=== PATIENT | male | born 1945 | race Caucasian/White ===

== ENCOUNTER 2018-06-20 09:26 | Day surgery (SDC) | payer MEDICARE ==
[2018-06-16 09:13] VITALS: BMI 38.7
[~2018-06-20 09:26] MED LIST: ALPRAZolam 0.25 MG TAB PO PRN; ALPRAZolam 0.5 MG TAB PO PRN; ASPIRIN 325 MG TAB PO STA; ATORVASTATIN 80 MG TAB PO STA; NITROGLYCERIN SL TABS 0.4 MG TAB SUBLINGUAL PRN; SODIUM CHLORIDE 0.9% 1,000 ML in EMPTY BAG 1 BAG IV ONE
[2018-06-20] MEDS ORDERED: ASPIRIN 81 MG ONE (09:46)
[2018-06-20] MEDS ORDERED: ASPIRIN 81 MG PO ONE (09:48)
[2018-06-20] MEDS ORDERED: HEPARIN SODIUM 1,000 UN/ML (10ML VL) ONE (10:29)
[2018-06-20] MEDS ORDERED: VERAPAMIL 2.5 MG/ML 2 ML AMP ONE (10:29)
[2018-06-20] MEDS: MIDAZOLAM 2 MG/2 ML VIAL IV ONE ×3 (10:50→11:55)
[2018-06-20] MEDS ORDERED: LIDOCAINE 2% (PF) 20 MG/ML 10 ML AMP SQ ONE (10:52)
[2018-06-20] MEDS: VERAPAMIL SYRINGE (5 MG/10 ML) INTRAARTER ONE ×2 (10:55→12:10)
[2018-06-20] MEDS ORDERED: BIVALIRUDIN BOLUS 250 MG/50 ML IV ONE (11:11)
[2018-06-20] MEDS ORDERED: BIVALIRUDIN 250 MG in SODIUM CHLORIDE 0.9% 50 ML IV ONE ×2 (11:12→11:42)
[2018-06-20] MEDS ORDERED: IOPAMIDOL-370 125ML BTL INJ ONE ×2 (11:22→12:10)
[2018-06-20] MEDS ORDERED: NITROGLYCERIN 1000MCG/10ML SYRINGE INTRACORON ONE (12:05)
[2018-06-20] MEDS ORDERED: TICAGRELOR 90 MG TAB ONE (12:09)
[2018-06-20] MEDS ORDERED: TICAGRELOR 90 MG TAB PO ONE (12:10)
[2018-06-20] MEDS ORDERED: MAG HYDROX/AL HYDROX/SIMETH 30 ML CUP PO PRN (12:21)
[2018-06-20] MEDS ORDERED: ATROPINE SULFATE 0.1 MG/ML 10ML SYRINGE IV PRN (12:21)
[2018-06-20] MEDS ORDERED: RX INFO: IV CONTRAST WAS GIVEN 1 EACH MISC MISCELLANE PRN (12:21)
[2018-06-20] MEDS ORDERED: NITROGLYCERIN SL TABS 0.4 MG TAB SUBLINGUAL PRN (12:21)
[2018-06-20] MEDS ORDERED: ZOLPIDEM 5 MG TAB PO PRN (12:21)
[2018-06-20 15:15] VITALS: RESP 18
[2018-06-20] MEDS: SODIUM CHLORIDE 0.9% 1,000 ML IV SCH (19:00)
[2018-06-20] MEDS ORDERED: ATORVASTATIN 80 MG TAB PO SCH (21:00)
--- NOTE | 2018-06-20 21:57 | CC ---
CARDIAC CATHETERIZATION REPORT DATE OF SERVICE: 06/20/2018. PROCEDURE: 1. Left heart catheterization and coronary angiography. 2. PTCA and stenting of proximal RCA which was a heavily calcified vessel. 3. PTCA of mid and distal RCA as well as the PDA branch of RCA. PERFORMED BY: Dr. Monico Figueroa. SEDATION: Moderate conscious sedation time was 82 minutes. Patient was administered Versed. His oxygen saturation, hemodynamics were monitored closely. CLINICAL INFORMATION: Mr. Bridger Carter is a 72-year-old gentleman with a known history of hypertension, hyperlipidemia, and a recent abnormal stress test with a fixed inferior wall defect and moderate area of partial reversibility. He was advised cardiac cath after due discussion regarding the risks, benefits, and options. PROCEDURE NOTE: Under local anesthesia and strict aseptic precautions, a 6-Chinese introducer was placed in the right radial artery. Using a JL3.5 and JR 4.0 catheters, I performed selective coronary angiography. I checked LV pressures but I did not perform an LV-gram. Following the coronary angiography, I went ahead and performed PCI of the RCA, which was a very technically difficult challenging with heavily calcified right coronary artery. CARDIAC CATHETERIZATION FINDINGS: The left ventricular end-diastolic pressure was about 12 mmHg without any gradient across aortic valve. CORONARY ANGIOGRAPHY FINDINGS: RIGHT CORONARY ARTERY is very dominant vessel which had a very heavily calcified long area of 80% in the proximal 1/3, another 60-70, another 70% in the distal RCA and then that there was total occlusion of the PDA. PLV had minor moderate noncritical disease. This was a very dominant RCA. LEFT MAIN CORONARY ARTERY: This vessel had a 20% distal lesion and bifurcated into LAD and circumflex. LEFT ANTERIOR DESCENDING CORONARY ARTERY: This is a good caliber vessel gives which gives off a good-sized diagonal branch. Mid LAD after the diagonal branch and the diagonal branch itself have a 40% lesion each and with minor irregularities in the distal aspect of both these vessels. No critical lesions were noted in the LAD. LEFT POSTERIOR CIRCUMFLEX CORONARY ARTERY: Nondominant vessel of fair caliber and distribution has minor irregularities. No significant disease noted. LV gram was not performed and there was no gradient across aortic valve. Left ventricle end-diastolic pressure was 12 mmHg. PCI PROCEDURE DETAILS: For the PCI procedure I initially tried a RT 3.5, but had difficulty cannulating. Switched over to ART 4.0 guide catheter. With this, I got decent seating. I used a run-through wire to cross the lesion. Wire was kept distally. I tried to advance a 2.5 caliber 12 mm balloon. With that, I was able to give a dilatation only in the proximal portion of the lesion. The mid lesion in the proximal 1/3 could not be reached because of extreme tortuosity. I addressed this with a 1.5 caliber 8 mm balloon when I had a decent expansion. I then went ahead with a 2.5 balloon and dilated the mid segment. I then deployed a 2.5 caliber 15 mm long Xience stent in the proximal half of the heavily calcified lesion in the proximal 1/3 of the dominant RCA. Excellent angiographic result was achieved. However, I could not advance another stent beyond this because of extreme tortuosity. I therefore decided to perform a balloon angioplasty and using a 2.5 balloon and vignesh wire which was a whisper wire, I dilated the entire RCA in the mid and distal segment. Using a 2.25 caliber, 12 mm long, NC Trek balloon, I also did open the totally occluded PDA branch using a run-through wire. The PLV did not have any significant lesion. PDA was dilated with a 2.25 caliber balloon and the rest of RCA was dilated with a 2.5 caliber NC Trek balloon of 20 mm length. Excellent angiographic result was achieved. The proximal RCA was stented and the rest of the lesions were dilated and PDA which was totally occluded was also dilated. Excellent angiographic result was achieved with remarkably good flow in the PDA branch as well. The patient tolerated procedure well without complication. The sheath was taken out and a TR band applied as per protocol with good saturation of the fingers of the right hand and he was sent to the room in a stable condition. He received Brilinta 180 mg orally. Results were then discussed with the patient and his family members and I expect he will be discharged tomorrow if he remains stable. MMODL / IJN: [id number] /
[2018-06-21] MEDS: SODIUM CHLORIDE 0.9% 1,000 ML IV SCH (00:37)
[2018-06-21 03:58] VITALS: BP 143/72; PULSE 65; TEMP 98
[2018-06-21 06:09] LABS: Basophils # (A) 0.1 k/uL (0-0.2); Basophils % (A) 2 %; Eosinophils # (A) 0.2 k/uL (0-0.7); Eosinophils % (A) 3 %; HCT 38.1 % (39.0-53.0); HGB 12.1 gm/dL (13.0-17.5); Lymphocytes # (A) 0.4 k/uL (1.0-4.8); Lymphocytes % (A) 7 %; MCH 27.6 pg (25.0-35.0); MCHC 31.8 g/dL (31.0-37.0); MCV 86.8 fL (80.0-100.0); Mean Platelet Volume 6.7; Monocytes # (A) 0.5 k/uL (0-1.0); Monocytes % (A) 8 %; Neutrophils # (A) 4.6 k/uL (1.3-7.7); Neutrophils % (A) 77 %; Platelet Count 167 k/uL (150-450); RBC 4.39 m/uL (4.30-5.90); RDW 13.9 % (11.5-15.5)
[2018-06-21 06:20] LABS: Calcium 9.5 mg/dL (8.4-10.2); Potassium 4.5 mmol/L (3.5-5.1)
[2018-06-21] MEDS ORDERED: ATENOLOL 25 MG TAB PO SCH (09:00)
[2018-06-21] MEDS ORDERED: LOSARTAN 50 MG TAB PO SCH (09:00)
[2018-06-21] MEDS ORDERED: PARoxetine 20 MG TAB PO SCH (09:00)
[2018-06-21] MEDS ORDERED: ASPIRIN 81 MG PO SCH ×2 (09:00)
[2018-06-21] MEDS ORDERED: CLOPIDOGREL 75 MG TAB PO SCH (12:00)
--- NOTE | 2018-06-21 20:22 | DS ---
DISCHARGE SUMMARY DATE OF ADMISSION: 06/20/2018 DATE OF DISCHARGE: 06/21/2018. DIAGNOSIS: Unstable angina. PROCEDURES PERFORMED: 1. Left heart catheterization, coronary angiography. 2. Percutaneous transluminal coronary angioplasty and stenting of proximal right coronary artery. 3. Percutaneous transluminal coronary angioplasty of mid and distal right coronary artery. Mr. Bridger Carter is a 72-year-old gentleman with history of hypertension, hyperlipidemia, patient of Dr. Cliff Madera, with abnormal stress test. He was brought in for the procedure electively. Cardiac cath was performed from the right radial approach. He has noncritical disease in the left system with a 20% distal left main lesion. His RCA was highly diseased in the proximal one third heavily calcified, tortuous. I stented this with a drug-eluting stent, but beyond that because of tortuosity the stent could not be advanced. I gave multiple inflations in the mid and distal RCA with a very good angiographic result. The patient tolerated the procedure uneventfully. This morning he is doing well. His right radial cath site is clean and dry with a good pulse. His labs and EKGs are unremarkable. The patient is ambulating without symptoms. Discharge instructions regarding activity, diet and medications were given. The patient will be discharged today and I will see him in the office on July 24 at 2:30 p.m. Risk factor modification issues were reinforced. Medications were reviewed. Activity instructions were given. A copy of this note will go to his primary care physician. Vital signs are stable. S1, S2 heard normally. Short systolic murmur noted. Lungs are clear. Abdomen and lower extremity exam unchanged. Right radial cath site is clean and dry. MMODL / IJN: [id number] /
== END 2018-06-21 10:21 | disposition home or self-care (01) ==
LOC: CATHCVL 09:26 → 3SCARD 13:41 → CATHCVL 06-21 10:21
PROVIDERS: ATTEND Internal Medicine Interventional Cardiology
DX: I25.110 Atherosclerotic heart disease of native coronary artery with unstable angina pectoris (principal); I25.82 Chronic total occlusion of coronary artery; I77.1 Stricture of artery; R94.39 Abnormal result of other cardiovascular function study; I10 Essential (primary) hypertension; E78.5 Hyperlipidemia, unspecified; E78.00 Pure hypercholesterolemia, unspecified; M54.40 Lumbago with sciatica, unspecified side; Z72.0 Tobacco use; Z82.49 Family history of ischemic heart disease and other diseases of the circulatory system; Z86.73 Personal history of transient ischemic attack (TIA), and cerebral infarction without residual deficits; Z79.899 Other long term (current) drug therapy
CPT/HCPCS: 93458; 80048; 85025; C9600; C1769 ×3; C1887 ×2; C1725 ×4; C1874 ×2; C1894; J2250; J2001; J0583; J1644; Q9967

== ENCOUNTER 2018-10-17 09:42 | Emergency (ER) | payer MEDICARE ==
--- NOTE | 2018-10-17 11:09 | ED ---
General Adult HPI - General Chief complaint: Chest Pain Stated complaint: Chest pain Time Seen by Provider: 10/17/18 09:59 Source: patient Mode of arrival: wheelchair Limitations: no limitations - History of Present Illness Initial comments: Dictation was produced using [employer] dictation software. please excuse any grammatical, word or spelling errors. Chief Complaint: 72-year-old male past medical history coronary artery disease, [place] presents with left shoulder pain. History of Present Illness:-year-old male. He has past medical history of cardiac disease. He states he woke this morning with pain to his left shoulder. He states the pain radiates to his left chest. Patient states he had similar symptoms his right shoulder last 2 days however when we spontaneously. Patient states his pain is worse with movement. Cells worse with deep inspiration. Denies any crushing substernal chest pain since pain is sharp. Denies any numbness and paresthesias to the extremities. Patient denies any shortness of breath. The ROS documented in this emergency department record has been reviewed and confirmed by me. Those systems with pertinent positive or negative responses have been documented in the HPI. All other systems are other negative and/or noncontributory. PHYSICAL EXAM: General Impression: Alert and oriented x3, not in acute distress HEENT: Normocephalic atraumatic, extra-ocular movements intact, pupils equal and reactive to light bilaterally, mucous membranes moist. Cardiovascular: Heart regular rate and rhythm, S1&S2 audible, no murmurs, rubs or gallops Chest: Lungs clear to auscultation bilaterally, no rhonchi, no wheeze, no rales, tenderness to palpation over the pectoralis muscle on the left Abdomen: Bowel sounds present, abdomen soft, non-tender, non-distended, no organomegaly Musculoskeletal: Pulses present and equal in all extremities, no peripheral edema Motor: no focal deficits noted Neurological: CN II-XII grossly intact, no focal motor or sensory deficits noted Skin: Intact with no visualized rashes Psych: Normal affect and mood ED course:72-year-old male presents with chief complaint of atypical chest pain. Signs upon arrival are within acceptable limits. EKG is benign.Laboratory evaluation obtained. CBC and metabolic panel is unremarkable. Chest x-ray is nonacute. Shoulder x-ray shows arthropathy of the left shoulder. Patient's clinical presentation is atypical for acute coronary syndrome. Shoulder exercises were taught to patient form regularly. Patient given IV ketorolac. Patient prescription pain medications. He is given referral to [facility]. Patient clear for discharge. Return parameters discussed. EKG interpretation: Ventricular rate 65, normal sinus rhythm,. Interval 150, care is 156, QTC 476. No CO prolongation, no QTC prolongation, no ST or T-wave changes noted. EKG compared to June 21 2018 showing no changes. Overall, this EKG is unremarkable - Related Data Home Medications Medication Instructions Recorded Confirmed Aspirin [Adult Low Dose Aspirin EC] 162 mg PO DAILY 06/16/18 10/17/18 Atenolol [Tenormin] 25 mg PO DAILY 06/16/18 10/17/18 PARoxetine [Paxil] 20 mg PO DAILY 06/16/18 10/17/18 Atorvastatin [Lipitor] 80 mg PO DAILY 10/17/18 10/17/18 Losartan Potassium 100 mg PO DAILY 10/17/18 10/17/18 Previous Rx's Medication Instructions Recorded Clopidogrel [Plavix] 75 mg PO DAILY #90 tab 06/20/18 Nitroglycerin Sl Tabs [Nitrostat] 0.4 mg SUBLINGUAL Q5M PRN #25 tab 06/20/18 HYDROcodone/APAP 5-325MG [Combs 1 tab PO Q6HR PRN 3 Days #12 tab 10/17/18 5-325] Allergies Allergy/AdvReac Type Severity Reaction Status Date / Time No Known Allergies Allergy Verified 10/17/18 10:05 Review of Systems ROS Statement: Those systems with pertinent positive or pertinent negative responses have been documented in the HPI. ROS Other: All systems not noted in ROS Statement are negative. Past Medical History Past Medical History: CVA/TIA, Hypertension, Myocardial Infarction ([place]), Osteoarthritis (OA) Additional Past Medical History / Comment(s): TIA - no residual effects, Last Myocardial Infarction Date:: unknown History of Any Multi-Drug Resistant Organisms: None Reported Past Surgical History: Heart Catheterization With Stent Additional Past Surgical History / Comment(s): spinal steroid injections, Past Anesthesia/Blood Transfusion Reactions: No Reported Reaction Past Psychological History: No Psychological Hx Reported Smoking Status: Former smoker Past Alcohol Use History: Daily Past Drug Use History: None Reported - Past Family History Sister(s) Family Medical History: Cancer General Exam Limitations: no limitations Course Vital Signs 10/17/18 09:50 Temperature 97.7 F Pulse Rate 63 Respiratory 18 Rate Blood Pressure 178/73 O2 Sat by Pulse 98 Oximetry Medical Decision Making - Lab Data Result diagrams: 10/17/18 10:25 10/17/18 10:25 Lab Results 10/17/18 10/17/18 Range/Units 10:25 10:25 WBC 5.1 (3.8-10.6) k/uL RBC 4.59 (4.30-5.90) m/uL Hgb 12.1 L (13.0-17.5) gm/dL Hct 38.8 L (39.0-53.0) % MCV 84.6 (80.0-100.0) fL MCH 26.3 (25.0-35.0) pg MCHC 31.1 (31.0-37.0) g/dL RDW 14.7 (11.5-15.5) % Plt Count 221 (150-450) k/uL Neutrophils % 71 % Lymphocytes % 12 % Monocytes % 8 % Eosinophils % 4 % Basophils % 1 % Neutrophils # 3.6 (1.3-7.7) k/uL Lymphocytes # 0.6 L (1.0-4.8) k/uL Monocytes # 0.4 (0-1.0) k/uL Eosinophils # 0.2 (0-0.7) k/uL Basophils # 0.1 (0-0.2) k/uL Hypochromasia Slight Sodium 140 (137-145) mmol/L Potassium 4.7 (3.5-5.1) mmol/L Chloride 107 (98-107) mmol/L Carbon Dioxide 23 (22-30) mmol/L Anion Gap 10 mmol/L BUN 23 H (9-20) mg/dL Creatinine 0.78 (0.66-1.25) mg/dL Est GFR (CKD-EPI)AfAm >90 (>60 ml/min/1.73 sqM) Est GFR (CKD-EPI)NonAf >90 (>60 ml/min/1.73 sqM) Glucose 129 H (74-99) mg/dL Calcium 9.2 (8.4-10.2) mg/dL Total Bilirubin 0.5 (0.2-1.3) mg/dL AST 29 (17-59) U/L ALT 32 (21-72) U/L Alkaline Phosphatase 86 (38-126) U/L Total Protein 7.0 (6.3-8.2) g/dL Albumin 4.1 (3.5-5.0) g/dL Disposition Clinical Impression: Strain of chest wall Disposition: HOME SELF-CARE Condition: Good Instructions (If sedation given, give patient instructions): Chest Pain (ED) Prescriptions: HYDROcodone/APAP 5-325MG [Combs 5-325] 1 tab PO Q6HR PRN 3 Days #12 tab PRN Reason: Severe Pain Is patient prescribed a controlled substance at d/c from ED?: Yes If prescribed controlled substance>3 days was MAPS reviewed?: Prescribed <3 Days Referrals: Tato Whipple MD [STAFF PHYSICIAN] - 1-2 days Time of Disposition: 12:02
--- NOTE | 2018-10-17 11:26 | XR ---
EXAMINATION TYPE: XR shoulder complete LT DATE OF EXAM: 10/17/2018 CLINICAL HISTORY: Left shoulder pain TECHNIQUE: Three views of the left shoulder are obtained. COMPARISON: None. FINDINGS: There is no acute fracture/dislocation evident in the left shoulder. The acromioclavicula r and glenohumeral joint spaces are narrowed with marginal osteophytes. The visualized ribs are inta ct and unremarkable. IMPRESSION: There is no acute fracture or dislocation in the left shoulder. 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
--- NOTE | 2018-10-17 11:27 | XR ---
EXAMINATION TYPE: XR chest 2V DATE OF EXAM: 10/17/2018 COMPARISON: NONE HISTORY: Chest pain TECHNIQUE: Frontal and lateral views of the chest are obtained. FINDINGS: There is no focal air space opacity, pleural effusion, or pneumothorax seen. Hilar granulo mas are present. The cardiac silhouette size is upper limits of normal. Moderate multilevel degenera tive changes of the thoracic spine are seen. The osseous structures are intact. IMPRESSION: No acute cardiopulmonary process.
[2018-10-17 11:31] LABS: Basophils # (A) 0.1 k/uL (0-0.2); Basophils % (A) 1 %; Eosinophils # (A) 0.2 k/uL (0-0.7); Eosinophils % (A) 4 %; HCT 38.8 % (39.0-53.0); HGB 12.1 gm/dL (13.0-17.5); Hypochromasia Slight; Lymphocytes # (A) 0.6 k/uL (1.0-4.8); Lymphocytes % (A) 12 %; MCH 26.3 pg (25.0-35.0); MCHC 31.1 g/dL (31.0-37.0); MCV 84.6 fL (80.0-100.0); Mean Platelet Volume 7.5; Monocytes # (A) 0.4 k/uL (0-1.0); Monocytes % (A) 8 %; Neutrophils # (A) 3.6 k/uL (1.3-7.7); Neutrophils % (A) 71 %; Platelet Count 221 k/uL (150-450); RBC 4.59 m/uL (4.30-5.90); RDW 14.7 % (11.5-15.5); WBC 5.1 k/uL (3.8-10.6)
[2018-10-17 11:43] LABS: ALT 32 U/L (21-72); AST 29 U/L (17-59); Albumin 4.1 g/dL (3.5-5.0); Alkaline Phosphatase 86 U/L (38-126); Anion Gap 10 mmol/L; Blood Urea Nitrogen 23 mg/dL (9-20); Calcium 9.2 mg/dL (8.4-10.2); Carbon Dioxide 23 mmol/L (22-30); Chloride 107 mmol/L (98-107); Glucose 129 mg/dL (74-99); Potassium 4.7 mmol/L (3.5-5.1); Sodium 140 mmol/L (137-145); Total Bilirubin 0.5 mg/dL (0.2-1.3)
[2018-10-17] MEDS ORDERED: KETOROLAC 30 MG/ML 1 ML VIAL IVP STA (11:57)
[2018-10-17 13:00] VITALS: BP 149/84; PULSE 65; RESP 18; TEMP 98.2
== END 2018-10-17 12:57 | disposition home or self-care (01) ==
LOC: EC 09:42
DX: S29.011A Strain of muscle and tendon of front wall of thorax, initial encounter (principal); I10 Essential (primary) hypertension; I25.2 Old myocardial infarction; Z86.73 Personal history of transient ischemic attack (TIA), and cerebral infarction without residual deficits; Z87.891 Personal history of nicotine dependence; Z79.82 Long term (current) use of aspirin; Z79.899 Other long term (current) drug therapy; Z95.5 Presence of coronary angioplasty implant and graft
CPT/HCPCS: 36415; 93005; 80053; 85025; 73030; 71046; 99285; 96374; J1885

== ENCOUNTER 2021-11-18 11:14 | Inpatient (IN) | payer MEDICARE ==
--- NOTE | 2021-11-18 11:27 | ED ---
SOB HPI - General Chief Complaint: Shortness of Breath Stated Complaint: MONET Time Seen by Provider: 11/18/21 11:14 Source: patient, EMS, RN notes reviewed Mode of arrival: EMS Limitations: no limitations - History of Present Illness Initial Comments: 75-year-old male with a history of COPD who states he had the onset last evening of shortness of breath exertional dyspnea he was found this morning at elevated temperature approximately 103 per paramedics. He was wheezing. He was given a DuoNeb treatment as well as IV steroids with some improvement. He denies any chest pain or palpitations. He has a nonproductive cough he feels chilled upon arrival. No other complaints or modifying factors he denies any exposure to covid . He has had all of his shots except for the latest booster no exposure to influenza MD Complaint: shortness of breath - Related Data Home Medications Medication Instructions Recorded Confirmed Aspirin [Adult Low Dose Aspirin EC] 81 mg PO DAILY 06/16/18 11/18/21 PARoxetine [Paxil] 20 mg PO DAILY 06/16/18 11/18/21 Furosemide [Lasix] 40 mg PO DAILY 11/18/21 11/18/21 Losartan Potassium 100 mg PO DAILY 11/18/21 11/18/21 Rosuvastatin [Crestor] 20 mg PO DAILY 11/18/21 11/18/21 atenoloL [Tenormin] 50 mg PO BID 11/18/21 11/18/21 hydroCHLOROthiazide [Hydrodiuril] 25 mg PO DAILY 11/18/21 11/18/21 Previous Rx's Medication Instructions Recorded Clopidogrel [Plavix] 75 mg PO DAILY #90 tab 06/20/18 Nitroglycerin Sl Tabs [Nitrostat] 0.4 mg SUBLINGUAL Q5M PRN #25 tab 06/20/18 Allergies Allergy/AdvReac Type Severity Reaction Status Date / Time No Known Allergies Allergy Verified 11/18/21 13:29 Review of Systems ROS Statement: Those systems with pertinent positive or pertinent negative responses have been documented in the HPI. ROS Other: All systems not noted in ROS Statement are negative. Past Medical History Past Medical History: CVA/TIA, Hypertension, Myocardial Infarction ([place]), Osteoarthritis (OA) Additional Past Medical History / Comment(s): TIA - no residual effects, Last Myocardial Infarction Date:: unknown History of Any Multi-Drug Resistant Organisms: None Reported Past Surgical History: Heart Catheterization With Stent Additional Past Surgical History / Comment(s): spinal steroid injections, Past Anesthesia/Blood Transfusion Reactions: No Reported Reaction Past Psychological History: No Psychological Hx Reported Smoking Status: Former smoker Past Alcohol Use History: Daily Past Drug Use History: None Reported - Past Family History Sister(s) Family Medical History: Cancer General Exam - General Exam Comments Initial Comments: Is a well-developed well-nourished awake alert oriented 4 male Limitations: no limitations General appearance: alert, anxious, in distress Head exam: Present: atraumatic, normocephalic, normal inspection Eye exam: Present: normal appearance, PERRL, EOMI. Absent: scleral icterus, conjunctival injection, periorbital swelling ENT exam: Present: normal exam, mucous membranes moist Neck exam: Present: normal inspection, full ROM, other. Absent: tenderness, meningismus, lymphadenopathy Respiratory exam: Present: wheezes (Occasional wheezing heard), decreased breath sounds (No stridor JVD or bruits). Absent: respiratory distress, rales, rhonchi, stridor Cardiovascular Exam: Present: normal rhythm, tachycardia, normal heart sounds. Absent: systolic murmur, diastolic murmur, rubs, gallop, clicks GI/Abdominal exam: Present: soft, normal bowel sounds. Absent: distended, tenderness, guarding, rebound, rigid Extremities exam: Present: full ROM, normal capillary refill, pedal edema. Absent: tenderness, joint swelling, calf tenderness Back exam: Present: normal inspection Neurological exam: Present: alert, oriented X3, CN II-XII intact Psychiatric exam: Present: normal affect, normal mood Skin exam: Present: warm, dry, intact, normal color. Absent: rash Course Vital Signs 11/18/21 11/18/21 11:17 13:36 Temperature 99.6 F Pulse Rate 108 H 97 Respiratory 20 Rate Blood Pressure 129/49 121/60 O2 Sat by Pulse 96 96 Oximetry - Reevaluation(s) Reevaluation #1: 11/18/21 14:12 Elevated lactic acid level is likely due to intravascular viral depletion Medical Decision Making - Medical Decision Making I did reevaluate patient on multiple occasions he is feeling better with respect to breathing he denies any chest pain. We did discuss the findings including elevated troponin level. He's had no symptoms with respect to urination however he does demonstrate evidence of a UTI he will be admitted the case was discu ssed with Dr. Beckman also with Vicky from Dr. Yang's group. - Lab Data Result diagrams: 11/18/21 11:28 11/18/21 11:28 Lab Results 11/18/21 11/18/21 11/18/21 Range/Units 11:28 11:28 11:28 WBC 7.5 (3.8-10.6) k/uL RBC 3.87 L (4.30-5.90) m/uL Hgb 10.9 L (13.0-17.5) gm/dL Hct 34.1 L (39.0-53.0) % MCV 88.1 (80.0-100.0) fL MCH 28.2 (25.0-35.0) pg MCHC 32.0 (31.0-37.0) g/dL RDW 14.5 (11.5-15.5) % Plt Count 194 (150-450) k/uL MPV 7.3 Neutrophils % 95 % Lymphocytes % 1 % Monocytes % 2 % Eosinophils % 1 % Basophils % 1 % Neutrophils # 7.2 (1.3-7.7) k/uL Lymphocytes # 0.1 L (1.0-4.8) k/uL Monocytes # 0.1 (0-1.0) k/uL Eosinophils # 0.1 (0-0.7) k/uL Basophils # 0.1 (0-0.2) k/uL Manual Slide Review Performed RBC Morphology Normal PT 10.6 (9.0-12.0) sec INR 1.0 (<1.2) APTT 21.8 L (22.0-30.0) sec Sodium (137-145) mmol/L Potassium (3.5-5.1) mmol/L Chloride (98-107) mmol/L Carbon Dioxide (22-30) mmol/L Anion Gap mmol/L BUN (9-20) mg/dL Creatinine (0.66-1.25) mg/dL Est GFR (CKD-EPI)AfAm (>60 ml/min/1.73 sqM) Est GFR (CKD-EPI)NonAf (>60 ml/min/1.73 sqM) Glucose (74-99) mg/dL Plasma Lactic Acid Casa (0.7-2.0) mmol/L Calcium (8.4-10.2) mg/dL Magnesium (1.6-2.3) mg/dL Total Bilirubin (0.2-1.3) mg/dL AST (17-59) U/L ALT (4-49) U/L Alkaline Phosphatase (38-126) U/L Troponin I (0.000-0.034) ng/mL NT-Pro-B Natriuret Pep pg/mL Total Protein (6.3-8.2) g/dL Albumin (3.5-5.0) g/dL Urine Color Yellow Urine Appearance Turbid (Clear) Urine pH 6.0 (5.0-8.0) Ur Specific [place] 1.016 (1.001-1.035) Urine Protein Trace H (Negative) Urine Glucose (UA) Negative (Negative) Urine Ketones Negative (Negative) Urine Blood Moderate H (Negative) Urine Nitrite Positive (Negative) Urine Bilirubin Negative (Negative) Urine Urobilinogen <2.0 (<2.0) mg/dL Ur Leukocyte Esterase Large H (Negative) Urine RBC 24 H (0-5) /hpf Urine WBC >182 H (0-5) /hpf Urine WBC Clumps Many H (None) /hpf Urine Bacteria Many H (None) /hpf Urine Mucus Occasional H (None) /hpf Coronavirus (PCR) (Not Detectd) Influenza Type A RNA (Not Detectd) Influenza Type B (PCR) (Not Detectd) 11/18/21 11/18/21 11/18/21 Range/Units 11:28 11:28 11:28 WBC (3.8-10.6) k/uL RBC (4.30-5.90) m/uL Hgb (13.0-17.5) gm/dL Hct (39.0-53.0) % MCV (80.0-100.0) fL MCH (25.0-35.0) pg MCHC (31.0-37.0) g/dL RDW (11.5-15.5) % Plt Count (150-450) k/uL MPV Neutrophils % % Lymphocytes % % Monocytes % % Eosinophils % % Basophils % % Neutrophils # (1.3-7.7) k/uL Lymphocytes # (1.0-4.8) k/uL Monocytes # (0-1.0) k/uL Eosinophils # (0-0.7) k/uL Basophils # (0-0.2) k/uL Manual Slide Review RBC Morphology PT (9.0-12.0) sec INR (<1.2) APTT (22.0-30.0) sec Sodium 138 (137-145) mmol/L Potassium 4.0 (3.5-5.1) mmol/L Chloride 104 (98-107) mmol/L Carbon Dioxide 24 (22-30) mmol/L Anion Gap 10 mmol/L BUN 25 H (9-20) mg/dL Creatinine 1.04 (0.66-1.25) mg/dL Est GFR (CKD-EPI)AfAm 81 (>60 ml/min/1.73 sqM) Est GFR (CKD-EPI)NonAf 70 (>60 ml/min/1.73 sqM) Glucose 115 H (74-99) mg/dL Plasma Lactic Acid [place] 2.7 H* (0.7-2.0) mmol/L Calcium 8.5 (8.4-10.2) mg/dL Magnesium 1.8 (1.6-2.3) mg/dL Total Bilirubin 0.6 (0.2-1.3) mg/dL AST 31 (17-59) U/L ALT 23 (4-49) U/L Alkaline Phosphatase 69 (38-126) U/L Troponin I 1.680 H* (0.000-0.034) ng/mL NT-Pro-B Natriuret Pep pg/mL Total Protein 6.8 (6.3-8.2) g/dL Albumin 3.9 (3.5-5.0) g/dL Urine Color Urine Appearance (Clear) Urine pH (5.0-8.0) Ur Specific [place] (1.001-1.035) Urine Protein (Negative) Urine Glucose (UA) (Negative) Urine Ketones (Negative) Urine Blood (Negative) Urine Nitrite (Negative) Urine Bilirubin (Negative) Urine Urobilinogen (<2.0) mg/dL Ur Leukocyte Esterase (Negative) Urine RBC (0-5) /hpf Urine WBC (0-5) /hpf Urine WBC Clumps (None) /hpf Urine Bacteria (None) /hpf Urine Mucus (None) /hpf Coronavirus (PCR) (Not Detectd) Influenza Type A RNA (Not Detectd) Influenza Type B (PCR) (Not Detectd) 11/18/21 11/18/21 11/18/21 Range/Units 11:28 11:28 11:28 WBC (3.8-10.6) k/uL RBC (4.30-5.90) m/uL Hgb (13.0-17.5) gm/dL Hct (39.0-53.0) % MCV (80.0-100.0) fL MCH (25.0-35.0) pg MCHC (31.0-37.0) g/dL RDW (11.5-15.5) % Plt Count (150-450) k/uL MPV Neutrophils % % Lymphocytes % % Monocytes % % Eosinophils % % Basophils % % Neutrophils # (1.3-7.7) k/uL Lymphocytes # (1.0-4.8) k/uL Monocytes # (0-1.0) k/uL Eosinophils # (0-0.7) k/uL Basophils # (0-0.2) k/uL Manual Slide Review RBC Morphology PT (9.0-12.0) sec INR (<1.2) APTT (22.0-30.0) sec Sodium (137-145) mmol/L Potassium (3.5-5.1) mmol/L Chloride (98-107) mmol/L Carbon Dioxide (22-30) mmol/L Anion Gap mmol/L BUN (9-20) mg/dL Creatinine (0.66-1.25) mg/dL Est GFR (CKD-EPI)AfAm (>60 ml/min/1.73 sqM) Est GFR (CKD-EPI)NonAf (>60 ml/min/1.73 sqM) Glucose (74-99) mg/dL Plasma Lactic Acid Casa (0.7-2.0) mmol/L Calcium (8.4-10.2) mg/dL Magnesium (1.6-2.3) mg/dL Total Bilirubin (0.2-1.3) mg/dL AST (17-59) U/L ALT (4-49) U/L Alkaline Phosphatase (38-126) U/L Troponin I (0.000-0.034) ng/mL NT-Pro-B Natriuret Pep 1660 pg/mL Total Protein (6.3-8.2) g/dL Albumin (3.5-5.0) g/dL Urine Color Urine Appearance (Clear) Urine pH (5.0-8.0) Ur Specific [place] (1.001-1.035) Urine Protein (Negative) Urine Glucose (UA) (Negative) Urine Ketones (Negative) Urine Blood (Negative) Urine Nitrite (Negative) Urine Bilirubin (Negative) Urine Urobilinogen (<2.0) mg/dL Ur Leukocyte Esterase (Negative) Urine RBC (0-5) /hpf Urine WBC (0-5) /hpf Urine WBC Clumps (None) /hpf Urine Bacteria (None) /hpf Urine Mucus (None) /hpf Coronavirus (PCR) Not Detected (Not Detectd) Influenza Type A RNA Not Detected (Not Detectd) Influenza Type B (PCR) Not Detected (Not Detectd) - EKG Data -: EKG Interpreted by Oh EKG shows normal: sinus rhythm EKG Comments: EKG shows sinus tachycardia occasional PVCs ventricular rate 103. Interval 163 QRS 166 QT/QTC 365/425 borderline left exodeviation right bundle-branch block pattern seen with compared with an EKG dated 10/17/18 showing very similar configuration. - Radiology Data Radiology results: report reviewed (Imaging reviewed no definitive abnormalities and lateral view does appear to show increased markings), image reviewed Critical Care Time Critical Care Time: Yes Total Critical Care Time: 31 Critical Care Time: Critical care time includes initial presentation with history physical labs x- rays discussed with paramedics upon arrival mobile reevaluation the patient response to therapy discuss with the admitting physician and consult. Discussed with family members review of old charting was available admission orders and documentation of the above Disposition Clinical Impression: Non-ST elevation myocardial infarction (NSTEMI), COPD with exacerbation, Urinary tract infection, Febrile illness, acute, Elevated brain natriuretic peptide (BNP) level, Elevated lactic acid level Disposition: ADMITTED IP TO THIS HOSP Condition: Fair Referrals: Bora Madera MD [Primary Care Provider] - 1-2 days Decision Date: 11/18/21 Decision Time: 14:00
[2021-11-18 12:17] LABS: Albumin 3.9 g/dL (3.5-5.0); Calcium 8.5 mg/dL (8.4-10.2); Magnesium 1.8 mg/dL (1.6-2.3); Total Bilirubin 0.6 mg/dL (0.2-1.3); Total Protein 6.8 g/dL (6.3-8.2)
[2021-11-18 12:24] LABS: Basophils # (A) 0.1 k/uL (0-0.2); Basophils % (A) 1 %; Eosinophils # (A) 0.1 k/uL (0-0.7); Eosinophils % (A) 1 %; HCT 34.1 % (39.0-53.0); HGB 10.9 gm/dL (13.0-17.5); Lymphocytes # (A) 0.1 k/uL (1.0-4.8); Lymphocytes % (A) 1 %; MCH 28.2 pg (25.0-35.0); MCV 88.1 fL (80.0-100.0); Mean Platelet Volume 7.3; Monocytes # (A) 0.1 k/uL (0-1.0); Monocytes % (A) 2 %; Neutrophils # (A) 7.2 k/uL (1.3-7.7); Neutrophils % (A) 95 %; Platelet Count 194 k/uL (150-450); RBC 3.87 m/uL (4.30-5.90); RDW 14.5 % (11.5-15.5); WBC 7.5 k/uL (3.8-10.6)
[2021-11-18 12:25] LABS: Prothrombin Time 10.6 sec (9.0-12.0)
--- NOTE | 2021-11-18 12:36 | XR ---
EXAMINATION TYPE: XR chest 2V DATE OF EXAM: 11/18/2021 COMPARISON: 10/17/2018 INDICATION: Difficulty breathing TECHNIQUE: Frontal and lateral views of the chest are obtained. Lateral view is limited due to motio n artifact. FINDINGS: The heart size is normal. The pulmonary vasculature is normal. The lungs are clear. IMPRESSION: 1. No acute pulmonary process.
[2021-11-18 12:49] LABS: Partial Thromboplastin Time 21.8 sec (22.0-30.0)
[2021-11-18 13:21] LABS: Appearance,Urine Turbid (Clear); Bacteria,Urine Many /hpf; Bilirubin,Urine Negative (Negative); Blood,Urine Moderate (Negative); Color,Urine Yellow; Glucose,Urine (UA) Negative (Negative); Ketones,Urine Negative (Negative); Leukocyte Esterase,Urine Large (Negative); Mucus,Urine Occasional /hpf; Nitrite,Urine Positive (Negative); Protein,Urine Trace (Negative); RBC,Urine 24 /hpf (0-5); Specific Gravity,Urine 1.016 (1.001-1.035); Urobilinogen,Urine <2.0 mg/dL (<2.0); WBC,Urine >182 /hpf (0-5)
[2021-11-18] MEDS ORDERED: HEPARIN SODIUM 1,000 UN/ML (10ML VL) IV ONE (13:34)
[2021-11-18] MEDS ORDERED: HEPARIN SODIUM 1,000 UN/ML (10ML VL) IV PRN (13:34)
[2021-11-18 13:52] LABS: RBC Morphology Normal
[2021-11-18] MEDS ORDERED: NITROGLYCERIN SL TABS 0.4 MG TAB SUBLINGUAL PRN ×2 (14:13→22:25)
[2021-11-18] MEDS: HEPARIN SOD,PORK IN 0.45% NACL 25,000 UNIT in 0.45% NACL 1 250ML.BAG IV SCH (14:23)
--- NOTE | 2021-11-18 14:28 | P.CRDCN ---
History of Present Illness History of present illness: HISTORY OF PRESENTING ILLNESS This is a pleasant 75-year-old male past medical history significant for coronary artery disease status post PCI of the RCA in 2019, hypertension, dyslipidemia, former smoker, TIA, alcohol abuse. He follows in the office with Dr. Figueroa. We have been asked to see in consultation for elevated troponin. Patient presents to the ER with complaints of shortness of breath, exertional dyspnea, fever of 103, some wheezing. Patient states a month ago he had symptoms of chills, fever and shortness of breath, it resolved. Over the past 2 days he has noticed increased fatigue, shortness of breath, worsening exertional dyspnea. He also has been having symptoms of chills and a fever. He denies any chest pain, lightheadedness, dizziness, syncope or near-syncope. He denies any symptoms of orthopnea or PND. He states he quit smoking 30 years ago. States he stopped drinking alcohol 1 month ago. DIAGNOSTICS * EKG reveals sinus tachycardia HR 103, right bundle branch block, left axis deviation, no acute ischemia noted. Prior EKG in 2019 with similar right bundle branch block. * Chest xray no acute cardiopulmonary process. * Laboratory reviewed, troponin 1.6, pro BNP 1660 sodium 138, potassium 4.0, BUN 25, serum creatinine 1.04, lactate 2.7, magnesium 1.8, UA positive for UTI, hgb 10.9, influenza, and covid negative * Current home cardiac medications include hydrochlorothiazide 25 mg daily, atenolol 50 mg twice a day, rosuvastatin 20 mg daily, losartan 100 mg daily, Lasix 40 mg daily, Plavix 75 mg daily, aspirin 81 mg daily * Most recent echocardiogram the office 08/2021 revealed EF of 5055%, small area of inferior wall base similar to previous echo, moderate tricuspid regurgitation * Cardiac catheterization in 2019 revealed heavily calcified RCA with mulitple critical lesion and total occlusion of PLV branch, 15-20% stenosis in left main, 40% stenosis mid LAD lesion, circumflex with no significant disease. Patient underwent PCI to proximal RCA and mid and distal RCA, PDA branch of the RCA as well. REVIEW OF SYSTEMS At the time of my exam: CONSTITUTIONAL: +fever +chills. CARDIOVASCULAR: Denies chest pain, +shortness of breath, Denies orthopnea, PND or palpitations. RESPIRATORY: Denies cough. GASTROINTESTINAL: Denies abdominal pain, diarrhea, constipation, nausea or vomiting. MUSCULOSKELETAL: Denies myalgias. NEUROLOGIC: Denies numbness, tingling, headacbe or weakness. ENDOCRINE: Denies fatigue, weight change, polydipsia or polyurina. GENITOURINARY: Denies burning, hematuria or urgency with micturation. HEMATOLOGIC: + history of anemia Denies bleeding. PHYSICAL EXAMINATION Blood pressure 121/60 HR 97, temp 99.6, 96% on room air CONSTITUTIONAL: No apparent distress. HEENT: Head is normocephalic. Pupils are equal, round. Sclerae anicteric. Mucous membranes of the mouth are moist. No JVD. No carotid bruit. CHEST EXAMINATION: Lungs are clear to auscultation, mild left lower lobe wheezing noted. No chest wall tenderness is noted on palpation or with deep breathing. HEART EXAMINATION: Regular rate and rhythm. S1, S2 heard. Systolic murmur noted, no gallops or rub. ABDOMEN: Soft, nontender. Positive bowel sounds. EXTREMITIES: 2+ peripheral pulses, trace bilateral lower extremity edema and no calf tenderness. Redness/discoloration noted. NEUROLOGIC EXAMINATION: Patient is awake, alert and oriented x3. ASSESSMENT Elevated troponin Shortness of breath Fever, Chills Urinary tract infection Coronary artery disease status post PCI of the RCA in 2019 Hypertension Dyslipidemia Former smoker Former alcohol abuse, states he quit 1 month ago History of TIA Obesity PLAN Trend troponin Repeat EKG Ok to continue IV heparin for now pending workup Restart home cardiac medications Obtain 2D echocardiogram and doppler study to assess cardiac structure and function Infectious workup per primary Further recommendations based on clinical course Nurse practitioner note has been reviewed by physician. Signing provider agrees with the documented findings, assessment, and plan of care. Past Medical History Past Medical History: CVA/TIA, Hypertension, Myocardial Infarction ([place]), Osteoarthritis ([place]) Additional Past Medical History / Comment(s): TIA - no residual effects, Last Myocardial Infarction Date:: unknown History of Any Multi-Drug Resistant Organisms: None Reported Past Surgical History: Heart Catheterization With Stent Additional Past Surgical History / Comment(s): spinal steroid injections, Past Anesthesia/Blood Transfusion Reactions: No Reported Reaction Past Psychological History: No Psychological Hx Reported Smoking Status: Former smoker Past Alcohol Use History: Daily Past Drug Use History: None Reported - Past Family History Sister(s) Family Medical History: Cancer Medications and Allergies Home Medications Medication Instructions Recorded Confirmed Type Aspirin [Adult Low Dose Aspirin EC] 81 mg PO DAILY 06/16/18 11/18/21 History PARoxetine [Paxil] 20 mg PO DAILY 06/16/18 11/18/21 History Clopidogrel [Plavix] 75 mg PO DAILY #90 tab 06/20/18 11/18/21 Rx Nitroglycerin Sl Tabs [Nitrostat] 0.4 mg SUBLINGUAL Q5M PRN #25 tab 06/20/18 11/18/21 Rx Furosemide [Lasix] 40 mg PO DAILY 11/18/21 11/18/21 History Losartan Potassium 100 mg PO DAILY 11/18/21 11/18/21 History Rosuvastatin [Crestor] 20 mg PO DAILY 11/18/21 11/18/21 History atenoloL [Tenormin] 50 mg PO BID 11/18/21 11/18/21 History hydroCHLOROthiazide [Hydrodiuril] 25 mg PO DAILY 11/18/21 11/18/21 History Allergies Allergy/AdvReac Type Severity Reaction Status Date / Time No Known Allergies Allergy Verified 11/18/21 13:29 Physical Exam Vitals: Vital Signs Temp Pulse Resp BP Pulse Ox 11/18/21 13:36 97 20 121/60 96 11/18/21 11:17 99.6 F 108 H 129/49 96 Intake and Output 11/17/21 11/18/21 11/18/21 22:59 06:59 14:59 Other: Weight 127.006 kg Results 11/18/21 11:28 11/18/21 11:28 Cardiac Enzymes 11/18/21 11/18/21 Range/Units 11:28 11:28 AST 31 (17-59) U/L Troponin I 1.680 H* (0.000-0.034) ng/mL Coagulation 11/18/21 Range/Units 11:28 PT 10.6 (9.0-12.0) sec APTT 21.8 L (22.0-30.0) sec CBC 11/18/21 Range/Units 11:28 WBC 7.5 (3.8-10.6) k/uL RBC 3.87 L (4.30-5.90) m/uL Hgb 10.9 L (13.0-17.5) gm/dL Hct 34.1 L (39.0-53.0) % Plt Count 194 (150-450) k/uL Comprehensive Metabolic Panel 11/18/21 Range/Units 11:28 Sodium 138 (137-145) mmol/L Potassium 4.0 (3.5-5.1) mmol/L Chloride 104 (98-107) mmol/L Carbon Dioxide 24 (22-30) mmol/L BUN 25 H (9-20) mg/dL Creatinine 1.04 (0.66-1.25) mg/dL Glucose 115 H (74-99) mg/dL Calcium 8.5 (8.4-10.2) mg/dL AST 31 (17-59) U/L ALT 23 (4-49) U/L Alkaline Phosphatase 69 (38-126) U/L Total Protein 6.8 (6.3-8.2) g/dL Albumin 3.9 (3.5-5.0) g/dL Current Medications Generic Name Dose Route Start Last Admin Trade Name Freq PRN Reason Stop Dose Admin Heparin Sodium (Porcine) 0 unit 11/18/21 13:34 Heparin Sodium 1,000 Un/Ml (10ml Vl) IV PER PROTOCOL PRN Low PTT Protocol Heparin Sodium/Sodium Chloride 250 mls @ 10 mls/hr 11/18/21 13:45 25,000 unit/ Sodium Chloride IV .Q24H BRIGITTE Protocol 7.874 UNITS/KG/HR Intake and Output 11/17/21 11/18/21 11/18/21 22:59 06:59 14:59 Other: Weight 127.006 kg Patient Weight 11/19/21 06:59 Weight 127.006 kg 11/18/21 11:28 11/18/21 11:28
[2021-11-18] MEDS: SODIUM CHLORIDE 0.9% 1,000 ML IV SCH (15:25)
--- NOTE | 2021-11-18 17:03 | CA ---
Transthoracic Echo Report Name: Bridger Carter Age: 75 Gender: M : 1945 Exam Date: 11/18/2021 14:34 Exam Location: [facility] Ht (in): Wt (lb): Ordering Physician: Willard Alvarez MD Attending/Referring Phys: Communications Supervisor Celia Skinner RDCS Procedure CPT: Indications: nstemi Cardiac Hx: Morbid Obesity Technical Quality: Technically difficult study Contrast 1: Total Dose (mL): Contrast 2: Lumason Total Dose (mL): 3 MEASUREMENTS (Male / Female) Normal Values 2D ECHO LV Diastolic Diameter PLAX 4.9 cm 4.2 - 5.9 / 3.9 - 5.3 cm LV Systolic Diameter PLAX 3.8 cm IVS Diastolic Thickness 1.3 cm 0.6 - 1.0 / 0.6 - 0.9 cm LVPW Diastolic Thickness 1.5 cm 0.6 - 1.0 / 0.6 - 0.9 cm LV Relative Wall Thickness 0.6 RV Internal Dim ED PLAX 3.4 cm M-MODE Aortic Root Diameter MM 3.8 cm LA Systolic Diameter MM 4.4 cm LA Ao Ratio MM 1.1 MV E Point Septal Separation 0.4 cm AV Cusp Separation MM 1.9 cm DOPPLER AV Peak Velocity 179.9 cm/s AV Peak Gradient 12.9 mmHg AV Mean Velocity 124.1 cm/s AV Mean Gradient 6.9 mmHg AV Velocity Time Integral 28.6 cm LVOT Peak Velocity 106.0 cm/s LVOT Peak Gradient 4.5 mmHg FINDINGS Left Ventricle Left ventricular ejection fraction is estimated at 30-35% Moderately increased left ventricular wall thickness. Right Ventricle Normal right ventricular size and function. Right Atrium Normal right atrial size. Left Atrium Normal left atrial size. Mitral Valve Structurally normal mitral valve. Aortic Valve Aortic valve not well visualized. Mild aortic stenosis with a peak gradient of 13 mmHg and a mean gradient of 7 mmHg. Tricuspid Valve Structurally normal tricuspid valve. Pulmonic Valve Pulmonic valve not well visualized. Pericardium Normal pericardium. Aorta Normal size aortic root and proximal ascending aorta. CONCLUSIONS Moderate to severe LV systolic dysfunction Technically suboptimal study Previewed by: Dr. Naif Macias MD (Electronically Signed) Final Date: 18 November 2021 17:02
[2021-11-18] MEDS: methylPREDNISolone SOD SUCCI 125 MG/2 ML VIAL IV SCH (18:08)
[2021-11-18] MEDS: IPRATROPIUM-ALBUTEROL 3 ML NEB INHALATION SCH (19:38)
[2021-11-18] MEDS: atenoloL 50 MG TAB PO SCH (22:30)
--- NOTE | 2021-11-18 22:40 | P.HPIM ---
History of Present Illness H&P Date: 11/18/21 HISTORY OF PRESENT ILLNESS 75-year-old morbidly obese male one of Dr. Bora Madera's patient with past medical history of CAD post PCI and stent placement of the RCA back in 2019 was on to have history of mild COPD, hypertension, hyperlipidemia and previous history of TIA was seen Dr. Figueroa cardiology regular basis has no record been in the hospital any time except 2019 for angioplasty and stent placement of the RCA which patient apparently has been doing well since. Patient had difficulty last night with significant dyspnea and shortness of breath with mild fever and chills with drenching sweats at the time become generalized fatigue tiredness workup in the morning with much worsening symptoms ended up asking his family to bring him to [facility] department where was seen and evaluated, patient was in quite but dyspnea at the time despite his presentation for fever or chills and possible infection surprisingly his EKG didn't show any major abnormality with CK with troponin was positive, UA shows significant urinary tract infection, patient chest x-ray revealed COPD with no major finding of infiltrate or pneumonia. Patient was diagnosed at this point with non-ST NH causing significant dyspnea and shortness of breath with mild pulmonary edema along with mild COPD excessive patient required treatment with severe bronchitis and prostatitis presented as a urinary tract infection. Patient will be on IV antibiotic will be seen cardiology consultation CK with troponin 2 be done echocardiogram will be order and patient might require an intervention with heart catheter when he is more stable on his the hospital this time. REVIEW OF SYSTEMS Constitutional: No fever, no chills, no night sweats. No weight change. positive generalized weakness fatigue and lethargy. EENT: No headache. No blurred vision or double vision, no loss of vision. No loss of Hearing, no ringing in the ears, no dizziness. No nasal drainage or con gestion. No epistaxis. No sore throat. Lungs: positive shortness of breath, mild cough, no sputum production, positive mild wheezes and tightness. Cardiovascular: positive tightness and discomfort with no typical angina, positive lower extremity edema, positive palpitations, positive PND and ortho pnea with lightheadedness without syncope. Abdominal: No abdominal pain. No nausea, vomiting. No diarrhea. No constipation. No bloody or tarry stools.. No loss of appetite. Genitourinary: No dysuria, increased frequency, urgency. No urinary retention. Musculoskeletal: No myalgias. No muscle weakness, no gait dysfunction, no frequent falls. No back pain. No neck pain. Integumentary: No wounds, no lesions. No rash or pruritus. No unusual bruising. No change in hair or nails. Neurologic: No aphasia. No facial droop. No change in mentation. No head injury. No headache. No paralysis. No paresthesia. Psychiatric: No depression. No anxiety. No mood swings. Endocrine: No abnormal blood sugars. No weight change. No excessive sweating or thirst. No cold intolerance. SOCIAL HISTORY he quit smoking 14 years ago he smoked pack a day for over 20 years, no code abuse, no marijuana use, patient does not use any oxygen at home. FAMILY HISTORY he has 3 children are all living and well. 7 siblings 3 of the past 1 from brain tumor, one from motor vehicle accident in 1 from AIDS. The rest of his siblings are doing well, father a 63 from lung cancer, mother a 67 from CAD. PHYSICAL EXAMINATION Gen: This is morbidly obese sitting in bed in mild respiratory distress. HEENT: Head is atraumatic, normocephalic. Pupils equal, round. Sclerae is anicteric. NECK: Supple. No JVD. No lymphadenopathy. No thyromegaly. LUNGS: decreased breath some relative fine rhonchi, positive mild crackles in th e bases positive mild dyspeptic started wheezes. HEART: Regular rate and rhythm, S1, S2 positive history. positive systolic murmur. ABDOMEN: Soft. Bowel sounds are present. No masses. No tenderness. EXTREMITIES: 1+ edema, positive pulse in the dorsalis pedis. NEUROLOGICAL: Patient is awake, alert and oriented x3. Cranial nerves 2 through 12 are grossly intact. ASSESSMENT AND PLAN - severe dyspnea and shortness of breath: Most likely is by the acute non-ST NH patient apparently has been more symptomatic lately with minimum exertion. Patient be hospitalized be seen cardiology keep patient nothing by mouth for possible intervention tomorrow. - Non-ST NH: Had elevated troponin with worsening symptom tightness shortness of breath. Patient apparently had an angioplasty and stent placement of the RCA back in 2019 has been seeing cardiology regular basis patient will have an echocardiogram, consult cardiology and probably require to go for heart catheter CK with troponin 3 be done. - Acute febrile illness with elevated lactic acid very positive urine test, urine culture be done patient will be started on Rocephin 1 g a day to the cultures finalize also was start patient on Flomax 0.4 mg daily. - History of atherosclerotic heart disease: Has been on Crestor, losartan, furosemide, Plavix and atenolol. - COPD with slight worsening symptoms: Patient was started on Solu-Medrol along with DuoNeb and oxygen. Pulmonary consultation will be done. - Severe bronchitis with no evidence basal pneumonia at this point the patient is symptomatic pulmonary carter chest x-ray revealed no active acute infection continue updraft treatment Rocephin which continues for UTI will be helpful for bronchitis. - Possible obstructive sleep apnea: Patient has not been treated or manage for obstructive sleep apnea patient will eventually need to be referred for sleep s tudy. - Cardiomyopathy: Most likely ischemic in origin ejection fraction is down to 30-35 percentile. Patient will be continue on diuretics, O2, atenolol and losartan continue supportive care for now. - Mild anemia: Mostly iron deficient most likely caused by the effect of medication causing gastritis will place patient on proton pump inhibitor along with iron. - history of hypertension: Has been on losartan 100 mg a day along with Tenormin 50 mg daily. - Hyperlipidemia: Continue patient on Crestor for now. - Peripheral edema: Most likely sign of ischemic cardiomyopathy, patient will be remain on diuretics for now. - History of TIA: Still on Plavix along with secondary prevention with better control blood pressure and cholesterol. - Chronic lower back pain history of spinal stenosis: Has been on medical management only. - DVT prophylaxis: Patient will continue for the night. - GI prophylaxis: Patient be continue on proton pump inhibitor. - CODE STATUS: Full code - COVID-19 testing, was Negative Patient will be admitted to the hospital for a minim of 2 night stay. Past Medical History Past Medical History: CVA/TIA, Hypertension, Myocardial Infarction (NH), Osteoarthritis (OA) Additional Past Medical History / Comment(s): TIA - no residual effects, Last Myocardial Infarction Date:: unknown History of Any Multi-Drug Resistant Organisms: None Reported Past Surgical History: Heart Catheterization With Stent Additional Past Surgical History / Comment(s): spinal steroid injections, Past Anesthesia/Blood Transfusion Reactions: No Reported Reaction Past Psychological History: No Psychological Hx Reported Smoking Status: Former smoker Past Alcohol Use History: Daily Past Drug Use History: None Reported - Past Family History Sister(s) Family Medical History: Cancer Medications and Allergies Home Medications Medication Instructions Recorded Confirmed Type Aspirin [Adult Low Dose Aspirin EC] 81 mg PO DAILY 06/16/18 11/18/21 History PARoxetine [Paxil] 20 mg PO DAILY 06/16/18 11/18/21 History Clopidogrel [Plavix] 75 mg PO DAILY #90 tab 06/20/18 11/18/21 Rx Nitroglycerin Sl Tabs [Nitrostat] 0.4 mg SUBLINGUAL Q5M PRN #25 tab 06/20/18 11/18/21 Rx Furosemide [Lasix] 40 mg PO DAILY 11/18/21 11/18/21 History Losartan Potassium 100 mg PO DAILY 11/18/21 11/18/21 History Rosuvastatin [Crestor] 20 mg PO DAILY 11/18/21 11/18/21 History atenoloL [Tenormin] 50 mg PO BID 11/18/21 11/18/21 History hydroCHLOROthiazide [Hydrodiuril] 25 mg PO DAILY 11/18/21 11/18/21 History Allergies Allergy/AdvReac Type Severity Reaction Status Date / Time No Known Allergies Allergy Verified 11/18/21 13:29 Physical Exam Vitals: Vital Signs Temp Pulse Resp BP Pulse Ox 11/18/21 17:29 98.4 F 82 20 94/63 96 11/18/21 16:14 99 11/18/21 14:54 98.3 F 11/18/21 13:36 97 20 121/60 96 11/18/21 11:17 99.6 F 108 H 129/49 96 Intake and Output 11/18/21 11/18/21 11/18/21 06:59 14:59 22:59 Other: Weight 127.006 kg Results CBC & Chem 7: 11/18/21 11:28 11/18/21 11:28 Labs: Abnormal Lab Results - Last 24 Hours (Table) 11/18/21 11/18/21 11/18/21 Range/Units 11:28 11:28 11:28 RBC 3.87 L (4.30-5.90) m/uL Hgb 10.9 L (13.0-17.5) gm/dL Hct 34.1 L (39.0-53.0) % Lymphocytes # 0.1 L (1.0-4.8) k/uL APTT 21.8 L (22.0-30.0) sec BUN (9-20) mg/dL Glucose (74-99) mg/dL Plasma Lactic Acid Casa (0.7-2.0) mmol/L Troponin I (0.000-0.034) ng/mL Urine Protein Trace H (Negative) Urine Blood Moderate H (Negative) Ur Leukocyte Esterase Large H (Negative) Urine RBC 24 H (0-5) /hpf Urine WBC >182 H (0-5) /hpf Urine WBC Clumps Many H (None) /hpf Urine Bacteria Many H (None) /hpf Urine Mucus Occasional H (None) /hpf 11/18/21 11/18/21 11/18/21 Range/Units 11:28 11:28 11:28 RBC (4.30-5.90) m/uL Hgb (13.0-17.5) gm/dL Hct (39.0-53.0) % Lymphocytes # (1.0-4.8) k/uL APTT (22.0-30.0) sec BUN 25 H (9-20) mg/dL Glucose 115 H (74-99) mg/dL Plasma Lactic Acid Casa 2.7 H* (0.7-2.0) mmol/L Troponin I 1.680 H* (0.000-0.034) ng/mL Urine Protein (Negative) Urine Blood (Negative) Ur Leukocyte Esterase (Negative) Urine RBC (0-5) /hpf Urine WBC (0-5) /hpf Urine WBC Clumps (None) /hpf Urine Bacteria (None) /hpf Urine Mucus (None) /hpf 11/18/21 11/18/21 Range/Units 14:59 14:59 RBC (4.30-5.90) m/uL Hgb (13.0-17.5) gm/dL Hct (39.0-53.0) % Lymphocytes # (1.0-4.8) k/uL APTT (22.0-30.0) sec BUN (9-20) mg/dL Glucose (74-99) mg/dL Plasma Lactic Acid Casa 2.8 H* (0.7-2.0) mmol/L Troponin I 3.060 H* (0.000-0.034) ng/mL Urine Protein (Negative) Urine Blood (Negative) Ur Leukocyte Esterase (Negative) Urine RBC (0-5) /hpf Urine WBC (0-5) /hpf Urine WBC Clumps (None) /hpf Urine Bacteria (None) /hpf Urine Mucus (None) /hpf
[2021-11-19] MEDS: methylPREDNISolone SOD SUCCI 125 MG/2 ML VIAL IV SCH ×5 (00:35→23:44)
[2021-11-19] MEDS: IPRATROPIUM-ALBUTEROL 3 ML NEB INHALATION SCH ×4 (01:08→19:03)
[2021-11-19 04:27] LABS: Partial Thromboplastin Time 36.4 sec (22.0-30.0)
[2021-11-19 04:39] LABS: Basophils % (A) 0 %; Eosinophils % (A) 0 %; HCT 31.1 % (39.0-53.0); HGB 10.1 gm/dL (13.0-17.5); Hypochromasia Slight; Lymphocytes # (A) 0.2 k/uL (1.0-4.8); Lymphocytes % (A) 2 %; MCH 28.8 pg (25.0-35.0); MCHC 32.4 g/dL (31.0-37.0); MCV 89.1 fL (80.0-100.0); Mean Platelet Volume 7.9; Monocytes # (A) 0.2 k/uL (0-1.0); Monocytes % (A) 2 %; Neutrophils # (A) 11.3 k/uL (1.3-7.7); Neutrophils % (A) 96 %; Platelet Count 187 k/uL (150-450); RBC 3.49 m/uL (4.30-5.90); RDW 14.6 % (11.5-15.5); WBC 11.8 k/uL (3.8-10.6)
[2021-11-19 04:51] LABS: ALT 28 U/L (4-49); AST 63 U/L (17-59); African American GFR (CKD) 83 (>60 ml/min/1.73 sqM); Albumin 3.9 g/dL (3.5-5.0); Alkaline Phosphatase 62 U/L (38-126); Anion Gap 7 mmol/L; Blood Urea Nitrogen 30 mg/dL (9-20); Calcium 8.4 mg/dL (8.4-10.2); Carbon Dioxide 26 mmol/L (22-30); Chloride 102 mmol/L (98-107); Glucose 183 mg/dL (74-99); Non-African American GFR(CKD) 72 (>60 ml/min/1.73 sqM); Potassium 4.1 mmol/L (3.5-5.1); Sodium 135 mmol/L (137-145); Total Bilirubin 0.3 mg/dL (0.2-1.3); Total Protein 6.7 g/dL (6.3-8.2)
[2021-11-19] MEDS: PANTOPRAZOLE 40 MG TABLET PO SCH (06:56)
[2021-11-19] MEDS: SODIUM CHLORIDE 0.9% 1,000 ML IV SCH ×3 (06:59→17:13)
[2021-11-19] MEDS ORDERED: ASPIRIN 325 MG TAB PO STA (08:25)
[2021-11-19] MEDS ORDERED: ALPRAZolam 0.25 MG TAB PO PRN (08:25)
[2021-11-19] MEDS ORDERED: NITROGLYCERIN SL TABS 0.4 MG TAB SUBLINGUAL PRN (08:25)
[2021-11-19] MEDS ORDERED: ALPRAZolam 0.5 MG TAB PO PRN (08:25)
[2021-11-19] MEDS ORDERED: ATORVASTATIN 80 MG TAB PO STA (08:25)
--- NOTE | 2021-11-19 08:36 | P.PN ---
Subjective Progress Note Date: 11/19/21 PROGRESS NOTE The patient is a 75-year-old male with a known history of CAD status post stenting of the RCA in 2019 who presented with symptoms of chills in addition to progressive dyspnea that has been going on for the last few weeks. He had no chest discomfort. He had mild elevation of the troponin on presentation and peaked at 4. His echocardiogram showed significant worsening of his systolic function compared to August with an ejection fraction of 30-35%. He continues to be dyspneic but he denies any chest discomfort, dizziness or palpitations. He has no PND, orthopnea or syncope. He continues to be in sinus mechanism. He is afebrile. Medications: Aspirin, atenolol 50 mg twice a day, Lipitor 40 mg daily, Plavix 75 mg daily, Lasix 40 mg daily, losartan 100 mg daily, hydrochlorothiazide 25 mg daily PHYSICAL EXAMINATION: Blood pressure 121/60 heart rate 72 LUNGS: [Clear to auscultation] HEART: [Regular rate and rhythm, S1, S2. No S3. systolic ejection murmur at the base] ABDOMEN: [Soft, nontender, no organomegaly] EXTREMETIES: [Trace edema] LAB: Hemoglobin 10.1, white blood cell 11.8, BUN 30, potassium 4.1, last lactic acid 1.8. Peak troponin 4.1 IMPRESSION: 1. Non-STEMI 2. Worsening LV systolic function with ischemic cardiomyopathy 3. Probable UTI 4. History of stenting of the RCA 5. Hypertension 6. Hyperlipidemia PLAN: 1. Continue IV heparin 2. Cardiac catheterization tomorrow with Dr. Figueroa, I discussed with the patient the procedure as well as the risks and the complications. 3. Depending on the results of the testing further recommendation will be made Objective - Vital Signs Vital signs: Vital Signs Temp 97.9 F 11/19/21 04:00 Pulse 72 11/19/21 08:05 Resp 14 11/19/21 04:00 BP 121/61 11/19/21 04:00 Pulse Ox 97 11/19/21 04:00 FiO2 Intake & Output 11/18/21 11/19/21 11/19/21 18:59 06:59 18:59 Intake Total 170.026 Output Total 200 Balance -29.974 Weight 127.006 kg 127.006 kg Intake: Intake, IV Titration 170.026 Amount Heparin Sod,Pork in 0.45% 170.026 NaCl 25,000 unit In 0.45 % NaCl 1 250ml.bag @ 7. 874 UNITS/KG/HR 10 mls/hr IV .Q24H [facility] Rx#: [id number] Output: Urine 200 Other: Voiding Method Urinal - Labs CBC & Chem 7: 11/19/21 03:49 11/19/21 03:49 Labs: Abnormal Lab Results - Last 24 Hours (Table) 11/18/21 11/18/21 11/18/21 Range/Units 11:28 11:28 11:28 WBC (3.8-10.6) k/uL RBC 3.87 L (4.30-5.90) m/uL Hgb 10.9 L (13.0-17.5) gm/dL Hct 34.1 L (39.0-53.0) % Neutrophils # (1.3-7.7) k/uL Lymphocytes # 0.1 L (1.0-4.8) k/uL APTT 21.8 L (22.0-30.0) sec Sodium (137-145) mmol/L BUN (9-20) mg/dL Glucose (74-99) mg/dL Plasma Lactic Acid Casa (0.7-2.0) mmol/L AST (17-59) U/L Troponin I (0.000-0.034) ng/mL Urine Protein Trace H (Negative) Urine Blood Moderate H (Negative) Ur Leukocyte Esterase Large H (Negative) Urine RBC 24 H (0-5) /hpf Urine WBC >182 H (0-5) /hpf Urine WBC Clumps Many H (None) /hpf Urine Bacteria Many H (None) /hpf Urine Mucus Occasional H (None) /hpf 11/18/21 11/18/21 11/18/21 Range/Units 11: 11: 11:28 WBC (3.8-10.6) k/uL RBC (4.30-5.90) m/uL Hgb (13.0-17.5) gm/dL Hct (39.0-53.0) % Neutrophils # (1.3-7.7) k/uL Lymphocytes # (1.0-4.8) k/uL APTT (22.0-30.0) sec Sodium (137-145) mmol/L BUN 25 H (9-20) mg/dL Glucose 115 H (74-99) mg/dL Plasma Lactic Acid Casa 2.7 H* (0.7-2.0) mmol/L AST (17-59) U/L Troponin I 1.680 H* (0.000-0.034) ng/mL Urine Protein (Negative) Urine Blood (Negative) Ur Leukocyte Esterase (Negative) Urine RBC (0-5) /hpf Urine WBC (0-5) /hpf Urine WBC Clumps (None) /hpf Urine Bacteria (None) /hpf Urine Mucus (None) /hpf 11/18/21 11/18/21 11/18/21 Range/Units 14:59 14:59 17:47 WBC (3.8-10.6) k/uL RBC (4.30-5.90) m/uL Hgb (13.0-17.5) gm/dL Hct (39.0-53.0) % Neutrophils # (1.3-7.7) k/uL Lymphocytes # (1.0-4.8) k/uL APTT (22.0-30.0) sec Sodium (137-145) mmol/L BUN (9-20) mg/dL Glucose (74-99) mg/dL Plasma Lactic Acid Casa 2.8 H* (0.7-2.0) mmol/L AST (17-59) U/L Troponin I 3.060 H* 3.710 H* (0.000-0.034) ng/mL Urine Protein (Negative) Urine Blood (Negative) Ur Leukocyte Esterase (Negative) Urine RBC (0-5) /hpf Urine WBC (0-5) /hpf Urine WBC Clumps (None) /hpf Urine Bacteria (None) /hpf Urine Mucus (None) /hpf 11/18/21 11/18/21 11/18/21 Range/Units 17:47 19:59 19:59 WBC (3.8-10.6) k/uL RBC (4.30-5.90) m/uL Hgb (13.0-17.5) gm/dL Hct (39.0-53.0) % Neutrophils # (1.3-7.7) k/uL Lymphocytes # (1.0-4.8) k/uL APTT 32.5 H (22.0-30.0) sec Sodium (137-145) mmol/L BUN (9-20) mg/dL Glucose (74-99) mg/dL Plasma Lactic Acid Casa 3.6 H* (0.7-2.0) mmol/L AST (17-59) U/L Troponin I 4.120 H* (0.000-0.034) ng/mL Urine Protein (Negative) Urine Blood (Negative) Ur Leukocyte Esterase (Negative) Urine RBC (0-5) /hpf Urine WBC (0-5) /hpf Urine WBC Clumps (None) /hpf Urine Bacteria (None) /hpf Urine Mucus (None) /hpf 11/18/21 11/18/21 11/19/21 Range/Units 20:36 23:27 03:49 WBC 11.8 H (3.8-10.6) k/uL RBC 3.49 L (4.30-5.90) m/uL Hgb 10.1 L (13.0-17.5) gm/dL Hct 31.1 L (39.0-53.0) % Neutrophils # 11.3 H (1.3-7.7) k/uL Lymphocytes # 0.2 L (1.0-4.8) k/uL APTT (22.0-30.0) sec Sodium (137-145) mmol/L BUN (9-20) mg/dL Glucose (74-99) mg/dL Plasma Lactic Acid Casa 3.0 H* 2.8 H* (0.7-2.0) mmol/L AST (17-59) U/L Troponin I (0.000-0.034) ng/mL Urine Protein (Negative) Urine Blood (Negative) Ur Leukocyte Esterase (Negative) Urine RBC (0-5) /hpf Urine WBC (0-5) /hpf Urine WBC Clumps (None) /hpf Urine Bacteria (None) /hpf Urine Mucus (None) /hpf 11/19/21 11/19/21 11/19/21 Range/Units 03:49 03:49 03:49 WBC (3.8-10.6) k/uL RBC (4.30-5.90) m/uL Hgb (13.0-17.5) gm/dL Hct (39.0-53.0) % Neutrophils # (1.3-7.7) k/uL Lymphocytes # (1.0-4.8) k/uL APTT 36.4 H (22.0-30.0) sec Sodium 135 L (137-145) mmol/L BUN 30 H (9-20) mg/dL Glucose 183 H (74-99) mg/dL Plasma Lactic Acid Casa 2.6 H* (0.7-2.0) mmol/L AST 63 H (17-59) U/L Troponin I (0.000-0.034) ng/mL Urine Protein (Negative) Urine Blood (Negative) Ur Leukocyte Esterase (Negative) Urine RBC (0-5) /hpf Urine WBC (0-5) /hpf Urine WBC Clumps (None) /hpf Urine Bacteria (None) /hpf Urine Mucus (None) /hpf Microbiology - Last 24 Hours (Table) 11/18/21 11:28 Urine Culture - Preliminary Urine,Voided
[2021-11-19] MEDS ORDERED: ASPIRIN 325 MG TAB PO SCH (09:00)
[2021-11-19] MEDS ORDERED: NON FORMULARY DRUG (Aspirin [Adult Low Dose Aspirin Ec] 81 MG Tablet.Dr) PO SCH (09:00)
[2021-11-19] MEDS: HEPARIN SOD,PORK IN 0.45% NACL 25,000 UNIT in 0.45% NACL 1 250ML.BAG IV SCH ×2 (10:02→23:44)
[2021-11-19] MEDS: LOSARTAN 50 MG TAB PO SCH (10:04)
[2021-11-19] MEDS: ASPIRIN 81 MG PO SCH (10:04)
[2021-11-19] MEDS: ATORVASTATIN 40 MG TAB PO SCH (10:05)
[2021-11-19] MEDS: PARoxetine 20 MG TAB PO SCH (10:05)
[2021-11-19] MEDS: TAMSULOSIN 0.4 MG CAP.ER.24H PO SCH (10:06)
[2021-11-19] MEDS: atenoloL 50 MG TAB PO SCH ×2 (10:06→20:26)
[2021-11-19] MEDS: CLOPIDOGREL 75 MG TAB PO SCH (10:06)
[2021-11-19] MEDS: FUROSEMIDE 40 MG TAB PO SCH (10:06)
[2021-11-19] MEDS: hydroCHLOROthiazide 25 MG TAB PO SCH (10:06)
--- NOTE | 2021-11-19 11:26 | P.PN ---
Subjective Progress Note Date: 11/19/21 HISTORY OF PRESENT ILLNESS 75-year-old morbidly obese male one of Dr. Bora Madera's patient with past medical history of CAD post PCI and stent placement of the RCA back in 2019 was on to have history of mild COPD, hypertension, hyperlipidemia and previous history of TIA was seen Dr. Figueroa cardiology regular basis has no record been in the hospital any time except 2019 for angioplasty and stent placement of the RCA which patient apparently has been doing well since. Patient had difficulty last night with significant dyspnea and shortness of breath with mild fever and c hills with drenching sweats at the time become generalized fatigue tiredness workup in the morning with much worsening symptoms ended up asking his family to bring him to [facility] department where was seen and evaluated, patient was in quite but dyspnea at the time despite his presentation for fever or chills and possible infection surprisingly his EKG didn't show any major abnormality with CK with troponin was positive, UA shows significant urinary tract infection, patient chest x-ray revealed COPD with no major finding of infiltrate or pneumonia. Patient was diagnosed at this point with non-ST [place] causing significant dyspnea and shortness of breath with mild pulmonary edema along with mild COPD excessive patient required treatment with severe bronchitis and prostatitis presented as a urinary tract infection. Patient will be on IV antibiotic will be seen cardiology consultation CK with troponin 2 be done echocardiogram will be order and patient might require an intervention with heart catheter when he is more stable on his the hospital this time. 11/19: Patient is seen today on the cardiac stepdown unit. Patient has been afebrile, heart rate 70, blood pressure 121/61, pulse ox 97% on room air. Repeat troponin's are 3.06, 3.71, 4.12. Lactic acid remains high this morning at 2.6. WBC 11.8, hemoglobin 10.1, platelet count 187. INR is 1. Sodium 135, BUN 30 creatinine 1.02. Blood sugar 183. AST 63. Urine culture is in progress. Blood culture is status post received. Patient is continued on ceftriaxone has also on IV Solu-Medrol 60 mg every 6 hours Echocardiogram reveals moderate to severe LV systolic function with EF of 30- 35%, technically suboptimal study. Patient has been seen by cardiology yesterday with recommendations for trending troponin, repeat EKG, continue IV heparin and cardiac medications, echocardiogram and infectious workup. This morning, patient was scheduled for cardiac catheterization tomorrow with Dr. RADHA Figueroa. REVIEW OF SYSTEMS Constitutional: No fever, no chills, no night sweats. No weight change. positive generalized weakness fatigue and lethargy. EENT: No headache. No blurred vision or double vision, no loss of vision. No loss of Hearing, no ringing in the ears, no dizziness. No nasal drainage or congestion. No epistaxis. No sore throat. Lungs: positive shortness of breath, mild cough, no sputum production, positive mild wheezes and tightness. Cardiovascular: Denies chest pain, positive lower extremity edema, positive palpitations, positive PND and orthopnea with lightheadedness without syncope. Abdominal: No abdominal pain. No nausea, vomiting. No diarrhea. No constipation. No bloody or tarry stools.. No loss of appetite. Genitourinary: No dysuria, increased frequency, urgency. No urinary retention. Musculoskeletal: No myalgias. No muscle weakness, no gait dysfunction, no fr equent falls. No back pain. No neck pain. Integumentary: No wounds, no lesions. No rash or pruritus. No unusual bruising. No change in hair or nails. Neurologic: No aphasia. No facial droop. No change in mentation. No head injury. No headache. No paralysis. No paresthesia. Psychiatric: No depression. No anxiety. No mood swings. Endocrine: No abnormal blood sugars. No weight change. No excessive sweating or thirst. No cold intolerance. PHYSICAL EXAMINATION Gen: This is morbidly obese sitting in bed in no respiratory distress. HEENT: Head is atraumatic, normocephalic. Pupils equal, round. Sclerae is anicteric. NECK: Supple. No JVD. No lymphadenopathy. No thyromegaly. LUNGS: decreased breath some relative fine rhonchi, positive mild crackles in the bases positive mild dyspeptic started wheezes. HEART: Regular rate and rhythm, S1, S2 positive history. positive systolic murmur. ABDOMEN: Soft. Bowel sounds are present. No masses. No tenderness. EXTREMITIES: 1+ edema, positive pulse in the dorsalis pedis. NEUROLOGICAL: Patient is awake, alert and oriented x3. Cranial nerves 2 through 12 are grossly intact. ASSESSMENT AND PLAN - severe dyspnea and shortness of breath: Most likely is by the acute non-ST [place] patient apparently has been more symptomatic lately with minimum exertion. - Non-ST [place]. Cardiology consult appreciated. Patient is on heparin drip, scheduled for cardiac catheterization tomorrow with Dr. RADHA Figueroa. Continue patient on aspirin 81 mg daily, atenolol 50 mg twice daily, Lipitor 40 mg daily, Plavix 75 mg daily. - Acute febrile illness with elevated lactic acid very positive urine test, urine culture be done patient will be started on Rocephin 1 g a day to the cultures finalize also was start patient on Flomax 0.4 mg daily. - History of atherosclerotic heart disease: Has been on Crestor, losartan, furosemide, Plavix and atenolol. - COPD with slight worsening symptoms: Patient was started on Solu-Medrol along with DuoNeb and oxygen. Pulmonary consultation will be done. - Severe bronchitis with no evidence basal pneumonia at this point the patient is symptomatic pulmonary carter chest x-ray revealed no active acute infection continue updraft treatment Rocephin which continues for UTI will be helpful for bronchitis. - Possible obstructive sleep apnea: Patient has not been treated or manage for obstructive sleep apnea patient will eventually need to be referred for sleep study. - Cardiomyopathy: Most likely ischemic in origin ejection fraction is down to 30-35 percentile. Patient will be continue on diuretics, O2, atenolol and losartan continue supportive care for now. - Mild anemia: Mostly iron deficient most likely caused by the effect of medication causing gastritis will place patient on proton pump inhibitor along with iron. - history of hypertension: Has been on losartan 100 mg a day along with Tenormin 50 mg daily. - Hyperlipidemia: Continue patient on Crestor for now. - Peripheral edema: Most likely sign of ischemic cardiomyopathy, patient will be remain on diuretics for now. - History of TIA: Still on Plavix along with secondary prevention with better control blood pressure and cholesterol. - Chronic lower back pain history of spinal stenosis: Has been on medical management only. - DVT prophylaxis: Patient will continue for the night. - GI prophylaxis: Patient be continue on proton pump inhibitor. - CODE STATUS: Full code - COVID-19 testing, was Negative DISCHARGE PLAN Most likely return home. Impression and plan of care have been directed as dictated by the signing physician. Caitlin De La Vega nurse practitioner acting as scribe for signing physician. Objective - Vital Signs Vital signs: Vital Signs Temp 97.9 F 11/19/21 04:00 Pulse 70 11/19/21 04:00 Resp 14 11/19/21 04:00 BP 121/61 11/19/21 04:00 Pulse Ox 97 11/19/21 04:00 FiO2 Intake & Output 11/18/21 11/19/21 11/19/21 18:59 06:59 18:59 Intake Total 170.026 Output Total 200 Balance -.974 Weight 127.006 kg 127.006 kg Intake: Intake, IV Titration 170.026 Amount Heparin Sod,Pork in 0.45% 170.026 NaCl 25,000 unit In 0.45 % NaCl 1 250ml.bag @ 7. 874 UNITS/KG/HR 10 mls/hr IV .Q24H [facility] Rx#: [id number] Output: Urine 200 Other: Voiding Method Urinal - Labs CBC & Chem 7: 11/19/21 03:49 11/19/21 03:49 Labs: Abnormal Lab Results - Last 24 Hours (Table) 11/18/21 11/18/21 11/18/21 Range/Units 11:28 11:28 11:28 WBC (3.8-10.6) k/uL RBC 3.87 L (4.30-5.90) m/uL Hgb 10.9 L (13.0-17.5) gm/dL Hct 34.1 L (39.0-53.0) % Neutrophils # (1.3-7.7) k/uL Lymphocytes # 0.1 L (1.0-4.8) k/uL APTT 21.8 L (22.0-30.0) sec Sodium (137-145) mmol/L BUN (9-20) mg/dL Glucose (74-99) mg/dL Plasma Lactic Acid Casa (0.7-2.0) mmol/L AST (17-59) U/L Troponin I (0.000-0.034) ng/mL Urine Protein Trace H (Negative) Urine Blood Moderate H (Negative) Ur Leukocyte Esterase Large H (Negative) Urine RBC 24 H (0-5) /hpf Urine WBC >182 H (0-5) /hpf Urine WBC Clumps Many H (None) /hpf Urine Bacteria Many H (None) /hpf Urine Mucus Occasional H (None) /hpf 06/11/18/21 11/18/21 Range/Units 11:28 11:28 11:28 WBC (3.8-10.6) k/uL RBC (4.30-5.90) m/uL Hgb (13.0-17.5) gm/dL Hct (39.0-53.0) % Neutrophils # (1.3-7.7) k/uL Lymphocytes # (1.0-4.8) k/uL APTT (22.0-30.0) sec Sodium (137-145) mmol/L BUN 25 H (9-20) mg/dL Glucose 115 H (74-99) mg/dL Plasma Lactic Acid Casa 2.7 H* (0.7-2.0) mmol/L AST (17-59) U/L Troponin I 1.680 H* (0.000-0.034) ng/mL Urine Protein (Negative) Urine Blood (Negative) Ur Leukocyte Esterase (Negative) Urine RBC (0-5) /hpf Urine WBC (0-5) /hpf Urine WBC Clumps (None) /hpf Urine Bacteria (None) /hpf Urine Mucus (None) /hpf 11/18/21 11/18/21 11/18/21 Range/Units 14:59 14:59 17:47 WBC (3.8-10.6) k/uL RBC (4.30-5.90) m/uL Hgb (13.0-17.5) gm/dL Hct (39.0-53.0) % Neutrophils # (1.3-7.7) k/uL Lymphocytes # (1.0-4.8) k/uL APTT (22.0-30.0) sec Sodium (137-145) mmol/L BUN (9-20) mg/dL Glucose (74-99) mg/dL Plasma Lactic Acid Casa 2.8 H* (0.7-2.0) mmol/L AST (17-59) U/L Troponin I 3.060 H* 3.710 H* (0.000-0.034) ng/mL Urine Protein (Negative) Urine Blood (Negative) Ur Leukocyte Esterase (Negative) Urine RBC (0-5) /hpf Urine WBC (0-5) /hpf Urine WBC Clumps (None) /hpf Urine Bacteria (None) /hpf Urine Mucus (None) /hpf 11/18/21 11/18/21 11/18/21 Range/Units 17:47 19:59 19:59 WBC (3.8-10.6) k/uL RBC (4.30-5.90) m/uL Hgb (13.0-17.5) gm/dL Hct (39.0-53.0) % Neutrophils # (1.3-7.7) k/uL Lymphocytes # (1.0-4.8) k/uL APTT 32.5 H (22.0-30.0) sec Sodium (137-145) mmol/L BUN (9-20) mg/dL Glucose (74-99) mg/dL Plasma Lactic Acid Casa 3.6 H* (0.7-2.0) mmol/L AST (17-59) U/L Troponin I 4.120 H* (0.000-0.034) ng/mL Urine Protein (Negative) Urine Blood (Negative) Ur Leukocyte Esterase (Negative) Urine RBC (0-5) /hpf Urine WBC (0-5) /hpf Urine WBC Clumps (None) /hpf Urine Bacteria (None) /hpf Urine Mucus (None) /hpf 11/18/21 11/18/21 11/19/21 Range/Units 20:36 23:27 03:49 WBC 11.8 H (3.8-10.6) k/uL RBC 3.49 L (4.30-5.90) m/uL Hgb 10.1 L (13.0-17.5) gm/dL Hct 31.1 L (39.0-53.0) % Neutrophils # 11.3 H (1.3-7.7) k/uL Lymphocytes # 0.2 L (1.0-4.8) k/uL APTT (22.0-30.0) sec Sodium (137-145) mmol/L BUN (9-20) mg/dL Glucose (74-99) mg/dL Plasma Lactic Acid Casa 3.0 H* 2.8 H* (0.7-2.0) mmol/L AST (17-59) U/L Troponin I (0.000-0.034) ng/mL Urine Protein (Negative) Urine Blood (Negative) Ur Leukocyte Esterase (Negative) Urine RBC (0-5) /hpf Urine WBC (0-5) /hpf Urine WBC Clumps (None) /hpf Urine Bacteria (None) /hpf Urine Mucus (None) /hpf 11/19/21 11/19/21 11/19/21 Range/Units 03:49 03:49 03:49 WBC (3.8-10.6) k/uL RBC (4.30-5.90) m/uL Hgb (13.0-17.5) gm/dL Hct (39.0-53.0) % Neutrophils # (1.3-7.7) k/uL Lymphocytes # (1.0-4.8) k/uL APTT 36.4 H (22.0-30.0) sec Sodium 135 L (137-145) mmol/L BUN 30 H (9-20) mg/dL Glucose 183 H (74-99) mg/dL Plasma Lactic Acid Casa 2.6 H* (0.7-2.0) mmol/L AST 63 H (17-59) U/L Troponin I (0.000-0.034) ng/mL Urine Protein (Negative) Urine Blood (Negative) Ur Leukocyte Esterase (Negative) Urine RBC (0-5) /hpf Urine WBC (0-5) /hpf Urine WBC Clumps (None) /hpf Urine Bacteria (None) /hpf Urine Mucus (None) /hpf Microbiology - Last 24 Hours (Table) 11/18/21 11:28 Urine Culture - Preliminary Urine,Voided
[2021-11-19 12:47] LABS: Glucose,Whole Blood 285 mg/dL (70-110)
[2021-11-19] MEDS: INSULIN ASPART (NovoLOG) 100 UNIT/ML VIAL SQ SCH ×3 (12:50→20:26)
[2021-11-19 13:17] LABS: Chol/HDL Ratio 2.52 Ratio; LDL Cholesterol,Calculated 66.5 mg/dL (0.0-131.0)
[2021-11-19 16:31] LABS: Glucose,Whole Blood 179 mg/dL (70-110)
[2021-11-19 17:03] LABS: HCT 30.7 % (39.0-53.0); HGB 9.9 gm/dL (13.0-17.5); Hypochromasia Slight; MCH 28.7 pg (25.0-35.0); MCHC 32.3 g/dL (31.0-37.0); MCV 88.8 fL (80.0-100.0); Mean Platelet Volume 7.9; Platelet Count 186 k/uL (150-450); RBC 3.45 m/uL (4.30-5.90); RDW 14.5 % (11.5-15.5); WBC 11.4 k/uL (3.8-10.6)
[2021-11-19 20:23] LABS: Glucose,Whole Blood 236 mg/dL (70-110)
[2021-11-20] MEDS: IPRATROPIUM-ALBUTEROL 3 ML NEB INHALATION SCH ×4 (02:00→20:31)
[2021-11-20 06:24] LABS: Glucose,Whole Blood 160 mg/dL (70-110)
[2021-11-20] MEDS: FUROSEMIDE 40 MG TAB PO SCH ×2 (06:28→17:09)
[2021-11-20] MEDS ORDERED: ATORVASTATIN 80 MG TAB PO STA (06:28)
[2021-11-20] MEDS: ASPIRIN 81 MG PO SCH (06:28)
[2021-11-20] MEDS ORDERED: ASPIRIN 325 MG TAB PO STA (06:28)
[2021-11-20] MEDS: hydroCHLOROthiazide 25 MG TAB PO SCH (06:29)
[2021-11-20] MEDS: INSULIN ASPART (NovoLOG) 100 UNIT/ML VIAL SQ SCH ×4 (06:30→20:45)
[2021-11-20] MEDS: methylPREDNISolone SOD SUCCI 125 MG/2 ML VIAL IV SCH (06:30)
[2021-11-20] MEDS: CLOPIDOGREL 75 MG TAB PO SCH (06:33)
[2021-11-20] MEDS: LOSARTAN 50 MG TAB PO SCH (06:33)
[2021-11-20] MEDS: PANTOPRAZOLE 40 MG TABLET PO SCH (06:33)
[2021-11-20] MEDS: TAMSULOSIN 0.4 MG CAP.ER.24H PO SCH (06:33)
[2021-11-20] MEDS: PARoxetine 20 MG TAB PO SCH (06:33)
[2021-11-20] MEDS: atenoloL 50 MG TAB PO SCH ×2 (06:33→20:46)
[2021-11-20] MEDS: ATORVASTATIN 40 MG TAB PO SCH (06:34)
[2021-11-20] MEDS ORDERED: HEPARIN SODIUM,PORCINE 2,500 UNIT in SODIUM CHLORIDE 0.9% 250 ML IRRIGATION PRN (07:00)
[2021-11-20] MEDS ORDERED: HEPARIN SODIUM,PORCINE 10,000 UNIT in SODIUM CHLORIDE 0.9% 1,000 ML IRRIGATION PRN (07:00)
[2021-11-20] MEDS: SODIUM CHLORIDE 0.9% 1,000 ML IV SCH ×2 (07:20→17:10)
[2021-11-20] MEDS ORDERED: VERAPAMIL 2.5 MG/ML 2 ML AMP ONE (10:14)
--- NOTE | 2021-11-20 10:30 | P.CNPUL ---
History of Present Illness Consult date: 11/19/21 Reason for consult: dyspnea, COPD History of present illness: 75-year-old male patient, morbidly obese with known history of CAD, COPD, hyperlipidemia, previous history of TIA, presented to the hospital because of increased shortness of breath along with some mild fever/a temperature of 103 and chills and sweats. He was also feeling tired on the same day. In the emergency department, the workup revealed that the patienthad included an EKG that showed a sinus tachycardia with a RBBB pattern without any acute ischemic changes. Nevertheless, the patient ruled in for an acute non-ST segment elevation myocardial infarction. Troponins were positive. Chest x-ray showed no acute cardiopulmonary process. The patient had a proBNP level of 1660 and a BUN was 25 with a creatinine of 1.04 and the sodium level was at 138.his hemoglobin was attempted 0.1. The white cell count was 11.8. Coagulation profile initially was negative. Initial lactic acid level was 2.6. the lactic acid levels normalized. LFTs were normal. Electrolytes were normal.note that the patient had a recent echocardiogram from August 2021 showing a normal ejection fraction of 50-55%. There was small area of inferior wall hypokinesis, similar to previous echocardiograms and the patient had moderate tricuspid regurgitation. Cardiac catheterization from 2018 revealed a heavily calcified RCA and multiple critical lesions in total occlusion of the PVL branch with a 15-20% and also the left main, 40% stenosis in the mid LAD, circumflex had no disease. The patient underwent PCI to proximal RCA and PDA branch of RCA as well. Note that the patient had a chest x-ray in the emergency department that showed no acute abnormalities. The patient is currently on DuoNeb nebulized treatments 4 times a day, given IV Rocephin, given IV Solu-Medrol 60 mg every 6 hours, given IV heparin and was kept on accommodation of aspirin and Plavix. The patient is also on Lasix 40 mg by mouth on a daily basis. Review of Systems CONSTITUTIONAL: +fever +chills. CARDIOVASCULAR: Denies chest pain, +shortness of breath, Denies orthopnea, PND or palpitations. RESPIRATORY: Denies cough. GASTROINTESTINAL: Denies abdominal pain, diarrhea, constipation, nausea or vomiting. MUSCULOSKELETAL: Denies myalgias. NEUROLOGIC: Denies numbness, tingling, headacbe or weakness. ENDOCRINE: Denies fatigue, weight change, polydipsia or polyurina. GENITOURINARY: Denies burning, hematuria or urgency with micturation. HEMATOLOGIC: + history of anemia Denies bleeding. Past Medical History Past Medical History: Coronary Artery Disease (CAD), CVA/TIA, Hypertension, Myocardial Infarction (PR), Osteoarthritis (OA) Additional Past Medical History / Comment(s): TIA - no residual effects, Last Myocardial Infarction Date:: unknown History of Any Multi-Drug Resistant Organisms: None Reported Past Surgical History: Heart Catheterization With Stent Additional Past Surgical History / Comment(s): spinal steroid injections, Past Anesthesia/Blood Transfusion Reactions: No Reported Reaction Date of Last Stent Placement:: unknown Past Psychological History: No Psychological Hx Reported Smoking Status: Former smoker Past Alcohol Use History: Daily Past Drug Use History: None Reported - Past Family History Sister(s) Family Medical History: Cancer Medications and Allergies Home Medications Medication Instructions Recorded Confirmed Type Aspirin [Adult Low Dose Aspirin EC] 81 mg PO DAILY 06/16/18 11/18/21 History PARoxetine [Paxil] 20 mg PO DAILY 06/16/18 11/18/21 History Clopidogrel [Plavix] 75 mg PO DAILY #90 tab 06/20/18 11/18/21 Rx Nitroglycerin Sl Tabs [Nitrostat] 0.4 mg SUBLINGUAL Q5M PRN #25 tab 06/20/18 11/18/21 Rx Furosemide [Lasix] 40 mg PO DAILY 11/18/21 11/18/21 History Losartan Potassium 100 mg PO DAILY 11/18/21 11/18/21 History Rosuvastatin [Crestor] 20 mg PO DAILY 11/18/21 11/18/21 History atenoloL [Tenormin] 50 mg PO BID 11/18/21 11/18/21 History hydroCHLOROthiazide [Hydrodiuril] 25 mg PO DAILY 11/18/21 11/18/21 History Allergies Allergy/AdvReac Type Severity Reaction Status Date / Time No Known Allergies Allergy Verified 11/18/21 13:29 Physical Exam Vitals: Vital Signs Temp Pulse Pulse Resp BP BP Pulse Ox 11/19/21 12:39 77 19 132/56 96 11/19/21 11:56 76 11/19/21 11:38 72 11/19/21 11:28 79 16 11/19/21 09:47 97.5 F L 79 16 126/65 95 11/19/21 08:05 72 11/19/21 07:52 68 11/19/21 04:00 97.9 F 70 14 121/61 97 11/19/21 00:00 97.7 F 81 18 140/65 95 11/18/21 22:10 97.9 F 82 20 166/72 97 11/18/21 21:59 80 15 122/88 95 11/18/21 19:58 80 11/18/21 19:38 74 11/18/21 18:15 98.0 F 80 18 108/66 94 L 11/18/21 17:29 98.4 F 82 20 94/63 96 11/18/21 16:14 99 11/18/21 14:54 98.3 F Intake and Output 11/18/21 11/19/21 11/19/21 22:59 06:59 14:59 Intake Total 74.5 95.526 429.974 Output Total 200 250 Balance 74.5 -104.474 179.974 Intake: Intake, IV Titration 74.5 95.526 429.974 Amount Heparin Sod,Pork in 0.45% 74.5 95.526 79.974 NaCl 25,000 unit In 0.45 % NaCl 1 250ml.bag @ 7. 874 UNITS/KG/HR 10 mls/hr IV .Q24H [facility] Rx#: [id number] Sodium Chloride 0.9% 1, 300 000 ml @ 100 mls/hr IV . Q10H [facility] Rx#:[id number] [id number] 1 gm In 50 Sodium Chloride 0.9% 50 ml @ 100 mls/hr IVPB Q24HR [facility] Rx#:[id number] Output: Urine 200 250 Other: Voiding Method Urinal Urinal Urinal Weight 127.006 kg Gen: This is morbidly obese sitting in bed in mild respiratory distress. Head exam was generally normal. There was no scleral icterus or corneal arcus. Mucous membranes were moist. HEENT: Head is atraumatic, normocephalic. Pupils equal, round. Sclerae is a nicteric. NECK: Supple. No JVD. No lymphadenopathy. No thyromegaly. LUNGS: decreased breath some relative fine rhonchi, positive mild crackles in the bases positive mild dyspeptic started wheezes. HEART: Regular rate and rhythm, S1, S2 positive history. positive systolic murmur. ABDOMEN: Soft. Bowel sounds are present. No masses. No tenderness. EXTREMITIES: 1+ edema, positive pulse in the dorsalis pedis. NEUROLOGICAL: Patient is awake, alert and oriented x3. Cranial nerves 2 through 12 are grossly intact. Results - Laboratory Findings CBC and BMP: 11/19/21 16:50 11/19/21 03:49 PT/INR, D-dimer PT 11.0 sec (9.0-12.0) 11/19/21 03:49 INR 1.0 (<1.2) 11/19/21 03:49 Abnormal lab findings: Abnormal Labs 11/18/21 11/18/21 11/18/21 11:28 11:28 11:28 WBC RBC 3.87 L Hgb 10.9 L Hct 34.1 L Neutrophils # Lymphocytes # 0.1 L APTT 21.8 L Sodium BUN Glucose POC Glucose (mg/dL) Plasma Lactic Acid Casa AST Troponin I Urine Protein Trace H Urine Blood Moderate H Ur Leukocyte Esterase Large H Urine RBC 24 H Urine WBC >182 H Urine WBC Clumps Many H Urine Bacteria Many H Urine Mucus Occasional H 11/18/21 11/18/21 11/18/21 11:28 11:28 11:28 WBC RBC Hgb Hct Neutrophils # Lymphocytes # APTT Sodium BUN 25 H Glucose 115 H POC Glucose (mg/dL) Plasma Lactic Acid Casa 2.7 H* AST Troponin I 1.680 H* Urine Protein Urine Blood Ur Leukocyte Esterase Urine RBC Urine WBC Urine WBC Clumps Urine Bacteria Urine Mucus 11/18/21 11/18/21 11/18/21 14:59 14:59 17:47 WBC RBC Hgb Hct Neutrophils # Lymphocytes # APTT Sodium BUN Glucose POC Glucose (mg/dL) Plasma Lactic Acid Casa 2.8 H* AST Troponin I 3.060 H* 3.710 H* Urine Protein Urine Blood Ur Leukocyte Esterase Urine RBC Urine WBC Urine WBC Clumps Urine Bacteria Urine Mucus 11/18/21 11/18/21 11/18/21 17:47 19:59 19:59 WBC RBC Hgb Hct Neutrophils # Lymphocytes # APTT 32.5 H Sodium BUN Glucose POC Glucose (mg/dL) Plasma Lactic Acid Casa 3.6 H* AST Troponin I 4.120 H* Urine Protein Urine Blood Ur Leukocyte Esterase Urine RBC Urine WBC Urine WBC Clumps Urine Bacteria Urine Mucus 11/18/21 11/18/21 11/19/21 20:36 23:27 03:49 WBC 11.8 H RBC 3.49 L Hgb 10.1 L Hct 31.1 L Neutrophils # 11.3 H Lymphocytes # 0.2 L APTT Sodium BUN Glucose POC Glucose (mg/dL) Plasma Lactic Acid Casa 3.0 H* 2.8 H* AST Troponin I Urine Protein Urine Blood Ur Leukocyte Esterase Urine RBC Urine WBC Urine WBC Clumps Urine Bacteria Urine Mucus 11/19/21 11/19/21 11/19/21 03:49 03:49 03:49 WBC RBC Hgb Hct Neutrophils # Lymphocytes # APTT 36.4 H Sodium 135 L BUN 30 H Glucose 183 H POC Glucose (mg/dL) Plasma Lactic Acid Casa 2.6 H* AST 63 H Troponin I Urine Protein Urine Blood Ur Leukocyte Esterase Urine RBC Urine WBC Urine WBC Clumps Urine Bacteria Urine Mucus 11/19/21 11/19/21 10:28 12:45 WBC RBC Hgb Hct Neutrophils # Lymphocytes # APTT 47.5 H Sodium BUN Glucose POC Glucose (mg/dL) 285 H Plasma Lactic Acid Casa AST Troponin I Urine Protein Urine Blood Ur Leukocyte Esterase Urine RBC Urine WBC Urine WBC Clumps Urine Bacteria Urine Mucus - Diagnostic Findings Chest x-ray: image reviewed Assessment and Plan Plan: Acute NSTEMI The patient positive troponin without any EKG changes. Patient will be seen by cardiology. The patient underlying coronary artery disease and please refer to the most recent cardiac catheterization from 2019. acute febrile illness, currently under investigation. could be related to an underlying uti. no evidence of any pneumonia at least on chest x-ray findings acute shortness of breath secondary to above copd chf with systolic heart failure with an ejection fraction of 3035% hypertension hyperlipidemia thank you dorsal edema remote history of tia chronic back pain/spinal stenosis. plan agree on the current management Continue antibiotics Check urine cultures and blood cultures Continue IV heparin Continue aspirin and Plavix and beta blockers Cardiac catheterization in a.m.
--- NOTE | 2021-11-20 10:35 | P.PN ---
Subjective Progress Note Date: 11/20/21 75-year-old male patient, morbidly obese with known history of CAD, COPD, hyperlipidemia, previous history of TIA, presented to the hospital because of increased shortness of breath along with some mild fever/a temperature of 103 and chills and sweats. He was also feeling tired on the same day. In the emergency department, the workup revealed that the patienthad included an EKG that showed a sinus tachycardia with a RBBB pattern without any acute ischemic changes. Nevertheless, the patient ruled in for an acute non-ST segment elevation myocardial infarction. Troponins were positive. Chest x-ray showed no acute cardiopulmonary process. The patient had a proBNP level of 1660 and a BUN was 25 with a creatinine of 1.04 and the sodium level was at 138.his hemoglobin was attempted 0.1. The white cell count was 11.8. Coagulation profile initially was negative. Initial lactic acid level was 2.6. the lactic acid levels normalized. LFTs were normal. Electrolytes were normal.note that the patient had a recent echocardiogram from August 2021 showing a normal ejection fraction of 50-55%. There was small area of inferior wall hypokinesis, similar to previous echocardiograms and the patient had moderate tricuspid regurgitation. Cardiac catheterization from 2018 revealed a heavily calcified RCA and multiple critical lesions in total occlusion of the PVL branch with a 15-20% and also the left main, 40% stenosis in the mid LAD, circumflex had no disease. The patient underwent PCI to proximal RCA and PDA branch of RCA as well. Note that the patient had a chest x-ray in the emergency department that showed no acute abnormalities. The patient is currently on DuoNeb nebulized treatments 4 times a day, given IV Rocephin, given IV Solu-Medrol 60 mg every 6 hours, given IV heparin and was kept on accommodation of aspirin and Plavix. The patient is also on Lasix 40 mg by mouth on a daily basis. On today's evaluation of 11/20/2021, the patient is doing well. No specific complaints. The plan is to proceed with cardiac catheterization today. He has no chest pain. He still having some ongoing shortness of breath. He also has increased edema lower extremity bilaterally.The patient remains on IV heparin. PTT is therapeutic for now at 76.7. At the same time, the patient is on empiric antibiotic coverage with IV Rocephin and the patient is also on Lasix 40 mg by mouth daily. The patient remains on DuoNeb neb last treatment [id number] and IV Solu-Medrol. Urine cultures showing gram-negative bacillus and the patient is currently afebrile. Objective - Vital Signs Vital signs: Vital Signs Temp 97.3 F L 11/20/21 08:36 Pulse 71 11/20/21 09:21 Resp 18 11/20/21 09:21 BP 143/65 11/20/21 08:36 Pulse Ox 96 11/20/21 08:36 FiO2 28 11/19/21 19:04 Intake & Output 11/19/21 11/20/21 11/20/21 18:59 06:59 18:59 Intake Total 429.974 222.721 151.461 Output Total 250 1550 Balance 179.974 -1327.279 151.461 Weight 137.1 kg Intake: Intake, IV Titration 429.974 222.721 151.461 Amount Heparin Sod,Pork in 0.45% 79.974 222.721 151.461 NaCl 25,000 unit In 0.45 % NaCl 1 250ml.bag @ 7. 874 UNITS/KG/HR 10 mls/hr IV .Q24H [facility] Rx#: [id number] Sodium Chloride 0.9% 1, 300 000 ml @ 100 mls/hr IV . Q10H [facility] Rx#:[id number] cefTRIAXone 1 gm In 50 Sodium Chloride 0.9% 50 ml @ 100 mls/hr IVPB Q24HR [facility] Rx#:[id number] Output: Urine 250 1550 Other: Voiding Method Urinal Urinal Urinal # Voids 2 - Exam Gen: This is morbidly obese sitting in bed in mild respiratory distress. Head exam was generally normal. There was no scleral icterus or corneal arcus. Mucous membranes were moist. HEENT: Head is atraumatic, normocephalic. Pupils equal, round. Sclerae is anicteric. NECK: Supple. No JVD. No lymphadenopathy. No thyromegaly. LUNGS: decreased breath some relative fine rhonchi, positive mild crackles in the bases positive mild dyspeptic started wheezes. HEART: Regular rate and rhythm, S1, S2 positive history. positive systolic murmur. ABDOMEN: Soft. Bowel sounds are present. No masses. No tenderness. EXTREMITIES: 1+ edema, positive pulse in the dorsalis pedis. NEUROLOGICAL: Patient is awake, alert and oriented x3. Cranial nerves 2 through 12 are grossly intact. - Labs CBC & Chem 7: 11/19/21 16:50 11/19/21 03:49 Labs: Abnormal Lab Results - Last 24 Hours (Table) 11/19/21 11/19/21 11/19/21 Range/Units 10:28 12:45 16:29 WBC (3.8-10.6) k/uL RBC (4.30-5.90) m/uL Hgb (13.0-17.5) gm/dL Hct (39.0-53.0) % APTT 47.5 H (22.0-30.0) sec POC Glucose (mg/dL) 285 H 179 H (70-110) mg/dL 11/19/21 11/19/21 11/20/21 Range/Units 16:50 20:22 06:23 WBC 11.4 H (3.8-10.6) k/uL RBC 3.45 L (4.30-5.90) m/uL Hgb 9.9 L (13.0-17.5) gm/dL Hct 30.7 L (39.0-53.0) % APTT (22.0-30.0) sec POC Glucose (mg/dL) 236 H 160 H (70-110) mg/dL 11/20/21 Range/Units 07:57 WBC (3.8-10.6) k/uL RBC (4.30-5.90) m/uL Hgb (13.0-17.5) gm/dL Hct (39.0-53.0) % APTT 76.7 H (22.0-30.0) sec POC Glucose (mg/dL) (70-110) mg/dL Microbiology - Last 24 Hours (Table) 11/18/21 11:28 Urine Culture - Preliminary Urine,Voided Gram Neg Bacilli 11/18/21 11:28 Blood Culture - Preliminary Blood No Growth after 24 hours 11/18/21 11:28 Blood Culture - Preliminary Blood No Growth after 24 hours Assessment and Plan Plan: Acute NSTEMI The patient positive troponin without any EKG changes. Patient will be seen by cardiology. The patient underlying coronary artery disease and please refer to the most recent cardiac catheterization from 2019. acute febrile illness, currently under investigation. could be related to an underlying uti. no evidence of any pneumonia at least on chest x-ray findings acute shortness of breath secondary to above copd chf with systolic heart failure with an ejection fraction of 3035% hypertension hyperlipidemia thank you dorsal edema remote history of tia chronic back pain/spinal stenosis. plan Cardiac catheterization to be done today and the patient is free of any chest pain. Continue antibiotics Check urine cultures and blood cultures, urine cultures showing gram-negative bacillus. Continue IV heparin Continue aspirin and Plavix and beta blockers
--- NOTE | 2021-11-20 10:55 | P.PN ---
Subjective Progress Note Date: 11/20/21 HISTORY OF PRESENT ILLNESS 75-year-old morbidly obese male one of Dr. Bora Madera's patient with past medical history of CAD post PCI and stent placement of the RCA back in 2019 was on to have history of mild COPD, hypertension, hyperlipidemia and previous history of TIA was seen Dr. Figueroa cardiology regular basis has no record been in the hospital any time except 2019 for angioplasty and stent placement of the RCA which patient apparently has been doing well since. Patient had difficulty last night with significant dyspnea and shortness of breath with mild fever and c hills with drenching sweats at the time become generalized fatigue tiredness workup in the morning with much worsening symptoms ended up asking his family to bring him to [facility] where was seen and evaluated, patient was in quite but dyspnea at the time despite his presentation for fever or chills and possible infection surprisingly his EKG didn't show any major abnormality with CK with troponin was positive, UA shows significant urinary tract infection, patient chest x-ray revealed COPD with no major finding of infiltrate or pneumonia. Patient was diagnosed at this point with non-ST LA causing significant dyspnea and shortness of breath with mild pulmonary edema along with mild COPD excessive patient required treatment with severe bronchitis and prostatitis presented as a urinary tract infection. Patient will be on IV antibiotic will be seen cardiology consultation CK with troponin 2 be done echocardiogram will be order and patient might require an intervention with heart catheter when he is more stable on his the hospital this time. 11/19: Patient is seen today on the cardiac stepdown unit. Patient has been afebrile, heart rate 70, blood pressure 121/61, pulse ox 97% on room air. Repeat troponin's are 3.06, 3.71, 4.12. Lactic acid remains high this morning at 2.6. WBC 11.8, hemoglobin 10.1, platelet count 187. INR is 1. Sodium 135, BUN 30 creatinine 1.02. Blood sugar 183. AST 63. Urine culture is in progress. Blood culture is status post received. Patient is continued on ceftriaxone has also on IV Solu-Medrol 60 mg every 6 hours Echocardiogram reveals moderate to severe LV systolic function with EF of 30- 35%, technically suboptimal study. Patient has been seen by cardiology yesterday with recommendations for trending troponin, repeat EKG, continue IV heparin and cardiac medications, echocardiogram and infectious workup. This morning, patient was scheduled for cardiac catheterization tomorrow with Dr. RADHA Figueroa. 11/20: Patient denies having any chest pain today. is at bedside. Patient is scheduled for cardiac catheterization today and continued on IV heparin. He is followed by cardiology and pulmonary medicine. Patient has been afebrile, heart rate 71, blood pressure 143/65, pulse ox 96% on room air. Capillary blood glucose running between 160 and 236. Urine culture is growing gram-negative bacilli. Blood culture no growth at 24 hours. REVIEW OF SYSTEMS Constitutional: No fever, no chills, no night sweats. No weight change. positive generalized weakness fatigue and lethargy. EENT: No headache. No blurred vision or double vision, no loss of vision. No loss of Hearing, no ringing in the ears, no dizziness. No nasal drainage or congestion. No epistaxis. No sore throat. Lungs: positive shortness of breath, mild cough, no sputum production, positive mild wheezes and tightness. Cardiovascular: Denies chest pain, positive lower extremity edema, positive palpitations, positive PND and orthopnea with lightheadedness without syncope. Abdominal: No abdominal pain. No nausea, vomiting. No diarrhea. No constipation. No bloody or tarry stools.. No loss of appetite. Genitourinary: No dysuria, increased frequency, urgency. No urinary retention. Musculoskeletal: No myalgias. No muscle weakness, no gait dysfunction, no frequent falls. No back pain. No neck pain. Integumentary: No wounds, no lesions. No rash or pruritus. No unusual bruising. No change in hair or nails. Neurologic: No aphasia. No facial droop. No change in mentation. No head injury. No headache. No paralysis. No paresthesia. Psychiatric: No depression. No anxiety. No mood swings. Endocrine: No abnormal blood sugars. No weight change. No excessive sweating or thirst. No cold intolerance. PHYSICAL EXAMINATION Gen: This is morbidly obese sitting on the edge of the bed in no acute distress. Patient's is at bedside. HEENT: Head is atraumatic, normocephalic. Pupils equal, round. Sclerae is anicteric. NECK: Supple. No JVD. No lymphadenopathy. No thyromegaly. LUNGS: decreased breath some relative fine rhonchi, positive mild crackles in the bases positive mild dyspeptic started wheezes. HEART: Regular rate and rhythm, S1, S2, positive systolic murmur. ABDOMEN: Soft. Bowel sounds are present. No masses. No tenderness. EXTREMITIES: 1+ edema, positive pulse in the dorsalis pedis. NEUROLOGICAL: Patient is awake, alert and oriented x3. Cranial nerves 2 through 12 are grossly intact. ASSESSMENT AND PLAN - severe dyspnea and shortness of breath: Most likely is by the acute non-ST LA patient apparently has been more symptomatic lately with minimum exertion. - Non-ST LA. Cardiology consult appreciated. Patient is on heparin drip, scheduled for cardiac catheterization today with Dr. RADHA Figueroa. Continue patient on aspirin 81 mg daily, atenolol 50 mg twice daily, Lipitor 40 mg daily, Plavix 75 mg daily. - Acute febrile illness with elevated lactic acid very positive urine test, urine culture be done patient will be started on Rocephin 1 g a day to the cultures finalize also was start patient on Flomax 0.4 mg daily. - History of atherosclerotic heart disease: Has been on Crestor, losartan, furosemide, Plavix and atenolol. - COPD with slight worsening symptoms: Patient was started on Solu-Medrol along with DuoNeb and oxygen. Pulmonary consultation will be done. - Severe bronchitis with no evidence basal pneumonia at this point the patient is symptomatic pulmonary carter chest x-ray revealed no active acute infection continue updraft treatment Rocephin which continues for UTI will be helpful for bronchitis. - Possible obstructive sleep apnea: Patient has not been treated or manage for obstructive sleep apnea patient will eventually need to be referred for sleep study. - Cardiomyopathy: Most likely ischemic in origin ejection fraction is down to 30-35 percentile. Patient will be continue on diuretics, O2, atenolol and losartan continue supportive care for now. - Mild anemia: Mostly iron deficient most likely caused by the effect of medication causing gastritis will place patient on proton pump inhibitor along with iron. - history of hypertension: Has been on losartan 100 mg a day along with Tenormin 50 mg daily. - Hyperlipidemia: Continue patient on Crestor for now. - Peripheral edema: Most likely sign of ischemic cardiomyopathy, patient will be remain on diuretics for now. - History of TIA: Still on Plavix along with secondary prevention with better control blood pressure and cholesterol. - Chronic lower back pain history of spinal stenosis: Has been on medical management only. - DVT prophylaxis: Patient will continue for the night. - GI prophylaxis: Patient be continue on proton pump inhibitor. - CODE STATUS: Full code - COVID-19 testing, was Negative DISCHARGE PLAN Most likely return home over the weekend. Impression and plan of care have been directed as dictated by the signing physician. Caitlin De La Vega nurse practitioner acting as scribe for signing physician. Objective - Vital Signs Vital signs: Vital Signs Temp 97.3 F L 11/20/21 08:36 Pulse 71 11/20/21 08:36 Resp 18 11/20/21 08:36 BP 143/65 11/20/21 08:36 Pulse Ox 96 11/20/21 08:36 FiO2 28 11/19/21 19:04 Intake & Output 11/19/21 11/20/21 11/20/21 18:59 06:59 18:59 Intake Total 429.974 222.721 Output Total 250 1550 Balance 179.974 -1327.279 Weight 137.1 kg Intake: Intake, IV Titration 429.974 222.721 Amount Heparin Sod,Pork in 0.45% 79.974 222.721 NaCl 25,000 unit In 0.45 % NaCl 1 250ml.bag @ 7. 874 UNITS/KG/HR 10 mls/hr IV .Q24H [facility] Rx#: [id number] Sodium Chloride 0.9% 1, 300 000 ml @ 100 mls/hr IV . Q10H [facility] Rx#:[id number] cefTRIAXone 1 gm In 50 Sodium Chloride 0.9% 50 ml @ 100 mls/hr IVPB Q24HR [facility] Rx#:[id number] Output: Urine 250 1550 Other: Voiding Method Urinal Urinal # Voids 2 - Labs CBC & Chem 7: 11/19/21 16:50 11/19/21 03:49 Labs: Abnormal Lab Results - Last 24 Hours (Table) 11/19/21 11/19/21 11/19/21 Range/Units 10:28 12:45 16:29 WBC (3.8-10.6) k/uL RBC (4.30-5.90) m/uL Hgb (13.0-17.5) gm/dL Hct (39.0-53.0) % APTT 47.5 H (22.0-30.0) sec POC Glucose (mg/dL) 285 H 179 H (70-110) mg/dL 11/19/21 11/19/21 11/20/21 Range/Units 16:50 20:22 06:23 WBC 11.4 H (3.8-10.6) k/uL RBC 3.45 L (4.30-5.90) m/uL Hgb 9.9 L (13.0-17.5) gm/dL Hct 30.7 L (39.0-53.0) % APTT (22.0-30.0) sec POC Glucose (mg/dL) 236 H 160 H (70-110) mg/dL Microbiology - Last 24 Hours (Table) 11/18/21 11:28 Urine Culture - Preliminary Urine,Voided Gram Neg Bacilli 11/18/21 11:28 Blood Culture - Preliminary Blood No Growth after 24 hours 11/18/21 11:28 Blood Culture - Preliminary Blood No Growth after 24 hours
[2021-11-20] MEDS ORDERED: IV FLUID CONTINUATION 600 ML IV ONE (11:14)
[2021-11-20] MEDS ORDERED: MIDAZOLAM 2 MG/2 ML VIAL IV ONE (11:15)
[2021-11-20] MEDS ORDERED: LIDOCAINE 1% INJ 10MG/ML (5 ML VIAL-PF) SQ ONE (11:20)
[2021-11-20] MEDS ORDERED: HEPARIN SODIUM 1,000 UN/ML (10ML VL) ONE (11:22)
[2021-11-20] MEDS ORDERED: VERAPAMIL 2.5 MG/ML 2 ML AMP INTRAARTER ONE (11:24)
[2021-11-20] MEDS ORDERED: HEPARIN SODIUM 1,000 UN/ML (10ML VL) IV ONE (11:24)
[2021-11-20] MEDS ORDERED: VERAPAMIL SYRINGE (5 MG/10 ML) INTRAARTER ONE ×2 (11:24→11:38)
[2021-11-20] MEDS ORDERED: IOPAMIDOL-370 100ML BTL INJ ONE (11:40)
[2021-11-20] MEDS ORDERED: RX INFO: IV CONTRAST WAS GIVEN 1 EACH MISC MISCELLANE PRN (11:54)
[2021-11-20 12:06] LABS: Glucose,Whole Blood 151 mg/dL (70-110)
[2021-11-20 17:08] LABS: Glucose,Whole Blood 249 mg/dL (70-110)
--- NOTE | 2021-11-20 19:59 | CC ---
CARDIAC CATHETERIZATION REPORT DATE OF SERVICE: 11/20/2021 PROCEDURE: Left heart catheterization and coronary angiography. PERFORMED BY: Dr. Monico Figueroa. Moderate conscious sedation time was 23 minutes. The patient was administered Versed. Oxygenation, hemodynamics and EKG were monitored closely. CLINICAL INFORMATION: Mr. Bridger Carter is a 75-year-old gentleman with history of hypertension, hyperlipidemia and previous stenting of a very complex calcified proximal RCA and dilatation of the mid and distal RCA and also the PDA branch. He also has history of alcoholism and recently was seen in the office less than a month ago and was advised to refrain from alcohol and also we adjusted his statin, with which he was having some myalgia-type picture. Patient presented with increasing shortness of breath and was found to be in mild heart failure. Ejection fraction was globally decreased with about 35% EF. He was advised cardiac cath because also troponin went up to more than 4.0. Risks, benefits, options and rationale were explained. PROCEDURE NOTE: Under local anesthesia and strict aseptic precautions, a 6-Sami introducer was placed in the right radial artery. Using a JL3.5 and JR4 catheters I performed coronary angiography, and the same right catheter was used to check LV pressure, but LV gram was not performed. Following the procedure, the sheath was taken out and TR band applied as per protocol with saturation in the fingers of the right hand of 94%. The moderate conscious sedation time was 23 minutes. CARDIAC CATHETERIZATION FINDINGS: The left ventricular end-diastolic pressure was about 16 to 17 mmHg without any gradient across the aortic valve. CORONARY ANGIOGRAPHY FINDINGS: RIGHT CORONARY ARTERY: Dominant vessel. Proximal stented area is widely patent with some calcification. Flow is brisk, and the mid and distal portion that was dilated and the PDA branch are widely patent. There are minor diffuse irregularities but no significant disease and there is moderate to heavy calcification. Proximal stented area is widely patent with brisk flow. LEFT MAIN CORONARY ARTERY: This vessel had about a 20% narrowing and the coronary angiogram today also reveals the same 20% narrowing without a significant change. It bifurcates into LAD and circumflex. LEFT ANTERIOR DESCENDING CORONARY ARTERY: Good-caliber vessel extends along the anterior wall. It gives off septal branches, a good-sized diagonal branch in the mid portion, runs all the way to the apex. Killen supplies a sizable amount of myocardium. The distal one third of the LAD is diffusely diseased, but no significant disease. Angiographically the findings are similar to the study from May 2018. LEFT POSTERIOR CIRCUMFLEX CORONARY ARTERY: Technically a nondominant vessel that gives off two small first and second obtuse marginal branches and then a large obtuse marginal branch which has minor irregularities in the groove branch. There are minor irregularities in the nondominant circumflex, but no significant disease. FINAL IMPRESSION: This patient has a right-dominant system with widely patent RCA at the site of previous stenting with diffuse calcified disease throughout the RCA and branches. Left main has about a 20% narrowing. No significant disease in the LAD or circumflex. Filling pressures are mildly elevated and there is no gradient across aortic valve. Patient has a right-dominant system. RECOMMENDATIONS: Findings were discussed with the patient and family. 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 This possibility was discussed with the patient, advised that his coronary disease is not commensurate with the LV dysfunction that we are seeing, and that he should refrain from alcohol. I will add Lasix and Imdur. We will see him in the office following discharge. We will pursue aggressive medical therapy with alcohol cessation. Details were discussed with the patient and family, and patient will be discharged hopefully tomorrow. MMLILIAN / TOVAN: [id number] /
[2021-11-20 20:09] LABS: Glucose,Whole Blood 229 mg/dL (70-110)
[2021-11-20] MEDS: methylPREDNISolone SOD SUCCI 40 MG/ML 1 ML VIAL IV SCH (20:45)
[2021-11-20] MEDS: HEPARIN SODIUM,PORCINE/PF 5,000 UNIT/0.5 ML SYRINGE SQ SCH (20:45)
[2021-11-21] MEDS: IPRATROPIUM-ALBUTEROL 3 ML NEB INHALATION SCH ×4 (01:30→19:45)
[2021-11-21 06:05] LABS: Glucose,Whole Blood 144 mg/dL (70-110)
[2021-11-21] MEDS: PANTOPRAZOLE 40 MG TABLET PO SCH (06:10)
[2021-11-21] MEDS: INSULIN ASPART (NovoLOG) 100 UNIT/ML VIAL SQ SCH ×4 (06:10→20:08)
--- NOTE | 2021-11-21 08:08 | P.PN ---
Subjective Progress Note Date: 11/21/21 PROGRESS NOTE The patient is a 75-year-old male with a known history of CAD status post stenting of the RCA in 2019 who presented with symptoms of chills in addition to progressive dyspnea that has been going on for the last few weeks. He had no chest discomfort. He had mild elevation of the troponin on presentation and peaked at 4. His echocardiogram showed significant worsening of his systolic function compared to August with an ejection fraction of 30-35%. He continues to be dyspneic but he denies any chest discomfort, dizziness or palpitations. He has no PND, orthopnea or syncope. He continues to be in sinus mechanism. He is afebrile. November 21: The patient underwent cardiac catheterization yesterday and was found to have no significant progression of disease. He continues to be dyspneic but has no chest discomfort. He denies any dizziness or palpitations. He has a prior history of alcohol intake. He denies any nausea or vomiting and no febrile episode. He is limited in his activity because of his dyspnea. Medications: Aspirin, atenolol 50 mg twice a day, Lipitor 40 mg daily, Plavix 75 mg daily, Lasix 40 mg twice a day, losartan 100 mg daily, hydrochlorothiazide 25 mg daily, isosorbide mononitrate 30 mg daily, Flomax PHYSICAL EXAMINATION: Blood pressure 120/64 heart rate 72 LUNGS: Clear to auscultation HEART: Regular rate and rhythm, S1, S2. No S3. systolic ejection murmur at the base ABDOMEN: Soft, nontender, no organomegaly EXTREMETIES: Trace edema, right radial pulse intact IMPRESSION: 1. Non-STEMI, no evidence of progression of disease could be related to the infectious process 2. Worsening LV systolic function with ischemic cardiomyopathy 3. Probable UTI 4. History of stenting of the RCA 5. Hypertension 6. Hyperlipidemia 7. History of alcohol intake. PLAN: 1. Continue present therapy, 2. Increase physical activity. 3. Probable discharge home soon and follow-up with Dr. Figueroa. 4. Alcohol cessation Objective - Vital Signs Vital signs: Vital Signs Temp 97.9 F 11/21/21 03:55 Pulse 62 11/21/21 03:55 Resp 20 11/20/21 19:27 BP 150/77 11/21/21 03:55 Pulse Ox 95 11/21/21 03:55 FiO2 28 11/19/21 19:04 Intake & Output 11/20/21 11/21/21 11/21/21 18:59 06:59 18:59 Intake Total 579.461 Output Total 300 1450 Balance 279.461 -1450 Weight 136.1 kg Intake: IV 70 Intake, IV Titration 151.461 Amount Heparin Sod,Pork in 0.45% 151.461 NaCl 25,000 unit In 0.45 % NaCl 1 250ml.bag @ 7. 874 UNITS/KG/HR 10 mls/hr IV .Q24H [facility] Rx#: [id number] Oral 358 Output: Urine 300 1450 Other: Voiding Method Urinal Urinal # Voids 1 1 - Labs CBC & Chem 7: 11/19/21 16:50 11/19/21 03:49 Labs: Abnormal Lab Results - Last 24 Hours (Table) 11/20/21 11/20/21 11/20/21 Range/Units 07:57 12:05 17:06 APTT 76.7 H (22.0-30.0) sec POC Glucose (mg/dL) 151 H 249 H (70-110) mg/dL 11/20/21 11/21/21 Range/Units 20:08 06:03 APTT (22.0-30.0) sec POC Glucose (mg/dL) 229 H 144 H (70-110) mg/dL Microbiology - Last 24 Hours (Table) 11/18/21 11:28 Urine Culture - Final Urine,Voided Klebsiella oxytoca 11/18/21 11:28 Blood Culture - Preliminary Blood No Growth after 48 hours 11/18/21 11:28 Blood Culture - Preliminary Blood No Growth after 48 hours
[2021-11-21] MEDS: ASPIRIN 81 MG PO SCH (08:36)
[2021-11-21] MEDS: LOSARTAN 50 MG TAB PO SCH (08:36)
[2021-11-21] MEDS: ATORVASTATIN 40 MG TAB PO SCH (08:36)
[2021-11-21] MEDS: ISOSORBIDE MONONITRATE ER 30 MG TAB.ER.24H PO SCH (08:36)
[2021-11-21] MEDS: FUROSEMIDE 40 MG TAB PO SCH ×2 (08:37→17:17)
[2021-11-21] MEDS: hydroCHLOROthiazide 25 MG TAB PO SCH (08:37)
[2021-11-21] MEDS: methylPREDNISolone SOD SUCCI 40 MG/ML 1 ML VIAL IV SCH (08:37)
[2021-11-21] MEDS: atenoloL 50 MG TAB PO SCH ×2 (08:37→20:08)
[2021-11-21] MEDS: TAMSULOSIN 0.4 MG CAP.ER.24H PO SCH (08:37)
[2021-11-21] MEDS: CLOPIDOGREL 75 MG TAB PO SCH (08:37)
[2021-11-21] MEDS: PARoxetine 20 MG TAB PO SCH (08:37)
[2021-11-21 08:38] LABS: HCT 31.8 % (39.0-53.0); Hypochromasia Slight; MCH 27.9 pg (25.0-35.0); MCHC 31.5 g/dL (31.0-37.0); MCV 88.7 fL (80.0-100.0); Mean Platelet Volume 7.8; Platelet Count 166 k/uL (150-450); RBC 3.58 m/uL (4.30-5.90); RDW 14.5 % (11.5-15.5); WBC 9.4 k/uL (3.8-10.6)
[2021-11-21] MEDS: HEPARIN SODIUM,PORCINE/PF 5,000 UNIT/0.5 ML SYRINGE SQ SCH ×2 (08:39→20:08)
[2021-11-21] MEDS: SODIUM CHLORIDE 0.9% 1,000 ML IV SCH (08:40)
[2021-11-21 08:52] LABS: African American GFR (CKD) >90 (>60 ml/min/1.73 sqM); Anion Gap 7 mmol/L; Blood Urea Nitrogen 31 mg/dL (9-20); Calcium 7.6 mg/dL (8.4-10.2); Carbon Dioxide 22 mmol/L (22-30); Chloride 108 mmol/L (98-107); Glucose 193 mg/dL (74-99); Non-African American GFR(CKD) 79 (>60 ml/min/1.73 sqM); Potassium 3.5 mmol/L (3.5-5.1); Sodium 137 mmol/L (137-145)
--- NOTE | 2021-11-21 09:21 | P.PN ---
Subjective Progress Note Date: 11/21/21 75-year-old male patient, morbidly obese with known history of CAD, COPD, hyperlipidemia, previous history of TIA, presented to the hospital because of increased shortness of breath along with some mild fever/a temperature of 103 and chills and sweats. He was also feeling tired on the same day. In the emergency department, the workup revealed that the patienthad included an EKG that showed a sinus tachycardia with a RBBB pattern without any acute ischemic changes. Nevertheless, the patient ruled in for an acute non-ST segment elevation myocardial infarction. Troponins were positive. Chest x-ray showed no acute cardiopulmonary process. The patient had a proBNP level of 1660 and a BUN was 25 with a creatinine of 1.04 and the sodium level was at 138.his hemoglobin was attempted 0.1. The white cell count was 11.8. Coagulation profile initially was negative. Initial lactic acid level was 2.6. the lactic acid levels normalized. LFTs were normal. Electrolytes were normal.note that the patient had a recent echocardiogram from August 2021 showing a normal ejection fraction of 50-55%. There was small area of inferior wall hypokinesis, similar to previous echocardiograms and the patient had moderate tricuspid regurgitation. Cardiac catheterization from 2018 revealed a heavily calcified RCA and multiple critical lesions in total occlusion of the PVL branch with a 15-20% and also the left main, 40% stenosis in the mid LAD, circumflex had no disease. The patient underwent PCI to proximal RCA and PDA branch of RCA as well. Note that the patient had a chest x-ray in the emergency department that showed no acute abnormalities. The patient is currently on DuoNeb nebulized treatments 4 times a day, given IV Rocephin, given IV Solu-Medrol 60 mg every 6 hours, given IV heparin and was kept on accommodation of aspirin and Plavix. The patient is also on Lasix 40 mg by mouth on a daily basis. On today's evaluation of 11/20/2021, the patient is doing well. No specific complaints. The plan is to proceed with cardiac catheterization today. He has no chest pain. He still having some ongoing shortness of breath. He also has increased edema lower extremity bilaterally.The patient remains on IV heparin. PTT is therapeutic for now at 76.7. At the same time, the patient is on empiric antibiotic coverage with IV Rocephin and the patient is also on Lasix 40 mg by mouth daily. The patient remains on DuoNeb neb last treatment [id number] and IV Solu-Medrol. Urine cultures showing gram-negative bacillus and the patient is currently afebrile. 11/21/2021, the patient is post cardiac catheterization. Cardiac catheterization was undergone yesterday and the patient was found to have a dominant right sided system was widely patent RCA and RCA branches. Left main was 20% narrowed. No significant disease of the LAD and the circumflex and the patient's filling pressures are also within normal limits. 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 He was recommended to have any and he quits about 3 weeks ago. On today's evaluation, his blood work shows a white cell count 9.4 with a hemoglobin of 10 and a platelet count of 166. BUN is at 31 with a creatinine of 0.4. The patient remains on DuoNeb nebulized treatments around the clock. The patient remains on IV Solu-Medrol. He is also on Lasix 40 mg by mouth twice a day. He continues to have some dyspnea without any chest discomfort.. IV heparin was discontinued. Objective - Vital Signs Vital signs: Vital Signs Temp 97.9 F 11/21/21 03:55 Pulse 68 11/21/21 08:27 Resp 18 11/21/21 08:27 BP 150/77 11/21/21 03:55 Pulse Ox 96 11/21/21 08:16 FiO2 28 11/19/21 19:04 Intake & Output 11/20/21 11/21/21 11/21/21 18:59 06:59 18:59 Intake Total 579.461 Output Total 300 1450 Balance 279.461 -1450 Weight 136.1 kg Intake: IV 70 Intake, IV Titration 151.461 Amount Heparin Sod,Pork in 0.45% 151.461 NaCl 25,000 unit In 0.45 % NaCl 1 250ml.bag @ 7. 874 UNITS/KG/HR 10 mls/hr IV .Q24H [facility] Rx#: [id number] Oral 358 Output: Urine 300 1450 Other: Voiding Method Urinal Urinal # Voids 1 1 - Exam Gen: This is morbidly obese sitting in bed in mild respiratory distress. Head exam was generally normal. There was no scleral icterus or corneal arcus. Mucous membranes were moist. HEENT: Head is atraumatic, normocephalic. Pupils equal, round. Sclerae is anicteric. NECK: Supple. No JVD. No lymphadenopathy. No thyromegaly. LUNGS: decreased breath some relative fine rhonchi, positive mild crackles in the bases positive mild dyspeptic started wheezes. HEART: Regular rate and rhythm, S1, S2 positive history. positive systolic murmur. ABDOMEN: Soft. Bowel sounds are present. No masses. No tenderness. EXTREMITIES: 1+ edema, positive pulse in the dorsalis pedis. NEUROLOGICAL: Patient is awake, alert and oriented x3. Cranial nerves 2 through 12 are grossly intact. - Labs CBC & Chem 7: 11/21/21 08:20 11/21/21 08:20 Labs: Abnormal Lab Results - Last 24 Hours (Table) 11/20/21 11/20/21 11/20/21 Range/Units 12:05 17:06 20:08 RBC (4.30-5.90) m/uL Hgb (13.0-17.5) gm/dL Hct (39.0-53.0) % Chloride (98-107) mmol/L BUN (9-20) mg/dL Glucose (74-99) mg/dL POC Glucose (mg/dL) 151 H 249 H 229 H (70-110) mg/dL Calcium (8.4-10.2) mg/dL 11/21/21 11/21/21 11/21/21 Range/Units 06:03 08:20 08:20 RBC 3.58 L (4.30-5.90) m/uL Hgb 10.0 L (13.0-17.5) gm/dL Hct 31.8 L (39.0-53.0) % Chloride 108 H (98-107) mmol/L BUN 31 H (9-20) mg/dL Glucose 193 H (74-99) mg/dL POC Glucose (mg/dL) 144 H (70-110) mg/dL Calcium 7.6 L (8.4-10.2) mg/dL Microbiology - Last 24 Hours (Table) 11/18/21 11:28 Urine Culture - Final Urine,Voided Klebsiella oxytoca 11/18/21 11:28 Blood Culture - Preliminary Blood No Growth after 48 hours 11/18/21 11:28 Blood Culture - Preliminary Blood No Growth after 48 hours Assessment and Plan Plan: Acute NSTEMI The patient positive troponin without any EKG changes. Patient will be seen by cardiology. The patient underlying coronary artery disease and please refer to the most recent cardiac catheterization from 2019. Repeat cardiac catheterization from yesterday showed nonocclusive disease Systolic heart failure, likely acute with an ejection fraction of 30-35% acute febrile illness, currently under investigation. could be related to an underlying uti. no evidence of any pneumonia at least on chest x-ray findings acute shortness of breath secondary to above UTI secondary to Klebsiella copd chf with systolic heart failure with an ejection fraction of 3035% hypertension hyperlipidemia thank you dorsal edema remote history of tia chronic back pain/spinal stenosis. plan Cardiac catheterization was done indicating nonocclusive disease and the patient is free of any chest pain. Continue antibiotics regarding gram-negative UTI Check urine cultures and blood cultures, urine cultures showing gram-negative bacillus. Stopped IV Solu-Medrol and put the patient prednisone burst taper Change IV fluids to KVO Continue with oral Lasix Continue aspirin and Plavix and beta blockers Increase mobility and ambulation.
[2021-11-21 11:42] LABS: Glucose,Whole Blood 241 mg/dL (70-110)
--- NOTE | 2021-11-21 15:34 | P.PN ---
Subjective Progress Note Date: 11/21/21 HISTORY OF PRESENT ILLNESS 75-year-old morbidly obese male one of Dr. Bora Madera's patient with past medical history of CAD post PCI and stent placement of the RCA back in 2019 was on to have history of mild COPD, hypertension, hyperlipidemia and previous history of TIA was seen Dr. Figueroa cardiology regular basis has no record been in the hospital any time except 2019 for angioplasty and stent placement of the RCA which patient apparently has been doing well since. Patient had difficulty last night with significant dyspnea and shortness of breath with mild fever and chills with drenching sweats at the time become generalized fatigue tiredness workup in the morning with much worsening symptoms ended up asking his family to bring him to [facility] department where was seen and evaluated, patient was in quite but dyspnea at the time despite his presentation for fever or chills and possible infection surprisingly his EKG didn't show any major abnormality with CK with troponin was positive, UA shows significant urinary tract infection, patient chest x-ray revealed COPD with no major finding of infiltrate or pneumonia. Patient was diagnosed at this point with non-ST DE causing significant dyspnea and shortness of breath with mild pulmonary edema along with mild COPD excessive patient required treatment with severe bronchitis and prostatitis presented as a urinary tract infection. Patient will be on IV antibiotic will be seen cardiology consultation CK with troponin 2 be done echocardiogram will be order and patient might require an intervention with hear t catheter when he is more stable on his the hospital this time. 11/19: Patient is seen today on the cardiac stepdown unit. Patient has been afebrile, heart rate 70, blood pressure 121/61, pulse ox 97% on room air. Repeat troponin's are 3.06, 3.71, 4.12. Lactic acid remains high this morning at 2.6. WBC 11.8, hemoglobin 10.1, platelet count 187. INR is 1. Sodium 135, BUN 30 creatinine 1.02. Blood sugar 183. AST 63. Urine culture is in progress. Blood culture is status post received. Patient is continued on ceftriaxone has also on IV Solu-Medrol 60 mg every 6 hours Echocardiogram reveals moderate to severe LV systolic function with EF of 30- 35%, technically suboptimal study. Patient has been seen by cardiology yesterday with recommendations for trending troponin, repeat EKG, continue IV heparin and cardiac medications, echocardiogram and infectious workup. This morning, patient was scheduled for cardiac catheterization tomorrow with Dr. RADHA Figueroa. 11/20: Patient denies having any chest pain today. is at bedside. Patient is scheduled for cardiac catheterization today and continued on IV heparin. He is followed by cardiology and pulmonary medicine. Patient has been afebrile, heart rate 71, blood pressure 143/65, pulse ox 96% on room air. Capillary blood glucose running between 160 and 236. Urine culture is growing gram-negative bacilli. Blood culture no growth at 24 hours. : She currently is on room air with some conversational dyspnea, negative cleared by both pulmonary and cardiology for discharge, ruled in for non-STEMI, is worsening LV function, and LV dysfunction, ejection fraction 35% we'll going to get PT OT, patient was counseled regarding alcohol cessation, cane at bedside, febrile illness, no evidence of pneumonia, recent chest x-ray, repeat cath on 11/20/2021, failed to reveal any occlusive significant ds per cardiology, coronary disease is not complying straight with a LV dysfunction that was noted, including debility related to alcohol heavy use. Aggressive medical management is recommended might be discharged in next 24 hours, depending on PT and endurance and for risk hemoglobin of 10, ferrous sulfate 325 mg started on aspirin, Plavix 75, Imdur sublingual nitro, valsartan Paxil prednisone 40 tapering dose atenolol 50 twice a day number changes, added along with Imdur, REVIEW OF SYSTEMS Constitutional: No fever, no chills, no night sweats. No weight change. positive generalized weakness fatigue and lethargy. EENT: No headache. No blurred vision or double vision, no loss of vision. No loss of Hearing, no ringing in the ears, no dizziness. No nasal drainage or congestion. No epistaxis. No sore throat. Lungs: positive shortness of breath, mild cough, no sputum production, positive mild wheezes and tightness. Cardiovascular: Denies chest pain, positive lower extremity edema, positive palpitations, positive PND and orthopnea with lightheadedness without syncope. Abdominal: No abdominal pain. No nausea, vomiting. No diarrhea. No constipation. No bloody or tarry stools.. No loss of appetite. Genitourinary: No dysuria, increased frequency, urgency. No urinary retention. Musculoskeletal: No myalgias. No muscle weakness, no gait dysfunction, no frequent falls. No back pain. No neck pain. Integumentary: No wounds, no lesions. No rash or pruritus. No unusual brui sing. No change in hair or nails. Neurologic: No aphasia. No facial droop. No change in mentation. No head injury. No headache. No paralysis. No paresthesia. Psychiatric: No depression. No anxiety. No mood swings. Endocrine: No abnormal blood sugars. No weight change. No excessive sweating or thirst. No cold intolerance. PHYSICAL EXAMINATION Gen: This is morbidly obese sitting on the edge of the bed in no acute distress. Patient's is at bedside. HEENT: Head is atraumatic, normocephalic. Pupils equal, round. Sclerae is anicteric. NECK: Supple. No JVD. No lymphadenopathy. No thyromegaly. LUNGS: decreased breath some relative fine rhonchi, positive mild crackles in the bases positive mild dyspeptic started wheezes. HEART: Regular rate and rhythm, S1, S2, positive systolic murmur. ABDOMEN: Soft. Bowel sounds are present. No masses. No tenderness. EXTREMITIES: 1+ edema, positive pulse in the dorsalis pedis. NEUROLOGICAL: Patient is awake, alert and oriented x3. Cranial nerves 2 through 12 are grossly intact. ASSESSMENT AND PLAN - severe dyspnea and shortness of breath: Most likely is by the acute non-ST DE patient apparently has been more symptomatic lately with minimum exertion. - Non-ST DE. Cardiology consult appreciated. Patient is on heparin drip, scheduled for cardiac catheterization today with Dr. RADHA Figueroa. Continue patient on aspirin 81 mg daily, atenolol 50 mg twice daily, Lipitor 40 mg daily, Plavix 75 mg daily. - Acute febrile illness with elevated lactic acid very positive urine test, u rine culture be done patient will be started on Rocephin 1 g a day to the cultures finalize also was start patient on Flomax 0.4 mg daily. - History of atherosclerotic heart disease: Has been on Crestor, losartan, furosemide, Plavix and atenolol. - COPD with slight worsening symptoms: Patient was started on Solu-Medrol along with DuoNeb and oxygen. Pulmonary consultation will be done. - Severe bronchitis with no evidence basal pneumonia at this point the patient is symptomatic pulmonary carter chest x-ray revealed no active acute infection continue updraft treatment Rocephin which continues for UTI will be helpful for bronchitis. - Possible obstructive sleep apnea: Patient has not been treated or manage for obstructive sleep apnea patient will eventually need to be referred for sleep [facility]. - Cardiomyopathy: Most likely ischemic in origin ejection fraction is down to 30-35 percentile. Patient will be continue on diuretics, O2, atenolol and losartan continue supportive care for now. - Mild anemia: Mostly iron deficient most likely caused by the effect of medication causing gastritis will place patient on proton pump inhibitor along with iron. - history of hypertension: Has been on losartan 100 mg a day along with Tenormin 50 mg daily. - Hyperlipidemia: Continue patient on Crestor for now. - Peripheral edema: Most likely sign of ischemic cardiomyopathy, patient will be remain on diuretics for now. - History of TIA: Still on Plavix along with secondary prevention with better control blood pressure and cholesterol. - Chronic lower back pain history of spinal stenosis: Has been on medical management only. - DVT prophylaxis: Patient will continue for the night. - GI prophylaxis: Patient be continue on proton pump inhibitor. - CODE STATUS: Full code - COVID-19 testing, was Negative DISCHARGE PLAN Most likely return home over the weekend. Impression and plan of care have been directed as dictated by the signing physician. Caitlin De La Vega nurse practitioner acting as scribe for signing physician. Laboratory Results - Last 24 Hours 11/20/21 11/20/21 11/21/21 17:06 20:08 06:03 WBC RBC Hgb Hct MCV MCH MCHC RDW Plt Count MPV Hypochromasia Sodium Potassium Chloride Carbon Dioxide Anion Gap BUN Creatinine Est GFR (CKD-EPI)AfAm Est GFR (CKD-EPI)NonAf Glucose POC Glucose (mg/dL) 249 H 229 H 144 H POC Glu Fishing Captain ID Clair Palmer Courtney Garcia, Courtney Calcium 11/21/21 11/21/21 11/21/21 08:20 08:20 11:40 WBC 9.4 RBC 3.58 L Hgb 10.0 L Hct 31.8 L MCV 88.7 MCH 27.9 MCHC 31.5 RDW 14.5 Plt Count 166 MPV 7.8 Hypochromasia Slight Sodium 137 Potassium 3.5 Chloride 108 H Carbon Dioxide 22 Anion Gap 7 BUN 31 H Creatinine 0.94 Est GFR (CKD-EPI)AfAm >90 Est GFR (CKD-EPI)NonAf 79 Glucose 193 H POC Glucose (mg/dL) 241 H POC Glu Fishing Captain Kala Case Calcium 7.6 L Active Medications Albuterol/Ipratropium (Ipratropium-Albuterol 3 Ml Neb) 3 ml INHALATION RT-Q6H [facility] Last Admin: 11/21/21 12:12 Dose: 3 ml Alprazolam (Alprazolam 0.25 Mg Tab) 0.25 mg PO Q6HR PRN PRN Reason: Mild Anxiety Alprazolam (Alprazolam 0.5 Mg Tab) 0.5 mg PO Q6HR PRN PRN Reason: Moderate Anxiety Last Admin: 11/19/21 23:52 Dose: 0.5 mg Aspirin (Aspirin 81 Mg) 81 mg PO DAILY [facility] Last Admin: 11/21/21 08:36 Dose: 81 mg Atenolol (Atenolol 50 Mg Tab) 50 mg PO BID [facility] Last Admin: 11/21/21 08:37 Dose: 50 mg Atorvastatin Calcium (Atorvastatin 40 Mg Tab) 40 mg PO DAILY [facility] Last Admin: 11/21/21 08:36 Dose: 40 mg Clopidogrel Bisulfate (Clopidogrel 75 Mg Tab) 75 mg PO DAILY [facility] Last Admin: 11/21/21 08:37 Dose: 75 mg Furosemide (Furosemide 40 Mg Tab) 40 mg PO BID@0900,1600 [facility] Last Admin: 11/21/21 08:37 Dose: 40 mg Heparin Sodium (Porcine) (Heparin Sodium,Porcine/Pf 5,000 Unit/0.5 Ml Syringe) 5,000 unit SQ Q12HR [facility] Last Admin: 11/21/21 08:39 Dose: 5,000 unit Hydrochlorothiazide (Hydrochlorothiazide 25 Mg Tab) 25 mg PO DAILY [facility] Last Admin: 11/21/21 08:37 Dose: 25 mg Sodium Chloride (Saline 0.9%) 1,000 mls @ 10 mls/hr IV .Q24H [facility] Last Admin: 11/21/21 08:40 Dose: Not Given Ceftriaxone Sodium 1 gm/ (Sodium Chloride) 50 mls @ 100 mls/hr IVPB Q24HR [facility]; Protocol Last Admin: 11/21/21 08:40 Dose: 100 mls/hr Insulin Aspart (Insulin Aspart (Novolog) 100 Unit/Ml Vial) 0 unit SQ ACHS [facility]; Protocol Last Admin: 11/21/21 12:34 Dose: 8 unit Isosorbide Mononitrate (Isosorbide Mononitrate Er 30 Mg Tab.Er.24h) 30 mg PO DAILY [facility] Last Admin: 11/21/21 08:36 Dose: 30 mg Losartan Potassium (Losartan 50 Mg Tab) 100 mg PO DAILY [facility] Last Admin: 11/21/21 08:36 Dose: 100 mg Miscellaneous Information (Rx Info: Iv Contrast Was Given 1 Each Misc) 1 each MISCELLANE DAILY PRN PRN Reason: Per Protocol Stop: 11/22/21 11:54 Nitroglycerin (Nitroglycerin Sl Tabs 0.4 Mg Tab) 0.4 mg SUBLINGUAL Q5M PRN PRN Reason: Chest Pain Nitroglycerin (Nitroglycerin Sl Tabs 0.4 Mg Tab) 0.4 mg SUBLINGUAL Q5M PRN PRN Reason: Chest Pain Pantoprazole Sodium (Pantoprazole 40 Mg Tablet) 40 mg PO -BRKFST [facility] Last Admin: 11/21/21 06:10 Dose: 40 mg Paroxetine HCl (Paroxetine 20 Mg Tab) 20 mg PO DAILY [facility] Last Admin: 11/21/21 08:37 Dose: 20 mg Prednisone (Prednisone 20 Mg Tab) 40 mg PO DAILY [facility] Tamsulosin HCl (Tamsulosin 0.4 Mg Cap.Er.24h) 0.4 mg PO [facility] Last Admin: 11/21/21 08:37 Dose: 0.4 mg Vital Signs - 24 hr 11/20/21 11/20/21 11/20/21 15:45 19:27 20:31 Temperature 98 F Pulse Rate 90 Pulse Rate [ 65 Pulse Oximetery ] Pulse Rate [ 62 Right Radial] Respiratory 18 20 Rate Blood Pressure 125/63 120/64 [Left Arm] Blood Pressure [Right Arm] O2 Sat by Pulse 95 95 96 Oximetry 11/20/21 11/21/21 11/21/21 20:41 00:19 03:55 Temperature 97.5 F L 97.9 F Pulse Rate 78 Pulse Rate [ 63 62 Pulse Oximetery ] Pulse Rate [ Right Radial] Respiratory Rate Blood Pressure 102/65 150/77 [Left Arm] Blood Pressure [Right Arm] O2 Sat by Pulse 96 95 Oximetry 07/07/1411/21/21 11/21/21 08:00 08:16 08:27 Temperature 98.1 F Pulse Rate 68 68 Pulse Rate [ Pulse Oximetery ] Pulse Rate [ 63 Right Radial] Respiratory 20 18 18 Rate Blood Pressure [Left Arm] Blood Pressure 126/66 [Right Arm] O2 Sat by Pulse 96 96 Oximetry 11/21/21 11/21/21 11/21/21 11:35 12:14 12:24 Temperature 97.2 F L Pulse Rate 67 68 Pulse Rate [ 65 Pulse Oximetery ] Pulse Rate [ Right Radial] Respiratory 20 Rate Blood Pressure 159/79 [Left Arm] Blood Pressure [Right Arm] O2 Sat by Pulse 96 Oximetry Objective - Vital Signs Vital signs: Vital Signs Temp 97.2 F L 11/21/21 11:35 Pulse 68 11/21/21 12:24 Resp 20 11/21/21 11:35 BP 159/79 11/21/21 11:35 Pulse Ox 96 11/21/21 11:35 FiO2 28 11/19/21 19:04 Intake & Output 11/20/21 11/21/21 11/21/21 18:59 06:59 18:59 Intake Total 579.461 50 Output Total 300 1450 300 Balance 279.461 -1450 -250 Weight 136.1 kg Intake: IV 70 Intake, IV Titration 151.461 50 Amount Heparin Sod,Pork in 0.45% 151.461 NaCl 25,000 unit In 0.45 % NaCl 1 250ml.bag @ 7. 874 UNITS/KG/HR 10 mls/hr IV .Q24H [facility] Rx#: [id number] 1 gm In 50 Sodium Chloride 0.9% 50 ml @ 100 mls/hr IVPB Q24HR [facility] Rx#:[id number] Oral 358 Output: Urine 300 1450 300 Other: Voiding Method Urinal Urinal # Voids 1 1 - Labs CBC & Chem 7: 11/21/21 08:20 11/21/21 08:20 Labs: Abnormal Lab Results - Last 24 Hours (Table) 11/20/21 11/20/21 11/21/21 Range/Units 17:06 20:08 06:03 RBC (4.30-5.90) m/uL Hgb (13.0-17.5) gm/dL Hct (39.0-53.0) % Chloride (98-107) mmol/L BUN (9-20) mg/dL Glucose (74-99) mg/dL POC Glucose (mg/dL) 249 H 229 H 144 H (70-110) mg/dL Calcium (8.4-10.2) mg/dL 11/21/21 11/21/21 11/21/21 Range/Units 08:20 08:20 11:40 RBC 3.58 L (4.30-5.90) m/uL Hgb 10.0 L (13.0-17.5) gm/dL Hct 31.8 L (39.0-53.0) % Chloride 108 H (98-107) mmol/L BUN 31 H (9-20) mg/dL Glucose 193 H (74-99) mg/dL POC Glucose (mg/dL) 241 H (70-110) mg/dL Calcium 7.6 L (8.4-10.2) mg/dL Microbiology - Last 24 Hours (Table) 11/18/21 11:28 Blood Culture - Preliminary Blood No Growth after 72 hours 11/18/21 11:28 Blood Culture - Preliminary Blood No Growth after 72 hours 11/18/21 11:28 Urine Culture - Final Urine,Voided Klebsiella oxytoca
[2021-11-21 17:06] LABS: Glucose,Whole Blood 172 mg/dL (70-110)
[2021-11-21] MEDS: predniSONE 20 MG TAB PO SCH (17:17)
[2021-11-21 19:35] LABS: Glucose,Whole Blood 193 mg/dL (70-110)
[2021-11-22] MEDS: IPRATROPIUM-ALBUTEROL 3 ML NEB INHALATION SCH ×3 (03:52→13:22)
[2021-11-22 06:04] LABS: Glucose,Whole Blood 124 mg/dL (70-110)
[2021-11-22] MEDS: INSULIN ASPART (NovoLOG) 100 UNIT/ML VIAL SQ SCH ×2 (06:16→11:52)
[2021-11-22] MEDS: PANTOPRAZOLE 40 MG TABLET PO SCH (06:17)
[2021-11-22] MEDS: ATORVASTATIN 40 MG TAB PO SCH (07:59)
[2021-11-22] MEDS: PARoxetine 20 MG TAB PO SCH (08:00)
[2021-11-22] MEDS: FUROSEMIDE 40 MG TAB PO SCH ×2 (08:00→11:52)
[2021-11-22] MEDS: hydroCHLOROthiazide 25 MG TAB PO SCH (08:00)
[2021-11-22] MEDS: ASPIRIN 81 MG PO SCH (08:00)
[2021-11-22] MEDS: predniSONE 20 MG TAB PO SCH (08:00)
[2021-11-22] MEDS: atenoloL 50 MG TAB PO SCH (08:00)
[2021-11-22] MEDS: CLOPIDOGREL 75 MG TAB PO SCH (08:00)
[2021-11-22] MEDS: TAMSULOSIN 0.4 MG CAP.ER.24H PO SCH (08:01)
[2021-11-22] MEDS: SODIUM CHLORIDE 0.9% 1,000 ML IV SCH (08:01)
[2021-11-22] MEDS: HEPARIN SODIUM,PORCINE/PF 5,000 UNIT/0.5 ML SYRINGE SQ SCH (08:01)
[2021-11-22] MEDS: LOSARTAN 50 MG TAB PO SCH (08:02)
[2021-11-22] MEDS: ISOSORBIDE MONONITRATE ER 30 MG TAB.ER.24H PO SCH (08:02)
--- NOTE | 2021-11-22 11:16 | P.PN ---
Subjective Progress Note Date: 11/22/21 75-year-old male patient, morbidly obese with known history of CAD, COPD, hyperlipidemia, previous history of TIA, presented to the hospital because of increased shortness of breath along with some mild fever/a temperature of 103 and chills and sweats. He was also feeling tired on the same day. In the emergency department, the workup revealed that the patienthad included an EKG that showed a sinus tachycardia with a RBBB pattern without any acute ischemic changes. Nevertheless, the patient ruled in for an acute non-ST segment elevation myocardial infarction. Troponins were positive. Chest x-ray showed no acute cardiopulmonary process. The patient had a proBNP level of 1660 and a BUN was 25 with a creatinine of 1.04 and the sodium level was at 138.his hemoglobin was attempted 0.1. The white cell count was 11.8. Coagulation profile initially was negative. Initial lactic acid level was 2.6. the lactic acid levels normalized. LFTs were normal. Electrolytes were normal.note that the patient had a recent echocardiogram from August 2021 showing a normal ejection fraction of 50-55%. There was small area of inferior wall hypokinesis, similar to previous echocardiograms and the patient had moderate tricuspid regurgitation. Cardiac catheterization from 2018 revealed a heavily calcified RCA and multiple critical lesions in total occlusion of the PVL branch with a 15-20% and also the left main, 40% stenosis in the mid LAD, circumflex had no disease. The patient underwent PCI to proximal RCA and PDA branch of RCA as well. Note that the patient had a chest x-ray in the emergency department that showed no acute abnormalities. The patient is currently on DuoNeb nebulized treatments 4 times a day, given IV Rocephin, given IV Solu-Medrol 60 mg every 6 hours, given IV heparin and was kept on accommodation of aspirin and Plavix. The patient is also on Lasix 40 mg by mouth on a daily basis. On today's evaluation of 11/20/2021, the patient is doing well. No specific complaints. The plan is to proceed with cardiac catheterization today. He has no chest pain. He still having some ongoing shortness of breath. He also has increased edema lower extremity bilaterally.The patient remains on IV heparin. PTT is therapeutic for now at 76.7. At the same time, the patient is on empiric antibiotic coverage with IV Rocephin and the patient is also on Lasix 40 mg by mouth daily. The patient remains on DuoNeb neb last treatment [id number] and IV Solu-Medrol. Urine cultures showing gram-negative bacillus and the patient is currently afebrile. 11/21/2021, the patient is post cardiac catheterization. Cardiac catheterization was undergone yesterday and the patient was found to have a dominant right sided system was widely patent RCA and RCA branches. Left main was 20% narrowed. No significant disease of the LAD and the circumflex and the patient's filling pressures are also within normal limits. 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 He was recommended to have any and he quits about 3 weeks ago. On today's evaluation, his blood work shows a white cell count 9.4 with a hemoglobin of 10 and a platelet count of 166. BUN is at 31 with a creatinine of 0.4. The patient remains on DuoNeb nebulized treatments around the clock. The patient remains on IV Solu-Medrol. He is also on Lasix 40 mg by mouth twice a day. He continues to have some dyspnea without any chest discomfort.. IV heparin was discontinued. 11/22/2021, the patient is doing well. No specific complaints. Remains on IV antibiotic with Rocephin regarding The UTI. Remains on a Prednisone Burst Taper. History of Any Chest Pain. Cardiac Catheterization Was Noted. The Patient Is Currently on Room Air Oxygen. No Other Active Issues for Now. Ambul ating. Tolerating His Diet. Objective - Vital Signs Vital signs: Vital Signs Temp 97.6 F 11/22/21 07:57 Pulse 67 11/22/21 08:10 Resp 16 11/22/21 08:10 BP 119/66 11/22/21 07:57 Pulse Ox 96 11/22/21 08:10 FiO2 28 11/19/21 19:04 Intake & Output 11/21/21 11/22/21 11/22/21 18:59 06:59 18:59 Intake Total 50 475 Output Total 1000 1580 750 Balance -950 -7540 -753 Weight 134.5 kg Intake: IV 5 Invasive Line 3 5 Intake, IV Titration 50 50 Amount cefTRIAXone 1 gm In 50 50 Sodium Chloride 0.9% 50 ml @ 100 mls/hr IVPB Q24HR [facility] Rx#:[id number] Oral 420 Output: Urine 1000 1580 750 Other: Voiding Method Urinal # Voids 1 - Exam Gen: This is morbidly obese sitting in bed in mild respiratory distress. Head exam was generally normal. There was no scleral icterus or corneal arcus. Mucous membranes were moist. HEENT: Head is atraumatic, normocephalic. Pupils equal, round. Sclerae is anicteric. NECK: Supple. No JVD. No lymphadenopathy. No thyromegaly. LUNGS: decreased breath some relative fine rhonchi, positive mild crackles in the bases positive mild dyspeptic started wheezes. HEART: Regular rate and rhythm, S1, S2 positive history. positive systolic murmur. ABDOMEN: Soft. Bowel sounds are present. No masses. No tenderness. EXTREMITIES: 1+ edema, positive pulse in the dorsalis pedis. NEUROLOGICAL: Patient is awake, alert and oriented x3. Cranial nerves 2 through 12 are grossly intact. - Labs CBC & Chem 7: 11/21/21 08:20 11/21/21 08:20 Labs: Abnormal Lab Results - Last 24 Hours (Table) 11/21/21 11/21/21 11/21/21 Range/Units 11:40 17:04 19:33 POC Glucose (mg/dL) 241 H 172 H 193 H (70-110) mg/dL 11/22/21 Range/Units 06:02 POC Glucose (mg/dL) 124 H (70-110) mg/dL Microbiology - Last 24 Hours (Table) 11/18/21 11:28 Blood Culture - Preliminary Blood No Growth after 72 hours 11/18/21 11:28 Blood Culture - Preliminary Blood No Growth after 72 hours Assessment and Plan Plan: Acute NSTEMI The patient positive troponin without any EKG changes. Patient will be seen by cardiology. The patient underlying coronary artery disease and please refer to the most recent cardiac catheterization from 2019. Repeat cardiac catheterization from yesterday showed nonocclusive disease Systolic heart failure, likely acute with an ejection fraction of 30-35% acute febrile illness, currently under investigation. could be related to an underlying uti. no evidence of any pneumonia at least on chest x-ray findings acute shortness of breath secondary to above UTI secondary to Klebsiella copd chf with systolic heart failure with an ejection fraction of 3035% hypertension hyperlipidemia thank you dorsal edema remote history of tia chronic back pain/spinal stenosis. plan Continue same treatment Clinically stable No shortness of breath Complete a prednisone burst taper No fever Antibiotics per medicine and the patient is currently on Rocephin regarding The UTI IV fluids to KVO Oral Lasix Oral aspirin and Plavix and losartan for blood pressure control Increase mobility and ambulation Possibly home today
[2021-11-22 11:24] LABS: Glucose,Whole Blood 104 mg/dL (70-110)
[2021-11-22 11:48] VITALS: PULSE 59
[2021-11-22 11:49] VITALS: BP 145/78; RESP 18; TEMP 97.7
--- NOTE | 2021-11-22 12:38 | P.DS ---
Providers Date of admission: 11/18/21 14:17 Expected date of discharge: 11/22/21 Attending physician: Nathaniel Beckman Consults: 11/18/21 14:13 Consult Physician Urgent Consulting Provider: Len Yang Consult Reason/Comments: NSTEMI Do you want consulting provider notified?: Already Contacted 11/19/21 11:24 Consult Physician Routine Consulting Provider: Abhi Hernandes Consult Reason/Comments: COPD EXAC Do you want consulting provider notified?: Yes Primary care physician: Bora Madera [facility] Course: HISTORY OF PRESENT ILLNESS 75-year-old morbidly obese male one of Dr. Bora Madera's patient with past medical history of CAD post PCI and stent placement of the RCA back in 2019 was on to have history of mild COPD, hypertension, hyperlipidemia and previous history of TIA was seen Dr. Figueroa cardiology regular basis has no record been in the hospital any time except 2019 for angioplasty and stent placement of the RCA which patient apparently has been doing well since. Patient had difficulty last night with significant dyspnea and shortness of breath with mild fever and chills with drenching sweats at the time become generalized fatigue tiredness workup in the morning with much worsening symptoms ended up asking his family to bring him to demurs department where was seen and evaluated, patient was in quite but dyspnea at the time despite his presentation for fever or chills and possible infection surprisingly his EKG didn't show any major abnormality with CK with troponin was positive, UA shows significant urinary tract infection, patient chest x-ray revealed COPD with no major finding of infiltrate or pneumonia. Patient was diagnosed at this point with non-ST IA causing significant dyspnea and shortness of breath with mild pulmonary edema along with mild COPD excessive patient required treatment with severe bronchitis and prostatitis presented as a urinary tract infection. Patient will be on IV antibiotic will be seen cardiology consultation CK with troponin 2 be done echocardiogram will be order and patient might require an intervention with heart catheter when he is more stable on his the hospital this time. 11/19: Patient is seen today on the cardiac stepdown unit. Patient has been afebrile, heart rate 70, blood pressure 121/61, pulse ox 97% on room air. Repeat troponin's are 3.06, 3.71, 4.12. Lactic acid remains high this morning at 2.6. WBC 11.8, hemoglobin 10.1, platelet count 187. INR is 1. Sodium 135, BUN 30 creatinine 1.02. Blood sugar 183. AST 63. Urine culture is in progress. Blood culture is status post received. Patient is continued on ceftriaxone has also on IV Solu-Medrol 60 mg every 6 hours Echocardiogram reveals moderate to severe LV systolic function with EF of 30-3 5%, technically suboptimal study. Patient has been seen by cardiology yesterday with recommendations for trending troponin, repeat EKG, continue IV heparin and cardiac medications, echocardiogram and infectious workup. This morning, patient was scheduled for cardiac catheterization tomorrow with Dr. RADHA Figueroa. 11/20: Patient denies having any chest pain today. is at bedside. Patient is scheduled for cardiac catheterization today and continued on IV heparin. He is followed by cardiology and pulmonary medicine. Patient has been afebrile, heart rate 71, blood pressure 143/65, pulse ox 96% on room air. Capillary blood glucose running between 160 and 236. Urine culture is growing gram-negative bacilli. Blood culture no growth at 24 hours. 11/21 She currently is on room air with some conversational dyspnea, negative cleared by both pulmonary and cardiology for discharge, ruled in for non-STEMI, is worsening LV function, and LV dysfunction, ejection fraction 35% we'll going to get PT OT, patient was counseled regarding alcohol cessation, cane at bedside, febrile illness, no evidence of pneumonia, recent chest x-ray, repeat cath on 11/20/2021, failed to reveal any occlusive significant ds per cardiology, coronary disease is not complying straight with a LV dysfunction that was noted, including debility related to alcohol heavy use. Aggressive medical management is recommended might be discharged in next 24 hours, depending on PT and endurance and for risk hemoglobin of 10, ferrous sulfate 325 mg started on aspirin, Plavix 75, Imdur sublingual nitro, valsartan Paxil pr ednisone 40 tapering dose atenolol 50 twice a day number changes, 11/22: Patient feels well today, has some shortness of breath, only with exertion, has no chest pain no cough no wheeze, patient is on oral tapering prednisone, and plan for discharge today as he's been cleared by both pulmonary and cardiology. Patient has quit alcohol over a month ago, and no plans on resuming alcohol, patient also has quit smoking several months ago. Patient will be discharged on the medication: Symbicort, Proventil, oral taper prednisone, oral Lasix 40 twice a day Levaquin, for 5 days to cover for Klebsiella oxytoca, and COPD bronchitis, ambulatory pulse ox 94% on room air, patient to be seen by RADHA Figueroa cardiology, PCP Dr. Madera, and Dr. Hernandes as an outpatient added along with Imdur, REVIEW OF SYSTEMS Constitutional: No fever, no chills, no night sweats. No weight change. positive generalized weakness fatigue and lethargy. EENT: No headache. No blurred vision or double vision, no loss of vision. No loss of Hearing, no ringing in the ears, no dizziness. No nasal drainage or congestion. No epistaxis. No sore throat. Lungs: positive shortness of breath, mild cough, no sputum production, positive mild wheezes and tightness. Cardiovascular: Denies chest pain, positive lower extremity edema, positive palpitations, positive PND and orthopnea with lightheadedness without syncope. Abdominal: No abdominal pain. No nausea, vomiting. No diarrhea. No constipation. No bloody or tarry stools.. No loss of appetite. Genitourinary: No dysuria, increased frequency, urgency. No urinary retention. Musculoskeletal: No myalgias. No muscle weakness, no gait dysfunction, no frequent falls. No back pain. No neck pain. Integumentary: No wounds, no lesions. No rash or pruritus. No unusual bruising. No change in hair or nails. Neurologic: No aphasia. No facial droop. No change in mentation. No head injury. No headache. No paralysis. No paresthesia. Psychiatric: No depression. No anxiety. No mood swings. Endocrine: No abnormal blood sugars. No weight change. No excessive sweating or thirst. No cold intolerance. PHYSICAL EXAMINATION Gen: This is morbidly obese sitting on the edge of the bed in no acute distress. Patient's is at bedside. HEENT: Head is atraumatic, normocephalic. Pupils equal, round. Sclerae is anicteric. NECK: Supple. No JVD. No lymphadenopathy. No thyromegaly. LUNGS: decreased breath some relative fine rhonchi, positive mild crackles in the bases positive mild dyspeptic started wheezes. HEART: Regular rate and rhythm, S1, S2, positive systolic murmur. ABDOMEN: Soft. Bowel sounds are present. No masses. No tenderness. EXTREMITIES: 1+ edema, positive pulse in the dorsalis pedis. NEUROLOGICAL: Patient is awake, alert and oriented x3. Cranial nerves 2 through 12 are grossly intact. ASSESSMENT AND PLAN - severe dyspnea and shortness of breath improved: Ruled in for acute non-ST IA patient apparently has been more symptomatic lately with minimum exertion. - Non-ST IA. Cardiology consult appreciated. Patient is on heparin drip, scheduled for cardiac catheterization significant coronary artery disease performed this admission November [address] RADHA Figueroa. Continue patient on aspirin 81 mg daily, atenolol 50 mg twice daily, Lipitor 40 mg daily, Plavix 75 mg daily. - Acute febrile illness with elevated lactic acid very positive urine test, urine culture be done patient will be started on Rocephin 1 g a day to the cultures finalize also was start patient on Flomax 0.4 mg daily. - History of atherosclerotic heart disease: Has been on Crestor, losartan, furosemide, Plavix and atenolol. - COPD exacerbation, present prior to admission, without any hypoxemic respiratory failure: Patient was started on Solu-Medrol along with DuoNeb and oxygen tapered oral prednisone on discharge. Pulmonary consultation will be done with Dr. Hernandes. - Severe bronchitis with no evidence basal pneumonia at this point the patient is symptomatic pulmonary carter chest x-ray revealed no active acute infection continue updraft treatment Rocephin sensation to Levaquin for a tracheobronchitis, and to cover for UTI -UTI, Klebsiella oxytoca, pansensitive except for ampicillin. - Possible obstructive sleep apnea: Patient has not been treated or manage for obstructive sleep apnea patient will eventually need to be referred for sleep study. - Cardiomyopathy: Most likely ischemic in origin ejection fraction is down to 30-35 percentile. Patient will be continue on diuretics, O2, atenolol and losartan continue supportive care for now. - Mild anemia: Mostly iron deficient most likely caused by the effect of medication causing gastritis will place patient on proton pump inhibitor along with iron. - history of hypertension: Has been on losartan 100 mg a day along with Tenormin 50 mg daily. - Hyperlipidemia: Continue patient on Crestor for now. - Peripheral edema: Most likely sign of ischemic cardiomyopathy, patient will be remain on diuretics for now. - History of TIA: Still on Plavix along with secondary prevention with better control blood pressure and cholesterol. - Chronic lower back pain history of spinal stenosis: Has been on medical management only. - DVT prophylaxis: Patient will continue for the night. - GI prophylaxis: Patient be continue on proton pump inhibitor. - CODE STATUS: Full code - COVID-19 testing, was Negative DISCHARGE PLAN Stable on discharge, cleared by multiple specialist Patient Condition at Discharge: Fair Plan - Discharge Summary New Discharge Prescriptions: New Tamsulosin [Flomax] 0.4 mg PO PC-BRKFST #30 cap Isosorbide Mononitrate ER [Imdur] 30 mg PO DAILY #30 tab Furosemide [Lasix] 40 mg PO BID@0900,1600 #60 tab Pantoprazole [Protonix] 40 mg PO AC-BRKFST #30 tab Albuterol Sulfate [Proventil Hfa] 1 puff INHALATION Q4-6H PRN #6.7 gm PRN Reason: Wheezing predniSONE [Deltasone] 50 mg PO DAILY #16 tab Levofloxacin [Levaquin] 500 mg PO DAILY 1 Days #1 tab Budesonide-Formot 160-4.5 Mcg [Symbicort 160-4.5 Mcg Inhaler] 2 puff INHALATION BID #10.2 gm Continue PARoxetine [Paxil] 20 mg PO DAILY Aspirin [Adult Low Dose Aspirin EC] 81 mg PO DAILY Clopidogrel [Plavix] 75 mg PO DAILY #90 tab Nitroglycerin Sl Tabs [Nitrostat] 0.4 mg SUBLINGUAL Q5M PRN #25 tab PRN Reason: Chest Pain hydroCHLOROthiazide [Hydrodiuril] 25 mg PO DAILY Rosuvastatin [Crestor] 20 mg PO DAILY atenoloL [Tenormin] 50 mg PO BID Losartan Potassium 100 mg PO DAILY Furosemide [Lasix] 40 mg PO DAILY Discharge Medication List Aspirin [Adult Low Dose Aspirin EC] 81 mg PO DAILY 06/16/18 [History] PARoxetine [Paxil] 20 mg PO DAILY 06/16/18 [History] Clopidogrel [Plavix] 75 mg PO DAILY #90 tab 06/20/18 [Rx] Nitroglycerin Sl Tabs [Nitrostat] 0.4 mg SUBLINGUAL Q5M PRN #25 tab 06/20/18 [Rx] Furosemide [Lasix] 40 mg PO DAILY 11/18/21 [History] Losartan Potassium 100 mg PO DAILY 11/18/21 [History] Rosuvastatin [Crestor] 20 mg PO DAILY 11/18/21 [History] atenoloL [Tenormin] 50 mg PO BID 11/18/21 [History] hydroCHLOROthiazide [Hydrodiuril] 25 mg PO DAILY 11/18/21 [History] Albuterol Sulfate [Proventil Hfa] 1 puff INHALATION Q4-6H PRN #6.7 gm 11/22/21 [Rx] Budesonide-Formot 160-4.5 Mcg [Symbicort 160-4.5 Mcg Inhaler] 2 puff INHALATION BID #10.2 gm 11/22/21 [Rx] Furosemide [Lasix] 40 mg PO BID@0900,1600 #60 tab 11/22/21 [Rx] Isosorbide Mononitrate ER [Imdur] 30 mg PO DAILY #30 tab 11/22/21 [Rx] Levofloxacin [Levaquin] 500 mg PO DAILY 1 Days #1 tab 11/22/21 [Rx] Pantoprazole [Protonix] 40 mg PO AC-BRKFST #30 tab 11/22/21 [Rx] Tamsulosin [Flomax] 0.4 mg PO PC-BRKFST #30 cap 11/22/21 [Rx] predniSONE [Deltasone] 50 mg PO DAILY #16 tab 11/22/21 [Rx] Follow up Appointment(s)/Referral(s): David Figueroa MD [STAFF PHYSICIAN] - 1 Week (Offices are closed, please call to make your post hospital follow up appointment Tuesday when offices are open.) Bora Madera MD [Primary Care Provider] - 1-2 days (Offices are closed, please call to make your post hospital follow up appointment Tuesday when offices are open.) Abhi Hernandes MD [STAFF PHYSICIAN] - 1 Week (Offices are closed, please call to make your post hospital follow up appointment Tuesday when offices are open. ) Patient Instructions/Handouts: Chronic Kidney Disease (DC), COPD (Chronic Ob structive Pulmonary Disease) (ED) Discharge Disposition: HOME SELF-CARE
--- NOTE | 2021-11-22 13:47 | P.PN ---
Subjective Progress Note Date: 11/22/21 PROGRESS NOTE The patient is a 75-year-old male with a known history of CAD status post stenting of the RCA in 2019 who presented with symptoms of chills in addition to progressive dyspnea that has been going on for the last few weeks. He had no chest discomfort. He had mild elevation of the troponin on presentation and peaked at 4. His echocardiogram showed significant worsening of his systolic function compared to August with an ejection fraction of 30-35%. He continues to be dyspneic but he denies any chest discomfort, dizziness or palpitations. He has no PND, orthopnea or syncope. He continues to be in sinus mechanism. He is afebrile. November 21: The patient underwent cardiac catheterization yesterday and was found to have no significant progression of disease. He continues to be dyspneic but has no chest discomfort. He denies any dizziness or palpitations. He has a prior history of alcohol intake. He denies any nausea or vomiting and no febrile episode. He is limited in his activity because of his dyspnea. November 22: The patient is feeling well today, his breathing is better, he denies any chest pain, dizziness or palpitations. He denies any nausea or vomiting. He is ambulating without difficulties. He is anxious to go home today. Medications: Aspirin, atenolol 50 mg twice a day, Lipitor 40 mg daily, Plavix 75 mg daily, Lasix 40 mg twice a day, losartan 100 mg daily, hydrochlorothiazide 25 mg daily, isosorbide mononitrate 30 mg daily, Flomax PHYSICAL EXAMINATION: Blood pressure 119/60 heart rate 67 LUNGS: Clear to auscultation HEART: Regular rate and rhythm, S1, S2. No S3. systolic ejection murmur at the base ABDOMEN: Soft, nontender, no organomegaly EXTREMETIES: Trace edema, IMPRESSION: 1. Non-STEMI, no evidence of progression of disease could be related to the infectious process 2. 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 Probable UTI 4. History of stenting of the RCA 5. Hypertension 6. Hyperlipidemia 7. History of alcohol intake. PLAN: 1. Continue present therapy, 2. Charge home soon 3. Follow-up with Dr. Figueroa. Objective - Vital Signs Vital signs: Vital Signs Temp 97.7 F 11/22/21 11:48 Pulse 59 L 11/22/21 11:48 Resp 18 11/22/21 11:48 BP 145/78 11/22/21 11:48 Pulse Ox 95 11/22/21 11:48 FiO2 28 11/19/21 19:04 Intake & Output 11/21/21 11/22/21 11/22/21 18:59 06:59 18:59 Intake Total 50 475 Output Total 1000 1580 750 Balance -950 -1580 -275 Weight 134.5 kg Intake: IV 5 Invasive Line 3 5 Intake, IV Titration 50 50 Amount cefTRIAXone 1 gm In 50 50 Sodium Chloride 0.9% 50 ml @ 100 mls/hr IVPB Q24HR [facility] Rx#:[id number] Oral 420 Output: Urine 1000 1580 750 Other: Voiding Method Urinal # Voids 1 - Labs CBC & Chem 7: 11/21/21 08:20 11/21/21 08:20 Labs: Abnormal Lab Results - Last 24 Hours (Table) 11/21/21 11/21/21 11/22/21 Range/Units 17:04 19:33 06:02 POC Glucose (mg/dL) 172 H 193 H 124 H (70-110) mg/dL Microbiology - Last 24 Hours (Table) 11/18/21 11:28 Blood Culture - Preliminary Blood No Growth after 72 hours 11/18/21 11:28 Blood Culture - Preliminary Blood No Growth after 72 hours
== END 2021-11-22 17:46 | disposition home or self-care (01) | DRG 281 ==
LOC: EC 11:14 → 3SCARD 14:17
PROVIDERS: ADMIT Internal Medicine Geriatric Medicine; ATTEND Internal Medicine Geriatric Medicine
PROC: B2111ZZ Fluoroscopy of Multiple Coronary Arteries using Low Osmolar Contrast (ICD-10-PCS; principal; 2021-11-20 10:30)
PROC: 4A023N7 Measurement of Cardiac Sampling and Pressure, Left Heart, Percutaneous Approach (ICD-10-PCS; principal; 2021-11-20 10:30)
DX: I21.4 Non-ST elevation (NSTEMI) myocardial infarction (principal); I45.2 Bifascicular block; J44.1 Chronic obstructive pulmonary disease with (acute) exacerbation; N39.0 Urinary tract infection, site not specified; Z68.41 Body mass index [BMI] 40.0-44.9, adult; I50.20 Unspecified systolic (congestive) heart failure; J44.0 Chronic obstructive pulmonary disease with (acute) lower respiratory infection; J81.1 Chronic pulmonary edema; E87.2 Acidosis; I10 Essential (primary) hypertension; I25.10 Atherosclerotic heart disease of native coronary artery without angina pectoris; I25.2 Old myocardial infarction; M48.00 Spinal stenosis, site unspecified; I25.5 Ischemic cardiomyopathy; I07.1 Rheumatic tricuspid insufficiency; M19.90 Unspecified osteoarthritis, unspecified site; Z20.822 Contact with and (suspected) exposure to COVID-19; N41.9 Inflammatory disease of prostate, unspecified; I11.0 Hypertensive heart disease with heart failure; E66.01 Morbid (severe) obesity due to excess calories; B96.1 Klebsiella pneumoniae [K. pneumoniae] as the cause of diseases classified elsewhere; D50.9 Iron deficiency anemia, unspecified; F10.21 Alcohol dependence, in remission; Z82.49 Family history of ischemic heart disease and other diseases of the circulatory system; G89.29 Other chronic pain; E78.5 Hyperlipidemia, unspecified; J20.9 Acute bronchitis, unspecified; K29.70 Gastritis, unspecified, without bleeding; Z79.02 Long term (current) use of antithrombotics/antiplatelets; Z79.82 Long term (current) use of aspirin; Z79.899 Other long term (current) drug therapy; Z80.1 Family history of malignant neoplasm of trachea, bronchus and lung; Z86.73 Personal history of transient ischemic attack (TIA), and cerebral infarction without residual deficits; Z87.891 Personal history of nicotine dependence; Z95.5 Presence of coronary angioplasty implant and graft; Z71.41 Alcohol abuse counseling and surveillance of alcoholic
CPT/HCPCS: 36415; 71046; 80048; 80053; 80061; 81001; 83605; 83735; 83880; 84484; 85025; 85027; 85610; 85730; 87040; 87077; 87086; 87186; 87502; 87635; 93005; 93306; 93458; 94640; 94760; 96365; 96366; 96368; 96375; 99291

== ENCOUNTER 2022-03-09 13:34 | Inpatient (IN) | payer MEDICARE ==
[2022-03-09] MEDS ORDERED: MORPHINE SULFATE 4 MG/ML SYRINGE IV STA (14:10)
--- NOTE | 2022-03-09 14:17 | ED ---
General Adult HPI - General Chief complaint: Abdominal Pain Stated complaint: rt side pain Time Seen by Provider: 03/09/22 13:57 Source: patient, family, RN notes reviewed, old records reviewed Mode of arrival: ambulatory Limitations: no limitations - History of Present Illness Initial comments: This is a well-appearing 76-year-old male that presents to the emergency room with family complaining of right-sided chest pain that worsens with movement pancho ecially sitting up or with cough. States he also has a diffuse headache that started today. Denies any fevers, nausea vomiting or diarrhea. Patient states that he was sitting on the couch today with legs elevated and started to cough and thinks he lost consciousness. Family at bedside states that she seen him at the time and had his arms and legs were shaking, unsure if it was seizure activity. He denies a history of seizures. He states that he did not have a fall or hit his head recently. States that he was out working on the [place] yesterday for the first time in the past 3-4 months. He does have history of coronary artery disease, TIA, [place] in October of this year, and COPD. He states he does take Plavix daily. -: days(s) (2) Location: chest (right chest wall) Radiation: non-radiation Severity scale (1-10): 9 Quality: sharp Consistency: intermittent Improves with: immobilization Worsens with: movement, other (cough) Associated Symptoms: headaches - Related Data Home Medications Medication Instructions Recorded Confirmed Aspirin [Adult Low Dose Aspirin EC] 81 mg PO DAILY 06/16/18 03/09/22 PARoxetine [Paxil] 20 mg PO DAILY 06/16/18 03/09/22 Losartan Potassium 100 mg PO DAILY 11/18/21 03/09/22 Rosuvastatin [Crestor] 20 mg PO DAILY 11/18/21 03/09/22 atenoloL [Tenormin] 50 mg PO BID 11/18/21 03/09/22 hydroCHLOROthiazide [Hydrodiuril] 25 mg PO DAILY 11/18/21 03/09/22 Budesonide-Formot 160-4.5 Mcg 2 puff INHALATION RT-BID 03/09/22 03/09/22 [Symbicort 160-4.5 Mcg Inhaler] Furosemide [Lasix] 40 mg PO DAILY 03/09/22 03/09/22 Isosorbide Mononitrate ER [Imdur] 15 mg PO DAILY 03/09/22 03/09/22 Pantoprazole [Protonix] 40 mg PO HS 03/09/22 03/09/22 Tamsulosin [Flomax] 0.4 mg PO HS 03/09/22 03/09/22 Previous Rx's Medication Instructions Recorded Clopidogrel [Plavix] 75 mg PO DAILY #90 tab 06/20/18 Nitroglycerin Sl Tabs [Nitrostat] 0.4 mg SUBLINGUAL Q5M PRN #25 tab 06/20/18 Albuterol Sulfate [Proventil Hfa] 1 puff INHALATION Q4-6H PRN #6.7 gm 11/22/21 Allergies Allergy/AdvReac Type Severity Reaction Status Date / Time No Known Allergies Allergy Verified 03/09/22 16:26 Review of Systems ROS Statement: Those systems with pertinent positive or pertinent negative responses have been documented in the HPI. ROS Other: All systems not noted in ROS Statement are negative. Past Medical History Past Medical History: Coronary Artery Disease (CAD), CVA/TIA, Hypertension, Myocardial Infarction ([place]), Osteoarthritis (OA) Additional Past Medical History / Comment(s): TIA - no residual effects, Last Myocardial Infarction Date:: unknown History of Any Multi-Drug Resistant Organisms: None Reported Past Surgical History: Heart Catheterization With Stent Additional Past Surgical History / Comment(s): spinal steroid injections, Past Anesthesia/Blood Transfusion Reactions: No Reported Reaction Date of Last Stent Placement:: unknown Past Psychological History: No Psychological Hx Reported Smoking Status: Former smoker Past Alcohol Use History: Daily Past Drug Use History: None Reported - Past Family History Sister(s) Family Medical History: Cancer General Exam Limitations: no limitations General appearance: alert, in no apparent distress, obese Head exam: Present: atraumatic, normocephalic Eye exam: Present: PERRL, EOMI. Absent: scleral icterus, conjunctival injection, periorbital swelling ENT exam: Present: mucous membranes moist Neck exam: Present: full ROM. Absent: tenderness, meningismus, lymphadenopathy, thyromegaly Respiratory exam: Present: normal lung sounds bilaterally. Absent: respiratory distress, wheezes, rales, rhonchi, stridor, chest wall tenderness, accessory muscle use Cardiovascular Exam: Present: regular rate GI/Abdominal exam: Present: soft. Absent: tenderness, guarding, rebound, rigid Extremities exam: Present: normal capillary refill, pedal edema, other (errythema and dried scale to left lower extremity patient being treated with antibiotics topically). Absent: tenderness, calf tenderness Back exam: Present: normal inspection. Absent: tenderness, CVA tenderness (R), CVA tenderness (L), muscle spasm, paraspinal tenderness, vertebral tenderness, rash noted Neurological exam: Present: alert, oriented X3 Psychiatric exam: Present: normal affect, normal mood Skin exam: Present: warm, dry, erythema (LLE martinez with dried scales). Absent: cyanosis, diaphoretic Course Vital Signs 03/09/22 03/09/22 13:49 15:52 Temperature 97.5 F L Pulse Rate 69 62 Respiratory 18 14 Rate Blood Pressure 118/64 93/51 O2 Sat by Pulse 98 96 Oximetry EKG Findings - EKG Results: EKG: sinus rhythm (Ventricular rate 70, [place] interval 0.195, QRS 0.169, QTC 0.468; left axis deviation; old 11/18/21) Medical Decision Making - Medical Decision Making Patient presents with right-sided chest pain worse with cough and leaning forward. Patient concerned for pulmonary embolism. He also states he had a syncopal episode with possible seizure activity witnessed by family lasting just a minute or so. Family states he was shaking all over resembling a seizure. Patient has no history of seizures. Troponin is negative and EKG shows no acute changes. Chest x-ray shows mild cardiomegaly with pulmonary vascular congestion. No stewart consolidation or pleural effusion. D-dimer is elevated at 1.40. Due to a new SHELBY compared to labs 11-21-21, CT was deferred and VQ scan was ordered. Patient was started on heparin. Due to patient's headache and family reports of seizure activity, CT of the brain was performed showing chronic small vessel ischemic disease. No acute intracranial abnormality. Patient will be admitted to the hospital for elevated d-dimer and acute kidney injury. Patient is agreeable to this plan of care. Case discussed with Dr. Rausch. - Lab Data Result diagrams: 03/09/22 14:15 03/09/22 14:15 Lab Results 03/09/22 03/09/22 03/09/22 Range/Units 14:15 14:15 14:15 WBC 6.3 (3.8-10.6) k/uL RBC 3.77 L (4.30-5.90) m/uL Hgb 10.9 L (13.0-17.5) gm/dL Hct 32.5 L (39.0-53.0) % MCV 86.3 (80.0-100.0) fL MCH 28.9 (25.0-35.0) pg MCHC 33.5 (31.0-37.0) g/dL RDW 15.7 H (11.5-15.5) % Plt Count 193 (150-450) k/uL MPV 8.5 Neutrophils % 76 % Lymphocytes % 7 % Monocytes % 7 % Eosinophils % 5 % Basophils % 2 % Neutrophils # 4.8 (1.3-7.7) k/uL Lymphocytes # 0.4 L (1.0-4.8) k/uL Monocytes # 0.4 (0-1.0) k/uL Eosinophils # 0.3 (0-0.7) k/uL Basophils # 0.1 (0-0.2) k/uL Hypochromasia Moderate PT 10.5 (9.0-12.0) sec INR 1.0 (<1.2) APTT 23.0 (22.0-30.0) sec D-Dimer 1.40 H (<0.60) mg/L FEU Sodium 138 (137-145) mmol/L Potassium 3.9 (3.5-5.1) mmol/L Chloride 99 (98-107) mmol/L Carbon Dioxide 26 (22-30) mmol/L Anion Gap 13 mmol/L BUN 24 H (9-20) mg/dL Creatinine 1.58 H (0.66-1.25) mg/dL Est GFR (CKD-EPI)AfAm 49 (>60 ml/min/1.73 sqM) Est GFR (CKD-EPI)NonAf 42 (>60 ml/min/1.73 sqM) Glucose 99 (74-99) mg/dL Calcium 9.1 (8.4-10.2) mg/dL Magnesium 2.1 (1.6-2.3) mg/dL Total Bilirubin 0.6 (0.2-1.3) mg/dL AST 27 (17-59) U/L ALT 26 (4-49) U/L Alkaline Phosphatase 78 (38-126) U/L Troponin I (0.000-0.034) ng/mL NT-Pro-B Natriuret Pep pg/mL Total Protein 7.0 (6.3-8.2) g/dL Albumin 4.3 (3.5-5.0) g/dL 03/09/22 03/09/22 Range/Units 14:15 14:15 WBC (3.8-10.6) k/uL RBC (4.30-5.90) m/uL Hgb (13.0-17.5) gm/dL Hct (39.0-53.0) % MCV (80.0-100.0) fL MCH (25.0-35.0) pg MCHC (31.0-37.0) g/dL RDW (11.5-15.5) % Plt Count (150-450) k/uL MPV Neutrophils % % Lymphocytes % % Monocytes % % Eosinophils % % Basophils % % Neutrophils # (1.3-7.7) k/uL Lymphocytes # (1.0-4.8) k/uL Monocytes # (0-1.0) k/uL Eosinophils # (0-0.7) k/uL Basophils # (0-0.2) k/uL Hypochromasia PT (9.0-12.0) sec INR (<1.2) APTT (22.0-30.0) sec D-Dimer (<0.60) mg/L FEU Sodium (137-145) mmol/L Potassium (3.5-5.1) mmol/L Chloride (98-107) mmol/L Carbon Dioxide (22-30) mmol/L Anion Gap mmol/L BUN (9-20) mg/dL Creatinine (0.66-1.25) mg/dL Est GFR (CKD-EPI)AfAm (>60 ml/min/1.73 sqM) Est GFR (CKD-EPI)NonAf (>60 ml/min/1.73 sqM) Glucose (74-99) mg/dL Calcium (8.4-10.2) mg/dL Magnesium (1.6-2.3) mg/dL Total Bilirubin (0.2-1.3) mg/dL AST (17-59) U/L ALT (4-49) U/L Alkaline Phosphatase (38-126) U/L Troponin I <0.012 (0.000-0.034) ng/mL NT-Pro-B Natriuret Pep 293 pg/mL Total Protein (6.3-8.2) g/dL Albumin (3.5-5.0) g/dL Disposition Clinical Impression: Elevated d-dimer, SHELBY (acute kidney injury), Chest pain Disposition: ADMITTED IP TO THIS [facility] Decision Date: 03/09/22 Decision Time: 15:24
[2022-03-09 14:28] LABS: Basophils # (A) 0.1 k/uL (0-0.2); Basophils % (A) 2 %; Eosinophils # (A) 0.3 k/uL (0-0.7); Eosinophils % (A) 5 %; HCT 32.5 % (39.0-53.0); HGB 10.9 gm/dL (13.0-17.5); Hypochromasia Moderate; Lymphocytes # (A) 0.4 k/uL (1.0-4.8); Lymphocytes % (A) 7 %; MCH 28.9 pg (25.0-35.0); MCHC 33.5 g/dL (31.0-37.0); MCV 86.3 fL (80.0-100.0); Mean Platelet Volume 8.5; Monocytes # (A) 0.4 k/uL (0-1.0); Monocytes % (A) 7 %; Neutrophils # (A) 4.8 k/uL (1.3-7.7); Neutrophils % (A) 76 %; Platelet Count 193 k/uL (150-450); RBC 3.77 m/uL (4.30-5.90); RDW 15.7 % (11.5-15.5); WBC 6.3 k/uL (3.8-10.6)
[2022-03-09 14:37] LABS: Albumin 4.3 g/dL (3.5-5.0); Calcium 9.1 mg/dL (8.4-10.2); Magnesium 2.1 mg/dL (1.6-2.3); Potassium 3.9 mmol/L (3.5-5.1); Total Bilirubin 0.6 mg/dL (0.2-1.3)
[2022-03-09 14:44] LABS: Prothrombin Time 10.5 sec (9.0-12.0)
--- NOTE | 2022-03-09 14:50 | XR ---
EXAMINATION TYPE: XR chest 2V DATE OF EXAM: 03/09/2022 COMPARISON: 11/18/2021 HISTORY: 76-year-old male with chest pain on the right side TECHNIQUE: AP and lateral views FINDINGS: Heart mildly enlarged. Interstitial prominence. Calcified lymph nodes AP window region suggesting judson or granulomatous disease. Motion and large body habitus limiting the lateral view. No stewart consolida tion or pleural effusion. IMPRESSION: Mild cardiomegaly and interstitial/vascular prominence. Correlate for mild CHF with pulmonary vascula r congestion.
[2022-03-09] MEDS ORDERED: SODIUM CHLORIDE 0.9% 500 ML 500 ML IV ONE (15:40)
--- NOTE | 2022-03-09 15:42 | CT ---
EXAMINATION TYPE: CT brain wo con DATE OF EXAM: 03/09/2022 COMPARISON: None HISTORY: 76-year-old male headaches, possible seizure, SYNCOPE TECHNIQUE: Examination was done in axial plane without intravenous contrast. Coronal and sagittal r econstructions performed. CT DLP: 1118.4 mGycm Automated exposure control for dose reduction was used. FINDINGS: There is no evidence of acute intracranial hemorrhage, acute ischemic changes, mass, mass-effect, or extra-axial fluid collection. There is no effacement of cerebral sulci or basal subarachnoid cister ns. There is no hydrocephalus. There is no midline shift. Taveras-white matter distinction is preserv ed. Some minimal benign basal ganglionic calcifications are noted on both sides. On this chronic calcific ations within the carotid siphons. Mild age-related volume loss along the superior cerebral convexiti es. Some minimal deep white matter hypodensity particularly on the left centrum semiovale bowel likel y corresponds to chronic small vessel ischemic change Trace mucosal thickening ethmoid air cells. Leftward nasal septal deviation. Trace mucosal thickening left maxillary sinus. Mastoid air cells well pneumatized. Orbits and globes are intact. IMPRESSION: Suspect changes of chronic small vessel ischemic disease with an area of old deep white matter infarc t on the left. Mild age-related atrophy along the superior cerebral convexities. No acute intracrania l abnormality seen. If symptoms persist, consider MRI.
[2022-03-09] MEDS ORDERED: HEPARIN SODIUM 1,000 UN/ML (10ML VL) IV ONE (16:10)
[2022-03-09] MEDS ORDERED: HEPARIN SODIUM 1,000 UN/ML (10ML VL) IV PRN (16:10)
[2022-03-09] MEDS ORDERED: ACETAMINOPHEN TAB 325 MG TAB PO PRN (16:19)
[2022-03-09] MEDS ORDERED: HYDROmorphone 0.5 MG/0.5 ML SYRINGE IVP PRN (16:19)
[2022-03-09] MEDS ORDERED: NALOXONE 0.4 MG/ML 1 ML VIAL IV PRN (16:19)
[2022-03-09] MEDS: HEPARIN SOD,PORK IN 0.45% NACL 25,000 UNIT in 0.45% NACL 1 250ML.BAG IV SCH (16:51)
[2022-03-09] MEDS: SODIUM CHLORIDE 0.9% 1,000 ML IV SCH ×2 (16:58→20:59)
[2022-03-09] MEDS ORDERED: NITROGLYCERIN SL TABS 0.4 MG TAB SUBLINGUAL PRN (17:37)
--- NOTE | 2022-03-09 18:19 | CT ---
EXAMINATION TYPE: CT chest wo con CT DLP: 912.8 mGycm, Automated exposure control for dose reduction was used. DATE OF EXAM: 03/09/2022 5:59 PM COMPARISON: Chest radiograph 10/09/2018. CLINICAL INDICATION:Male, 76 years old with history of RT SIDED CHEST PAIN- PNEUMONIA?; , Rt sided ch est pain, poss pneumonia TECHNIQUE: Multiple axial images were obtained through the chest. Sagittal and coronal reformats were created for review. Contrast used: none. Oral contrast used: none. FINDINGS: LUNGS/ PLEURA: Intrafissural lymph node in the right major fissure. No suspicious pulmonary nodules. No focal consolidation, pneumothorax or pleural effusion. AIRWAY: Patent and unremarkable. HEART: Heart is enlarged for size. There is coronary artery atherosclerosis. MEDIASTINUM: Multiple partially calcified lymph nodes are seen throughout the mediastinum similar to enlarged. VASCULATURE: No aortic aneurysm. MUSCULOSKELETAL: No acute osseous abnormalities, multilevel disc degeneration changes. SOFT TISSUES/LYMPH NODES: Unremarkable. LOWER NECK: No significant findings. UPPER ABDOMEN: Complex right renal cyst with calcification noted there is suspected internal septatio ns as well. This lesion measures 5.3 x 3.4 cm. IMPRESSION: 1. No evidence of pneumonia. Lungs are clear without evidence for acute infectious process. No evide nce of right-sided rib fracture. 2. Complex right renal lesion further evaluation with CT renal mass protocol. 3. Partially calcified lymphadenopathy throughout the mediastinum could reflect prior granulomatous disease versus posttreatment changes. Correlate with patient's history. Findings similar to 2019 ches t radiograph.
[2022-03-09] MEDS: SYMBICORT 160-4.5 MCG INHALER INHALATION SCH (19:51)
[2022-03-09] MEDS: atenoloL 50 MG TAB PO SCH (20:56)
[2022-03-09] MEDS: TAMSULOSIN 0.4 MG CAP.ER.24H PO SCH (20:56)
[2022-03-09] MEDS: PANTOPRAZOLE 40 MG TABLET PO SCH (20:56)
--- NOTE | 2022-03-09 21:15 | NM ---
EXAMINATION TYPE: NM pul vent and perfuse DATE OF EXAM: 03/09/2022 COMPARISON: CT chest same date, chest radiograph same day HISTORY: Elevated d-dimer, shortness of breath TECHNIQUE: Utilizing inhalation of 67.7 mCi Tc 99m DTPA aerosol and intravenous injection of 5.2 mCi of Tc 99m MAA, ventilation and perfusion images are acquired post injection in multiple projections. FINDING: The ventilatory segment of the exam is within normal limits demonstrating normal wash in, equilibrium , and wash out phases. No abnormal areas of air trapping are identified. Delayed images demonstrate no perfusion abnormalities of fixed or reversible nature. No segmental def ects are noted. IMPRESSION: PE absent.
--- NOTE | 2022-03-10 02:23 | HP ---
HISTORY AND PHYSICAL CHIEF COMPLAINT: Right-sided chest pain. HISTORY OF PRESENT ILLNESS: This is a 76-year-old gentleman with a past medical history of multiple medical illnesses including CAD, CVA, TIA, hypertension, was complaining of right-sided chest pain, which was aggravated with movements for the last couple of days. The patient had some cough also. The patient apparently thinks he lost some consciousness, also had syncopal episode. The patient also had some shaking of the legs and hands, unsure whether it is a seizure activity, but in any case, the patient came to [facility] and admitted for further evaluation and treatment. The initial evaluation including EKG are negative except PVCs and diffuse ST-T changes and incomplete right bundle branch block. There is no history of any fever, rigors, or chills at this time. PAST MEDICAL HISTORY: Includes CAD, CVA, TIA. Rest of the medical history reviewed. HOME MEDICATIONS: Symbicort. Rest of the medications and doses are reviewed. ALLERGIES: Reviewed, none. FAMILY HISTORY: History of cancer. SOCIAL HISTORY: Previous history of smoking, daily alcohol intake. REVIEW OF SYSTEMS: A 14-point review of systems is negative except as mentioned earlier. PHYSICAL EXAMINATION: VITAL SIGNS: Pulse is 62, blood pressure ntd, respirations 14. HEENT: Conjunctivae normal. NECK: No JVD. CARDIOVASCULAR: S1 and S2. RESPIRATIONS: Breath sounds diminished at the bases. Scattered rhonchi. ABDOMEN: Soft, nontender. LEGS: No edema. No swelling. NERVOUS SYSTEM: No focal deficits. Moves all 4 limbs. Cranial nerves are normal. SKIN: No ulcer, rash, bleeding. JOINTS: No active deforming arthropathy. No local tenderness appreciated on the chest. LABS: WBC 6.3, and other labs are noted. ASSESSMENT: 1. Right-sided chest pain, possibly musculoskeletal. Rule out pneumonia. 2. Syncope for evaluation, rule out cardiac causes. 3. History of coronary artery disease. 4. Cerebrovascular accident, transient ischemic attack. 5. Hypertension. 6. History of myocardial infarction. 7. History of transient ischemic attack. 8. History of coronary artery disease stent. RECOMMENDATIONS AND DISCUSSION: This is a 76-year-old gentleman presented with multiple complex medical issues. I would recommend to monitor the patient closely. D-dimer is elevated. I would recommend COVID testing as well as a V/Q scan and CT scan of chest also noted. I would resume the home medications and consult Cardiology for further evaluation. I would also recommend a 2D echo with Doppler as well. The prognosis guarded because of multiple complex medical issues. Further recommendations to follow. See orders for further details. MMODL / IJN: [id number] / MTDD
[2022-03-10] MEDS: HEPARIN SOD,PORK IN 0.45% NACL 25,000 UNIT in 0.45% NACL 1 250ML.BAG IV SCH (05:55)
[2022-03-10] MEDS: SODIUM CHLORIDE 0.9% 1,000 ML IV SCH ×2 (05:55→20:30)
[2022-03-10] MEDS: SYMBICORT 160-4.5 MCG INHALER INHALATION SCH ×2 (07:16→19:47)
--- NOTE | 2022-03-10 08:31 | P.CRDCN ---
History of Present Illness History of present illness: This is a pleasant 75-year-old male past medical history significant for coronary artery disease status post PCI of the RCA in 2019, nonischemic cardiomyopathy, hypertension, dyslipidemia, former smoker, CVA, TIA, alcohol abuse. He follows in the office with Dr. Figueroa. We have been asked to see in consultation for chest pain. Patient presents to the ER with complaints of syncopal episode and chest discomfort. Patient states he had right sided chest discomfort 2 days ago. He noticed it mostly with movement and sitting up. 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 Yesterday, he was sitting in the chair, he had no pain. He had acute episode of syncope. He states that he "just passed out". No specific warning signs. He states he doesn't remember it or how long he passed out but woke up with bilateral shaking of his arms and feet. He states his came into the room to assist him. He had no chest pain, shortness of breath, palpitations, nausea, vomiting, abdominal pain. He has been having some intermittent lightheadedness for past day. He denies any symptoms of orthopnea or PND. He overall this morning is feeling well. He states he quit smoking 30+ years ago. States he stopped drinking alcohol. DIAGNOSTICS * EKG reveals sinus rhythm, HR 70, left axis deviation, right bundle branch block, no significant ST-T wave changes to suggest acute ischemia * Echocardiogram 11/18/2021 revealed EF of 30%, mild aortic stenosis with mean gradient of 7 mmHg * Cardiac catheterization 11/20/2021 revealed patent RCA, 20% narrowing of the left main, no significant disease in LAD or circumflex. Pressures are mildly elevated, no gradient across the aortic valve. * Chest xray heart mildly enlarged. * Brain CT reported chronic small vessel ischemic disease with an area of deep white matter infarct on the left. No acute intracranial abnormality. * Laboratory reviewed, WBC 6.3, hemoglobin 10.9, platelets 193, sodium 138, potassium 3.9, BUN 24, serum creatinine 1.5, magnesium 2.1, troponin negative 1, proBNP 293,covid 19 negative, influenza negative * VQ scan reported no PE * Chest CT reported no evidence of pneumonia, lungs were clear without evidence of acute infectious process. Complex right renal lesion further evaluation with CT renal mass protocol. Partially calcified lymphadenopathy throughout the mediastinum. * Current home medications include atenolol 50 mg twice a day, Imdur 15 mg daily, hydrochlorothiazide 25 mg daily, rosuvastatin 20 mg daily, Paxil 20 mg daily, Plavix 75 mg daily, aspirin 81 mg daily, losartan 100 mg daily, Lasix 40 mg daily, Symbicort, albuterol, Flomax, Protonix REVIEW OF SYSTEMS At the time of my exam: CONSTITUTIONAL: Denies fever chills. CARDIOVASCULAR: +right sided chest pain with movement,Denies shortness of breath, Denies orthopnea, PND or palpitations. RESPIRATORY: Denies cough. GASTROINTESTINAL: Denies abdominal pain, diarrhea, constipation, nausea or vomiting. MUSCULOSKELETAL: Denies myalgias. NEUROLOGIC: Denies numbness, tingling, headacbe or weakness. ENDOCRINE: Denies fatigue, weight change, polydipsia or polyurina. GENITOURINARY: Denies burning, hematuria or urgency with micturation. HEMATOLOGIC: + history of anemia Denies bleeding. PHYSICAL EXAMINATION Blood pressure CONSTITUTIONAL: No apparent distress. HEENT: Head is normocephalic. Pupils are equal, round. Sclerae anicteric. Mucous membranes of the mouth are moist. No JVD. No carotid bruit. CHEST EXAMINATION: Lungs are clear to auscultation, mild left lower lobe wheezing noted. No chest wall tenderness is noted on palpation or with deep breathing. HEART EXAMINATION: Regular rate and rhythm. S1, S2 heard. Systolic murmur noted, no gallops or rub. ABDOMEN: Soft, nontender. Positive bowel sounds. EXTREMITIES: 2+ peripheral pulses, trace bilateral lower extremity edema and no calf tenderness. Redness/discoloration noted. NEUROLOGIC EXAMINATION: Patient is awake, alert and oriented x3. ASSESSMENT Syncope Acute kidney injury Chest pain, acute coronary syndrome unlikely, appears musculoskeletal on exam Right renal lesion reported on CT scan Coronary artery disease status post PCI of the RCA in 2019 Non-ischemic cardiomyopathy History of Hypertension Dyslipidemia Former smoker Former alcohol abuse History of CVA/TIA Obesity PLAN Monitor on Cardiac Telemetry Repeat Troponin Obtain 2D echocardiogram Continue home cardiac medications Further recommendations based on echo findings, if patient with LV systolic dysfunction he will likely benefit from a defibrillator. If LV systolic function has improved will consider EP consult for possible EP study. Nurse practitioner note has been reviewed by physician. Signing provider agrees with the documented findings, assessment, and plan of care. Past Medical History Past Medical History: Coronary Artery Disease (CAD), COPD, CVA/TIA, Hypertension, Myocardial Infarction ([place]), Osteoarthritis (OA) Additional Past Medical History / Comment(s): TIA - no residual effects, Last Myocardial Infarction Date:: unknown History of Any Multi-Drug Resistant Organisms: None Reported Past Surgical History: Heart Catheterization With Stent Additional Past Surgical History / Comment(s): spinal steroid injections, Past Anesthesia/Blood Transfusion Reactions: No Reported Reaction Date of Last Stent Placement:: unknown Past Psychological History: No Psychological Hx Reported Smoking Status: Former smoker Past Alcohol Use History: Daily Additional Past Alcohol Use History / Comment(s): quit smoking 25 yrs ago, smokeless tobacco until 1 yr ago; pint a day for years-stopped in September 2021 Past Drug Use History: None Reported - Past Family History Sister(s) Family Medical History: Cancer Medications and Allergies Home Medications Medication Instructions Recorded Confirmed Type Aspirin [Adult Low Dose Aspirin EC] 81 mg PO DAILY 06/16/18 03/09/22 History PARoxetine [Paxil] 20 mg PO DAILY 06/16/18 03/09/22 History Clopidogrel [Plavix] 75 mg PO DAILY #90 tab 06/20/18 03/09/22 Rx Nitroglycerin Sl Tabs [Nitrostat] 0.4 mg SUBLINGUAL Q5M PRN #25 tab 06/20/18 03/09/22 Rx Losartan Potassium 100 mg PO DAILY 11/18/21 03/09/22 History Rosuvastatin [Crestor] 20 mg PO DAILY 11/18/21 03/09/22 History atenoloL [Tenormin] 50 mg PO BID 11/18/21 03/09/22 History hydroCHLOROthiazide [Hydrodiuril] 25 mg PO DAILY 11/18/21 03/09/22 History Albuterol Sulfate [Proventil Hfa] 1 puff INHALATION Q4-6H PRN #6.7 gm 11/22/21 03/09/22 Rx Budesonide-Formot 160-4.5 Mcg 2 puff INHALATION RT-BID 03/09/22 03/09/22 History [Symbicort 160-4.5 Mcg Inhaler] Furosemide [Lasix] 40 mg PO DAILY 03/09/22 03/09/22 History Isosorbide Mononitrate ER [Imdur] 15 mg PO DAILY 03/09/22 03/09/22 History Pantoprazole [Protonix] 40 mg PO HS 03/09/22 03/09/22 History Tamsulosin [Flomax] 0.4 mg PO HS 03/09/22 03/09/22 History Allergies Allergy/AdvReac Type Severity Reaction Status Date / Time No Known Allergies Allergy Verified 03/09/22 16:26 Physical Exam Vitals: Vital Signs Temp Pulse Pulse Resp BP BP Pulse Ox 03/10/22 02:00 96.9 F L 69 18 100/63 03/10/22 01:56 68 18 03/09/22 20:00 97.0 F L 68 18 107/63 95 03/09/22 15:52 62 14 93/51 96 03/09/22 13:49 97.5 F L 69 18 118/64 98 Intake and Output 03/09/22 03/10/22 03/10/22 22:59 06:59 14:59 Intake Total 100 850.000 Output Total 1325 Balance 100 -475.000 Intake: Intake, IV Titration 100 850.000 Amount Heparin Sod,Pork in 0.45% 250.000 NaCl 25,000 unit In 0.45 % NaCl 1 250ml.bag @ 18 UNITS/KG/HR 22.861 mls/hr IV .[id number] [facility] Rx#: [id number] Sodium Chloride 0.9% 1, 100 600 000 ml @ 100 mls/hr IV . Q10H [facility] Rx#:[id number] Output: Urine 1325 Other: Voiding Method Toilet Toilet Urinal Urinal Weight 127.006 kg Results 03/09/22 14:15 03/09/22 14:15 Cardiac Enzymes 03/09/22 03/09/22 Range/Units 14:15 14:15 AST 27 (17-59) U/L Troponin I <0.012 (0.000-0.034) ng/mL Coagulation 03/09/22 03/09/22 Range/Units 14:15 22:26 PT 10.5 (9.0-12.0) sec APTT 23.0 136.6 H* (22.0-30.0) sec CBC 03/09/22 Range/Units 14:15 WBC 6.3 (3.8-10.6) k/uL RBC 3.77 L (4.30-5.90) m/uL Hgb 10.9 L (13.0-17.5) gm/dL Hct 32.5 L (39.0-53.0) % Plt Count 193 (150-450) k/uL Comprehensive Metabolic Panel 03/09/22 Range/Units 14:15 Sodium 138 (137-145) mmol/L Potassium 3.9 (3.5-5.1) mmol/L Chloride 99 (98-107) mmol/L Carbon Dioxide 26 (22-30) mmol/L BUN 24 H (9-20) mg/dL Creatinine 1.58 H (0.66-1.25) mg/dL Glucose 99 (74-99) mg/dL Calcium 9.1 (8.4-10.2) mg/dL AST 27 (17-59) U/L ALT 26 (4-49) U/L Alkaline Phosphatase 78 (38-126) U/L Total Protein 7.0 (6.3-8.2) g/dL Albumin 4.3 (3.5-5.0) g/dL Current Medications Generic Name Dose Route Start Last Admin Trade Name Freq PRN Reason Stop Dose Admin Acetaminophen 650 mg 03/09/22 16:19 Acetaminophen Tab 325 Mg Tab PO Q6HR PRN Mild Pain or Fever > 100.5 Albuterol Sulfate 1 puff 03/09/22 17:01 Albuterol Hfa Inhaler INHALATION RT-Q6H PRN Wheezing Aspirin 81 mg 03/10/22 09:00 Aspirin 81 Mg PO DAILY [facility] Atenolol 50 mg 03/09/22 21:00 03/09/22 20:56 Atenolol 50 Mg Tab PO 50 mg BID [facility] Administration Atorvastatin Calcium 40 mg 03/10/22 09:00 Atorvastatin 40 Mg Tab PO DAILY [facility] Budesonide/Formoterol Fumarate 2 puff 03/09/22 20:00 03/09/22 19:51 Symbicort 160-4.5 Mcg Inhaler INHALATION Not Given RT-BID [facility] Clopidogrel Bisulfate 75 mg 03/10/22 09:00 Clopidogrel 75 Mg Tab PO DAILY [facility] Furosemide 40 mg 03/10/22 09:00 Furosemide 40 Mg Tab PO DAILY [facility] Heparin Sodium (Porcine) 0 unit 03/09/22 16:10 Heparin Sodium 1,000 Un/Ml (10ml Vl) IV PER PROTOCOL PRN Low PTT Protocol Hydrochlorothiazide 25 mg 03/10/22 09:00 Hydrochlorothiazide 25 Mg Tab PO DAILY [facility] Hydromorphone HCl 0.5 mg 03/09/22 16:19 Hydromorphone 0.5 Mg/0.5 Ml Syringe IVP Q3HR PRN Moderate Pain (Scale 4 to 6) Sodium Chloride 1,000 mls @ 100 mls/hr 03/09/22 15:45 03/10/22 05:55 Saline 0.9% IV 100 mls/hr .Q10H [facility] Administration Heparin Sodium/Sodium Chloride 250 mls @ 22.861 mls/hr 03/09/22 16:15 03/10/22 05:55 25,000 unit/ Sodium Chloride IV 15 units/kg/hr .[id number] [facility] 19.051 mls/hr Administration Protocol 18 UNITS/KG/HR Isosorbide Mononitrate 15 mg 03/10/22 09:00 Isosorbide Mononitrate Er 15 Mg Tab PO DAILY [facility] Losartan Potassium 100 mg 03/10/22 09:00 Losartan 50 Mg Tab PO DAILY [facility] Naloxone HCl 0.2 mg 03/09/22 16:19 Naloxone 0.4 Mg/Ml 1 Ml Vial IV Q2M PRN Opioid Reversal Nitroglycerin 0.4 mg 03/09/22 17:37 Nitroglycerin Sl Tabs 0.4 Mg Tab SUBLINGUAL Q5M PRN Chest Pain Pantoprazole Sodium 40 mg 03/09/22 21:00 03/09/22 20:56 Pantoprazole 40 Mg Tablet PO 40 mg HS [facility] Administration Paroxetine HCl 20 mg 03/10/22 09:00 Paroxetine 20 Mg Tab PO DAILY [facility] Tamsulosin HCl 0.4 mg 03/09/22 21:00 03/09/22 20:56 Tamsulosin 0.4 Mg Cap.Er.24h PO 0.4 mg HS [facility] Administration Intake and Output 03/09/22 03/10/22 03/10/22 22:59 06:59 14:59 Intake Total 100 850.000 Output Total 1325 Balance 100 -475.000 Intake: Intake, IV Titration 100 850.000 Amount Heparin Sod,Pork in 0.45% 250.000 NaCl 25,000 unit In 0.45 % NaCl 1 250ml.bag @ 18 UNITS/KG/HR 22.861 mls/hr IV .[id number] [facility] Rx#: [id number] Sodium Chloride 0.9% 1, 100 600 000 ml @ 100 mls/hr IV . Q10H [facility] Rx#:[id number] Output: Urine 1325 Other: Voiding Method Toilet Toilet Urinal Urinal Weight 127.006 kg 03/09/22 14:15 03/09/22 14:15
[2022-03-10] MEDS: FUROSEMIDE 40 MG TAB PO SCH (10:20)
[2022-03-10] MEDS: ATORVASTATIN 40 MG TAB PO SCH (10:20)
[2022-03-10] MEDS: ASPIRIN 81 MG PO SCH (10:20)
[2022-03-10] MEDS: atenoloL 50 MG TAB PO SCH ×2 (10:20→20:30)
[2022-03-10] MEDS: LOSARTAN 50 MG TAB PO SCH (10:20)
[2022-03-10] MEDS: CLOPIDOGREL 75 MG TAB PO SCH (10:21)
[2022-03-10 10:51] LABS: Basophils % (A) 1.9 %; Eosinophils # (A) 0.37 X 10*3/uL (0.04-0.35); Eosinophils % (A) 6.9 %; HCT 29.8 % (39.6-50.0); HGB 9.2 g/dL (13.0-17.0); Immature Grans, Automated 0.2 %; Lymphocytes # (A) 0.69 X 10*3/uL (0.90-5.00); Lymphocytes % (A) 12.8 %; MCH 27.1 pg (27.0-32.0); MCHC 30.9 g/dL (32.0-37.0); MCV 87.9 fL (80.0-97.0); Mean Platelet Volume 10.6 fL (9.5-12.2); Monocytes # (A) 0.73 X 10*3/uL (0.20-1.00); Monocytes % (A) 13.6 %; NRBC Per 100 WBC 0 /100 WBCS (0.0-0.0); Neutrophils # (A) 3.48 X 10*3/uL (1.80-7.70); Neutrophils % (A) 64.6 %; Platelet Count 158 X 10*3/uL (140-440); RBC 3.39 X 10*6/uL (4.40-5.60); RDW 16.1 % (11.5-14.5); WBC 5.38 X 10*3/uL (4.50-10.00)
--- NOTE | 2022-03-10 12:20 | CA ---
Transthoracic Echo Report Name: Bridger Carter Age: 76 Gender: M : 1945 Exam Date: 03/10/2022 08:16 Exam Location: [place] [facility] Ht (in): 68 Wt (lb): 280 Ordering Physician: Romana Freedman MD Attending/Referring Phys: Union Steward Madison Rocha RDCS Procedure CPT: Indications: Syncope Cardiac Hx: limited study Technical Quality: Fair Contrast 1: Total Dose (mL): Contrast 2: Total Dose (mL): MEASUREMENTS (Male / Female) Normal Values DOPPLER TR Peak Velocity 263.3 cm/s TR Peak Gradient 27.7 mmHg Right Ventricular Systolic Press 32.3 mmHg FINDINGS Left Ventricle Left ventricular ejection fraction is estimated at 45 %. Right Ventricle Right ventricular systolic pressure within normal limits. Right Atrium Left Atrium Mitral Valve Aortic Valve Tricuspid Valve Pulmonic Valve Pericardium Normal pericardium. No pericardial effusion. Aorta CONCLUSIONS Left ventricular ejection fraction 45% RVSP 32 No pericardial effusion Previewed by: Dr. Aramis Fernandez DO (Electronically Signed) Final Date: 10 March 2022 12:19
[2022-03-10 13:47] LABS: African American GFR (CKD) 55.2 (60.0-200.0); Anion Gap 10.6 mmol/L (10.00-18.00); BUN/Creat Ratio 17.61 Ratio (12.00-20.00); Calcium 8.6 mg/dL (8.7-10.3); Carbon Dioxide 27.1 mmol/L (20.0-27.5); Non-African American GFR(CKD) 47.6 (60.0-200.0); Potassium 3.6 mmol/L (3.5-5.5)
[2022-03-10] MEDS: hydroCHLOROthiazide 25 MG TAB PO SCH (14:16)
[2022-03-10] MEDS: ISOSORBIDE MONONITRATE ER 15 MG TAB PO SCH (14:16)
[2022-03-10] MEDS: PARoxetine 20 MG TAB PO SCH (14:17)
--- NOTE | 2022-03-10 19:32 | P.CNNES ---
History of Present Illness Consult date: 03/10/22 Requesting physician: Nellie Workman Reason for Consult: syncope History of Present Illness: Patient is a 76-year-old male came to the hospital yesterday at 1:34 PM for right-sided chest pain and a syncopal spell. Patient states that he usually do not have cough, except after using the inhalers. On the day of admission, he was sitting on the couch, started noticing right-sided chest pain. He started coughing, and he tried to sit up. Patient states that coughed up very hard, became dizzy, lightheaded and then passed out. He states that he passed out only one time. He denied any tongue bite or loss of control of urine. He admits to being completely out, but came to in less than 1 minute. He denies any other history of syncopal spells. He states that sometimes when he gets up, he feels lightheaded. Vital signs arrival blood pressure 118/64, pulse rate 69, respiration 18, and temperature 97.5. Blood test shows normal WBC, hemoglobin 10.9, normal platelets. PT PTT normal. CMP normal. Landeros virus PCR negative. Influenza screen negative. CT head showed suspected changes of chronic small vessel ischemic disease with an area of old deep white matter infarct on the left. Mild age-related atrophy along the superior cerebral convexities. No acute intracranial abnormality seen. I personally reviewed CT had come agree with the findings. EKG shows sinus rhythm with occasional ventricular premature complexes. CT of the chest pain showed no pneumonia. Complex right renal lesion. The partially calcified lymphadenopathy throughout the mediastinum could reflect prior granulomatous disease versus post treatment changes. 2-D echo revealed left ventricular ejection fraction is 45%. No pericardial effusion. Patient had a complete 2-D echo performed 11/18/2021, which revealed EF of 30-35%, now normal left atrial size. Patient states he had carotid artery checked previously and was normal. Home medications include Paxil 20 mg daily, aspirin 81 mg, Plavix 75 mg, nitroglycerin, HCTZ 25 mg, Crestor 20 mg, atenolol 59 g twice a day, losartan 100 mg, Flomax, Protonix 40 mg, Lasix 40 mg, isosorbide 15 mg daily. Patient stopped smoking long time ago. Denies any alcohol. No diabetes. Review of Systems Constitutional: Denies chills, Denies fever Eyes: denies blurred vision, denies pain Ears, nose, mouth and throat: Denies headache, Denies sore throat Gastrointestinal: Denies abdominal pain, Denies diarrhea, Denies nausea, Denies vomiting Integumentary: Reports color changes Neurological: Reports as per HPI Past Medical History Past Medical History: Coronary Artery Disease (CAD), COPD, CVA/TIA, Hypertension, Myocardial Infarction ([place]), Osteoarthritis (OA) Additional Past Medical History / Comment(s): TIA - no residual effects, Last Myocardial Infarction Date:: unknown History of Any Multi-Drug Resistant Organisms: None Reported Past Surgical History: Heart Catheterization With Stent Additional Past Surgical History / Comment(s): spinal steroid injections, Past Anesthesia/Blood Transfusion Reactions: No Reported Reaction Date of Last Stent Placement:: unknown Past Psychological History: No Psychological Hx Reported Smoking Status: Former smoker Past Alcohol Use History: Daily Additional Past Alcohol Use History / Comment(s): quit smoking 25 yrs ago, smokeless tobacco until 1 yr ago; pint a day for years-stopped in September 2021 Past Drug Use History: None Reported - Past Family History Sister(s) Family Medical History: Cancer Medications and Allergies Home Medications Medication Instructions Recorded Confirmed Type Aspirin [Adult Low Dose Aspirin EC] 81 mg PO DAILY 06/16/18 03/09/22 History PARoxetine [Paxil] 20 mg PO DAILY 06/16/18 03/09/22 History Clopidogrel [Plavix] 75 mg PO DAILY #90 tab 06/20/18 03/09/22 Rx Nitroglycerin Sl Tabs [Nitrostat] 0.4 mg SUBLINGUAL Q5M PRN #25 tab 06/20/18 03/09/22 Rx Rosuvastatin [Crestor] 20 mg PO DAILY 11/18/21 03/09/22 History Albuterol Sulfate [Proventil Hfa] 1 puff INHALATION Q4-6H PRN #6.7 gm 11/22/21 03/09/22 Rx Budesonide-Formot 160-4.5 Mcg 2 puff INHALATION RT-BID 03/09/22 03/09/22 History [Symbicort 160-4.5 Mcg Inhaler] Furosemide [Lasix] 40 mg PO DAILY 03/09/22 03/09/22 History Pantoprazole [Protonix] 40 mg PO HS 03/09/22 03/09/22 History Tamsulosin [Flomax] 0.4 mg PO HS 03/09/22 03/09/22 History Acetaminophen Tab [Tylenol] 650 mg PO Q6HR PRN tab 03/11/22 Rx Allergies Allergy/AdvReac Type Severity Reaction Status Date / Time No Known Allergies Allergy Verified 03/09/22 16:26 Physical Examination - Vital Signs Vital Signs: Vital Signs Temp Pulse Resp BP Pulse Ox 03/10/22 08:00 63 18 03/10/22 07:00 97.9 F 63 18 121/49 97 03/10/22 02:00 96.9 F L 69 18 100/63 03/10/22 01:56 68 18 03/09/22 20:00 97.0 F L 68 18 107/63 95 Intake and Output 03/10/22 03/10/22 03/10/22 06:59 14:59 22:59 Intake Total 850.000 524.452 Output Total 1325 Balance -475.000 524.452 Intake: Intake, IV Titration 850.000 44.452 Amount Heparin Sod,Pork in 0.45% 250.000 44.452 NaCl 25,000 unit In 0.45 % NaCl 1 250ml.bag @ 18 UNITS/KG/HR 22.861 mls/hr IV .[id number] [facility] Rx#: [id number] Sodium Chloride 0.9% 1, 600 000 ml @ 100 mls/hr IV . Q10H [facility] Rx#:[id number] Oral 480 Output: Urine 1325 Other: Voiding Method Toilet Toilet Urinal Urinal # Voids 0 Patient is an elderly male, in no acute distress. Patient is alert awake oriented to time place and person. Speech and language functions are normal. Patient can name and repeat very well. No aphasia or dysarthria. Attention, concentration and fund of knowledge is adequate. On cranial nerve examination, pupils are equal, round and reacting to light, visual thompson are full on confrontation, with no neglect on double simultaneous stimulation. Extraocular muscles are intact with no nystagmus. Face is sy mmetric, tongue protrudes to the midline. Palatal elevation and sensation normal, hearing and shoulder shrug normal, facial sensation normal. On muscle strength testing, there is no pronator drift and the strength is normal in arms and legs distally and proximally. Deep tendon reflexes are symmetric to all over and plantars downgoing. Sensory to touch is equal with no neglect on double simultaneous stimulation. Cerebellar function showed no ataxia for [id number] testing. No dysdiadoc hokinesia. No ataxia for [id number] testing on either side. Tone and bulk of muscles normal. Gait deferred.. On general examination, there is no carotid bruit or murmur, S1-S2 audible. Chest is clear on consultation. Abdomen is soft nontender. No organomegaly, bowel sounds present. Patient has peripheral edema positive. Results - Laboratory Findings CBC and BMP: 03/11/22 09:09 03/11/22 09:09 Abnormal Lab Findings: Abnormal Labs 03/09/22 03/09/22 03/09/22 14:15 14:15 14:15 RBC 3.77 L Hgb 10.9 L Hct 32.5 L MCHC RDW 15.7 H Lymphocytes # 0.4 L Eosinophils # APTT D-Dimer 1.40 H BUN 24 H Creatinine 1.58 H Est GFR (CKD-EPI)AfAm Est GFR (CKD-EPI)NonAf Calcium 03/09/22 03/10/22 03/10/22 22:26 06:42 06:42 RBC 3.39 L Hgb 9.2 L Hct 29.8 L MCHC 30.9 L RDW 16.1 H Lymphocytes # 0.69 L Eosinophils # 0.37 H APTT 136.6 H* D-Dimer BUN Creatinine Est GFR (CKD-EPI)AfAm 55.2 L Est GFR (CKD-EPI)NonAf 47.6 L Calcium 8.6 L 03/10/22 06:42 RBC Hgb Hct MCHC RDW Lymphocytes # Eosinophils # APTT 103.2 H* D-Dimer BUN Creatinine Est GFR (CKD-EPI)AfAm Est GFR (CKD-EPI)NonAf Calcium Assessment and Plan Assessment: * Probable tussive syncope, versus vasovagal * COPD * Obesity * Hypertension * Acute kidney injury. * CAD * Anemia * Osteoarthritis * Former smoker * Hyperlipidemia Plan: * Patient probably had tussive syncope, right after a bout of chest pain and hard coughing. This can happen infrequently in COPD patients, perhaps due to exhaling CO2 during the bout of coughing. Patient had no other syncopal spells besides this one. * Cardiology also on the case, ruling out arrhythmia. * No other neurological workup indicated. * Neurologically clear. Please call neurology if any other concerns. Thank you for the consult.
[2022-03-10] MEDS: ALBUTEROL HFA INHALER INHALATION PRN (19:48)
[2022-03-10] MEDS: TAMSULOSIN 0.4 MG CAP.ER.24H PO SCH (20:30)
[2022-03-10] MEDS: PANTOPRAZOLE 40 MG TABLET PO SCH (20:30)
[2022-03-11] MEDS: SODIUM CHLORIDE 0.9% 1,000 ML IV SCH (03:32)
[2022-03-11] MEDS: SYMBICORT 160-4.5 MCG INHALER INHALATION SCH ×2 (08:10→19:21)
[2022-03-11] MEDS: ALBUTEROL HFA INHALER INHALATION PRN ×2 (08:10→19:21)
--- NOTE | 2022-03-11 08:54 | P.PN ---
Subjective Progress Note Date: 03/10/22 This is a 76-year-old male who was recently admitted with right-sided chest pain that was aggravated with movements over the last few days and also with some cough and having syncopal episodes with loss of consciousness. Cardiology following the patient and has ordered 2-D echo. Troponins have been negative and VQ scan was negative for PE will discontinue heparin. Patient is afebrile denies chest pain or shortness of breath. Recommend continue telemetry monitoring and will follow-up with repeat labs to monitor kidney functions. CBC within normal limits. Covid along with influenza testing were negative. Patient denies nausea or vomiting and is tolerating diet. 03/10/2022 Patient is seen in follow-up this morning admitted for chest pain undergoing cardiology workup including 2-D echo that was ordered and pending. Patient continues with some weakness although states feels better today and denies any chest pain. Patient concerned of why he had syncopal episodes and will consult neurology. Troponins remain negative and VQ scan low probability for PE have discontinued heparin. Patient is afebrile and denies shortness of breath or palpitations. Patient with weakness have encouraged increased activity as tolerated. May require PT/OT therapy consultation. Recommend repeat labs in the a.m. and monitor kidney functions. Cardiology following as well and maximizing medical management. Review of systems: Constitutional: No reports of fatigue, fever, or chills Cardiovascular: No reports of chest pain or palpitations Respiratory: No reports of shortness of breath or cough GI: No reports of nausea, no reports of of vomiting, : No reports of dysuria or retention Neurovascular: reports of generalized weakness at times All medications have been reviewed PHYSICAL EXAMINATION: GENERAL: The patient is alert and oriented x4, Well developed, well nourished. morbidly obese HEENT: Pupils are round and equally reacting to light. EOMI. no scleral icterus. No conjunctival pallor. Normocephalic, atraumatic. No pharyngeal erythema. No thyromegaly. CARDIOVASCULAR: S1 and S2 muffled PULMONARY: diminished breath sounds bilaterally with no wheezing or rhonchi noted. ABDOMEN: soft. Nontender on exam. obese. non-distended, normoactive bowel sounds. No palpable organomegaly. MUSCULOSKELETAL: No joint swelling or deformity. EXTREMITIES: No cyanosis, clubbing, or pedal edema. NEUROLOGICAL: Gross neurological examination did not reveal any focal deficits. Diffuse weakness SKIN: No rashes. Assessment: Right-sided chest pain, possibly musculoskeletal, rule out pneumonia Syncope for evaluation, rule out cardiac causes History of coronary artery disease History of Cerebrovascular accident, TIA Hypertension History of myocardial infarction History of coronary artery disease with stents Elevated d-dimer with low probability of PE on VQ scan GI prophylaxis DVT prophylaxis Full code Plan: Recommend to continue with current medications and management with cardiology following. neurology consulted for syncopal episode. Patient denies chest pain today and awaiting 2-D echo. Patient having concerns about syncopal episodes and encouraged increased activity as tolerated with possible PT/OT therapy evaluation. Awaiting neurology consultation. Recommend repeat labs in the a.m. to monitor kidney functions. Will continue gentle IV hydration and follow-up with labs in the morning. Encourage oral intake. Recommend continue telemetry monitoring. Due to multiple complex medical issues, prognosis is guarded. Possible discharge in 24-48 hours. The impression and plan of care has been dictated by Nellie Workman, nurse practitioner as directed. Dr. Tano MD I have performed a history and examination and MDM of this patient, discussed the same with the dictator, and agree with the dictator's assessment and plan as written ,documented as a scribe. Based on total visit time, I have performed more than 50% of the visit. Any additional findings or plans will be noted. Objective - Vital Signs Vital signs: Vital Signs Temp 97.9 F 03/10/22 07:00 Pulse 63 03/10/22 07:00 Resp 18 03/10/22 07:00 BP 121/49 03/10/22 07:00 Pulse Ox 97 03/10/22 07:00 FiO2 Intake & Output 03/09/22 03/10/22 03/10/22 18:59 06:59 18:59 Intake Total 950.000 284.452 Output Total 1325 Balance -375.000 284.452 Weight 127.006 kg 127.006 kg Intake: Intake, IV Titration 950.000 44.452 Amount Heparin Sod,Pork in 0.45% 250.000 44.452 NaCl 25,000 unit In 0.45 % NaCl 1 250ml.bag @ 18 UNITS/KG/HR 22.861 mls/hr IV .[id number] [facility] Rx#: [id number] Sodium Chloride 0.9% 1, 700 000 ml @ 100 mls/hr IV . Q10H [facility] Rx#:[id number] Oral 240 Output: Urine 1325 Other: Voiding Method Toilet Urinal # Voids 0 - Labs CBC & Chem 7: 03/10/22 06:42 03/10/22 06:42 Labs: Abnormal Lab Results - Last 24 Hours (Table) 03/09/22 03/09/22 03/09/22 Range/Units 14:15 14:15 14:15 RBC 3.77 L (4.30-5.90) m/uL Hgb 10.9 L (13.0-17.5) gm/dL Hct 32.5 L (39.0-53.0) % MCHC (32.0-37.0) g/dL RDW 15.7 H (11.5-15.5) % Lymphocytes # 0.4 L (1.0-4.8) k/uL Eosinophils # (0.04-0.35) X 10*3/uL APTT (22.0-30.0) sec D-Dimer 1.40 H (<0.60) mg/L FEU BUN 24 H (9-20) mg/dL Creatinine 1.58 H (0.66-1.25) mg/dL 03/09/22 03/10/22 03/10/22 Range/Units 22:26 06:42 06:42 RBC 3.39 L (4.30-5.90) m/uL Hgb 9.2 L (13.0-17.5) gm/dL Hct 29.8 L (39.0-53.0) % MCHC 30.9 L (32.0-37.0) g/dL RDW 16.1 H (11.5-15.5) % Lymphocytes # 0.69 L (1.0-4.8) k/uL Eosinophils # 0.37 H (0.04-0.35) X 10*3/uL APTT 136.6 H* 103.2 H* (22.0-30.0) sec D-Dimer (<0.60) mg/L FEU BUN (9-20) mg/dL Creatinine (0.66-1.25) mg/dL
[2022-03-11] MEDS: LOSARTAN 50 MG TAB PO SCH (09:28)
[2022-03-11] MEDS: CLOPIDOGREL 75 MG TAB PO SCH (09:28)
[2022-03-11] MEDS: FUROSEMIDE 40 MG TAB PO SCH (09:28)
[2022-03-11] MEDS: atenoloL 50 MG TAB PO SCH (09:28)
[2022-03-11] MEDS: ATORVASTATIN 40 MG TAB PO SCH (09:28)
[2022-03-11] MEDS: PARoxetine 20 MG TAB PO SCH (09:28)
[2022-03-11] MEDS: ASPIRIN 81 MG PO SCH (09:28)
[2022-03-11 09:35] LABS: African American GFR (CKD) 82 (>60 ml/min/1.73 sqM); Anion Gap 9 mmol/L; Blood Urea Nitrogen 19 mg/dL (9-20); Calcium 8.1 mg/dL (8.4-10.2); Carbon Dioxide 26 mmol/L (22-30); Chloride 104 mmol/L (98-107); Glucose 139 mg/dL (74-99); Non-African American GFR(CKD) 71 (>60 ml/min/1.73 sqM); Potassium 3.7 mmol/L (3.5-5.1); Sodium 139 mmol/L (137-145)
[2022-03-11 09:41] LABS: HCT 29.6 % (39.0-53.0); HGB 9.6 gm/dL (13.0-17.5); Hypochromasia Marked; MCH 28.4 pg (25.0-35.0); MCHC 32.4 g/dL (31.0-37.0); MCV 87.4 fL (80.0-100.0); Mean Platelet Volume 9.2; Platelet Count 142 k/uL (150-450); RBC 3.39 m/uL (4.30-5.90); RDW 15.5 % (11.5-15.5); WBC 3.8 k/uL (3.8-10.6)
--- NOTE | 2022-03-11 09:44 | P.PN ---
Subjective This is a pleasant 75-year-old male past medical history significant for coronary artery disease status post PCI of the RCA in 2019, nonischemic card iomyopathy, hypertension, dyslipidemia, former smoker, CVA, TIA, alcohol abuse. He follows in the office with Dr. Figueroa. We have been asked to see in consultation for chest pain. Patient presents to the ER with complaints of syncopal episode and chest discomfort. Patient states he had right sided chest discomfort 2 days ago. He noticed it mostly with movement and sitting up. 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 Yesterday, he was sitting in the chair, he had no pain. He had acute episode of syncope. He states that he "just passed out". No specific warning signs. He states he doesn't remember it or how long he passed out but woke up with bilateral shaking of his arms and feet. He states his came into the room to assist him. He had no chest pain, shortness of breath, palpitations, nausea, vomiting, abdominal pain. He has been having some intermittent lightheadedness for past day. He denies any symptoms of orthopnea or PND. He overall this graham varma is feeling well. He states he quit smoking 30+ years ago. States he stopped drinking alcohol. PRIOR DIAGNOSTICS * Echocardiogram 11/18/2021 revealed EF of 30%, mild aortic stenosis with mean gradient of 7 mmHg * Cardiac catheterization 11/20/2021 revealed patent RCA, 20% narrowing of the left main, no significant disease in LAD or circumflex. Pressures are mildly elevated, no gradient across the aortic valve. 03/11/2022 Patient seen and examined at bedside, distress. Denies any lightheadedness, dizziness, near syncope. Telemetry reviewed, patient is maintaining sinus mechanism HR upper 50s- 60s, occasional PVCs, no acute arrhythmia or ectopy noted. No pauses, high degree block or NSVT noted. Vital signs are stable. Blood pressure 118/50, heart rate 58, afebrile, saturation 96% on room air Echocardiogram revealed an improved ejection fraction 45%, RVSP of 32 mmHg. PHYSICAL EXAMINATION Blood pressure CONSTITUTIONAL: No apparent distress. HEENT: Head is normocephalic. No JVD. . CHEST EXAMINATION: Lungs are clear to auscultation No chest wall tenderness is noted on palpation or with deep breathing. HEART EXAMINATION: Regular rate and rhythm. S1, S2 heard. Systolic murmur noted, no gallops or rub. ABDOMEN: Soft, nontender. Positive bowel sounds. EXTREMITIES: 2+ peripheral pulses, trace bilateral lower extremity edema and no calf tenderness. Redness/discoloration noted. NEUROLOGIC EXAMINATION: Patient is awake, alert and oriented x3. ASSESSMENT Syncope, Acute kidney injury, resolved. Chest pain, acute coronary syndrome unlikely, appears musculoskeletal on exam Right renal lesion reported on CT scan Coronary artery disease status post PCI of the RCA in 2019 Ischemic cardiomyopathy History of Hypertension Dyslipidemia Former smoker Former alcohol abuse History of CVA/TIA Obesity PLAN Patient's echocardiogram revealed improvement in LV systolic function 45%. Telemetry with no evidence of acute arrhythmia. Patient discussed with his primary group president Dr. Figueroa and welder operator Dr. Beckett. At this time EP Study is recommended next week as an outpatient. Also recommend Life Vest on discharge secondary to history of ischemic cardiomyopathy with EF 30-35% with syncopal episode EF 30-35% concerning for VT. Continue home cardiac medications Patient is stable for discharge from a cardiology perspective today, Recommend Lifevest prior to discharge, Case management is consulted for assistance. Follow up for EP study next week and Dr. Figueroa outpatient Nurse practitioner note has been reviewed by physician. Signing provider agrees with the documented findings, assessment, and plan of care. Objective - Vital Signs Vital signs: Vital Signs Temp 97.6 F 03/11/22 07:00 Pulse 58 L 03/11/22 07:00 Resp 18 03/11/22 07:00 BP 118/50 03/11/22 07:00 Pulse Ox 96 03/11/22 07:00 FiO2 Intake & Output 03/10/22 03/11/22 03/11/22 18:59 06:59 18:59 Intake Total 524.452 Balance 524.452 Intake: Intake, IV Titration 44.452 Amount Heparin Sod,Pork in 0.45% 44.452 NaCl 25,000 unit In 0.45 % NaCl 1 250ml.bag @ 18 UNITS/KG/HR 22.861 mls/hr IV .[id number] [facility] Rx#: [id number] Oral 480 Other: Voiding Method Toilet Toilet Urinal Urinal # Voids 0 2 - Labs CBC & Chem 7: 03/10/22 06:42 03/10/22 06:42 Labs: Abnormal Lab Results - Last 24 Hours (Table) 03/10/22 03/10/22 03/10/22 Range/Units 06:42 06:42 06:42 RBC 3.39 L (4.40-5.60) X 10*6/uL Hgb 9.2 L (13.0-17.0) g/dL Hct 29.8 L (39.6-50.0) % MCHC 30.9 L (32.0-37.0) g/dL RDW 16.1 H (11.5-14.5) % Lymphocytes # 0.69 L (0.90-5.00) X 10*3/uL Eosinophils # 0.37 H (0.04-0.35) X 10*3/uL APTT 103.2 H* (22.0-30.0) sec Est GFR (CKD-EPI)AfAm 55.2 L (60.0-200.0) Est GFR (CKD-EPI)NonAf 47.6 L (60.0-200.0) Calcium 8.6 L (8.7-10.3) mg/dL
[2022-03-11] MEDS: hydroCHLOROthiazide 25 MG TAB PO SCH (10:08)
[2022-03-11] MEDS: ISOSORBIDE MONONITRATE ER 15 MG TAB PO SCH (10:08)
[2022-03-11 12:51] LABS: Eosinophils # (M) 0.34 k/uL (0-0.7); Lymphocytes # (M) 0.23 k/uL (1.0-4.8); Neutrophils # (M) 2.93 k/uL (1.3-7.7); Neutrophils % (M) 77 %; Nucleated Red Blood Cells 0 /100 WBC (0-0); Total Cells Counted 100
[2022-03-11] MEDS ORDERED: SODIUM CHLORIDE 0.9% 1,000 ML IV SCH (13:00)
[2022-03-11 13:41] LABS: Glucose,Whole Blood 110 mg/dL (70-110)
[2022-03-11] MEDS ORDERED: MIDAZOLAM 2 MG/2 ML VIAL ONE ×2 (17:15)
[2022-03-11] MEDS ORDERED: fentaNYL (PF) 50 MCG/ML 2 ML AMP ONE ×2 (17:15)
--- NOTE | 2022-03-11 17:23 | P.EPCON ---
Electrophysiology Consult - EP Consult Electrophysiology Consult: This is Dr. Beckett dictating a consult on this patient The patient was interviewed and examined IMPRESSION / ASSESSMENT: 1 episode of loss of consciousness while sitting, associated with coughing and right-sided chest discomfort Known cardiac myopathy ejection fraction 45%, ischemic cardio myopathy Known coronary stenting Right Bundle branch block pattern on twelve-lead EKG PLAN: Stop isosorbide Stop hydrochlorothiazide Diagnostic EP study for risk stratification for VT VF given that he has ischemic cardio myopathy with an ejection fraction that is reduced HPI 76-year-old male patient who had just finished eating serial. The serial was st uck in the back of his throat and he started off. He also had discomfort in the right lateral chest wall area which is quite painful Subsequently passed out According to his he looked a little pale but he was not sweaty The episode was very brief in the open up his eyes fairly quickly in response to verbal stimuli The patient denied any chest discomfort palpitations before or after the episode His blood pressure was normal 118/64 mmHg initially for the repeat blood pressure was 93/54 mmHg pulse rate was in the normal range Occasional PVCs have been noted Twelve-lead EKG showed sinus rhythm normal AL right bundle branch block with occasional PVC normal ST segments He does state that sometimes he is dizzy and lightheaded when he is walking He has known coronary artery disease status post stenting History of TIA ROS: No fever chills or rigors, no cough, phlegm or expectoration, no nausea, vomiting or diarrhea, no hematuria, dysuria, no musculoskeletal complaints, no strokes or seizures, no skin lesions. EXAMINATION: Blood pressure 118/45 mmHg Breath sounds are reduced bilaterally Heart sounds S1 and S2 normal REVIEW OF LABS, ECG & MEDICAL DATA Right renal complex cyst noted on computed tomography scan CT of the chest Chronic small vessel ischemic changes Old deep white matter infarct left-sided Mild atrophy Hemoglobin around 10 D-dimer minimally elevated Creatinine elevated at 1.58 and it has normalized to 1.03 now Normal troponins Normal magnesium Normal electrolytes NT proBNP to 93
[2022-03-11] MEDS ORDERED: LIDOCAINE 1% INJ 10MG/ML (30 ML VIAL-PF) SQ ONE (17:50)
--- NOTE | 2022-03-11 19:18 | P.EPPROC ---
- EP Procedure Note Electrophysiology Procedure Note: Electrophysiology Procedure Note: Diagnosis Episode of syncope while sitting History of ischemic cardio myopathy Procedure Diagnostic EP study Final diagnosis Very easily inducible ventricular fibrillation, reproducible finding Spontaneous termination with conversion to sinus rhythm Details Patient was brought to the EP lab in a fasting state. Written informed consent was obtained prior to the procedure. Left pectoral area was prepped and draped as a protocol Venous sheaths were placed in the right femoral veins Diagnostic catheters placed in the high right atrium His bundle area right ventricle Protecta and RV apex Sinus cycle length 941 ms, [place] interval 202 ms, QRS 178 ms in the right bundle branch block pattern and QT interval 451 ms AH 103 and HV 56 ms Sinus node recovery times at 600, 504 100 ms were 1179, 980 and 1246 ms Course morning to sinus recovery times were mildly prolonged AV node Wenckebach block abnormal at 410 ms VA Wenckebach block greater than 700 ms Burst stimulation was performed from the RVOT Access to ablation was performed from the RVOT With double extrastimuli repeated long runs of PMVT were induced Retroflex extrastimuli sustained ventricular tachycardia was induced This is associated with syncope This spontaneously terminated and the patient regained consciousness This is similar to his clinical story when he had a brief with complete loss of consciousness while sitting and then regained consciousness after a few minutes Catheters removed. Sheaths were removed Vascular closure device applied Plan Dual-chamber ICD implant, abnormal sinus node function, abnormal AV node function and easily inducible ventricular fibrillation associated with syncope
--- NOTE | 2022-03-11 19:20 | P.PN ---
Progress Note - Text Patient underwent a diagnostic EP study which revealed easily inducible ventricular fibrillation with syncope This was repeated finding and he was spontaneously terminate each time Plan dual-chamber ICD implantation prior to discharge Daily Hibiclens bath No EKG patches over the left pectoral area Watch for any thrombophlebitis Discussed with the patient and his
[2022-03-11] MEDS: PANTOPRAZOLE 40 MG TABLET PO SCH (21:26)
[2022-03-11] MEDS: TAMSULOSIN 0.4 MG CAP.ER.24H PO SCH (21:26)
--- NOTE | 2022-03-12 05:07 | P.PN ---
Subjective Progress Note Date: 03/11/22 This is a 76-year-old male who was recently admitted with right-sided chest pain that was aggravated with movements over the last few days and also with some cough and having syncopal episodes with loss of consciousness. Cardiology following the patient and has ordered 2-D echo. Troponins have been negative and VQ scan was negative for PE will discontinue heparin. Patient is afebrile denies chest pain or shortness of breath. Recommend continue telemetry monitoring and will follow-up with repeat labs to monitor kidney functions. CBC within normal limits. Covid along with influenza testing were negative. Patient denies nausea or vomiting and is tolerating diet. 03/10/2022 Patient is seen in follow-up this morning admitted for chest pain undergoing cardiology workup including 2-D echo that was ordered and pending. Patient continues with some weakness although states feels better today and denies any chest pain. Patient concerned of why he had syncopal episodes and will consult neurology. Troponins remain negative and VQ scan low probability for PE have discontinued heparin. Patient is afebrile and denies shortness of breath or palpitations. Patient with weakness have encouraged increased activity as tolerated. May require PT/OT therapy consultation. Recommend repeat labs in the a.m. and monitor kidney functions. Cardiology following as well and maximizing medical management. 03/11/2022 Patient is seen today and is requesting to go home. Cardiology following and re commending life vest. Dr. Beckett has also been consulted for EP study and patient is agreeable to stay. Neurology has evaluated the patient and cleared by neurology once cardiology clears the patient. Family is concerned that he may need rehab and will consult social work as well as PT/OT for evaluation. Patient reports he would like to go home. Patient is afebrile and denies chest pain or shortness of breath. Patient denies any further episodes of syncope while here. Tolerating diet with no reports of nausea or vomiting noted. Review of systems: Constitutional: No reports of fatigue, fever, or chills Cardiovascular: No reports of chest pain or palpitations Respiratory: No reports of shortness of breath or cough GI: No reports of nausea, no reports of of vomiting, : No reports of dysuria or retention Neurovascular: reports of generalized weakness at times All medications have been reviewed PHYSICAL EXAMINATION: GENERAL: The patient is alert and oriented x4, Well developed, well nourished. morbidly obese HEENT: Pupils are round and equally reacting to light. EOMI. no scleral icterus. No conjunctival pallor. Normocephalic, atraumatic. No pharyngeal erythema. No thyromegaly. CARDIOVASCULAR: S1 and S2 muffled PULMONARY: diminished breath sounds bilaterally with no wheezing or rhonchi noted. ABDOMEN: soft. Nontender on exam. obese. non-distended, normoactive bowel sounds. No palpable organomegaly. MUSCULOSKELETAL: No joint swelling or deformity. EXTREMITIES: No cyanosis, clubbing, or pedal edema. NEUROLOGICAL: Gross neurological examination did not reveal any focal deficits. Diffuse weakness SKIN: No rashes. Assessment: Right-sided chest pain, possibly musculoskeletal, ruled out pneumonia Syncope for evaluation, rule out cardiac causes History of coronary artery disease History of Cerebrovascular accident, TIA Hypertension History of myocardial infarction History of coronary artery disease with stents Elevated d-dimer with low probability of PE on VQ scan GI prophylaxis DVT prophylaxis Full code Plan: Recommend to continue with current medications and management with cardiology following. neurology following for syncopal episode. Patient denies chest pain today and 2-D echo was done with a reduced ef. Cardiology consulted Dr. Beckett for EP study. Cardiology also recommending Life vest initiation and case management consulted for this. Encouraged increased activity as tolerated. Family requesting possible ECF and will consult PT/OT therapy for evaluation. Patient would like to go home. Recommend repeat labs in the a.m. to monitor kidney functions. Encourage oral intake. Recommend to continue telemetry monitoring. Due to multiple complex medical issues, prognosis is guarded. The impression and plan of care has been dictated by Nellie Workman, nurse practitioner as directed. Dr. Tano MD I have performed a history and examination and MDM of this patient, discussed the same with the dictator, and agree with the dictator's assessment and plan as written ,documented as a scribe. Based on total visit time, I have performed more than 50% of the visit. Any additional findings or plans will be noted. Objective - Vital Signs Vital signs: Vital Signs Temp 97.6 F 03/11/22 07:00 Pulse 58 L 03/11/22 07:00 Resp 18 03/11/22 07:00 BP 118/50 03/11/22 07:00 Pulse Ox 96 10/20/22 07:00 FiO2 Intake & Output 03/10/22 03/11/22 03/11/22 18:59 06:59 18:59 Intake Total 524.452 Balance 524.452 Intake: Intake, IV Titration 44.452 Amount Heparin Sod,Pork in 0.45% 44.452 NaCl 25,000 unit In 0.45 % NaCl 1 250ml.bag @ 18 UNITS/KG/HR 22.861 mls/hr IV .[id number] [facility] Rx#: [id number] Oral 480 Other: Voiding Method Toilet Toilet Urinal Urinal # Voids 0 2 - Labs CBC & Chem 7: 03/11/22 09:09 03/11/22 09:09 Labs: Abnormal Lab Results - Last 24 Hours (Table) 03/10/22 03/10/22 Range/Units 06:42 06:42 RBC 3.39 L (4.40-5.60) X 10*6/uL Hgb 9.2 L (13.0-17.0) g/dL Hct 29.8 L (39.6-50.0) % MCHC 30.9 L (32.0-37.0) g/dL RDW 16.1 H (11.5-14.5) % Lymphocytes # 0.69 L (0.90-5.00) X 10*3/uL Eosinophils # 0.37 H (0.04-0.35) X 10*3/uL Est GFR (CKD-EPI)AfAm 55.2 L (60.0-200.0) Est GFR (CKD-EPI)NonAf 47.6 L (60.0-200.0) Calcium 8.6 L (8.7-10.3) mg/dL
[2022-03-12] MEDS: SYMBICORT 160-4.5 MCG INHALER INHALATION SCH ×2 (08:47→19:56)
[2022-03-12] MEDS: ALBUTEROL HFA INHALER INHALATION PRN ×2 (08:47→19:56)
[2022-03-12] MEDS: SPIRONOLACTONE 25 MG TAB PO SCH (09:04)
[2022-03-12] MEDS: ATORVASTATIN 40 MG TAB PO SCH (09:04)
[2022-03-12] MEDS: PARoxetine 20 MG TAB PO SCH (09:05)
[2022-03-12] MEDS: CLOPIDOGREL 75 MG TAB PO SCH (09:05)
[2022-03-12] MEDS: carvediloL 6.25 MG TAB PO SCH ×2 (09:05→17:25)
[2022-03-12] MEDS: ASPIRIN 81 MG PO SCH (09:05)
--- NOTE | 2022-03-12 09:41 | P.PN ---
Subjective This is a pleasant 75-year-old male past medical history significant for coronary artery disease status post PCI of the RCA in 2019, ischemic cardiom yopathy, hypertension, dyslipidemia, former smoker, CVA, TIA, alcohol abuse. He follows in the office with Dr. Figueroa. We have been asked to see in consultation for chest pain. Patient presents to the ER with complaints of syncopal episode and chest discomfort. Patient states he had right sided chest discomfort 2 days ago. He noticed it mostly with movement and sitting up. 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 Yesterday, he was sitting in the chair, he had no pain. He had acute episode of syncope. He states that he "just passed out". No specific warning signs. He states he doesn't remember it or how long he passed out but woke up with bilateral shaking of his arms and feet. He states his came into the room to assist him. [facility] * Echocardiogram revealed an improved ejection fraction 45%, RVSP of 32 mmHg. * Cardiac catheterization 11/20/2021 revealed patent RCA, 20% narrowing of the left main, no significant disease in LAD or circumflex. Pressures are mildly elevated, no gradient across the aortic valve. 03/11/2022 Patient underwent EP study with Dr. Beckett which revealed very easily inducible ventricular fibrillation with spontaneously termination. Dual-chamber ICD recommended prior to discharge. 03/12/2022 Patient seen and examined at bedside, no acute distress, overall is feeling well, no complaints. Denies any lightheadedness, dizziness, near syncope. No chest pain or shortness of breath. Telemetry reviewed, patient is maintaining sinus mechanism HR upper 50s- 70s, occasional PVCs, no acute arrhythmia or ectopy noted. No pauses, high degree block or NSVT noted. Vital signs are stable. Blood pressure 116/70, heart rate 70, afebrile, saturation 96% on room air PHYSICAL EXAMINATION Blood pressure CONSTITUTIONAL: No apparent distress. HEENT: Head is normocephalic. No JVD. . CHEST EXAMINATION: Lungs are clear to auscultation No chest wall tenderness is noted on palpation or with deep breathing. HEART EXAMINATION: Regular rate and rhythm. S1, S2 heard. Systolic murmur noted, no gallops or rub. ABDOMEN: Soft, nontender. Positive bowel sounds. EXTREMITIES: 2+ peripheral pulses, trace bilateral lower extremity edema and no calf tenderness. Redness/discoloration noted. NEUROLOGIC EXAMINATION: Patient is awake, alert and oriented x3. ASSESSMENT Syncope while sitting Status post EP study 03/11 with easily inducible ventricular fibrillation Acute kidney injury, resolved. Chest pain, acute coronary syndrome unlikely, appears musculoskeletal on exam Right renal lesion reported on CT scan Coronary artery disease status post PCI of the RCA in 2019 Ischemic cardiomyopathy History of Hypertension Dyslipidemia Former smoker Former alcohol abuse History of CVA/TIA Obesity PLAN Plan for dual-chamber ICD placement with Dr. Beckett, awaiting timing and coordination Continue aspirin, statin, plavix Carvedilol 6.25 mg twice daily, Losartan 25 mg daily, Spironolactone 25 mg daily Monitor on telemetry Further recommendations based on clinical course Nurse practitioner note has been reviewed by physician. Signing provider agrees with the documented findings, assessment, and plan of care. Objective - Vital Signs Vital signs: Vital Signs Temp 97.8 F 03/12/22 02:42 Pulse 72 03/12/22 02:42 Resp 17 03/12/22 02:42 BP 113/63 03/12/22 02:42 Pulse Ox 94 L 03/12/22 02:42 FiO2 Intake & Output 03/11/22 03/12/22 03/12/22 18:59 06:59 18:59 Intake Total 360 Output Total 575 Balance -215 Intake: Oral 360 Output: Urine 575 Other: Voiding Method Toilet Urinal # Voids 2 1 # Bowel Movements 0 - Labs CBC & Chem 7: 03/11/22 09:09 03/11/22 09:09 Labs: Abnormal Lab Results - Last 24 Hours (Table) 03/11/22 03/11/22 Range/Units 09:09 09:09 RBC 3.39 L (4.30-5.90) m/uL Hgb 9.6 L (13.0-17.5) gm/dL Hct 29.6 L (39.0-53.0) % Plt Count 142 L (150-450) k/uL Lymphocytes # (Manual) 0.23 L (1.0-4.8) k/uL Glucose 139 H (74-99) mg/dL Calcium 8.1 L (8.4-10.2) mg/dL
[2022-03-12] MEDS: LOSARTAN 25 MG TAB PO SCH (12:34)
--- NOTE | 2022-03-12 15:10 | P.PN ---
Subjective Progress Note Date: 03/12/22 This is a 76-year-old male who was recently admitted with right-sided chest pain that was aggravated with movements over the last few days and also with some cough and having syncopal episodes with loss of consciousness. Cardiology following the patient and has ordered 2-D echo. Troponins have been negative and VQ scan was negative for PE will discontinue heparin. Patient is afebrile denies chest pain or shortness of breath. Recommend continue telemetry monitoring and will follow-up with repeat labs to monitor kidney functions. CBC within normal limits. Covid along with influenza testing were negative. Patient denies nausea or vomiting and is tolerating diet. 03/10/2022 Patient is seen in follow-up this morning admitted for chest pain undergoing cardiology workup including 2-D echo that was ordered and pending. Patient continues with some weakness although states feels better today and denies any chest pain. Patient concerned of why he had syncopal episodes and will consult neurology. Troponins remain negative and VQ scan low probability for PE have discontinued heparin. Patient is afebrile and denies shortness of breath or palpitations. Patient with weakness have encouraged increased activity as tolerated. May require PT/OT therapy consultation. Recommend repeat labs in the a.m. and monitor kidney functions. Cardiology following as well and maximizing medical management. 03/11/2022 Patient is seen today and is requesting to go home. Cardiology following and re commending life vest. Dr. Beckett has also been consulted for EP study and patient is agreeable to stay. Neurology has evaluated the patient and cleared by neurology once cardiology clears the patient. Family is concerned that he may need rehab and will consult social work as well as PT/OT for evaluation. Patient reports he would like to go home. Patient is afebrile and denies chest pain or shortness of breath. Patient denies any further episodes of syncope while here. Tolerating diet with no reports of nausea or vomiting noted. 03/12/2022 Patient is seen and evaluated today with cardiology following closely. Dr. Beckett is also following the patient and recently underwent EP study and pl anning for AICD placement. Recommending maximizing medical management and adjustments to medications have been made. Life vest currently on hold as patient is willing to proceed with AICD. Patient was seen and evaluated by PT/OT therapy although independent and is refusing going to any form of rehab and wants to go home. Patient is afebrile denies chest pain or shortness of breath. Patient denies having any syncopal episodes and has been up and walking with his cane multiple times throughout the day to the bathroom. No repeat labs today and will follow-up with labs in the a.m. to monitor kidney functions and electrolytes. Orthostatic vitals ordered. 2-D echo did reveal an improved ej ection fraction of 45%. Review of systems: Constitutional: No reports of fatigue, fever, or chills Cardiovascular: No reports of chest pain or palpitations Respiratory: No reports of shortness of breath or cough GI: No reports of nausea, no reports of of vomiting : No reports of dysuria or retention Neurovascular: No reports of generalized weakness All medications have been reviewed PHYSICAL EXAMINATION: GENERAL: The patient is alert and oriented x4, Well developed, well nourished. morbidly obese HEENT: Pupils are round and equally reacting to light. EOMI. no scleral icterus. No conjunctival pallor. Normocephalic, atraumatic. No pharyngeal erythema. No thyromegaly. CARDIOVASCULAR: S1 and S2 muffled PULMONARY: diminished breath sounds bilaterally with no wheezing or rhonchi noted. ABDOMEN: soft. Nontender on exam. obese. non-distended, normoactive bowel sounds. No palpable organomegaly. MUSCULOSKELETAL: No joint swelling or deformity. EXTREMITIES: No cyanosis, clubbing, or pedal edema. NEUROLOGICAL: Gross neurological examination did not reveal any focal deficits. Diffuse weakness SKIN: No rashes. Assessment: Right-sided chest pain, possibly musculoskeletal, ruled out pneumonia Syncope for evaluation, rule out cardiac causes Post EP study with inducible ventricular fibrillation being planned for AICD placement Acute kidney injury, improved Ischemic cardiomyopathy History of coronary artery disease History of Cerebrovascular accident, TIA Hypertension History of myocardial infarction History of coronary artery disease with stents Elevated d-dimer with low probability of PE on VQ scan GI prophylaxis DVT prophylaxis Full code Plan: Recommend to continue with current medications and management with cardiology following. neurology following for syncopal episode. Patient denies chest pain today and 2-D echo was done with a reduced ef although improved from previous at 45%. Cardiology hollowing as well as Dr. Beckett for EP study. Recommending AICD placement and patient is agreeable. Arranging for placement during inpatient hospitalization. Cardiology was recommending Life vest and case management following although this is currently on hold while awaiting AICD placement. Encouraged increased activity as tolerated. PT/OT evaluated the patient and patient was independent with his cane and refusing any form of rehab. Patient would like to go home. Recommend repeat labs in the a.m. to monitor kidney functions. Encourage oral intake. Recommend to continue telemetry monitoring. Due to multiple complex medical issues, prognosis is guarded. The impression and plan of care has been dictated by Nellie Workman, nurse practitioner as directed. Dr. Tano MD I have performed a history and examination and MDM of this patient, discussed the same with the dictator, and agree with the dictator's assessment and plan as written ,documented as a scribe. Based on total visit time, I have performed more than 50% of the visit. Any additional findings or plans will be noted. Objective - Vital Signs Vital signs: Vital Signs Temp 98.7 F 03/12/22 13:37 Pulse 65 03/12/22 13:37 Resp 20 03/12/22 13:37 BP 113/64 03/12/22 13:37 Pulse Ox 96 03/12/22 09:14 FiO2 Intake & Output 03/11/22 03/12/22 03/12/22 18:59 06:59 18:59 Intake Total 360 118 Output Total 575 Balance -215 118 Intake: Oral 360 118 Output: Urine 575 Other: Voiding Method Toilet Urinal # Voids 2 1 # Bowel Movements 0 - Labs CBC & Chem 7: 03/11/22 09:09 03/11/22 09:09
[2022-03-12] MEDS: TAMSULOSIN 0.4 MG CAP.ER.24H PO SCH (19:37)
[2022-03-12] MEDS: PANTOPRAZOLE 40 MG TABLET PO SCH (19:37)
[2022-03-13] MEDS: SYMBICORT 160-4.5 MCG INHALER INHALATION SCH ×2 (07:17→20:17)
[2022-03-13] MEDS: ALBUTEROL HFA INHALER INHALATION PRN (07:17)
[2022-03-13] MEDS: SPIRONOLACTONE 25 MG TAB PO SCH (08:42)
[2022-03-13] MEDS: ATORVASTATIN 40 MG TAB PO SCH (08:42)
[2022-03-13] MEDS: carvediloL 6.25 MG TAB PO SCH ×2 (08:42→17:25)
[2022-03-13] MEDS: CLOPIDOGREL 75 MG TAB PO SCH (08:42)
[2022-03-13] MEDS: PARoxetine 20 MG TAB PO SCH (08:42)
[2022-03-13] MEDS: ASPIRIN 81 MG PO SCH (08:42)
--- NOTE | 2022-03-13 09:27 | P.PN ---
Subjective Progress Note Date: 03/12/22 Patient was seen for follow-up. Denies any new neurological symptoms. Denies any further syncopal spells. Objective - Vital Signs Vital signs: Vital Signs Temp 97.5 F L 03/12/22 15:00 Pulse 69 03/12/22 17:16 Resp 18 03/12/22 15:00 BP 99/56 03/12/22 17:16 Pulse Ox 97 03/12/22 17:16 FiO2 Intake & Output 03/12/22 03/12/22 03/13/22 06:59 18:59 06:59 Intake Total 354 Balance 354 Intake: Oral 354 Other: Voiding Method Toilet Toilet Urinal Urinal # Voids 1 3 1 # Bowel Movements 0 - Exam Mental status, speech and language functions are normal. Cranial nerves are normal. Muscle strength is normal. No ataxia. Sensations equal. - Labs CBC & Chem 7: 03/11/22 09:09 03/11/22 09:09 Assessment and Plan Assessment: * Probable tussive syncope, versus vasovagal * COPD * Obesity * Hypertension * Acute kidney injury. * CAD * Anemia * Osteoarthritis * Former smoker * Hyperlipidemia Plan: * Patient probably had tussive syncope, right after a bout of chest pain and hard coughing. This can happen infrequently in COPD patients, perhaps due to exhaling CO2 during the bout of coughing. Patient had no other syncopal spells besides this one. * Cardiology also on the case, evaluating for possible arrhythmia. * No other neurological workup indicated. * Neurologically clear. Please call neurology if any other concerns. We will sign off.
[2022-03-13 10:02] LABS: HCT 32.7 % (39.0-53.0); HGB 10.2 gm/dL (13.0-17.5); Hypochromasia Marked; MCH 27.3 pg (25.0-35.0); MCHC 31.2 g/dL (31.0-37.0); MCV 87.6 fL (80.0-100.0); Mean Platelet Volume 8.5; Platelet Count 162 k/uL (150-450); RBC 3.73 m/uL (4.30-5.90); RDW 15.5 % (11.5-15.5); WBC 3.5 k/uL (3.8-10.6)
[2022-03-13 10:11] LABS: African American GFR (CKD) >90 (>60 ml/min/1.73 sqM); Anion Gap 11 mmol/L; Blood Urea Nitrogen 17 mg/dL (9-20); Calcium 8.8 mg/dL (8.4-10.2); Carbon Dioxide 23 mmol/L (22-30); Chloride 106 mmol/L (98-107); Glucose 102 mg/dL (74-99); Non-African American GFR(CKD) 78 (>60 ml/min/1.73 sqM); Potassium 4.2 mmol/L (3.5-5.1); Sodium 140 mmol/L (137-145)
[2022-03-13] MEDS: LOSARTAN 25 MG TAB PO SCH (12:03)
[2022-03-13 13:00] LABS: Eosinophils # (M) 0.25 k/uL (0-0.7); Lymphocytes # (M) 0.28 k/uL (1.0-4.8); Monocytes # (M) 0.25 k/uL (0-1.0); Neutrophils # (M) 2.73 k/uL (1.3-7.7); Neutrophils % (M) 78 %; Nucleated Red Blood Cells 0 /100 WBC (0-0); Total Cells Counted 100
--- NOTE | 2022-03-13 18:19 | P.PN ---
Subjective Progress Note Date: 03/13/22 This is a 76-year-old male who was recently admitted with right-sided chest pain that was aggravated with movements over the last few days and also with some cough and having syncopal episodes with loss of consciousness. Cardiology following the patient and has ordered 2-D echo. Troponins have been negative and VQ scan was negative for PE will discontinue heparin. Patient is afebrile denies chest pain or shortness of breath. Recommend continue telemetry monitoring and will follow-up with repeat labs to monitor kidney functions. CBC within normal limits. Covid along with influenza testing were negative. Patient denies nausea or vomiting and is tolerating diet. 03/10/2022 Patient is seen in follow-up this morning admitted for chest pain undergoing cardiology workup including 2-D echo that was ordered and pending. Patient continues with some weakness although states feels better today and denies any chest pain. Patient concerned of why he had syncopal episodes and will consult neurology. Troponins remain negative and VQ scan low probability for PE have discontinued heparin. Patient is afebrile and denies shortness of breath or palpitations. Patient with weakness have encouraged increased activity as tolerated. May require PT/OT therapy consultation. Recommend repeat labs in the a.m. and monitor kidney functions. Cardiology following as well and maximizing medical management. 03/11/2022 Patient is seen today and is requesting to go home. Cardiology following and re commending life vest. Dr. Beckett has also been consulted for EP study and patient is agreeable to stay. Neurology has evaluated the patient and cleared by neurology once cardiology clears the patient. Family is concerned that he may need rehab and will consult social work as well as PT/OT for evaluation. Patient reports he would like to go home. Patient is afebrile and denies chest pain or shortness of breath. Patient denies any further episodes of syncope while here. Tolerating diet with no reports of nausea or vomiting noted. 03/12/2022 Patient is seen and evaluated today with cardiology following closely. Dr. Beckett is also following the patient and recently underwent EP study and pl anning for AICD placement. Recommending maximizing medical management and adjustments to medications have been made. Life vest currently on hold as patient is willing to proceed with AICD. Patient was seen and evaluated by PT/OT therapy although independent and is refusing going to any form of rehab and wants to go home. Patient is afebrile denies chest pain or shortness of breath. Patient denies having any syncopal episodes and has been up and walking with his cane multiple times throughout the day to the bathroom. No repeat labs today and will follow-up with labs in the a.m. to monitor kidney functions and electrolytes. Orthostatic vitals ordered. 2-D echo did reveal an improved ej ection fraction of 45%. 03/13/2022 Patient is seen today on telemetry monitoring and cardiology following closely. Patient to be scheduled for aicd placement in the am with Dr. Beckett. Recommend to follow up with am labs and continue to monitor closely. Encouraged increased activity as tolerated. No reports of nausea or vomiting and will be NPO at midnight. No chest pain or shortness of breath reported. Neurology following. Review of systems: Constitutional: No reports of fatigue, fever, or chills Cardiovascular: No reports of chest pain or palpitations Respiratory: No reports of shortness of breath or cough GI: No reports of nausea, no reports of of vomiting : No reports of dysuria or retention Neurovascular: No reports of generalized weakness All medications have been reviewed PHYSICAL EXAMINATION: GENERAL: The patient is alert and oriented x4, Well developed, well nourished. morbidly obese HEENT: Pupils are round and equally reacting to light. EOMI. no scleral icterus. No conjunctival pallor. Normocephalic, atraumatic. No pharyngeal erythema. No thyromegaly. CARDIOVASCULAR: S1 and S2 muffled PULMONARY: diminished breath sounds bilaterally with no wheezing or rhonchi noted. ABDOMEN: soft. Nontender on exam. obese. non-distended, normoactive bowel sounds. No palpable organomegaly. MUSCULOSKELETAL: No joint swelling or deformity. EXTREMITIES: No cyanosis, clubbing, or pedal edema. NEUROLOGICAL: Gross neurological examination did not reveal any focal deficits. SKIN: No rashes. Assessment: Right-sided chest pain, possibly musculoskeletal, ruled out pneumonia Syncope for evaluation, rule out cardiac causes Post EP study with inducible ventricular fibrillation being planned for AICD placement Acute kidney injury, improved Ischemic cardiomyopathy History of coronary artery disease History of Cerebrovascular accident, TIA Hypertension History of myocardial infarction History of coronary artery disease with stents Elevated d-dimer with low probability of PE on VQ scan GI prophylaxis DVT prophylaxis Full code Plan: Recommend to continue with current medications and management with cardiology following. neurology following for syncopal episode. Patient denies chest pain . Cardiology following as well as Dr. Beckett and will be undergoing AICD placement in the am and patient is agreeable. NPO at midnight. Encouraged increased activity as tolerated. Recommend repeat labs in the a.m. to monitor kidney functions. Encourage oral intake. Recommend to continue telemetry monitoring. Due to multiple complex medical issues, prognosis is guarded. The impression and plan of care has been dictated as a scribe by Nellie Workman, nurse practitioner as directed. Dr. Tano MD I have performed a history and examination and MDM of this patient, discussed the same with the dictator, and has been documented as a scribe. Based on total visit time, I have performed more than 50% of the visit. Any additional findin gs or plans will be noted. Objective - Vital Signs Vital signs: Vital Signs Temp 97.8 F 03/13/22 02:37 Pulse 76 03/13/22 02:37 Resp 19 03/13/22 02:37 BP 140/63 03/13/22 02:37 Pulse Ox 96 03/13/22 02:37 FiO2 Intake & Output 03/12/22 03/12/22 03/13/22 06:59 18:59 06:59 Intake Total 354 Balance 354 Intake: Oral 354 Other: Voiding Method Toilet Toilet Urinal Urinal # Voids 1 3 1 # Bowel Movements 0 - Labs CBC & Chem 7: 03/13/22 09:32 03/13/22 09:32
[2022-03-13] MEDS: PANTOPRAZOLE 40 MG TABLET PO SCH (19:56)
[2022-03-13] MEDS: TAMSULOSIN 0.4 MG CAP.ER.24H PO SCH (19:56)
[2022-03-14 05:10] LABS: Basophils # (A) 0.1 k/uL (0-0.2); Basophils % (A) 2 %; Eosinophils # (A) 0.3 k/uL (0-0.7); Eosinophils % (A) 7 %; HCT 34.3 % (39.0-53.0); Hypochromasia Marked; Lymphocytes # (A) 0.5 k/uL (1.0-4.8); Lymphocytes % (A) 11 %; MCH 28.2 pg (25.0-35.0); MCHC 32.1 g/dL (31.0-37.0); MCV 87.8 fL (80.0-100.0); Mean Platelet Volume 8.1; Monocytes # (A) 0.3 k/uL (0-1.0); Monocytes % (A) 8 %; Neutrophils # (A) 2.9 k/uL (1.3-7.7); Neutrophils % (A) 68 %; Platelet Count 180 k/uL (150-450); RBC 3.91 m/uL (4.30-5.90); RDW 15.4 % (11.5-15.5); WBC 4.2 k/uL (3.8-10.6)
[2022-03-14 05:21] LABS: African American GFR (CKD) 80 (>60 ml/min/1.73 sqM); Anion Gap 10 mmol/L; Blood Urea Nitrogen 18 mg/dL (9-20); Calcium 8.8 mg/dL (8.4-10.2); Carbon Dioxide 26 mmol/L (22-30); Chloride 105 mmol/L (98-107); Glucose 101 mg/dL (74-99); Magnesium 2.2 mg/dL (1.6-2.3); Non-African American GFR(CKD) 69 (>60 ml/min/1.73 sqM); Potassium 4.2 mmol/L (3.5-5.1); Sodium 141 mmol/L (137-145)
[2022-03-14] MEDS: carvediloL 6.25 MG TAB PO SCH ×2 (06:58→17:40)
[2022-03-14] MEDS: ALBUTEROL HFA INHALER INHALATION PRN ×2 (07:05→20:20)
[2022-03-14] MEDS: SYMBICORT 160-4.5 MCG INHALER INHALATION SCH ×2 (07:05→20:20)
[2022-03-14] MEDS: ASPIRIN 81 MG PO SCH (09:46)
[2022-03-14] MEDS: SPIRONOLACTONE 25 MG TAB PO SCH (09:46)
[2022-03-14] MEDS: ATORVASTATIN 40 MG TAB PO SCH (09:46)
[2022-03-14] MEDS: CLOPIDOGREL 75 MG TAB PO SCH (09:46)
[2022-03-14] MEDS: PARoxetine 20 MG TAB PO SCH (09:46)
[2022-03-14] MEDS: LOSARTAN 25 MG TAB PO SCH (13:52)
[2022-03-14] MEDS: TAMSULOSIN 0.4 MG CAP.ER.24H PO SCH (20:10)
[2022-03-14] MEDS: PANTOPRAZOLE 40 MG TABLET PO SCH (20:10)
--- NOTE | 2022-03-14 22:40 | PN ---
PROGRESS NOTE SUBJECTIVE: A 76-year-old gentleman with history of ischemic cardiomyopathy with an ejection fraction of 45%, who came to hospital having had an episode of syncope at home and is currently waiting for Dr. Beckett to perform an AICD. He underwent EP study that apparently showed easily inducible VFib. This morning, the patient is doing well and is free of symptoms. OBJECTIVE: GENERAL: Comfortable at rest. VITAL SIGNS: Stable. CHEST: Reveals good air entry bilaterally. HEART: Reveals first and second heart sounds. No gallop. No murmur. ABDOMEN: Soft. EXTREMITIES: Examination of extremities reveals bilateral 1+ pitting edema. Peripheral pulses are diminished. LABORATORY DATA: Labs show a hemoglobin of 10.2, platelet count is 160. Potassium is 4.2, creatinine is 0.95. Troponin is negative. ASSESSMENT AND PLAN: Syncope, probably secondary to ventricular tachycardia, status post EP study. The patient is to undergo an AICD on Tuesday. The patient is on aspirin, Lipitor, Coreg, Plavix, Cozaar, and Aldactone, which he is going to continue. MMODL / IJN: [id number] /
--- NOTE | 2022-03-15 01:58 | PN ---
PROGRESS NOTE SUBJECTIVE: Bridger is a 76-year-old gentleman, who is admitted to the hospital with chest pain and syncope, underwent EP study and is to undergo AICD tomorrow. OBJECTIVE: GENERAL: On exam, he is comfortable at rest. VITAL SIGNS: Stable, has orthostatic changes. NECK: There is no jugular venous distention. Carotid upstroke is diminished. There is no bruit. CHEST: Good air entry bilaterally. HEART: First and second heart sounds. No gallop. LABORATORY DATA: Labs showed that the creatinine is 1, potassium is 4.2, hemoglobin is 11. The patient has had frequent ventricular ectopy last night, but looks pretty stable today. CURRENT MEDICATIONS: Include, 1. Aspirin. 2. Lipitor. 3. Coreg. 4. Plavix. 5. Cozaar. 6. Aldactone. ASSESSMENT: 1. Ischemic cardiomyopathy. 2. Syncope probably secondary to the ventricular tachycardia/fibrillation. PLAN: The patient will undergo AICD placement. MMODL / IJN: [id number] /
--- NOTE | 2022-03-15 03:19 | P.PN ---
Subjective Progress Note Date: 03/14/22 This is a 76-year-old male who was recently admitted with right-sided chest pain that was aggravated with movements over the last few days and also with some cough and having syncopal episodes with loss of consciousness. Cardiology following the patient and has ordered 2-D echo. Troponins have been negative and VQ scan was negative for PE will discontinue heparin. Patient is afebrile denies chest pain or shortness of breath. Recommend continue telemetry monitoring and will follow-up with repeat labs to monitor kidney functions. CBC within normal limits. Covid along with influenza testing were negative. Patient denies nausea or vomiting and is tolerating diet. 03/10/2022 Patient is seen in follow-up this morning admitted for chest pain undergoing cardiology workup including 2-D echo that was ordered and pending. Patient continues with some weakness although states feels better today and denies any chest pain. Patient concerned of why he had syncopal episodes and will consult neurology. Troponins remain negative and VQ scan low probability for PE have discontinued heparin. Patient is afebrile and denies shortness of breath or palpitations. Patient with weakness have encouraged increased activity as tolerated. May require PT/OT therapy consultation. Recommend repeat labs in the a.m. and monitor kidney functions. Cardiology following as well and maximizing medical management. 03/11/2022 Patient is seen today and is requesting to go home. Cardiology following and re commending life vest. Dr. Beckett has also been consulted for EP study and patient is agreeable to stay. Neurology has evaluated the patient and cleared by neurology once cardiology clears the patient. Family is concerned that he may need rehab and will consult social work as well as PT/OT for evaluation. Patient reports he would like to go home. Patient is afebrile and denies chest pain or shortness of breath. Patient denies any further episodes of syncope while here. Tolerating diet with no reports of nausea or vomiting noted. 03/12/2022 Patient is seen and evaluated today with cardiology following closely. Dr. Beckett is also following the patient and recently underwent EP study and pl anning for AICD placement. Recommending maximizing medical management and adjustments to medications have been made. Life vest currently on hold as patient is willing to proceed with AICD. Patient was seen and evaluated by PT/OT therapy although independent and is refusing going to any form of rehab and wants to go home. Patient is afebrile denies chest pain or shortness of breath. Patient denies having any syncopal episodes and has been up and walking with his cane multiple times throughout the day to the bathroom. No repeat labs today and will follow-up with labs in the a.m. to monitor kidney functions and electrolytes. Orthostatic vitals ordered. 2-D echo did reveal an improved ej ection fraction of 45%. 03/13/2022 Patient is seen today on telemetry monitoring and cardiology following closely. Patient to be scheduled for aicd placement in the am with Dr. Beckett. Recommend to follow up with am labs and continue to monitor closely. Encouraged increased activity as tolerated. No reports of nausea or vomiting and will be NPO at midnight. No chest pain or shortness of breath reported. Neurology following. 03/14/2022 Patient is seen in follow up with no reports of syncopal episodes. Patient is continued on telemetry monitoring with cardiology following. Dr. Beckett to do AICD placement tuesday am. Patient is afebrile and tolerating diet. NPO at midnight and will follow up on am labs. Denies chest pain or worsening shortness of breath. Review of systems: Constitutional: No reports of fatigue, fever, or chills Cardiovascular: No reports of chest pain or palpitations Respiratory: No reports of shortness of breath or cough GI: No reports of nausea, no reports of of vomiting : No reports of dysuria or retention Neurovascular: No reports of generalized weakness All medications have been reviewed PHYSICAL EXAMINATION: GENERAL: The patient is alert and oriented x4, Well developed, well nourished. morbidly obese HEENT: Pupils are round and equally reacting to light. EOMI. no scleral icterus. No conjunctival pallor. Normocephalic, atraumatic. No pharyngeal erythema. No thyromegaly. CARDIOVASCULAR: S1 and S2 muffled PULMONARY: diminished breath sounds bilaterally with no wheezing or rhonchi noted. ABDOMEN: soft. Nontender on exam. obese. non-distended, normoactive bowel sounds. No palpable organomegaly. MUSCULOSKELETAL: No joint swelling or deformity. EXTREMITIES: No cyanosis, clubbing, or pedal edema. NEUROLOGICAL: Gross neurological examination did not reveal any focal deficits. SKIN: No rashes. Assessment: Right-sided chest pain, possibly musculoskeletal, ruled out pneumonia Syncope for evaluation, to receive AICD Post EP study with inducible ventricular fibrillation being planned for AICD placement Acute kidney injury, improved Ischemic cardiomyopathy History of coronary artery disease History of Cerebrovascular accident, TIA Hypertension History of myocardial infarction History of coronary artery disease with stents Elevated d-dimer with low probability of PE on VQ scan GI prophylaxis DVT prophylaxis Full code Plan: Recommend to continue with current medications and management with cardiology following. Patient denies chest pain . Cardiology following as well as Dr. Beckett and will be undergoing AICD placement tuesday am and patient is agreeable. NPO at midnight. Encouraged increased activity as tolerated. Recommend repeat labs in the a.m. to monitor kidney functions. Encourage oral intake. Recommend to continue telemetry monitoring. Discharge home once cleared by cardiology. Due to multiple complex medical issues, prognosis is guarded. The impression and plan of care has been dictated as a scribe by Nellie Workman, nurse practitioner as directed. Dr. Tano MD I have performed a history and examination and MDM of this patient, discussed the same with the dictator, and has been documented as a scribe. Based on total visit time, I have performed more than 50% of the visit. Any additional findings or plans will be noted. Objective - Vital Signs Vital signs: Vital Signs Temp 97.8 F 03/14/22 08:00 Pulse 66 03/14/22 08:00 Resp 18 03/14/22 08:00 BP 104/57 03/14/22 08:00 Pulse Ox 96 03/14/22 01:59 FiO2 Intake & Output 03/13/22 03/14/22 03/14/22 18:59 06:59 18:59 Intake Total 118 Balance 118 Intake: Oral 118 Other: Voiding Method Toilet Urinal # Voids 3 2 # Bowel Movements 1 - Labs CBC & Chem 7: 03/14/22 04:53 03/14/22 04:53 Labs: Abnormal Lab Results - Last 24 Hours (Table) 03/13/22 03/13/22 03/14/22 Range/Units 09:32 09:32 04:53 WBC 3.5 L (3.8-10.6) k/uL RBC 3.73 L 3.91 L (4.30-5.90) m/uL Hgb 10.2 L 11.0 L (13.0-17.5) gm/dL Hct 32.7 L 34.3 L (39.0-53.0) % Lymphocytes # 0.5 L (1.0-4.8) k/uL Lymphocytes # (Manual) 0.28 L (1.0-4.8) k/uL Glucose 102 H (74-99) mg/dL 03/14/22 Range/Units 04:53 WBC (3.8-10.6) k/uL RBC (4.30-5.90) m/uL Hgb (13.0-17.5) gm/dL Hct (39.0-53.0) % Lymphocytes # (1.0-4.8) k/uL Lymphocytes # (Manual) (1.0-4.8) k/uL Glucose 101 H (74-99) mg/dL
[2022-03-15] MEDS ORDERED: VANCOMYCIN 2,000 MG in SODIUM CHLORIDE 0.9% 500 ML 500 ML IVPB ONE (06:00)
[2022-03-15] MEDS ORDERED: SODIUM CHLORIDE 0.9% 1,000 ML IV SCH (06:00)
[2022-03-15] MEDS: SODIUM CHLORIDE 0.9% 1,000 ML IV SCH (06:35)
[2022-03-15] MEDS ORDERED: ceFAZolin 1 GM in SODIUM CHLORIDE 0.9% IRRIG BTL 250 ML IRRIGATION PRN (07:00)
[2022-03-15] MEDS: ALBUTEROL HFA INHALER INHALATION PRN (07:04)
[2022-03-15] MEDS: SYMBICORT 160-4.5 MCG INHALER INHALATION SCH ×2 (07:04→20:00)
[2022-03-15] MEDS: carvediloL 6.25 MG TAB PO SCH ×3 (09:09→22:22)
[2022-03-15] MEDS: CLOPIDOGREL 75 MG TAB PO SCH (09:09)
[2022-03-15] MEDS: ATORVASTATIN 40 MG TAB PO SCH (09:09)
[2022-03-15] MEDS: ASPIRIN 81 MG PO SCH (09:09)
[2022-03-15] MEDS: SPIRONOLACTONE 25 MG TAB PO SCH (09:09)
[2022-03-15] MEDS: PARoxetine 20 MG TAB PO SCH (09:10)
[2022-03-15 09:24] LABS: African American GFR (CKD) 75.2 (60.0-200.0); Anion Gap 10.5 mmol/L (10.00-18.00); BUN/Creat Ratio 16.27 Ratio (12.00-20.00); Blood Urea Nitrogen 17.9 mg/dL (9.0-27.0); Calcium 9.1 mg/dL (8.7-10.3); Carbon Dioxide 25.5 mmol/L (20.0-27.5); Non-African American GFR(CKD) 64.9 (60.0-200.0); Potassium 4.2 mmol/L (3.5-5.5)
[2022-03-15] MEDS: LOSARTAN 25 MG TAB PO SCH (13:26)
[2022-03-15] MEDS ORDERED: MIDAZOLAM 2 MG/2 ML VIAL ONE (18:00)
[2022-03-15] MEDS ORDERED: fentaNYL (PF) 50 MCG/ML 2 ML AMP ONE (18:00)
[2022-03-15] MEDS ORDERED: IV FLUID CONTINUATION 1,000 ML IV ONE (18:00)
[2022-03-15] MEDS ORDERED: IOPAMIDOL-250 50ML BTL IV ONE (18:33)
[2022-03-15] MEDS: LIDOCAINE 1% INJ 10MG/ML (30 ML VIAL-PF) SQ ONE ×2 (18:57→19:10)
[2022-03-15] MEDS ORDERED: LIDOCAINE 1% INJ 10MG/ML (30 ML VIAL-PF) SQ ONE (19:30)
--- NOTE | 2022-03-15 20:25 | P.EPPROC ---
- EP Procedure Note Electrophysiology Procedure Note: Procedures Left upper extremity venogram Dual-chamber ICD implant Indication Easily inducible ventricular fibrillation, reproducible finding at EP study Sick Sinus Syndrome, abnormal AV node function History of syncope while sitting Underlying ischemic cardio myopathy of coronary artery disease Hypertension Left upper extremity venogram 15 mL every dye injected into the left arm Patent subclavian vein and axillary vein Dual-chamber ICD implant Result: Dual chamber ICD implantation, [employer] Hubert Snyder DR Atrial lead: [employer] 52 cm Tendril active fix lead STS screwed in the right atrial appendage 0.5 V at 0.5 ms, P waves 2.5 mV pacing impedance 4 and 60 ohms RV ICD lead: [employer] [id number] active fix lead in the mid septum Somewhat unstable in the RV apex but stable in the mid RV septum therefore the mid septal position was selected for final implant 0.5 V at 0.5 ms, 10.5 mV R waves and pacing impedance 600 ohms, HV 63 Procedure details: Patient was brought to the EP lab in a fasting state. Written informed consent was obtained prior to the procedure. Options, pros and cons, benefits and risks and complications discussed with patient in detail prior to the procedure (shared decision making). Importance of continuing medical treatment emphasized. Alternatives discussed. Patient would like to proceed with dual-chamber ICD implant. Left upper extremity venogram performed. 15 mL IV dye injected in the left arm. Patent axillary/subclavian vein The left pectoral area was prepped and draped as a protocol. IV antibiotics administered 1% lidocaine was used for local anesthesia. A 4 cm incision was made parallel to the deltopectoral groove, about 1.5 cm medial to it. The incision was carried down to the level of the pectoralis muscle and the subfascial pocket was made. Hemostasis was assured. The axillary vein access was obtained. Appropriately sized into to see sheaths were placed. ICD lead implanted in the right ventricle and screwed in. ICD lead tested for threshold, sensing, impedances and tested with high output pacing for diaphragmatic stimulation Atrial lead placed in the right atrial appendage and tested for threshold, sensing, impedance, and tested with high output pacing. Phrenic nerve stimulation Lead secured to the underlying transverse muscle after removing sheaths . Pocket irrigated with antibiotic solution Leads connected to the biventricular ICD generator. Wound closed in 3 layers and dressed per protocol Dual ICD interrogated and programmed. Appropriate pacing parameters, antitachycardia therapies with antitachycardia pacing cardioversion defibrillations programmed. Patient tolerated the procedure well without any acute complications. See scanned device report in EMR for lead details DD 50-120, VIP mode to minimize RV pacing Tachycardia therapies programmed according to the [facility] programming with appropriate antitachycardia pacing cardioversion and defibrillation
[2022-03-15] MEDS: PANTOPRAZOLE 40 MG TABLET PO SCH (22:22)
[2022-03-15] MEDS: TAMSULOSIN 0.4 MG CAP.ER.24H PO SCH (22:22)
[2022-03-16] MEDS: SYMBICORT 160-4.5 MCG INHALER INHALATION SCH ×3 (04:12→20:07)
--- NOTE | 2022-03-16 06:49 | P.PN ---
Subjective Progress Note Date: 03/15/22 This is a 76-year-old male who was recently admitted with right-sided chest pain that was aggravated with movements over the last few days and also with some cough and having syncopal episodes with loss of consciousness. Cardiology following the patient and has ordered 2-D echo. Troponins have been negative and VQ scan was negative for PE will discontinue heparin. Patient is afebrile denies chest pain or shortness of breath. Recommend continue telemetry monitoring and will follow-up with repeat labs to monitor kidney functions. CBC within normal limits. Covid along with influenza testing were negative. Patient denies nausea or vomiting and is tolerating diet. 03/10/2022 Patient is seen in follow-up this morning admitted for chest pain undergoing cardiology workup including 2-D echo that was ordered and pending. Patient continues with some weakness although states feels better today and denies any chest pain. Patient concerned of why he had syncopal episodes and will consult neurology. Troponins remain negative and VQ scan low probability for PE have discontinued heparin. Patient is afebrile and denies shortness of breath or palpitations. Patient with weakness have encouraged increased activity as tolerated. May require PT/OT therapy consultation. Recommend repeat labs in the a.m. and monitor kidney functions. Cardiology following as well and maximizing medical management. 03/11/2022 Patient is seen today and is requesting to go home. Cardiology following and re commending life vest. Dr. Beckett has also been consulted for EP study and patient is agreeable to stay. Neurology has evaluated the patient and cleared by neurology once cardiology clears the patient. Family is concerned that he may need rehab and will consult social work as well as PT/OT for evaluation. Patient reports he would like to go home. Patient is afebrile and denies chest pain or shortness of breath. Patient denies any further episodes of syncope while here. Tolerating diet with no reports of nausea or vomiting noted. 03/12/2022 Patient is seen and evaluated today with cardiology following closely. Dr. Beckett is also following the patient and recently underwent EP study and pl anning for AICD placement. Recommending maximizing medical management and adjustments to medications have been made. Life vest currently on hold as patient is willing to proceed with AICD. Patient was seen and evaluated by PT/OT therapy although independent and is refusing going to any form of rehab and wants to go home. Patient is afebrile denies chest pain or shortness of breath. Patient denies having any syncopal episodes and has been up and walking with his cane multiple times throughout the day to the bathroom. No repeat labs today and will follow-up with labs in the a.m. to monitor kidney functions and electrolytes. Orthostatic vitals ordered. 2-D echo did reveal an improved ej ection fraction of 45%. 03/13/2022 Patient is seen today on telemetry monitoring and cardiology following closely. Patient to be scheduled for aicd placement in the am with Dr. Beckett. Recommend to follow up with am labs and continue to monitor closely. Encouraged increased activity as tolerated. No reports of nausea or vomiting and will be NPO at midnight. No chest pain or shortness of breath reported. Neurology following. 03/14/2022 Patient is seen in follow up with no reports of syncopal episodes. Patient is continued on telemetry monitoring with cardiology following. Dr. Beckett to do AICD placement tuesday am. Patient is afebrile and tolerating diet. NPO at midnight and will follow up on am labs. Denies chest pain or worsening shortness of breath. 03/16/2022 Patient is seen today and scheduled for AICD placement with DR. Beckett. Patient is currently NPO and asking when he will be going as he is hungry. Multiple family members present and questions and concerns answered. Patient is afebrile and denies chest pain or shortness of breath. No syncopal episodes and will continue telemetry monitoring. Review of systems: Constitutional: No reports of fatigue, fever, or chills Cardiovascular: No reports of chest pain or palpitations Respiratory: No reports of shortness of breath or cough GI: No reports of nausea, no reports of of vomiting : No reports of dysuria or retention Neurovascular: No reports of generalized weakness All medications have been reviewed PHYSICAL EXAMINATION: GENERAL: The patient is alert and oriented x4, Well developed, well nourished. morbidly obese HEENT: Pupils are round and equally reacting to light. EOMI. no scleral icterus. No conjunctival pallor. Normocephalic, atraumatic. No pharyngeal erythema. No thyromegaly. CARDIOVASCULAR: S1 and S2 muffled PULMONARY: diminished breath sounds bilaterally with no wheezing or rhonchi noted. ABDOMEN: soft. Nontender on exam. obese. non-distended, normoactive bowel sounds. No palpable organomegaly. MUSCULOSKELETAL: No joint swelling or deformity. EXTREMITIES: No cyanosis, clubbing, or pedal edema. NEUROLOGICAL: Gross neurological examination did not reveal any focal deficits. SKIN: No rashes. Assessment: Right-sided chest pain, possibly musculoskeletal, ruled out pneumonia Syncope for evaluation, to receive AICD today Post EP study with inducible ventricular fibrillation being planned for AICD placement Acute kidney injury, improved Ischemic cardiomyopathy History of coronary artery disease History of Cerebrovascular accident, TIA Hypertension History of myocardial infarction History of coronary artery disease with stents Elevated d-dimer with low probability of PE on VQ scan GI prophylaxis DVT prophylaxis Full code Plan: Recommend to continue with current medications and management with cardiology following. Patient denies chest pain . Cardiology following as well as Dr. Beckett and will be undergoing AICD placement today. NPO for now. Encouraged increased activity as tolerated. Encourage oral intake. Recommend to continue telemetry monitoring. Discharge home once cleared by cardiology. Due to multiple complex medical issues, prognosis is guarded. Possible discharge in 24 hours. The impression and plan of care has been dictated as a scribe by Nellie Workman, nurse practitioner as directed. Dr. Tano MD I have performed a history and examination and MDM of this patient, discussed the same with the dictator, and has been documented as a scribe. Based on total visit time, I have performed more than 50% of the visit. Any additional findings or plans will be noted. Objective - Vital Signs Vital signs: Vital Signs Temp 97.9 F 03/16/22 03:27 Pulse 78 03/16/22 03:27 Resp 18 03/16/22 03:27 BP 114/62 03/16/22 03:27 Pulse Ox 97 03/16/22 03:27 FiO2 Intake & Output 03/15/22 03/15/22 03/16/22 06:59 18:59 06:59 Intake Total 50 Balance 50 Intake: IV 50 Other: Voiding Method Toilet Toilet Toilet Urinal Urinal Urinal # Voids 2 1 # Bowel Movements 1 - Labs CBC & Chem 7: 03/14/22 04:53 03/15/22 06:06
[2022-03-16] MEDS: ALBUTEROL HFA INHALER INHALATION PRN ×2 (08:03→20:07)
[2022-03-16] MEDS: ATORVASTATIN 40 MG TAB PO SCH (08:49)
[2022-03-16] MEDS: carvediloL 6.25 MG TAB PO SCH ×2 (08:49→17:45)
[2022-03-16] MEDS: ASPIRIN 81 MG PO SCH (08:49)
[2022-03-16] MEDS: CLOPIDOGREL 75 MG TAB PO SCH (08:49)
[2022-03-16] MEDS: SPIRONOLACTONE 25 MG TAB PO SCH (08:49)
[2022-03-16] MEDS: SODIUM CHLORIDE 0.9% 1,000 ML IV SCH (08:50)
[2022-03-16] MEDS: PARoxetine 20 MG TAB PO SCH (08:50)
[2022-03-16] MEDS ORDERED: CEPHALEXIN 500 MG CAP PO SCH (09:00)
--- NOTE | 2022-03-16 09:15 | CDI ---
Documentation Clarification Form Date: 03/16/2022 08:57:32 AM From: Aleja Arias CCS, CCDS Admit Date: 03/12/2022 10:24:00 AM Patient Name: Bridger Carter Visit Number: [id number] Discharge Date: ATTENTION: The Clinical Documentation Specialists (CDI) and [facility] Coding Staff appreciate your assistance in clarifying documentation. Please respond to the clarification below the line at the bottom and electronically sign. The CDI & [facility] Coding staff will review the response and follow-up if needed. Please note: Queries are made part of the Legal Health Record. If you have any questions, please contact the author of this message via ITS. Dr. Romana Freedman: Anemia is documented in the 03/10 Cardiology Consult under the patient's history and also in the Neurology Consult Assessment without further specificity. Additional specificity regarding the Type & Acuity of Anemia is requested. History/Risk Factors per the 03/09 H/P: CAD, [place] in October of this year status post Heart Cath w/Stent, CVA/TIA, COPD, Hypertension, Osteoarthritis, Obese, BMI 42.6, Former smoker, Daily Alcohol intake. Clinical indicators: Presented to the ED on 03/09 with Abdominal pain, right sided chest pain, worse with movement, cough, diffuse headache, possibly lost consciousness at home and possible seizure. Admit with elevated D-Dimer, SHELBY, Chest pain. Hemoglobin 03/09: 10.9. 03/10: 9.2. 03/11: 9.6. 03/13: 10.2. 03/14: 11.0. Hematocrit 03/09: 32.5. 03/10: 29.8. 03/11: 29.6. 03/13: 32.7. 03/14: 34.3. Treatment 03/09: Heparin Drip, Orthostatics, Pneumatic Compression Sleeves, O2 (standby), IV Morphine 4 mg x1, IV Na Chl 500 mls @ 999 mls/hr q31M, IV Na Chl 1,000 mls @ 20 mls/hr q24H, IV Dilaudid 0.5 mg q3H/prn, INH Ventolin 1 puff q6H/prn, Nitro sl 0.4 mg q5M/prn, Home meds. Admit to Observation Status. Home meds: INH Symbicort, INH Proventil, Flomax, Protonix, Nitro sl: prn, Crestor, Paxil, Plavix, Adult low dose Aspirin, Lasix, Keflex, Tylenol: prn. 03/11 EPS: SSS, Inducible ventricular fibrillation 03/12 Admit as Inpatient with Ventricular Fibrillation and Tachycardia. 03/15 Implantation of Dual Chamber AICD. Please clarify the Type & Acuity of Anemia if known: [ ] Chronic blood loss anemia [ ] Hemolytic anemia [ ] Drug induced anemia [ ] Nutritional anemia [ x ] Anemia of chronic disease [ ] Unable to determine [ ] Other, please specify (Template Last Revised: June 2020) MTDD
--- NOTE | 2022-03-16 10:20 | XR ---
EXAMINATION TYPE: XR chest 2V DATE OF EXAM: 03/16/2022 10:07 AM COMPARISON: Chest radiographs from 03/09/2022 TECHNIQUE: XR chest 2V Frontal and lateral views of the chest. CLINICAL INDICATION:Male, 76 years old with history of s/p AICD; FINDINGS: Lungs/Pleura: No pneumothorax or focal consolidation. Blunting of both costophrenic angles consistent with small bilateral pleural effusions. Interstitial prominence. Heart/mediastinum: Cardiomediastinal silhouette is stable. Calcified lymph nodes redemonstrated consi stent with prior granulomatous disease Two lead cardiac conduction device overlying the left hemithor ax with lead tips projecting over the right ventricle and right atrium. Musculoskeletal: No acute osseous pathology. IMPRESSION: 1. Status post AICD placement. No pneumothorax. 2. Small bilateral pleural effusions.
--- NOTE | 2022-03-16 10:44 | P.PN ---
Subjective Progress Note Date: 03/16/22 HISTORY OF PRESENT ILLNESS: This is a 76-year-old male who underwent dual-chamber AICD implantation. Patient examined this morning in the chair. Patient denies chest pain or pressure. He denies shortness of breath. He reports having redness and weakness to his left lower extremity. Patients blood pressure was elevated yesterday and changes were made to patients regimen. PHYSICAL EXAM: VITAL SIGNS: Reviewed. GENERAL: Well-developed in no acute distress. NECK: Supple. No JVD or thyromegaly LUNGS: Respirations even and unlabored. Lungs essentially clear to auscultation bilaterally. HEART: Regular rate and rhythm. S1 and S2 heard. EXTREMITIES: Normal range of motion. No clubbing or cyanosis. Peripheral pulses intact. No lower extremity edema ASSESSMENT: Syncope while sitting Status post EP study 03/11 with easily inducible ventricular fibrillation Acute kidney injury, resolved. Chest pain, acute coronary syndrome unlikely, appears musculoskeletal on exam Right renal lesion reported on CT scan Coronary artery disease status post PCI of the RCA in 2019 Ischemic cardiomyopathy History of Hypertension Dyslipidemia Former smoker Former alcohol abuse History of CVA/TIA Obesity Possible cellulitis/eczema of left lower extremity PLAN: Obtain Chest XR Continue current cardiac medications Consider increasing Coreg outpatient depending on patients vital signs Begin Keflex for left lower extremity Stable for discharge home today from cardiac standpoint Nurse practitioner note has been reviewed by physician. Signing provider agrees with the documented findings, assessment, and plan of care. Objective - Vital Signs Vital signs: Vital Signs Temp 97.6 F 03/16/22 08:00 Pulse 93 03/16/22 08:00 Resp 18 03/16/22 08:00 BP 149/79 03/16/22 08:00 Pulse Ox 98 03/16/22 08:00 FiO2 Intake & Output 03/15/22 03/16/22 03/16/22 18:59 06:59 18:59 Intake Total 50 240 Balance 50 240 Intake: IV 50 Oral 240 Other: Voiding Method Toilet Toilet Urinal Urinal # Voids 1 - Labs CBC & Chem 7: 03/14/22 04:53 03/15/22 06:06
[2022-03-16] MEDS ORDERED: FUROSEMIDE 10 MG/ML 4 ML VIAL IV STA (12:13)
[2022-03-16] MEDS: LOSARTAN 25 MG TAB PO SCH (13:14)
[2022-03-16] MEDS ORDERED: diphenhydrAMINE 25 MG CAP PO PRN (15:11)
--- NOTE | 2022-03-16 15:11 | US ---
EXAMINATION TYPE: US venous doppler duplex LE LT DATE OF EXAM: 03/16/2022 2:57 PM COMPARISON: NONE CLINICAL HISTORY: leg swelling. chronic red calf with pealing skin, no h/o dvt SIDE PERFORMED: Left TECHNIQUE: The lower extremity deep venous system is examined utilizing real time linear array sonog alejandra with graded compression, doppler sonography and color-flow sonography. VESSELS IMAGED: Common Femoral Vein Deep Femoral Vein Greater Saphenous Vein * Femoral Vein Popliteal Vein Small Saphenous Vein * Proximal Calf Veins (* superficial vessels) Grayscale, color doppler, spectral doppler imaging performed of the deep veins of the lower extremiti es. There is normal flow, compressibility, vascular waveforms. Left Leg: Negative for DVT IMPRESSION: No ultrasound evidence for deep venous thrombosis of the left lower extremity.
--- NOTE | 2022-03-16 15:16 | P.PN ---
Subjective Progress Note Date: 03/16/22 This is a 76-year-old male who was recently admitted with right-sided chest pain that was aggravated with movements over the last few days and also with some cough and having syncopal episodes with loss of consciousness. Cardiology following the patient and has ordered 2-D echo. Troponins have been negative and VQ scan was negative for PE will discontinue heparin. Patient is afebrile denies chest pain or shortness of breath. Recommend continue telemetry monitoring and will follow-up with repeat labs to monitor kidney functions. CBC within normal limits. Covid along with influenza testing were negative. Patient denies nausea or vomiting and is tolerating diet. 03/10/2022 Patient is seen in follow-up this morning admitted for chest pain undergoing cardiology workup including 2-D echo that was ordered and pending. Patient continues with some weakness although states feels better today and denies any chest pain. Patient concerned of why he had syncopal episodes and will consult neurology. Troponins remain negative and VQ scan low probability for PE have discontinued heparin. Patient is afebrile and denies shortness of breath or palpitations. Patient with weakness have encouraged increased activity as tolerated. May require PT/OT therapy consultation. Recommend repeat labs in the a.m. and monitor kidney functions. Cardiology following as well and maximizing medical management. 03/11/2022 Patient is seen today and is requesting to go home. Cardiology following and re commending life vest. Dr. Beckett has also been consulted for EP study and patient is agreeable to stay. Neurology has evaluated the patient and cleared by neurology once cardiology clears the patient. Family is concerned that he may need rehab and will consult social work as well as PT/OT for evaluation. Patient reports he would like to go home. Patient is afebrile and denies chest pain or shortness of breath. Patient denies any further episodes of syncope while here. Tolerating diet with no reports of nausea or vomiting noted. 03/12/2022 Patient is seen and evaluated today with cardiology following closely. Dr. Beckett is also following the patient and recently underwent EP study and pl anning for AICD placement. Recommending maximizing medical management and adjustments to medications have been made. Life vest currently on hold as patient is willing to proceed with AICD. Patient was seen and evaluated by PT/OT therapy although independent and is refusing going to any form of rehab and wants to go home. Patient is afebrile denies chest pain or shortness of breath. Patient denies having any syncopal episodes and has been up and walking with his cane multiple times throughout the day to the bathroom. No repeat labs today and will follow-up with labs in the a.m. to monitor kidney functions and electrolytes. Orthostatic vitals ordered. 2-D echo did reveal an improved ej ection fraction of 45%. 03/13/2022 Patient is seen today on telemetry monitoring and cardiology following closely. Patient to be scheduled for aicd placement in the am with Dr. Beckett. Recommend to follow up with am labs and continue to monitor closely. Encouraged increased activity as tolerated. No reports of nausea or vomiting and will be NPO at midnight. No chest pain or shortness of breath reported. Neurology following. 03/14/2022 Patient is seen in follow up with no reports of syncopal episodes. Patient is continued on telemetry monitoring with cardiology following. Dr. Beckett to do AICD placement tuesday am. Patient is afebrile and tolerating diet. NPO at midnight and will follow up on am labs. Denies chest pain or worsening shortness of breath. 03/15/2022 Patient is seen today and scheduled for AICD placement with DR. Beckett. Patient is currently NPO and asking when he will be going as he is hungry. Multiple family members present and questions and concerns answered. Patient is afebrile and denies chest pain or shortness of breath. No syncopal episodes and will continue telemetry monitoring. 03/16/2022 Agent is seen in follow-up today post AICD placement and tolerated well. Patient is continued on telemetry monitoring and cleared by cardiology. Patient with some noted left lower extremity redness that just appeared over one day ago and per cardiology was started on some Keflex. We'll transition to IV cefazolin and also obtain a venous Doppler of the lower extremity to assess for any DVT. Recommend to closely monitor on IV antibiotics and await Doppler report with possible discharge in 24 hours. Patient is afebrile denies chest pain or shortness of breath. Chest x-ray was also obtained as patient is noted have some wheezing. Encouraged increased activity as tolerated and oral intake. Review of systems: Constitutional: No reports of fatigue, fever, or chills Cardiovascular: No reports of chest pain or palpitations Respiratory: No reports of shortness of breath or cough GI: No reports of nausea, no reports of of vomiting : No reports of dysuria or retention Neurovascular: No reports of generalized weakness, reports some left lower extr emity redness and itchiness All medications have been reviewed PHYSICAL EXAMINATION: GENERAL: The patient is alert and oriented x4, Well developed, well nourished. morbidly obese HEENT: Pupils are round and equally reacting to light. EOMI. no scleral icterus. No conjunctival pallor. Normocephalic, atraumatic. No pharyngeal erythema. No thyromegaly. CARDIOVASCULAR: S1 and S2 muffled PULMONARY: diminished breath sounds bilaterally with no wheezing or rhonchi noted. ABDOMEN: soft. Nontender on exam. obese. non-distended, normoactive bowel sounds. No palpable organomegaly. MUSCULOSKELETAL: No joint swelling or deformity. EXTREMITIES: No cyanosis, clubbing, or pedal edema. Left lower extremity with erythema and mild swelling noted NEUROLOGICAL: Gross neurological examination did not reveal any focal deficits. SKIN: No rashes. Assessment: Right-sided chest pain, possibly musculoskeletal, ruled out pneumonia Syncope post AICD placement on 03/15/2022 Post EP study with inducible ventricular fibrillation being planned for AICD placement Left lower extremity redness, possibly cellulitis with failed outpatient treatment as patient reported he was seen by his primary care provider last week and started on antibiotics Acute kidney injury, improved Ischemic cardiomyopathy History of coronary artery disease History of Cerebrovascular accident, TIA Hypertension History of myocardial infarction History of coronary artery disease with stents Elevated d-dimer with low probability of PE on VQ scan GI prophylaxis DVT prophylaxis Full code Plan: Recommend to continue with current medications and management with cardiology following. Patient denies chest pain . Cardiology following as well as Dr. Beckett and underwent AICD yesterday. Patient has been cleared by cardiology for close outpatient follow-up. Patient also with some left lower extremity erythema and swelling will obtain Doppler and initiate IV cefazolin with close monitoring overnight and will follow-up with possible discharge in 24 hours. Encouraged increased activity as tolerated. Encourage oral intake. Recommend to continue telemetry monitoring. Due to multiple complex medical issues, pr ognosis is guarded. Possible discharge in 24 hours. The impression and plan of care has been dictated by Nellie Workman, Nurse Practitioner as directed. Dr. Ethan MD I have performed a history and examination and MDM of this patient, discussed the same with the dictator, and agree with the dictator's assessment and plan as written ,documented as a scribe. Based on total visit time, I have performed more than 50% of the visit. Objective - Vital Signs Vital signs: Vital Signs Temp 98.1 F 03/16/22 13:23 Pulse 79 03/16/22 13:23 Resp 14 03/16/22 13:23 BP 136/65 03/16/22 13:23 Pulse Ox 97 03/16/22 13:23 FiO2 Intake & Output 03/15/22 03/16/22 03/16/22 18:59 06:59 18:59 Intake Total 50 240 Balance 50 240 Intake: IV 50 Oral 240 Other: Voiding Method Toilet Toilet Urinal Urinal # Voids 1 - Labs CBC & Chem 7: 03/14/22 04:53 03/15/22 06:06
[2022-03-16] MEDS: HYDROCORTISONE 1% CREAM 454 GM JAR TOPICAL SCH (16:01)
[2022-03-16] MEDS: TAMSULOSIN 0.4 MG CAP.ER.24H PO SCH (21:41)
[2022-03-16] MEDS: PANTOPRAZOLE 40 MG TABLET PO SCH (21:41)
[2022-03-17] MEDS: SODIUM CHLORIDE 0.9% 1,000 ML IV SCH (06:36)
[2022-03-17] MEDS: carvediloL 6.25 MG TAB PO SCH (06:38)
[2022-03-17] MEDS: PARoxetine 20 MG TAB PO SCH (08:01)
[2022-03-17] MEDS: HYDROCORTISONE 1% CREAM 454 GM JAR TOPICAL SCH (08:01)
[2022-03-17] MEDS: SPIRONOLACTONE 25 MG TAB PO SCH (08:01)
[2022-03-17] MEDS: ATORVASTATIN 40 MG TAB PO SCH (08:01)
[2022-03-17] MEDS: ASPIRIN 81 MG PO SCH (08:01)
[2022-03-17] MEDS: CLOPIDOGREL 75 MG TAB PO SCH (08:02)
[2022-03-17 08:07] VITALS: RESP 18
[2022-03-17] MEDS: ALBUTEROL HFA INHALER INHALATION PRN (08:16)
[2022-03-17] MEDS: SYMBICORT 160-4.5 MCG INHALER INHALATION SCH (08:16)
--- NOTE | 2022-03-17 10:23 | P.PN ---
Subjective Progress Note Date: 03/17/22 HISTORY OF PRESENT ILLNESS: This is a 76-year-old male who underwent dual-chamber AICD implantation. Patient examined this morning in the chair. Patient denies chest pain or pressure. He denies shortness of breath. He reports having redness and weakness to his left lower extremity. Patients blood pressure was elevated yesterday and changes were made to patients regimen. 03/17/2022 Patient examined this morning at bedside. Patient denies chest pain or pressure. Patient denies shortness of breath. Vital signs are stable. Patient was switched IV antibiotics yesterday. Per internal medicine. PHYSICAL EXAM: VITAL SIGNS: Reviewed. GENERAL: Well-developed in no acute distress. NECK: Supple. No JVD or thyromegaly LUNGS: Respirations even and unlabored. Lungs essentially clear to auscultation bilaterally. HEART: Regular rate and rhythm. S1 and S2 heard. EXTREMITIES: Normal range of motion. No clubbing or cyanosis. Peripheral pulses intact. No lower extremity edema ASSESSMENT: Syncope while sitting Status post EP study 03/11 with easily inducible ventricular fibrillation Acute kidney injury, resolved. Chest pain, acute coronary syndrome unlikely, appears musculoskeletal on exam Right renal lesion reported on CT scan Coronary artery disease status post PCI of the RCA in 2019 Ischemic cardiomyopathy History of Hypertension Dyslipidemia Former smoker Former alcohol abuse History of CVA/TIA Obesity Possible cellulitis/eczema of left lower extremity PLAN: Continue current cardiac medications Continue oral Keflex at discharge Stable for discharge home today from cardiac standpoint Patient to follow up on an outpatient basis Nurse practitioner note has been reviewed by physician. Signing provider agrees with the documented findings, assessment, and plan of care. Objective - Vital Signs Vital signs: Vital Signs Temp 98.0 F 03/17/22 07:30 Pulse 78 03/17/22 07:30 Resp 18 03/17/22 07:30 BP 128/72 03/17/22 07:30 Pulse Ox 98 03/17/22 07:30 FiO2 Intake & Output 03/16/22 03/17/22 03/17/22 18:59 06:59 18:59 Intake Total 358 500 403 Balance 358 500 403 Intake: Oral 358 500 403 Other: Voiding Method Toilet Toilet Urinal Urinal # Voids 2 - Labs CBC & Chem 7: 03/14/22 04:53 03/15/22 06:06
[2022-03-17] MEDS: LOSARTAN 25 MG TAB PO SCH (12:51)
[2022-03-17 15:06] VITALS: BP 113/70; PULSE 72; TEMP 97.6
--- NOTE | 2022-03-20 09:11 | P.DS ---
Providers Date of admission: 03/12/22 10:24 Expected date of discharge: 03/17/22 Attending physician: Romana Freedman Consults: 03/09/22 17:41 Consult Physician Routine Consulting Provider: Len Yang Consult Reason/Comments: CAD, SYNCOPE, CHEST PAIN Do you want consulting provider notified?: Yes 03/10/22 12:59 Consult Physician Urgent Consulting Provider: Luanne Guajardo Consult Reason/Comments: syncope Do you want consulting provider notified?: Yes Primary care physician: Bora Madera [facility] Course: Final diagnosis Right-sided chest pain, possibly musculoskeletal, ruled out pneumonia Syncope post AICD placement on 03/15/2022 Post EP study with inducible ventricular fibrillation being planned for AICD placement Left lower extremity redness, possibly cellulitis with failed outpatient treatment as patient reported he was seen by his primary care provider last week and started on antibiotics Acute kidney injury, improved Ischemic cardiomyopathy History of coronary artery disease History of Cerebrovascular accident, TIA Hypertension History of myocardial infarction History of coronary artery disease with stents Elevated d-dimer with low probability of PE on VQ scan GI prophylaxis DVT prophylaxis Full code Discharge disposition Patient is being discharged in a stable condition with guarded prognosis to home. Patient will follow-up with Dr. Bora Jackson in the outpatient setting upon discharge. Patient is to continue with oral keflex 500 for the next few days. Patient to follow up with Dr. Beckett as scheduled. Total time taken is greater than 35 minutes. Hospital course This is a 76-year-old male who was recently admitted with syncope and chest pain. Cardiology and neurology evaluated the patient and underwent AICD placement with Dr. Beckett. Patient to follow up with Dr. Beckett as scheduled. Patient with some left lower extremity cellulitis that improved with cefazolin and will continue with oral keflex for a short course. Patient instructed to follow up with pcp this week. Continue local wound care and elevate the extremity while at rest. Currently no reports of chest pain, shortness of breath, or palpitations. Patient is afebrile. No reports of nausea or vomiting and patient is tolerating diet. Patient will be discharged home today. Guarded prognosis. Please refer to other consultations notes for further clinical course. Physical exam: Gen: This is a 76 year old male who is awake and alert and oriented x3. HEENT: Head is atraumatic, normocephalic. Pupils equal, round. Sclerae is anicteric. NECK: Supple. No JVD. No lymphadenopathy. No thyromegaly. LUNGS: Clear to auscultation. No wheezes or rhonchi. No intercostal retractions. HEART: S1, S2 muffled ABDOMEN: Soft. Bowel sounds are present. No masses. No tenderness. EXTREMITIES: No pedal edema. No calf tenderness. left lower extremity with some erythema noted with improvement from yesterday. NEUROLOGICAL: Patient is awake, alert and oriented x3. Cranial nerves 2 through 12 are grossly intact. Please refer to medication reconciliation sheet for a list of medications. The impression and plan of care has been dictated by Nellie Workman, Nurse Practitioner as directed. Dr. Ethan MD I have performed a history and examination and MDM of this patient, discussed the same with the dictator, and agree with the dictator's assessment and plan as written ,documented as a scribe. Based on total visit time, I have performed more than 50% of the visit. Patient Condition at Discharge: Fair Plan - Discharge Summary Discharge Rx Participant: No New Discharge Prescriptions: New Acetaminophen Tab [Tylenol] 650 mg PO Q6HR PRN tab PRN Reason: Mild Pain Or Fever > 100.5 Cephalexin [Keflex] 500 mg PO TID #8 cap Losartan [Cozaar] 50 mg PO DAILY@1200 #180 tab Spironolactone [Aldactone] 25 mg PO DAILY #90 tab carvediloL [Coreg] 12.5 mg PO BID-W/MEALS #180 tab Continue PARoxetine [Paxil] 20 mg PO DAILY Aspirin [Adult Low Dose Aspirin EC] 81 mg PO DAILY Clopidogrel [Plavix] 75 mg PO DAILY #90 tab Nitroglycerin Sl Tabs [Nitrostat] 0.4 mg SUBLINGUAL Q5M PRN #25 tab PRN Reason: Chest Pain Rosuvastatin [Crestor] 20 mg PO DAILY Albuterol Sulfate [Proventil Hfa] 1 puff INHALATION Q4-6H PRN #6.7 gm PRN Reason: Wheezing Tamsulosin [Flomax] 0.4 mg PO HS Pantoprazole [Protonix] 40 mg PO HS Budesonide-Formot 160-4.5 Mcg [Symbicort 160-4.5 Mcg Inhaler] 2 puff I NHALATION RT-BID Furosemide [Lasix] 40 mg PO DAILY Discontinued hydroCHLOROthiazide [Hydrodiuril] 25 mg PO DAILY atenoloL [Tenormin] 50 mg PO BID Losartan Potassium 100 mg PO DAILY Isosorbide Mononitrate ER [Imdur] 15 mg PO DAILY Discharge Medication List Aspirin [Adult Low Dose Aspirin EC] 81 mg PO DAILY 06/16/18 [History] PARoxetine [Paxil] 20 mg PO DAILY 06/16/18 [History] Clopidogrel [Plavix] 75 mg PO DAILY #90 tab 06/20/18 [Rx] Nitroglycerin Sl Tabs [Nitrostat] 0.4 mg SUBLINGUAL Q5M PRN #25 tab 06/20/18 [Rx] Rosuvastatin [Crestor] 20 mg PO DAILY 11/18/21 [History] Albuterol Sulfate [Proventil Hfa] 1 puff INHALATION Q4-6H PRN #6.7 gm 11/22/21 [Rx] Budesonide-Formot 160-4.5 Mcg [Symbicort 160-4.5 Mcg Inhaler] 2 puff INHALATION RT-BID 03/09/22 [History] Furosemide [Lasix] 40 mg PO DAILY 03/09/22 [History] Pantoprazole [Protonix] 40 mg PO HS 03/09/22 [History] Tamsulosin [Flomax] 0.4 mg PO HS 03/09/22 [History] Acetaminophen Tab [Tylenol] 650 mg PO Q6HR PRN tab 03/11/22 [Rx] Cephalexin [Keflex] 500 mg PO TID #8 cap 03/16/22 [Rx] Losartan [Cozaar] 50 mg PO DAILY@1200 #180 tab 03/16/22 [Rx] Spironolactone [Aldactone] 25 mg PO DAILY #90 tab 03/16/22 [Rx] carvediloL [Coreg] 12.5 mg PO BID-W/MEALS #180 tab 03/16/22 [Rx] Follow up Appointment(s)/Referral(s): David Figueroa MD [STAFF PHYSICIAN] - 03/22/22 2:15 pm Bora Madera MD [Primary Care Provider] - 1-2 days Patient Instructions/Handouts: Implantable Cardioverter Defibrillator (GEN), Electrophysiology Study (DC), Electrophysiology Study (GEN) Activity/Diet/Wound Care/Special Instructions: Cardiology Instructions: Stop Imdur Stop hydrochlorothiazide Continue taking antibiotics as prescribed Follow-up with primary care provider on discharge Follow-up with cardiology as discussed Continue using Jaya wrap to the lower extremity and elevate while at rest Removed the Jaya wrap at night and continue to elevate and also assess the site daily and follow-up with primary care provider in the next few days Continue the antibiotics until finished Avoid any itching or scratching to the site and use Benadryl as needed Keep dressing on chest clean and dry, Do Not remove dressing Do not raise your left arm above heart level No pushing, pulling, lifting >5lbs. with left arm Use sling for reminder, you may remove to perform pendulum exercises Follow up in the office as scheduled for you Discharge Disposition: HOME SELF-CARE
== END 2022-03-17 16:24 | disposition home or self-care (01) | DRG 227 ==
LOC: EC 13:34 → 6NMEDSUR 16:19 → OBSVTOIN 03-12 10:24 → 6NMEDSUR 03-16 01:25
PROVIDERS: ADMIT Hospitalist; ATTEND Hospitalist
PROC: 4A023FZ Measurement of Cardiac Rhythm, Percutaneous Approach (ICD-10-PCS; 2022-03-11)
PROC: 4A0234Z Measurement of Cardiac Electrical Activity, Percutaneous Approach (ICD-10-PCS; 2022-03-11)
PROC: 02HK3KZ Insertion of Defibrillator Lead into Right Ventricle, Percutaneous Approach (ICD-10-PCS; 2022-03-15)
PROC: 02H63KZ Insertion of Defibrillator Lead into Right Atrium, Percutaneous Approach (ICD-10-PCS; 2022-03-15)
PROC: 0JH609Z Insertion of Cardiac Resynchronization Defibrillator Pulse Generator into Chest Subcutaneous Tissue and Fascia, Open Approach (ICD-10-PCS; principal; 2022-03-15 07:30)
DX: I49.01 Ventricular fibrillation (principal); N17.9 Acute kidney failure, unspecified; Z68.42 Body mass index [BMI] 45.0-49.9, adult; L03.116 Cellulitis of left lower limb; D63.8 Anemia in other chronic diseases classified elsewhere; I11.9 Hypertensive heart disease without heart failure; R56.9 Unspecified convulsions; E66.9 Obesity, unspecified; F10.10 Alcohol abuse, uncomplicated; E66.01 Morbid (severe) obesity due to excess calories; J44.9 Chronic obstructive pulmonary disease, unspecified; I42.8 Other cardiomyopathies; I47.29 Other ventricular tachycardia; E78.5 Hyperlipidemia, unspecified; I25.10 Atherosclerotic heart disease of native coronary artery without angina pectoris; R59.0 Localized enlarged lymph nodes; I49.3 Ventricular premature depolarization; M19.90 Unspecified osteoarthritis, unspecified site; I25.5 Ischemic cardiomyopathy; I44.1 Atrioventricular block, second degree; I49.5 Sick sinus syndrome; R05.8 Other specified cough; R53.1 Weakness; R79.89 Other specified abnormal findings of blood chemistry; I45.4 Nonspecific intraventricular block; Z20.822 Contact with and (suspected) exposure to COVID-19; Z28.310 Unvaccinated for COVID-19; Z95.810 Presence of automatic (implantable) cardiac defibrillator; Z86.73 Personal history of transient ischemic attack (TIA), and cerebral infarction without residual deficits; I25.2 Old myocardial infarction; Z79.02 Long term (current) use of antithrombotics/antiplatelets; Z79.899 Other long term (current) drug therapy; Z79.51 Long term (current) use of inhaled steroids; Z79.82 Long term (current) use of aspirin; Z87.891 Personal history of nicotine dependence; Z95.5 Presence of coronary angioplasty implant and graft
CPT/HCPCS: 33249; 36415; 70450; 71046; 71250; 78582; 80048; 80053; 83735; 83880; 84443; 84484; 85025; 85379; 85610; 85730; 87502; 87635; 93005; 93308; 93620; 94640; 96365; 96366; 96374; 96375; 96376; 99285

== ENCOUNTER 2022-05-10 09:39 | Day surgery (SDC) | payer MEDICARE ==
[~2022-05-10 09:39] MED LIST changes: -ALPRAZolam 0.25 MG TAB PO PRN; -ALPRAZolam 0.5 MG TAB PO PRN; -ASPIRIN 325 MG TAB PO STA; -ATORVASTATIN 80 MG TAB PO STA; -NITROGLYCERIN SL TABS 0.4 MG TAB SUBLINGUAL PRN; +SODIUM CHLORIDE 0.9% 1,000 ML IV SCH; -SODIUM CHLORIDE 0.9% 1,000 ML in EMPTY BAG 1 BAG IV ONE
[2022-05-10] MEDS ORDERED: SODIUM CHLORIDE 0.9% 1,000 ML IV ONE (09:51)
[2022-05-10 10:09] VITALS: TEMP 98.1
[2022-05-10 10:53] LABS: Calcium 9.1 mg/dL (8.4-10.2); Potassium 4.6 mmol/L (3.5-5.1)
[2022-05-10] MEDS ORDERED: PROPOFOL 10 MG/ML 20 ML VIAL IV ONE (11:34)
[2022-05-10] MEDS ORDERED: MIDAZOLAM 2 MG/2 ML VIAL ONE (11:34)
[2022-05-10] MEDS ORDERED: LIDOCAINE 2% INJ 20 MG/ML (2 ML VIAL) ONE (11:34)
[2022-05-10 13:41] VITALS: RESP 16
--- NOTE | 2022-05-10 14:01 | P.EPPROC ---
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 dual-chamber ICD implanted on 03/15/2022 Atrial pacing threshold 0.5 V at 0.5 ms, P waves 4.2 mV and pacing impedance 580 ohms RV pacing threshold 0.5 V at 0.5 ms, R waves 12 mV and pacing impedance 500 ohms High-voltage impedance 69 ohms Since implant he is paced the atrium less than 1% He is paced ventricle 2.3% Under conscious sedation DFT level testing was performed VF was induced and successfully detected with a few dropouts Unsuccessful defibrillation at 10 J Unsuccessful defibrillated at 20 J High-voltage impedance 71 ohms Cathode configuration After a few minutes once patient stabilized in sinus rhythm this was repeated in the anodal configuration This time a 15 J shock was successful in defibrillated and the patient High-voltage impedance 69 ohms Charge time 2.9 seconds No post shock noise The device was reprogrammed to the anodal polarity First cardioversion at 20 J in the VT 1 zone First defibrillation in VT 2 and VT 3 at maximum output Appropriate antitachycardia pacing Patient tolerated the procedure well without any acute complications Continue beta blockers losartan Aldactone and statins and dual antiplatelet therapy Maximize as tolerated Follow-up with Dr. Figueroa in 4 weeks Complete abstinence from alcohol use
[2022-05-10 19:00] VITALS: BP 116/66; PULSE 91
== END 2022-05-10 14:37 | disposition home or self-care (01) ==
LOC: CATHEP 09:39
PROVIDERS: ATTEND Internal Medicine Clinical Cardiac Electrophysiology
DX: I25.10 Atherosclerotic heart disease of native coronary artery without angina pectoris (principal); I42.9 Cardiomyopathy, unspecified
CPT/HCPCS: 93642; 80048; J2250; J2704; J2001

== ENCOUNTER 2022-08-10 13:20 | Emergency (ER) | payer MEDICARE ==
[2022-08-10 13:26] VITALS: TEMP 98.5
[2022-08-10 14:01] LABS: Anisocytosis Slight; Basophils % (A) 0 %; Eosinophils # (A) 0.1 k/uL (0-0.7); Eosinophils % (A) 1 %; HCT 34.1 % (39.0-53.0); HGB 11.3 gm/dL (13.0-17.5); Lymphocytes # (A) 0.3 k/uL (1.0-4.8); Lymphocytes % (A) 3 %; MCH 26.4 pg (25.0-35.0); MCHC 33.1 g/dL (31.0-37.0); MCV 79.7 fL (80.0-100.0); Mean Platelet Volume 7.8; Microcytosis Slight; Monocytes # (A) 0.6 k/uL (0-1.0); Monocytes % (A) 7 %; Neutrophils # (A) 7.6 k/uL (1.3-7.7); Neutrophils % (A) 87 %; Platelet Count 171 k/uL (150-450); RBC 4.28 m/uL (4.30-5.90); RDW 16.2 % (11.5-15.5); WBC 8.8 k/uL (3.8-10.6)
--- NOTE | 2022-08-10 14:03 | ED ---
General Adult HPI - General Chief complaint: Urogenital Stated complaint: Unable to urinate leaking Time Seen by Provider: 08/10/22 13:30 Source: patient, family Mode of arrival: wheelchair Limitations: no limitations - History of Present Illness Initial comments: Patient is a 76-year-old male who presents to the emergency department with a chief complaint of burning with urination. States he presents today because he feels very anxious about his symptoms. States it has been occurring intermittently for the past few months. Patient feels that he has been intermittently retaining urine states he does not feel that he is going fully. Patient reports "leaking urine" occasionally with dripping in his underwear. Patient reports history of kidney infection states this feels like one although he denies any abdominal or back pain. No fever, chills, nausea, vomiting. No penile discharge, testicular pain. He does not have concern for any sexually transmitted infections. - Related Data Home Medications Medication Instructions Recorded Confirmed Aspirin [Adult Low Dose Aspirin EC] 81 mg PO DAILY 06/16/18 08/10/22 PARoxetine [Paxil] 20 mg PO DAILY 06/16/18 08/10/22 Rosuvastatin [Crestor] 20 mg PO DAILY 11/18/21 08/10/22 Furosemide [Lasix] 40 mg PO DAILY 03/09/22 08/10/22 Pantoprazole [Protonix] 40 mg PO DAILY 03/09/22 08/10/22 Tamsulosin [Flomax] 0.4 mg PO HS 03/09/22 08/10/22 Albuterol Inhaler [Ventolin Hfa 2 puff INHALATION RT-Q6H PRN 08/10/22 08/10/22 Inhaler] Losartan Potassium 50 mg PO DAILY 08/10/22 08/10/22 Metoprolol Tartrate [Lopressor] 50 mg PO TID 08/10/22 08/10/22 Previous Rx's Medication Instructions Recorded Clopidogrel [Plavix] 75 mg PO DAILY #90 tab 06/20/18 Nitroglycerin Sl Tabs [Nitrostat] 0.4 mg SUBLINGUAL Q5M PRN #25 tab 06/20/18 Spironolactone [Aldactone] 25 mg PO DAILY #90 tab 03/16/22 Cephalexin [Keflex] 500 mg PO Q6HR #40 cap 03/21/23 Allergies Allergy/AdvReac Type Severity Reaction Status Date / Time No Known Allergies Allergy Verified 08/10/22 14:13 Review of Systems ROS Statement: Those systems with pertinent positive or pertinent negative responses have been documented in the HPI. ROS Other: All systems not noted in ROS Statement are negative. Past Medical History Past Medical History: Coronary Artery Disease (CAD), CVA/TIA, Hypertension, Myocardial Infarction (MS), Osteoarthritis (OA) Additional Past Medical History / Comment(s): TIA - no residual effects, c/o fatigue,see dr [facility] Last Myocardial Infarction Date:: unknown History of Any Multi-Drug Resistant Organisms: None Reported Past Surgical History: AICD, Heart Catheterization With Stent Additional Past Surgical History / Comment(s): spinal steroid injections, aicd placed Past Anesthesia/Blood Transfusion Reactions: No Reported Reaction Date of Last Stent Placement:: unknown Type of Cardiac Device: AICD Device Placement Date:: feb 2022 Past Psychological History: No Psychological Hx Reported Smoking Status: Former smoker - Past Family History Sister(s) Family Medical History: Cancer General Exam Limitations: no limitations General appearance: alert, in no apparent distress Head exam: Present: atraumatic, normocephalic, normal inspection Respiratory exam: Present: normal lung sounds bilaterally. Absent: respiratory distress, wheezes, rales, rhonchi, stridor Cardiovascular Exam: Present: regular rate, normal rhythm, normal heart sounds. Absent: systolic murmur, diastolic murmur, rubs, gallop, clicks GI/Abdominal exam: Present: soft, normal bowel sounds. Absent: distended, tenderness, guarding, rebound, rigid Left Knee exam: Present: normal inspection, full ROM. Absent: tenderness, swelling Lower Leg exam: Present: full ROM, erythema (anterior martinez ). Absent: tenderness, swelling, Homans' sign Neurological exam: Present: alert, oriented X3, CN II-XII intact Psychiatric exam: Present: normal affect, normal mood Skin exam: Present: warm, dry, intact, normal color. Absent: rash Course Vital Signs 08/10/22 08/10/22 08/10/22 13:23 13:57 15:31 Temperature 98.5 F Pulse Rate 120 H 67 73 Respiratory 20 16 17 Rate Blood Pressure 100/59 94/52 O2 Sat by Pulse 96 98 97 Oximetry Medical Decision Making - Medical Decision Making Was pt. sent in by a medical professional or institution ([facility], [employer] [facility], urgent care, hospital, or assisted...) When possible be specific @ -No Did you speak to anyone other than the patient for history (EMS, parent, family, police, friend...)? What history was obtained from this source @ -No Did you review nursing and triage notes (agree or disagree)? Why? @ -[I reviewed and mostly agree. Patient does not have flank pain. Were old charts reviewed (outside hosp., previous admission, EMS record, old EKG, old radiological studies, urgent care reports/EKG's, assisted records)? Report findings @ -No old charts were reviewed Differential Diagnosis (chest pain, altered mental status, abdominal pain women, abdominal pain men, vaginal bleeding, weakness, fever, dyspnea, syncope, headache, dizziness, GI bleed, back pain, seizure, CVA, palpatations, mental health)? @ -Urinary tract infection, kidney infection, kidney stone, BPH EKG interpreted by me (3pts min.). @ -As above X-rays interpreted by me (1pt min.). @ -None done CT interpreted by me (1pt min.). @ -None done U/S interpreted by me (1pt. min.). @ -No. Abdominal ultrasound report shows no hydronephrosis. Ultrasound left lower extremity is negative for acute DVT What testing was considered but not performed or refused? (CT, X-rays, U/S, l abs)? Why? @ -None What meds were considered but not given or refused? Why? @ -None Did you discuss the management of the patient with other professionals (professionals i.e. , [facility], [employer], lab, RT, psych nurse, adoption social worker, electric meter setter, teacher, retirement officer, vocational case manager)? Give summary @ -No Was smoking cessation discussed for >3mins.? @ -No Was critical care preformed (if so, how long)? @ -No Were there social determinants of health that impacted care today? How? (Homelessness, low income, unemployed, alcoholism, drug addiction, transportation, low edu. Level, literacy, decrease access to med. care, shelter, rehab)? @ -No Was there de-escalation of care discussed even if they declined (Discuss DNR or withdrawal of care, Hospice)? DNR status @ -No What co-morbidities impacted this encounter? (DM, HTN, Smoking, COPD, CAD, Cance r, CVA, ARF, Chemo, Hep., AIDS, mental health diagnosis, sleep apnea, morbid obesity)? @ -None Was patient admitted / discharged? Hospital course, mention meds given and route, prescriptions, significant lab abnormalities, going to OR and other pertinent info. @ -Patient presenting with dysuria and trouble urinating. Laboratory studies obtained. There is no leukocytosis. There is mild SHELBY, creatinine at 1.52, BUN at 34. Urinalysis reveals significant infection. Post void residual is 30. Ultrasound of the kidneys and bladder shows a complex cystic superior pole of right kidney without evidence of hydronephrosis. Patient given large fluid bolus and IV Rocephin. With no fever, leukocytosis, systemic symptoms plan was to discharge with oral antibiotics for UTI. Upon discharge patient's family came and state patient has had some pain in his left calf. Patient does not have history of DVT although it runs in the family. He takes a baby aspirin otherwise no blood there use. Patient does have some redness over the left martinez with scaling. I suspect related to venous stasis. There is no warmth, swelling, or tenderness of the extremity. Ultrasound with Doppler was obtained which is negative for DVT. Discussed results with patient and family with detail. Patient to elevate extremity at home and follow up with PCP. Undiagnosed new problem with uncertain prognosis? @ -No Drug Therapy requiring intensive monitoring for toxicity (Heparin, Nitro, Insulin, Cardizem)? @ -No Were any procedures done? @ -No Diagnosis/symptom? @ -UTI Acute, or Chronic, or Acute on Chronic? @ -acute Uncomplicated (without systemic symptoms) or Complicated (systemic symptoms)? @ -uncomplicated Side effects of treatment? @ -No Exacerbation, Progression, or Severe Exacerbation? @ -[No] Poses a threat to life or bodily function? How? (Chest pain, USA, MS, pneumonia, PE, COPD, DKA, ARF, appy, cholecystitis, CVA, Diverticulitis, Homicidal, Suicidal, threat to staff... and all critical care pts) @ -[No] Dr. Rausch is my attending - Lab Data Result diagrams: 08/10/22 13:52 08/10/22 13:52 Lab Results 08/10/22 08/10/22 08/10/22 Range/Units 13:52 13:52 13:52 WBC 8.8 (3.8-10.6) k/uL RBC 4.28 L (4.30-5.90) m/uL Hgb 11.3 L (13.0-17.5) gm/dL Hct 34.1 L (39.0-53.0) % MCV 79.7 L (80.0-100.0) fL MCH 26.4 (25.0-35.0) pg MCHC 33.1 (31.0-37.0) g/dL RDW 16.2 H (11.5-15.5) % Plt Count 171 (150-450) k/uL MPV 7.8 Neutrophils % 87 % Lymphocytes % 3 % Monocytes % 7 % Eosinophils % 1 % Basophils % 0 % Neutrophils # 7.6 (1.3-7.7) k/uL Lymphocytes # 0.3 L (1.0-4.8) k/uL Monocytes # 0.6 (0-1.0) k/uL Eosinophils # 0.1 (0-0.7) k/uL Basophils # 0.0 (0-0.2) k/uL Anisocytosis Slight Microcytosis Slight Sodium 130 L (137-145) mmol/L Potassium 4.6 (3.5-5.1) mmol/L Chloride 98 (98-107) mmol/L Carbon Dioxide 23 (22-30) mmol/L Anion Gap 9 mmol/L BUN 34 H (9-20) mg/dL Creatinine 1.52 H (0.66-1.25) mg/dL Est GFR (CKD-EPI)AfAm 51 (>60 ml/min/1.73 sqM) Est GFR (CKD-EPI)NonAf 44 (>60 ml/min/1.73 sqM) Glucose 108 H (74-99) mg/dL Plasma Lactic Acid Casa (0.7-2.0) mmol/L Calcium 8.8 (8.4-10.2) mg/dL Total Bilirubin 1.1 (0.2-1.3) mg/dL AST 43 (17-59) U/L ALT 29 (4-49) U/L Alkaline Phosphatase 68 (38-126) U/L Total Protein 7.2 (6.3-8.2) g/dL Albumin 4.0 (3.5-5.0) g/dL Lipase 114 (23-300) U/L Urine Color Yellow Urine Appearance Turbid (Clear) Urine pH 6.0 (5.0-8.0) Ur Specific Paxton 1.014 (1.001-1.035) Urine Protein 1+ H (Negative) Urine Glucose (UA) Negative (Negative) Urine Ketones Negative (Negative) Urine Blood Small H (Negative) Urine Nitrite Negative (Negative) Urine Bilirubin Negative (Negative) Urine Urobilinogen <2.0 (<2.0) mg/dL Ur Leukocyte Esterase Large H (Negative) Urine RBC 8 H (0-5) /hpf Urine WBC >182 H (0-5) /hpf Urine WBC Clumps Many H (None) /hpf Ur Squamous Epith Cells 1 (0-4) /hpf Urine Bacteria Many H (None) /hpf Urine Mucus Rare H (None) /hpf 08/10/22 Range/Units 13:52 WBC (3.8-10.6) k/uL RBC (4.30-5.90) m/uL Hgb (13.0-17.5) gm/dL Hct (39.0-53.0) % MCV (80.0-100.0) fL MCH (25.0-35.0) pg MCHC (31.0-37.0) g/dL RDW (11.5-15.5) % Plt Count (150-450) k/uL MPV Neutrophils % % Lymphocytes % % Monocytes % % Eosinophils % % Basophils % % Neutrophils # (1.3-7.7) k/uL Lymphocytes # (1.0-4.8) k/uL Monocytes # (0-1.0) k/uL Eosinophils # (0-0.7) k/uL Basophils # (0-0.2) k/uL Anisocytosis Microcytosis Sodium (137-145) mmol/L Potassium (3.5-5.1) mmol/L Chloride (98-107) mmol/L Carbon Dioxide (22-30) mmol/L Anion Gap mmol/L BUN (9-20) mg/dL Creatinine (0.66-1.25) mg/dL Est GFR (CKD-EPI)AfAm (>60 ml/min/1.73 sqM) Est GFR (CKD-EPI)NonAf (>60 ml/min/1.73 sqM) Glucose (74-99) mg/dL Plasma Lactic Acid Casa 1.5 (0.7-2.0) mmol/L Calcium (8.4-10.2) mg/dL Total Bilirubin (0.2-1.3) mg/dL AST (17-59) U/L ALT (4-49) U/L Alkaline Phosphatase (38-126) U/L Total Protein (6.3-8.2) g/dL Albumin (3.5-5.0) g/dL Lipase (23-300) U/L Urine Color Urine Appearance (Clear) Urine pH (5.0-8.0) Ur Specific Paxton (1.001-1.035) Urine Protein (Negative) Urine Glucose (UA) (Negative) Urine Ketones (Negative) Urine Blood (Negative) Urine Nitrite (Negative) Urine Bilirubin (Negative) Urine Urobilinogen (<2.0) mg/dL Ur Leukocyte Esterase (Negative) Urine RBC (0-5) /hpf Urine WBC (0-5) /hpf Urine WBC Clumps (None) /hpf Ur Squamous Epith Cells (0-4) /hpf Urine Bacteria (None) /hpf Urine Mucus (None) /hpf Disposition Clinical Impression: UTI (urinary tract infection), SHELBY (acute kidney injury) Disposition: HOME SELF-CARE Condition: Good Instructions (If sedation given, give patient instructions): Urinary Tract Infection in Men (ED) Additional Instructions: Take medication as directed. Patient to elevate left leg and wear compression socks or stockings. Follow-up with primary care provider in one to 2 days. Return to the emergency department if you experience new, concerning, or worsening symptoms. Prescriptions: Cephalexin [Keflex] 500 mg PO Q6HR #40 cap Is patient prescribed a controlled substance at d/c from ED?: No Referrals: Nathaniel Madera MD [Primary Care Provider] - 1-2 days
[2022-08-10 14:19] LABS: Appearance,Urine Turbid (Clear); Bacteria,Urine Many /hpf; Bilirubin,Urine Negative (Negative); Blood,Urine Small (Negative); Color,Urine Yellow; Glucose,Urine (UA) Negative (Negative); Ketones,Urine Negative (Negative); Leukocyte Esterase,Urine Large (Negative); Mucus,Urine Rare /hpf; Nitrite,Urine Negative (Negative); Protein,Urine 1+ (Negative); RBC,Urine 8 /hpf (0-5); Specific Gravity,Urine 1.014 (1.001-1.035); Squamous Epithelial Cell,Urine 1 /hpf (0-4); Urobilinogen,Urine <2.0 mg/dL (<2.0); WBC,Urine >182 /hpf (0-5)
[2022-08-10 14:22] LABS: Calcium 8.8 mg/dL (8.4-10.2); Potassium 4.6 mmol/L (3.5-5.1); Total Bilirubin 1.1 mg/dL (0.2-1.3); Total Protein 7.2 g/dL (6.3-8.2)
[2022-08-10] MEDS ORDERED: SODIUM CHLORIDE 0.9% 2,000 ML IV STA (14:24)
--- NOTE | 2022-08-10 15:02 | US ---
EXAMINATION TYPE: US kidneys/renal and bladder DATE OF EXAM: 08/10/2022 COMPARISON: CT 03/09/2022 CLINICAL HISTORY: trouble urinating. Trouble urinating. Right renal lesion seen on CT. EXAM MEASUREMENTS: Right Kidney: 10.0 x 6.0 x 4.9 cm Left Kidney: 12.8 x 5.7 x 5.2 cm Exam is extremely limited due to patient body habitus, patient unable to lay back, patient heavy b reathing, and gas. Right Kidney: Limited. Complex area seen upper pole: 6.5 x 5.6 x 3.6 cm. This is not a simple cyst. Complex cyst or adjacent cysts could be considered. This appears to correlate with the CT exam. Left Kidney: Appears enlarged. Limited. Bladder: Limited. Wall measures thickened: 0.57 cm. Bilateral Jets seen: No. Unable to properly evaluate due to patient's movement with breathing. IMPRESSION: 1. Complex cyst superior pole right kidney. 2. Urinary bladder wall appears thickened.
[2022-08-10 15:32] VITALS: BP 94/52; PULSE 73; RESP 17
--- NOTE | 2022-08-10 16:36 | US ---
EXAMINATION TYPE: US venous doppler duplex LE LT DATE OF EXAM: 08/10/2022 4:20 PM COMPARISON: NONE CLINICAL HISTORY: redness pain. SIDE PERFORMED: Left TECHNIQUE: The lower extremity deep venous system is examined utilizing real time linear array sonog alejandra with graded compression, doppler sonography and color-flow sonography. VESSELS IMAGED: Common Femoral Vein Deep Femoral Vein Greater Saphenous Vein * Femoral Vein Popliteal Vein Small Saphenous Vein * Proximal Calf Veins (* superficial vessels) Suboptimal visualization due to poor cooperation from patient, patient unable to stay still Left Leg: Negative for DVT, Grayscale, color doppler, spectral doppler imaging performed of the deep veins of the lower extremities. There is normal flow, compressibility, vascular waveforms. IMPRESSION: No evidence for deep vein thrombosis of the left lower extremity.
== END 2022-08-10 17:00 | disposition home or self-care (01) ==
LOC: EC 13:20
DX: N39.0 Urinary tract infection, site not specified (principal); N17.9 Acute kidney failure, unspecified; I10 Essential (primary) hypertension; I25.10 Atherosclerotic heart disease of native coronary artery without angina pectoris; I25.2 Old myocardial infarction; M19.90 Unspecified osteoarthritis, unspecified site; Z79.02 Long term (current) use of antithrombotics/antiplatelets; Z79.82 Long term (current) use of aspirin; Z79.899 Other long term (current) drug therapy; Z87.891 Personal history of nicotine dependence
CPT/HCPCS: 96365 ×2; 99284 ×2; 51798; 36415; 80053; 83605; 83690; 85025; 81001; 87086; 87077; 87186; 93971; 76770; J0696

== ENCOUNTER → 2022-10-04 | Outpatient (CLI) | payer MEDICARE ==
--- NOTE | 2022-10-04 09:31 | CT ---
EXAMINATION TYPE: CT lumbar spine wo con DATE OF EXAM: 10/04/2022 9:10 AM COMPARISON: None HISTORY: LOWER BACK PAIN CT DLP: 2205.1 mGycm Automated exposure control for dose reduction was used. Technique: Unenhanced CT of the lumbar spine was performed. Bone and soft tissue window settings are submitted as well as coronal and sagittal reconstructions. Findings: The lumbar vertebral segments are normal in height. There is a slight grade 1 anterolisthesis of L4 on L5. There is mild degenerative disc disease from T11 to L5 where there is mild disc space narrowing and m ild anterior spondylosis. There is mild vacuum phenomenon at the L4-5 level as well.. There is moderate to severe degenerative disease at the L5-S1 level where there is moderate to severe disc space narrowing moderate discogenic endplate changes. There is multilevel spinal stenosis. At the L2-3 level there is moderate to severe stenosis secondary to circumferential disc bulge, moderate facet hypertrophy and thickening of ligamentum flavum. Simil ar changes are noted at the L3-4 level where there is at least moderate spinal stenosis. At the L4-5 level there is marked facet hypertrophy, circumferential disc bulge and mild listhesis resulting in a severe spinal stenosis. There is moderate neural foraminal stenosis at the L5-S1 level on the left secondary to hypertrophic spurring of the facet joint. There is marked anterior hypertrophic spurring of the SI joints. There are no large disc herniations. IMPRESSION: 1. Multilevel degenerative disease mild from T11 to L5 and moderate to severe at the L5-S1 level. 2. No large disc herniations. 3. Multilevel spinal stenosis moderate to severe at the L2-3 and L3-4 levels and severe at the L5-S1 level. 4. Bony neural foraminal encroachment at the L5-S1 level on the left. 5. No lumbar spine fracture. 6. Grade 1 anterolisthesis of L4 on L5.
== END | disposition home or self-care (01) ==
LOC: RADCTMAIN 08:45
PROVIDERS: ATTEND Physical Medicine & Rehabilitation
DX: M48.062 Spinal stenosis, lumbar region with neurogenic claudication (principal); M43.16 Spondylolisthesis, lumbar region; M16.12 Unilateral primary osteoarthritis, left hip; M47.27 Other spondylosis with radiculopathy, lumbosacral region; M51.17 Intervertebral disc disorders with radiculopathy, lumbosacral region; M48.07 Spinal stenosis, lumbosacral region; M47.815 Spondylosis without myelopathy or radiculopathy, thoracolumbar region; Z95.0 Presence of cardiac pacemaker
CPT/HCPCS: 72131

== ENCOUNTER 2023-06-29 15:43 | Inpatient (IN) | payer MEDICARE ==
[2023-06-29 16:40] LABS: Anisocytosis Slight; Basophils # (A) 0.1 k/uL (0-0.2); Basophils % (A) 1 %; Eosinophils # (A) 0.5 k/uL (0-0.7); Eosinophils % (A) 8 %; HCT 30.5 % (39.0-53.0); HGB 9.5 gm/dL (13.0-17.5); Hypochromasia Moderate; Lymphocytes # (A) 0.3 k/uL (1.0-4.8); Lymphocytes % (A) 5 %; MCH 25.8 pg (25.0-35.0); MCHC 31.2 g/dL (31.0-37.0); MCV 82.6 fL (80.0-100.0); Mean Platelet Volume 8.2; Monocytes # (A) 0.4 k/uL (0-1.0); Monocytes % (A) 7 %; Neutrophils % (A) 76 %; Platelet Count 241 k/uL (150-450); RDW 16.5 % (11.5-15.5); WBC 6.5 k/uL (3.8-10.6)
[2023-06-29 16:49] LABS: ALT 22 U/L (4-49); AST 25 U/L (17-59); African American GFR (CKD) 55 (>60 ml/min/1.73 sqM); Albumin 3.7 g/dL (3.5-5.0); Alkaline Phosphatase 70 U/L (38-126); Anion Gap 6 mmol/L; Blood Urea Nitrogen 32 mg/dL (9-20); Calcium 8.9 mg/dL (8.4-10.2); Carbon Dioxide 28 mmol/L (22-30); Chloride 106 mmol/L (98-107); Glucose 144 mg/dL (74-99); Magnesium 1.9 mg/dL (1.6-2.3); Non-African American GFR(CKD) 47 (>60 ml/min/1.73 sqM); Partial Thromboplastin Time 24.2 sec (22.0-30.0); Potassium 4.4 mmol/L (3.5-5.1); Sodium 140 mmol/L (137-145); Total Bilirubin 0.4 mg/dL (0.2-1.3); Total Protein 6.8 g/dL (6.3-8.2)
[2023-06-29 16:56] LABS: Appearance,Urine Clear (Clear); Bacteria,Urine Rare /hpf; Bilirubin,Urine Negative (Negative); Blood,Urine Negative (Negative); Color,Urine Colorless; Glucose,Urine (UA) Negative (Negative); Hyaline Casts,Urine 7 /lpf (0-2); Ketones,Urine Negative (Negative); Leukocyte Esterase,Urine Trace (Negative); Mucus,Urine Rare /hpf; Nitrite,Urine Negative (Negative); PH, Urine 5.5 (5.0-8.0); Protein,Urine Negative (Negative); RBC,Urine 4 /hpf (0-5); Specific Gravity,Urine 1.011 (1.001-1.035); Squamous Epithelial Cell,Urine <1 /hpf (0-4); Urobilinogen,Urine <2.0 mg/dL (<2.0); WBC,Urine 5 /hpf (0-5)
[2023-06-29 16:58] LABS: NT-Pro-B-Type Natriuretic Pept 689 pg/mL
--- NOTE | 2023-06-29 17:01 | XR ---
EXAMINATION TYPE: XR chest 2V DATE OF EXAM: 06/29/2023 4:47 PM CLINICAL INDICATION:Male, 77 years old with history of difficulty breathing; [facility] COMPARISON: Chest radiographs from 03/16/2022 TECHNIQUE: XR chest 2V Frontal and lateral views of the chest. FINDINGS: Lungs/Pleura: There is no evidence of pleural effusion, focal consolidation, or pneumothorax. Pulmonary vascularity: Unremarkable. Heart/mediastinum: Cardiomediastinal silhouette is unremarkable. Atherosclerotic calcifications are seen in the aorta. Two lead cardiac conduction device overlying the left hemithorax with lead tips pr ojecting over the right ventricle and right atrium. Musculoskeletal: No acute osseous pathology. IMPRESSION: Cardiomegaly and mild pulmonary vascular congestion. Correlate with BNP for congestive heart failure.
--- NOTE | 2023-06-29 17:10 | XR ---
EXAMINATION TYPE: XR tibia fibula bilateral DATE OF EXAM: 06/29/2023 4:58 PM CLINICAL INDICATION:Male, 77 years old with history of posterior calf wounds; [facility] COMPARISON: None TECHNIQUE: XR tibia fibula bilateral; tibia/fibula was examined in AP and lateral projections. FINDINGS: No evidence of any acute osseous pathology, or joint dislocation. Severe degeneration fagan es of the knee with trace posterior osteophyte formation. No osseous erosion or subcutaneous gas visu alized. There is diffuse soft tissue edema throughout the legs. IMPRESSION: 1. No evidence of acute fracture. 2. End-stage bilateral knee osteoarthrosis. 3. Bilateral lower extremity soft tissue edema. No evidence for osseous erosion or saphenous gas.
[2023-06-29] MEDS ORDERED: NALOXONE 0.4 MG/ML 1 ML VIAL IV PRN (17:23)
[2023-06-29] MEDS ORDERED: VANCOMYCIN IV PER PHARMACY 1 EACH MISC MISCELLANE PRN (17:23)
--- NOTE | 2023-06-29 17:26 | ED ---
General Adult HPI - General Chief complaint: Wound/Laceration Stated complaint: leg wound Time Seen by Provider: 06/29/23 15:57 Source: patient, RN notes reviewed, old records reviewed Mode of arrival: wheelchair Limitations: no limitations - History of Present Illness Initial comments: Patient is a 77-year-old male who presents emergency department complaining of chronic shortness of breath for years with primary complaint for lower extremity edema which is chronic but worsening weeping in bilateral legs, worse in the posterior left calf. Patient's home nurse told him to come in to be evaluated for possible leg infection. States he is always short of breath. Has been compliant with medications including Lasix. States is no worse than baseline. Is not on oxygen at home. Does have an AICD in place as well as a history of CAD, heart failure, hypertension. States that for the last months to year he has been having worsening leg edema with wounds but over the last few weeks it seems that the left posterior wound is worse. Denies any fevers or chills. Denies any abdominal pain, nausea, vomiting. Has no other acute complaints at this time. Presents as home nursing staff told him to come in to be evaluated for possible cellulitis. Denies any fever, chills, cough. - Related Data Home Medications Medication Instructions Recorded Confirmed Aspirin [Adult Low Dose Aspirin EC] 81 mg PO HS 06/16/18 06/29/23 PARoxetine [Paxil] 20 mg PO HS 06/16/18 06/29/23 Rosuvastatin [Crestor] 20 mg PO HS 11/18/21 06/29/23 Furosemide [Lasix] 80 mg PO DAILY 03/09/22 06/29/23 Pantoprazole [Protonix] 40 mg PO DAILY 03/09/22 06/29/23 Tamsulosin [Flomax] 0.4 mg PO BID 03/09/22 06/29/23 Albuterol Inhaler [Ventolin Hfa 2 puff INHALATION RT-Q6H PRN 08/10/22 06/29/23 Inhaler] Losartan Potassium 50 mg PO HS 08/10/22 06/29/23 Metoprolol Tartrate [Lopressor] 50 mg PO TID 08/10/22 06/29/23 Clopidogrel [Plavix] 75 mg PO HS 06/29/23 06/29/23 Doxycycline Hyclate 100 mg PO BID 06/29/23 06/29/23 Furosemide [Lasix] 40 mg PO DAILY@1200 06/29/23 06/29/23 SILVER sulfADIAZINE Cream 1 applic TOPICAL BID 06/29/23 06/29/23 [Silvadene 1% Cream] Spironolactone [Aldactone] 25 mg PO HS 06/29/23 06/29/23 Previous Rx's Medication Instructions Recorded Nitroglycerin Sl Tabs [Nitrostat] 0.4 mg SUBLINGUAL Q5M PRN #25 tab 06/20/18 Allergies Allergy/AdvReac Type Severity Reaction Status Date / Time No Known Allergies Allergy Verified 06/29/23 17:41 Review of Systems ROS Statement: Those systems with pertinent positive or pertinent negative responses have been documented in the HPI. Review of Systems: CONST: Denies fever EYES: Denies blurry vision ENT: Denies nasal congestion C/V: Denies Chest pain RESP: Denies shortness of breath GI: Denies abdominal pain : Denies dysuria SKIN: Endorses bilateral posterior calf wounds MSK: Denies joint pain. NEURO: Denies headache ROS Other: All systems not noted in ROS Statement are negative. Past Medical History Past Medical History: Coronary Artery Disease (CAD), Heart Failure, CVA/TIA, Hypertension, Myocardial Infarction (MA), Osteoarthritis (OA) Additional Past Medical History / Comment(s): TIA - no residual effects, c/o fatigue,see dr [facility] Last Myocardial Infarction Date:: unknown History of Any Multi-Drug Resistant Organisms: None Reported Past Surgical History: AICD, Heart Catheterization With Stent Additional Past Surgical History / Comment(s): spinal steroid injections, aicd placed Past Anesthesia/Blood Transfusion Reactions: No Reported Reaction Date of Last Stent Placement:: unknown Type of Cardiac Device: AICD Device Placement Date:: feb 2022 Past Psychological History: No Psychological Hx Reported Smoking Status: Former smoker - Past Family History Sister(s) Family Medical History: Cancer General Exam - General Exam Comments Initial Comments: General: Appears in no acute distress. HEAD: Normal with no signs of head trauma. EYES: PERRLA, EOMI, conjunctiva normal, no discharge. ENT: Hearing grossly intact, normal oropharynx. RESPIRATORY: Clear breath sounds bilaterally. No wheezes, rales, or rhonchi. No hypoxia. C/V: Regular rate and rhythm. S1 and S2 auscultated, bilateral lower extremity symmetrical pitting edema, peripheral pulses 2+ and intact throughout ABD: Abd is soft, nontender, nondistended EXT: Normal range of motion, no obvious deformity SKIN: Weeping bilateral lower extremity calf wounds, left worse than right in the posterior aspect. Skin is moist, seems to discriminate with somewhat purulent discharge. Surrounding erythema. No obvious fluctuance or abscess. Also present on the right posterior cath. Seems to be somewhat chronic. NEURO: Alert and oriented x 4. Limitations: no limitations Course Vital Signs 06/29/23 15:49 Temperature 98.7 F Pulse Rate 75 Respiratory 16 Rate Blood Pressure 139/63 O2 Sat by Pulse 96 Oximetry Medical Decision Making - Medical Decision Making Was pt. sent in by a medical professional or institution (, [facility], DIETICIAN, urgent care, hospital, or [facility]...) When possible be specific @ -No Did you speak to anyone other than the patient for history (EMS, parent, family, police, friend...)? What history was obtained from this source @ -No Did you review nursing and triage notes (agree or disagree)? Why? @ -I reviewed and agree with nursing and triage notes Were old charts reviewed (outside hosp., previous admission, EMS record, old EKG, old radiological studies, urgent care reports/EKG's, [facility] records)? Report findings @ -Old charts reviewed Differential Diagnosis (chest pain, altered mental status, abdominal pain women, abdominal pain men, vaginal bleeding, weakness, fever, dyspnea, syncope, headache, dizziness, GI bleed, back pain, seizure, CVA, palpatations, mental health, musculoskeletal)? @ -Cellulitis, CHF, infection, this list is not all inclusive. EKG interpreted by me (3pts min.). @ -As above X-rays interpreted by me (1pt min.). @ -Chest x-ray reveals mild bilateral pulm vascular congestion. Patient's lower extremity x-rays reveal edema of the lower extremities. CT interpreted by me (1pt min.). @ -None done U/S interpreted by me (1pt. min.). @ -None done What testing was considered but not performed or refused? (CT, X-rays, U/S, labs)? Why? @ -None What meds were considered but not given or refused? Why? @ -None Did you discuss the management of the patient with other professionals (professionals i.e. , PA, DIETICIAN, lab, RT, psych nurse, social service liaison, engraver set up operator, teacher, air control/anti air warfare officer, business case analyst)? Give summary @ -Discussed with accepting physician, Dr. Martinez who was in agreement the plan. Was smoking cessation discussed for >3mins.? @ -No Was critical care preformed (if so, how long)? @ -No Were there social determinants of health that impacted care today? How? (Homelessness, low income, unemployed, alcoholism, drug addiction, transportation, low edu. Level, literacy, decrease access to med. care, correction, rehab)? @ -No Was there de-escalation of care discussed even if they declined (Discuss DNR or withdrawal of care, Hospice)? DNR status @ -No What co-morbidities impacted this encounter? (DM, HTN, Smoking, COPD, CAD, Cancer, CVA, ARF, Chemo, Hep., AIDS, mental health diagnosis, sleep apnea, morbid obesity)? @ -None Was patient admitted / discharged? Hospital course, mention meds given and route, prescriptions, significant lab abnormalities, going to OR and other pertinent info. @ -Based on the patient's presentation and physical exam, presents with chronic dyspnea but primarily for concern for lower extremity wound infection. Has chronic weeping wounds likely secondary to his chronic CHF. Left seems worse than right. His at home nurse told him to come get evaluated. Vital signs are within acceptable limits. We will obtain laboratory studies, chest x-ray, lower extremity x-rays. Cultures were also be obtained. Patient was in agreement this plan. Patient's labs are within acceptable limits. Has a chronic anemia. BNP is not significantly elevated. Chest x-ray shows mild pulmonary vascular congestion. Imaging of the lower extremity shows no obvious issue other than edema. I discussed the results with the patient. He will be started on IV vancomycin, infectious disease will be consulted and patient will be admitted to observation. He was in agreement this plan. I spoke with Dr. Driver of [facility] who accepted the patient. Undiagnosed new problem with uncertain prognosis? @ -No Drug Therapy requiring intensive monitoring for toxicity (Heparin, Nitro, Insulin, Cardizem)? @ -No Were any procedures done? @ -No Diagnosis/symptom? @ -Lower extremity cellulitis in the setting of CHF Acute, or Chronic, or Acute on Chronic? @ -Acute Uncomplicated (without systemic symptoms) or Complicated (systemic symptoms)? @ -Complicated Side effects of treatment? @ -No Exacerbation, Progression, or Severe Exacerbation? @ -No Poses a threat to life or bodily function? How? (Chest pain, USA, MA, pneumonia, PE, COPD, DKA, ARF, appy, cholecystitis, CVA, Diverticulitis, Homicidal, Suicidal, threat to staff... and all critical care pts) @ -Possibly, yes - Lab Data Result diagrams: 06/29/23 16:27 06/29/23 16:27 Lab Results 06/29/23 06/29/23 06/29/23 Range/Units 16:27 16: 16:27 WBC 6.5 (3.8-10.6) k/uL RBC 3.70 L (4.30-5.90) m/uL Hgb 9.5 L (13.0-17.5) gm/dL Hct 30.5 L (39.0-53.0) % MCV 82.6 (80.0-100.0) fL MCH 25.8 (25.0-35.0) pg MCHC 31.2 (31.0-37.0) g/dL RDW 16.5 H (11.5-15.5) % Plt Count 241 (150-450) k/uL MPV 8.2 Neutrophils % 76 % Lymphocytes % 5 % Monocytes % 7 % Eosinophils % 8 % Basophils % 1 % Neutrophils # 5.0 (1.3-7.7) k/uL Lymphocytes # 0.3 L (1.0-4.8) k/uL Monocytes # 0.4 (0-1.0) k/uL Eosinophils # 0.5 (0-0.7) k/uL Basophils # 0.1 (0-0.2) k/uL Hypochromasia Moderate Anisocytosis Slight PT 11.0 (10.0-12.5) sec INR 1.0 (<1.2) APTT 24.2 (22.0-30.0) sec Sodium (137-145) mmol/L Potassium (3.5-5.1) mmol/L Chloride (98-107) mmol/L Carbon Dioxide (22-30) mmol/L Anion Gap mmol/L BUN (9-20) mg/dL Creatinine (0.66-1.25) mg/dL Est GFR (CKD-EPI)AfAm (>60 ml/min/1.73 sqM) Est GFR (CKD-EPI)NonAf (>60 ml/min/1.73 sqM) Glucose (74-99) mg/dL Plasma Lactic Acid Casa (0.7-2.0) mmol/L Calcium (8.4-10.2) mg/dL Magnesium (1.6-2.3) mg/dL Total Bilirubin (0.2-1.3) mg/dL AST (17-59) U/L ALT (4-49) U/L Alkaline Phosphatase (38-126) U/L NT-Pro-B Natriuret Pep pg/mL Total Protein (6.3-8.2) g/dL Albumin (3.5-5.0) g/dL Urine Color Colorless Urine Appearance Clear (Clear) Urine pH 5.5 (5.0-8.0) Ur Specific [place] 1.011 (1.001-1.035) Urine Protein Negative (Negative) Urine Glucose (UA) Negative (Negative) Urine Ketones Negative (Negative) Urine Blood Negative (Negative) Urine Nitrite Negative (Negative) Urine Bilirubin Negative (Negative) Urine Urobilinogen <2.0 (<2.0) mg/dL Ur Leukocyte Esterase Trace H (Negative) Urine RBC 4 (0-5) /hpf Urine WBC 5 (0-5) /hpf Ur Squamous Epith Cells <1 (0-4) /hpf Urine Bacteria Rare H (None) /hpf Hyaline Casts 7 H (0-2) /lpf Urine Mucus Rare H (None) /hpf 06/29/23 06/29/23 Range/Units 16:27 16:27 WBC (3.8-10.6) k/uL RBC (4.30-5.90) m/uL Hgb (13.0-17.5) gm/dL Hct (39.0-53.0) % MCV (80.0-100.0) fL MCH (25.0-35.0) pg MCHC (31.0-37.0) g/dL RDW (11.5-15.5) % Plt Count (150-450) k/uL MPV Neutrophils % % Lymphocytes % % Monocytes % % Eosinophils % % Basophils % % Neutrophils # (1.3-7.7) k/uL Lymphocytes # (1.0-4.8) k/uL Monocytes # (0-1.0) k/uL Eosinophils # (0-0.7) k/uL Basophils # (0-0.2) k/uL Hypochromasia Anisocytosis PT (10.0-12.5) sec INR (<1.2) APTT (22.0-30.0) sec Sodium 140 (137-145) mmol/L Potassium 4.4 (3.5-5.1) mmol/L Chloride 106 (98-107) mmol/L Carbon Dioxide 28 (22-30) mmol/L Anion Gap 6 mmol/L BUN 32 H (9-20) mg/dL Creatinine 1.43 H (0.66-1.25) mg/dL Est GFR (CKD-EPI)AfAm 55 (>60 ml/min/1.73 sqM) Est GFR (CKD-EPI)NonAf 47 (>60 ml/min/1.73 sqM) Glucose 144 H (74-99) mg/dL Plasma Lactic Acid Casa 1.4 (0.7-2.0) mmol/L Calcium 8.9 (8.4-10.2) mg/dL Magnesium 1.9 (1.6-2.3) mg/dL Total Bilirubin 0.4 (0.2-1.3) mg/dL AST 25 (17-59) U/L ALT 22 (4-49) U/L Alkaline Phosphatase 70 (38-126) U/L NT-Pro-B Natriuret Pep 689 pg/mL Total Protein 6.8 (6.3-8.2) g/dL Albumin 3.7 (3.5-5.0) g/dL Urine Color Urine Appearance (Clear) Urine pH (5.0-8.0) Ur Specific [place] (1.001-1.035) Urine Protein (Negative) Urine Glucose (UA) (Negative) Urine Ketones (Negative) Urine Blood (Negative) Urine Nitrite (Negative) Urine Bilirubin (Negative) Urine Urobilinogen (<2.0) mg/dL Ur Leukocyte Esterase (Negative) Urine RBC (0-5) /hpf Urine WBC (0-5) /hpf Ur Squamous Epith Cells (0-4) /hpf Urine Bacteria (None) /hpf Hyaline Casts (0-2) /lpf Urine Mucus (None) /hpf - EKG Data -: EKG Interpreted by Me EKG Comments: 12-lead Electrocardiogram Interpretation Note EKG was reviewed and interpreted by myself. 12-lead ECG performed at 1705 is interpreted by me as revealing normal sinus rhythm at a rate of 78 beats per minute. Left axis deviation. IN interval is 73 ms, QRS duration is 129 ms, QTc is 416 ms. PVC present.. There were no ST or T wave abnormalities to suggest myocardial ischemia or injury. R wave progression across the precordium was satisfactory. By my interpretation this EKG is non-diagnostic for acute ischemia. Disposition Clinical Impression: Cellulitis, History of CHF (congestive heart failure) Disposition: ADMITTED IP TO THIS HOSP Condition: Stable Time of Disposition: 17:20
[2023-06-29] MEDS: FUROSEMIDE 10 MG/ML 4 ML VIAL IV STA (18:20)
[2023-06-29] MEDS: VANCOMYCIN 2,000 MG in SODIUM CHLORIDE 0.9% 500 ML 500 ML IVPB STA (18:21)
[2023-06-29] MEDS ORDERED: NITROGLYCERIN SL TABS 0.4 MG TAB SUBLINGUAL PRN (20:02)
[2023-06-29] MEDS ORDERED: ALBUTEROL NEBULIZED 2.5 MG/3 ML INHALATION PRN (20:02)
[2023-06-29] MEDS: TAMSULOSIN 0.4 MG CAP.ER.24H PO SCH (22:16)
[2023-06-29] MEDS: HEPARIN SODIUM,PORCINE 5,000 UNIT/ML 1 ML VIAL SQ SCH (22:16)
[2023-06-29] MEDS: LOSARTAN 50 MG TAB PO SCH (22:16)
[2023-06-29] MEDS: ASPIRIN 81 MG PO SCH (22:16)
[2023-06-29] MEDS: SPIRONOLACTONE 25 MG TAB PO SCH (22:16)
[2023-06-29] MEDS: CLOPIDOGREL 75 MG TAB PO SCH (22:16)
[2023-06-29] MEDS: METOPROLOL TARTRATE 50 MG TAB PO SCH (22:16)
[2023-06-29] MEDS: PARoxetine 20 MG TAB PO SCH (22:19)
[2023-06-30 08:35] LABS: Basophils # (A) 0.08 X 10*3/uL (0.00-0.10); Basophils % (A) 1.1 %; Eosinophils # (A) 0.59 X 10*3/uL (0.04-0.35); Eosinophils % (A) 8.2 %; HCT 30.4 % (39.6-50.0); HGB 9.2 g/dL (13.0-17.0); Lymphocytes # (A) 0.53 X 10*3/uL (0.90-5.00); Lymphocytes % (A) 7.4 %; MCH 25.3 pg (27.0-32.0); MCHC 30.3 g/dL (32.0-37.0); MCV 83.7 FL (80.0-97.0); Mean Platelet Volume 10.2 FL (9.5-12.2); Monocytes % (A) 13.9 %; NRBC Per 100 WBC 0 X 10*3/uL (0.00-0.01); Neutrophils # (A) 4.96 X 10*3/uL (1.80-7.70); Neutrophils % (A) 68.8 %; Platelet Count 243 X 10*3/uL (140-440); RBC 3.63 X 10*6/uL (4.40-5.60); RDW 17.1 % (11.5-14.5)
[2023-06-30 08:50] LABS: BUN/Creat Ratio 22.29 Ratio (12.00-20.00); Blood Urea Nitrogen 31.2 mg/dL (9.0-27.0); Calcium 9.1 mg/dL (8.7-10.3); Carbon Dioxide 25.5 mmol/L (21.6-31.8); Chloride 104 mmol/L (96-109); Glucose 105 mg/dL (70-110); Potassium 4.4 mmol/L (3.5-5.5); Sodium 141 mmol/L (135-145)
[2023-06-30] MEDS: VANCOMYCIN 2,000 MG in SODIUM CHLORIDE 0.9% 500 ML 500 ML IVPB SCH (09:58)
[2023-06-30] MEDS: PANTOPRAZOLE 40 MG TABLET PO SCH (10:00)
[2023-06-30] MEDS: FUROSEMIDE 80 MG TAB PO SCH (10:00)
[2023-06-30] MEDS: NYSTATIN 100,000 UNIT/GM POWD 15 GM TOPICAL SCH (10:00)
[2023-06-30] MEDS ORDERED: IPRATROPIUM-ALBUTEROL 3 ML NEB INHALATION PRN (10:43)
[2023-06-30] MEDS ORDERED: DEXTROSE 50% SYRINGE 50 ML IVP PRN ×2 (10:45)
[2023-06-30] MEDS: FORMOTEROL FUMARATE 20 MCG/2 ML NEBU INHALATION SCH (11:18)
[2023-06-30] MEDS: BUDESONIDE 1 MG/2 ML NEBU INHALATION SCH (11:18)
[2023-06-30] MEDS: THIAMINE 100 MG/ML 2 ML VIAL IM STA (11:19)
--- NOTE | 2023-06-30 11:40 | HP ---
HISTORY AND PHYSICAL CHIEF COMPLAINT: Bilateral leg wounds and shortness of breath. HISTORY OF PRESENT ILLNESS: This is a 77-year-old gentleman with a past medical history of multiple medical problems including CAD, AICD, CHF, was complaining of bilateral leg wound infection. The patient is extremely short of breath. The patient came to [facility], was admitted for evaluation and treatment. Chest x-ray showed some increased vascular markings, but mostly, the shortness of breath is due to COPD exacerbation with severe wheezing at this time. The patient is started on broad-spectrum IV antibiotics. The ejection fraction was found to be 45% in the 2D echo done in 2021. PAST MEDICAL HISTORY: Reviewed includes CAD, CHF, CVA, TIA, rest of the history as per chart was also reviewed. HOME MEDICATIONS: Reviewed include nitroglycerin. Rest of medications reviewed. ALLERGIES: None. FAMILY HISTORY: History of cancer in the family. SOCIAL HISTORY: Previous history of smoking and daily alcohol intake. REVIEW OF SYSTEMS: A 14-point review of systems negative as mentioned earlier. PHYSICAL EXAMINATION: VITAL SIGNS: Pulse is 71, blood pressure n and respirations 20. HEENT: Conjunctivae normal. n Bilateral scattered rhonchi and expiratory wheezing and crackles. ABDOMEN: Soft and nontender. LEGS: Bilateral leg edema and significant infection, cellulitis, itching also present. NERVOUS SYSTEM: No focal deficit. JOINT: No active infection. Otherwise, skin as mentioned. LABORATORY DATA: Hemoglobin 9.2. Chest x-ray reviewed personally. Rest of the labs are also reviewed personally. ASSESSMENT: 1. Shortness of breath, multifactorial, chronic obstructive pulmonary disease, acute exacerbation as well as congestive heart failure, acute exacerbation. 2. Bilateral leg cellulitis with failure of outpatient treatment. 3. Congestive heart failure with acute exacerbation, acute on chronic systolic dysfunction, ejection fraction 45%. 4. History of coronary artery disease. 5. Hypertension. 6. History of degenerative joint disease. 7. History of automatic implantable cardioverter-defibrillator. 8. History of coronary artery disease and stent. 9. History of nicotine dependence. 10.History of EtOH. 11.Obesity with a body mass index of 44.9. RECOMMENDATIONS AND DISCUSSION: This 77-year-old gentleman presented with multiple complex medical issues, we will monitor the patient closely. We will recommend IV Lasix as well as Cardiology, Pulmonology consultations. I would also recommend repeat labs, empiric antibiotics, infectious disease evaluation. Monitor creatinine closely, IV steroids, bronchodilators. Resume the home medications once they are confirmed. Overall, prognosis is extremely guarded because of multiple complex medical issues as listed above. The patient is extremely short of breath at rest, unable to even complete full sentences at this time, so the patient will definitely require full inpatient admission, requiring more than 2 night stay. Further recommendations to follow. MMJULIAL / IJN: [id number] / JAMISON
--- NOTE | 2023-06-30 11:58 | P.CRDCN ---
History of Present Illness Consult date: 06/30/23 Consult reason: congestive heart failure History of present illness: History of present illness: This is a 77-year-old patient of Dr. RADHA Figueroa with past medical history of ischemic and nonischemic cardiomyopathy, coronary artery disease status post PCI of the RCA, dual-chamber ICD, hypertension, hyperlipidemia, former nicotine dependence, COPD, obesity, history of alcohol intake and poor functional capacity. We have been asked to evaluate the patient for CHF. Patient states that he came into the hospital due to leg swelling and reddness which he states has been going on for a year. He has been treated outpatient with antibiotics and ointment without improvement. Patient denies having any chest pain no palpitations, no dizziness or lightheadedness. No syncopal episodes. No nausea or vomiting. His shortness of breath and breathing are at its baseline. Patient quit smoking many years ago. Patient is not physically active. Patient has been admitted to the [facility] floor and started on antibiotics as well as Solu-Medrol, IV Lasix 40 mg every 8 hours. EKG sinus rhythm. Chest x-ray: Cardiomegaly and mild pulmonary vascular congestion WBC 7.2, hemoglobin 9.2, platelet count 243. INR 1. Electrolytes are normal. BUN 31 creatinine 1.4. Glucose 105. Liver function tests are within normal limits. Magnesium 1.9. Home cardiac medications: Aspirin 81 mg daily, Plavix 75 mg daily, Lasix 80 mg daily and 40 mg at noon, losartan 50 mg at bedtime, Lopressor 50 mg 3 times daily, Nitrostat as needed, Crestor 20 mg at bedtime, Aldactone 25 mg at W Dual-chamber ICD interrogation and reprogramming 05/10/[address] Beckett. ([facility]) Echocardiogram 03/10/2022 revealed EF of 45%, no significant pulmonary hypertension. Lexiscan stress test obtained 04/01/2020. Inconclusive by EKG criteria due to resting images. Abnormal MPI with moderate size, moderate intensity inferior wall fixed defect with partial reversibility and hypokinesia suggestive prior CA with mild. Infarct ischemia. EF 45%. Cardiac catheterization performed 11/18/2021 revealed widely patent RCA at the site of previous stenting with diffuse calcified disease throughout the RCA and branches. Left main has 20% narrowing. No significant disease in the LAD or circumflex. Filling pressures are mildly elevated and there is no gradient across the aortic valve. History of stent to the RCA 06/20/2018. Review Of Systems: At the time of my exam: CONSTITUTIONAL: Denies fever or chills. CARDIOVASCULAR: Denies chest pain, reports shortness of breath, no orthopnea, PND or palpitations. RESPIRATORY: Denies cough. Reports chronic shortness of breath at baseline. GASTROINTESTINAL: Denies abdominal pain, diarrhea, constipation, nausea or vomiting. MUSCULOSKELETAL: Denies myalgias. Reports significant lower extremity edema and redness. NEUROLOGIC: Denies numbness, tingling or weakness. ENDOCRINE: Denies fatigue, weight change, polydipsia or polyurina. GENITOURINARY: Denies burning, hematuria or urgency with micturation. HEMATOLOGIC: Denies history of anemia or bleeding. Physical examination: Gen: This is a 77-year-old male in no acute distress VS: reviewed HEENT: Head is atraumatic, normocephalic. Pupils equal, round. Sclerae is anicteric. NECK: Supple. No JVD. LUNGS: Clear to auscultation. No wheezes or rhonchi. No intercostal retractions. HEART: Regular rate and rhythm. Systolic ejection murmur. ABDOMEN: Soft No tenderness. EXTREMITIES: 3+ bilateral lower extremity edema with significant erythema and weeping. NEUROLOGICAL: Patient is awake, alert and oriented x3. Assessment: Bilat LE cellulitis No active heart failure at this time Ischemic and nonischemic cardiomyopathy Coronary artery disease status post PCI of the RCA History of dual-chamber ICD Hypertension Hyperlipidemia COPD Morbid obesity with BMI 44 History of tobacco use and dependence Plan: Resume patient's home cardiac medications Discontinue Plavix at stent was >1y ago Continue IV Lasix for another 24 hours Monitor I&O, daily weights electrolytes and renal function Question need for IV Solu-Medrol Continue treatment for cellulitis Obtain 2-D echocardiogram and Doppler study to assess cardiac structure and function Further recommendations to follow based upon clinical course Thank you kindly for this consultation. Nurse practitioner note has been reviewed, I agree with documented findings and plan of care. Patient was seen and examined. Past Medical History Past Medical History: Coronary Artery Disease (CAD), Heart Failure, CVA/TIA, Hypertension, Myocardial Infarction (CA), Osteoarthritis (OA) Additional Past Medical History / Comment(s): TIA - no residual effects, c/o fatigue,see dr Beckett's H & P Last Myocardial Infarction Date:: unknown History of Any Multi-Drug Resistant Organisms: None Reported Past Surgical History: AICD, Heart Catheterization With Stent Additional Past Surgical History / Comment(s): spinal steroid injections, aicd placed Past Anesthesia/Blood Transfusion Reactions: No Reported Reaction Date of Last Stent Placement:: unknown Type of Cardiac Device: AICD Device Placement Date:: feb 2022 Past Psychological History: No Psychological Hx Reported Smoking Status: Former smoker Past Alcohol Use History: Daily Additional Past Alcohol Use History / Comment(s): quit smoking 25 yrs ago, smokeless tobacco until 1 yr ago; pint a day for years-stopped in September 2021 Past Drug Use History: None Reported - Past Family History Sister(s) Family Medical History: Cancer Medications and Allergies Home Medications Medication Instructions Recorded Confirmed Type Aspirin [Adult Low Dose Aspirin EC] 81 mg PO HS 06/16/18 06/29/23 History PARoxetine [Paxil] 20 mg PO HS 06/16/18 06/29/23 History Nitroglycerin Sl Tabs [Nitrostat] 0.4 mg SUBLINGUAL Q5M PRN #25 tab 06/20/18 06/29/23 Rx Rosuvastatin [Crestor] 20 mg PO HS 11/18/21 06/29/23 History Furosemide [Lasix] 80 mg PO DAILY 03/09/22 06/29/23 History Pantoprazole [Protonix] 40 mg PO DAILY 03/09/22 06/29/23 History Tamsulosin [Flomax] 0.4 mg PO BID 03/09/22 06/29/23 History Albuterol Inhaler [Ventolin Hfa 2 puff INHALATION RT-Q6H PRN 08/10/22 06/29/23 History Inhaler] Losartan Potassium 50 mg PO HS 08/10/22 06/29/23 History Metoprolol Tartrate [Lopressor] 50 mg PO TID 08/10/22 06/29/23 History Clopidogrel [Plavix] 75 mg PO HS 06/29/23 06/29/23 History Doxycycline Hyclate 100 mg PO BID 06/29/23 06/29/23 History Furosemide [Lasix] 40 mg PO DAILY@1200 06/29/23 06/29/23 History SILVER sulfADIAZINE Cream 1 applic TOPICAL BID 06/29/23 06/29/23 History [Silvadene 1% Cream] Spironolactone [Aldactone] 25 mg PO HS 06/29/23 06/29/23 History Allergies Allergy/AdvReac Type Severity Reaction Status Date / Time No Known Allergies Allergy Verified 06/29/23 17:41 Physical Exam Vitals: Vital Signs Temp Pulse Pulse Resp BP BP Pulse Ox 06/30/23 07:30 98.5 F 71 20 129/69 97 06/30/23 02:00 98.0 F 62 20 103/50 94 L 06/29/23 22:09 98.3 F 83 20 107/82 97 06/29/23 21:03 80 18 105/69 99 06/29/23 19:33 78 18 122/73 98 06/29/23 17:00 79 18 110/78 98 06/29/23 16:00 81 18 95/64 98 06/29/23 15:49 98.7 F 75 16 139/63 96 Intake and Output 06/29/23 06/30/23 06/30/23 22:59 06:59 14:59 Intake Total 240 480 Output Total 300 Balance 240 180 Intake: Oral 240 480 Output: Urine 300 Other: Voiding Method Urinal Urinal Incontinent Incontinent Weight 120 kg 134 kg Results 06/30/23 05:34 06/30/23 05:34 Cardiac Enzymes 06/29/23 Range/Units 16:27 AST 25 (17-59) U/L Coagulation 06/29/23 Range/Units 16:27 PT 11.0 (10.0-12.5) sec APTT 24.2 (22.0-30.0) sec CBC 06/29/23 06/30/23 Range/Units 16:27 05:34 WBC 6.5 7.20 (3.8-10.6) k/uL RBC 3.70 L 3.63 L (4.30-5.90) m/uL Hgb 9.5 L 9.2 L (13.0-17.5) gm/dL Hct 30.5 L 30.4 L (39.0-53.0) % Plt Count 241 243 (150-450) k/uL Comprehensive Metabolic Panel 06/29/23 06/30/23 Range/Units 16:27 05:34 Sodium 140 141 (137-145) mmol/L Potassium 4.4 4.4 (3.5-5.1) mmol/L Chloride 106 104 (98-107) mmol/L Carbon Dioxide 28 25.5 (22-30) mmol/L BUN 32 H 31.2 H (9-20) mg/dL Creatinine 1.43 H 1.4 (0.66-1.25) mg/dL Glucose 144 H 105 (74-99) mg/dL Calcium 8.9 9.1 (8.4-10.2) mg/dL AST 25 (17-59) U/L ALT 22 (4-49) U/L Alkaline Phosphatase 70 (38-126) U/L Total Protein 6.8 (6.3-8.2) g/dL Albumin 3.7 (3.5-5.0) g/dL Current Medications Generic Name Dose Route Start Last Admin Trade Name Freq PRN Reason Stop Dose Admin Albuterol/Ipratropium 3 ml 06/30/23 12:00 Ipratropium-Albuterol 3 Ml Neb INHALATION RT-QID BRIGITTE Albuterol/Ipratropium 3 ml 06/30/23 10:43 Ipratropium-Albuterol 3 Ml Neb INHALATION RT-QID PRN Shortness Of Breath Or Wheezing Aspirin 81 mg 06/29/23 21:00 06/29/23 22:16 Aspirin 81 Mg PO 81 mg HS BRIGITTE Administration Atorvastatin Calcium 40 mg 06/30/23 21:00 Atorvastatin 40 Mg Tab PO HS BRIGITTE Budesonide 1 mg 06/30/23 10:44 Budesonide 1 Mg/2 Ml Nebu INHALATION RT-BID BRIGITTE Clopidogrel Bisulfate 75 mg 06/29/23 21:00 06/29/23 22:16 Clopidogrel 75 Mg Tab PO 75 mg HS BRIGITTE Administration Dextrose/Water 25 ml 06/30/23 10:45 Dextrose 50% Syringe 50 Ml IVP PER PROTOCOL PRN Hypoglycemia Protocol Dextrose/Water 50 ml 06/30/23 10:45 Dextrose 50% Syringe 50 Ml IVP PER PROTOCOL PRN Hypoglycemia Protocol Formoterol Fumarate 20 mcg 06/30/23 10:44 Formoterol Fumarate 20 Mcg/2 Ml Nebu INHALATION RT-BID BRIGITTE Furosemide 40 mg 06/30/23 10:45 Furosemide 10 Mg/Ml 4 Ml Vial IV Q8HR [facility] Heparin Sodium (Porcine) 5,000 unit 06/29/23 21:00 06/30/23 09:59 Heparin Sodium,Porcine 5,000 Unit/Ml 1 Ml Vial SQ 5,000 unit Q12HR BRIGITTE Administration Vancomycin HCl 2,000 mg/ 500 mls @ 167 mls/hr 06/30/23 09:00 06/30/23 09:58 Sodium Chloride IVPB 167 mls/hr Q24H BRIGITTE Administration Insulin Aspart 0 unit 06/30/23 12:30 Insulin Aspart (Novolog) 100 Unit/Ml Vial SQ ACHS [facility] Protocol Losartan Potassium 50 mg 06/29/23 21:00 06/29/23 22:16 Losartan 50 Mg Tab PO 50 mg HS BRIGITTE Administration Methylprednisolone Sodium Succinate 60 mg 06/30/23 12:00 Methylprednisolone Sod Succi 125 Mg/2 Ml Vial IV Q6HR BRIGITTE Metoprolol Tartrate 50 mg 06/29/23 22:00 06/30/23 10:00 Metoprolol Tartrate 50 Mg Tab PO 50 mg TID BRIGITTE Administration Naloxone HCl 0.2 mg 06/29/23 17:23 Naloxone 0.4 Mg/Ml 1 Ml Vial IV Q2M PRN Opioid Reversal Nitroglycerin 0.4 mg 06/29/23 20:02 Nitroglycerin Sl Tabs 0.4 Mg Tab SUBLINGUAL Q5M PRN Chest Pain Nystatin 1 applic 06/30/23 09:00 06/30/23 10:00 Nystatin 100,000 Unit/Gm Powd 15 Gm TOPICAL 1 applic BID BRIGITTE Administration Protocol Pantoprazole Sodium 40 mg 06/30/23 09:00 06/30/23 10:00 Pantoprazole 40 Mg Tablet PO 40 mg DAILY BRIGITTE Administration Paroxetine HCl 20 mg 06/29/23 21:00 06/29/23 22:19 Paroxetine 20 Mg Tab PO 20 mg HS BRIGITTE Administration Spironolactone 25 mg 06/29/23 21:00 06/29/23 22:16 Spironolactone 25 Mg Tab PO 25 mg HS BRIGITTE Administration Tamsulosin HCl 0.4 mg 06/29/23 21:00 06/30/23 10:00 Tamsulosin 0.4 Mg Cap.Er.24h PO 0.4 mg BID BRIGITTE Administration Thiamine HCl 100 mg 07/01/23 09:00 Thiamine 100 Mg Tab PO DAILY BRIGITTE Intake and Output 06/29/23 06/30/23 06/30/23 22:59 06:59 14:59 Intake Total 240 480 Output Total 300 Balance 240 180 Intake: Oral 240 480 Output: Urine 300 Other: Voiding Method Urinal Urinal Incontinent Incontinent Weight 120 kg 134 kg 06/30/23 05:34 06/30/23 05:34
[2023-06-30] MEDS ORDERED: FUROSEMIDE 40 MG TAB PO SCH (12:00)
[2023-06-30] MEDS: IPRATROPIUM-ALBUTEROL 3 ML NEB INHALATION SCH (12:27)
[2023-06-30 12:37] LABS: Glucose,Whole Blood 106 mg/dL (70-110)
[2023-06-30] MEDS: INSULIN ASPART (NovoLOG) 100 UNIT/ML VIAL SQ SCH (12:38)
[2023-06-30] MEDS: methylPREDNISolone SOD SUCCI 125 MG/2 ML VIAL IV SCH (12:41)
[2023-06-30] MEDS: FUROSEMIDE 10 MG/ML 4 ML VIAL IV SCH (12:41)
[2023-06-30] MEDS ORDERED: ceFAZolin 1 GM in DEXTROSE/WATER 1 50ML.BAG IVPB SCH (16:00)
[2023-06-30] MEDS: diphenhydrAMINE 2% CREAM 28.4 GM TUBE TOPICAL SCH (17:21)
[2023-06-30 17:39] LABS: Glucose,Whole Blood 207 mg/dL (70-110)
--- NOTE | 2023-06-30 19:49 | P.CNPUL ---
History of Present Illness Consult date: 06/30/23 Reason for consult: dyspnea, COPD History of present illness: I was asked to evaluate this patient in consultation because of his history of COPD. The patient is a 77-year-old male patient was admitted to the hospital on 06/29/2023 complaining of some shortness of breath, a chronic problem. At the same time, the patient had lower extremity edema which was progressively getting worse and the patient also had extensive edema and weeping of the fluid from the skin surface worse in the posterior left calf. There was concern of superimposed cellulitis in the area and for that reason the patient was referred to the hospital. Noted the patient also is known to have coronary artery disease and history of ischemic cardiomyopathy and the patient has an AICD in place. The patient has been compliant to his medication including the diuretics and the patient has been taking Lasix on outpatient basis. His other comorbidities include hypertension. At the time of his admission, the patient had a white cell count of 6.5 with a hemoglobin 9.5, sodium is at 140 with a BMI of 32 and a creatinine of 1.43. The patient has had chronic elevation of the creatinine and he may have an underlying chronic kidney disease, stage III. His hemoglobin is at 9.5 at the time of admission with an MCV of 82 and the patient has had history of anemia of chronic disease. His chest x-ray was also reviewed and the patient was found to have cardiomegaly without any acute cardiopulmonary abnormalities. The patient has pacer/AICD over the left anterior chest area. The EKG was consistent with a sinus rhythm with left axis deviation and right ventricular conduction delay and the patient also has frequent PVCs. Based on all this, the patient was started on IV cefazolin 2 g every 8 hours. The patient is also on IV Lasix 40 mg every 8 hours. Patient was also suspected to be in [employer] exacerbation started with a combination of bronchodilators and the pat ient is currently on DuoNeb updrafts, Perforomist and Pulmicort updrafts twice a day and IV Solu-Medrol. The patient is currently on room air oxygen with a pulse ox of 97%. Other comorbid conditions include hypertension, hyperlipidemia, previous history of TIA along with history of coronary artery disease CHF and COPD. Patient also suffers from chronic back pain and spinal stenosis. Based on our records, his last available echocardiogram is from 11/18/2021 and the patient was found to have moderate to severe LV dysfunction/systolic heart failure with an ejection fraction of 30 to 35%. Mild aortic stenosis with a peak gradient of 13 and a mean gradient of 7. X-ray of the tibia/fibula that was done in the emergency showed bilateral lower extremity soft tissue edema. Bilateral knee oste oarthritis without any evidence of fracture. Review of Systems Constitutional: No fever, no chills, no night sweats. No weight change. positive generalized weakness fatigue and lethargy. EENT: No headache. No blurred vision or double vision, no loss of vision. No loss of Hearing, no ringing in the ears, no dizziness. No nasal drainage or congestion. No epistaxis. No sore throat. Lungs: positive shortness of breath, mild cough, no sputum production, positive mild wheezes and tightness. Cardiovascular: positive tightness and discomfort with no typical angina, positive lower extremity edema, positive palpitations, positive PND and or thopnea with lightheadedness without syncope. Increased lower extremity edema, skin weeping, erythema and cellulitis. Abdominal: No abdominal pain. No nausea, vomiting. No diarrhea. No constipation. No bloody or tarry stools.. No loss of appetite. Genitourinary: No dysuria, increased frequency, urgency. No urinary retention. Musculoskeletal: No myalgias. No muscle weakness, no gait dysfunction, no frequent falls. No back pain. No neck pain. Integumentary: No wounds, no lesions. No rash or pruritus. No unusual bruising. No change in hair or nails. Neurologic: No aphasia. No facial droop. No change in mentation. No head injury. No headache. No paralysis. No paresthesia. Psychiatric: No depression. No anxiety. No mood swings. Endocrine: No abnormal blood sugars. No weight change. No excessive sweating or thirst. No cold intolerance. Past Medical History Past Medical History: Coronary Artery Disease (CAD), Heart Failure, CVA/TIA, H ypertension, Myocardial Infarction ([place]), Osteoarthritis (OA) Additional Past Medical History / Comment(s): TIA - no residual effects, c/o fatigue,see dr Beckett's H & P Last Myocardial Infarction Date:: unknown History of Any Multi-Drug Resistant Organisms: None Reported Past Surgical History: AICD, Heart Catheterization With Stent Additional Past Surgical History / Comment(s): spinal steroid injections, aicd placed Past Anesthesia/Blood Transfusion Reactions: No Reported Reaction Date of Last Stent Placement:: unknown Type of Cardiac Device: AICD Device Placement Date:: feb 2022 Past Psychological History: No Psychological Hx Reported Smoking Status: Former smoker Past Alcohol Use History: Daily Additional Past Alcohol Use History / Comment(s): quit smoking 25 yrs ago, smokeless tobacco until 1 yr ago; pint a day for years-stopped in September 2021 Past Drug Use History: None Reported - Past Family History Sister(s) Family Medical History: Cancer Medications and Allergies Home Medications Medication Instructions Recorded Confirmed Type Aspirin [Adult Low Dose Aspirin EC] 81 mg PO HS 06/16/18 06/29/23 History PARoxetine [Paxil] 20 mg PO HS 06/16/18 06/29/23 History Nitroglycerin Sl Tabs [Nitrostat] 0.4 mg SUBLINGUAL Q5M PRN #25 tab 06/20/18 06/29/23 Rx Rosuvastatin [Crestor] 20 mg PO HS 11/18/21 06/29/23 History Furosemide [Lasix] 80 mg PO DAILY 03/09/22 06/29/23 History Pantoprazole [Protonix] 40 mg PO DAILY 03/09/22 06/29/23 History Tamsulosin [Flomax] 0.4 mg PO BID 03/09/22 06/29/23 History Albuterol Inhaler [Ventolin Hfa 2 puff INHALATION RT-Q6H PRN 08/10/22 06/29/23 History Inhaler] Losartan Potassium 50 mg PO HS 08/10/22 06/29/23 History Metoprolol Tartrate [Lopressor] 50 mg PO TID 08/10/22 06/29/23 History Clopidogrel [Plavix] 75 mg PO HS 06/29/23 06/29/23 History Doxycycline Hyclate 100 mg PO BID 06/29/23 06/29/23 History Furosemide [Lasix] 40 mg PO DAILY@1200 06/29/23 06/29/23 History SILVER sulfADIAZINE Cream 1 applic TOPICAL BID 06/29/23 06/29/23 History [Silvadene 1% Cream] Spironolactone [Aldactone] 25 mg PO HS 06/29/23 06/29/23 History Allergies Allergy/AdvReac Type Severity Reaction Status Date / Time No Known Allergies Allergy Verified 06/29/23 17:41 Physical Exam Vitals: Vital Signs Temp Pulse Pulse Resp BP BP BP 06/30/23 16:36 88 06/30/23 16:27 84 06/30/23 16:21 98.1 F 78 18 110/63 06/30/23 12:37 86 06/30/23 12:28 86 06/30/23 11:48 97.6 F 69 20 91/47 06/30/23 07:30 98.5 F 71 20 129/69 06/30/23 02:00 98.0 F 62 20 103/50 06/29/23 22:09 98.3 F 83 20 107/82 06/29/23 21:03 80 18 105/69 Pulse Ox 06/30/23 16:36 06/30/23 16:27 06/30/23 16:21 97 06/30/23 12:37 06/30/23 12:28 06/30/23 11:48 92 L 06/30/23 07:30 97 06/30/23 02:00 94 L 06/29/23 22:09 97 06/29/23 21:03 99 Intake and Output 06/30/23 06/30/23 06/30/23 06:59 14:59 22:59 Intake Total 480 Output Total 300 Balance 180 Intake: Oral 480 Output: Urine 300 Other: Voiding Method Urinal Incontinent # Voids 2 Weight 134 kg Gen: This is morbidly obese sitting in bed in mild respiratory distress. The patient is currently on room air oxygen Head exam was generally normal. There was no scleral icterus or corneal arcus. Mucous membranes were moist. HEENT: Head is atraumatic, normocephalic. Pupils equal, round. Sclerae is anicteric. NECK: Supple. No JVD. No lymphadenopathy. No thyromegaly. LUNGS: decreased breath some relative fine rhonchi, positive mild crackles in the bases positive mild Expiratory wheezes HEART: Regular rate and rhythm, S1, S2 positive history. positive systolic murmur. ABDOMEN: Soft. Bowel sounds are present. No masses. No tenderness. EXTREMITIES: 3+ bilateral lower extremity edema with significant erythema and weeping. NEUROLOGICAL: Patient is awake, alert and oriented x3. Cranial nerves 2 through 12 are grossly intact. Results - Laboratory Findings CBC and BMP: 06/30/23 05:34 06/30/23 05:34 PT/INR, D-dimer PT 11.0 sec (10.0-12.5) 06/29/23 16:27 INR 1.0 (<1.2) 06/29/23 16:27 Abnormal lab findings: Abnormal Labs 06/29/23 06/29/23 06/29/23 16:27 16:27 16:27 RBC 3.70 L Hgb 9.5 L Hct 30.5 L MCH MCHC RDW 16.5 H Lymphocytes # 0.3 L Eosinophils # BUN 32 H Creatinine 1.43 H Est GFR (CKD-EPI) BUN/Creatinine Ratio Glucose 144 H POC Glucose (mg/dL) Ur Leukocyte Esterase Trace H Urine Bacteria Rare H Hyaline Casts 7 H Urine Mucus Rare H 06/30/23 06/30/23 06/30/23 05:34 05:34 17:37 RBC 3.63 L Hgb 9.2 L Hct 30.4 L MCH 25.3 L MCHC 30.3 L RDW 17.1 H Lymphocytes # 0.53 L Eosinophils # 0.59 H BUN 31.2 H Creatinine Est GFR (CKD-EPI) 52 L BUN/Creatinine Ratio 22.29 H Glucose POC Glucose (mg/dL) 207 H Ur Leukocyte Esterase Urine Bacteria Hyaline Casts Urine Mucus Assessment and Plan Plan: Chronic dyspnea secondary to COPD and CHF. No significant hypoxemia the patient is currently on room air oxygen. Nevertheless, the patient has underlying COPD and a component of CHF with obvious signs of fluid overload and increased lower extremity edema and a chest x-ray showing cardiomegaly and mild pulm vessel congestion. No evidence of any pneumonia. CHF with systolic heart failure and an EF around 30 to 35%, status post AICD placement Coronary artery disease, previous history of non-ST segment elevation myocardial infarction and the patient has undergone previous coronary intervention and stenting of the RCA back in 2019 Increased lower extremity edema and cellulitis, currently on antibiotics Previous history of TIA Chronic kidney disease, stage III Hypertension Hyperlipidemia Anemia of chronic disease, BPH Monitor oxygenation supplemental O2 if needed, current pulse ox is above 90% and the patient is currently on room air oxygen Continue bronchodilators with DuoNeb updrafts Continue Perforomist and Pulmicort updrafts Continue IV Solu-Medrol Continue diuretics with Lasix 40 mg every 8 hours continue continue IV cefazolin Continue Aldactone Silvadene cream to the lower extremities and apply mild to moderate pressure dressing and wrapping with Jaya wrap's Cardiology consultation Resume home medications Monitor renal function Will continue to follow
[2023-06-30 20:25] LABS: Glucose,Whole Blood 220 mg/dL (70-110)
[2023-06-30] MEDS: ATORVASTATIN 40 MG TAB PO SCH (21:32)
--- NOTE | 2023-06-30 22:37 | P.CONS ---
History of Present Illness - Reason for Consult Consult date: 06/30/23 - History of Present Illness Patient is a 77-year-old male with a past medical history of GERD for hypertension CVA TIA [place] osteoarthritis coronary artery disease presenting to the hospital for evaluation of increasing shortness of breath and also has been complaining of increasing swelling to bilateral lower extremity especially the left leg that has been getting worse over the last few days to weeks patient shola banks has been treated with primary care physician with some local wraps and antibiotic however the patient did not have any improvement for the day to have increasing swelling to the lower extremity with weeping edema patient complaining of some dull aching pain mild to moderate intensity without radiation with associated swelling redness but no foul-smelling drainage patient denies high-grade fever did have some chills on presentation to the hospital the patient was afebrile and no fever have recorded subsequently patient was not tachycardic hypotensive or hypoxic did have a white count of 6.5 BUN/creatinine has been mildly elevated liver isms are normal urine has been negative cultures obtained which are currently pending patient did have a chest x-ray cardiomegaly mild pulm vascular congestion x-ray of the tibia-fibula did not show any bony changes patient was started on vancomycin pharmacy to dose subsequently cefazolin was added infectious he was consulted for further management of antibiotic therapy Past Medical History Past Medical History: Coronary Artery Disease (CAD), Heart Failure, CVA/TIA, Hypertension, Myocardial Infarction ([place]), Osteoarthritis (OA) Additional Past Medical History / Comment(s): TIA - no residual effects, c/o fatigue,see dr [facility] Last Myocardial Infarction Date:: unknown History of Any Multi-Drug Resistant Organisms: None Reported Past Surgical History: AICD, Heart Catheterization With Stent Additional Past Surgical History / Comment(s): spinal steroid injections, aicd placed Past Anesthesia/Blood Transfusion Reactions: No Reported Reaction Date of Last Stent Placement:: unknown Type of Cardiac Device: AICD Device Placement Date:: feb 2022 Past Psychological History: No Psychological Hx Reported Smoking Status: Former smoker Past Alcohol Use History: Daily Additional Past Alcohol Use History / Comment(s): quit smoking 25 yrs ago, smokeless tobacco until 1 yr ago; pint a day for years-stopped in September 2021 Past Drug Use History: None Reported - Past Family History Sister(s) Family Medical History: Cancer Medications and Allergies Home Medications Medication Instructions Recorded Confirmed Type Aspirin [Adult Low Dose Aspirin EC] 81 mg PO HS 06/16/18 06/29/23 History PARoxetine [Paxil] 20 mg PO HS 06/16/18 06/29/23 History Nitroglycerin Sl Tabs [Nitrostat] 0.4 mg SUBLINGUAL Q5M PRN #25 tab 06/20/18 06/29/23 Rx Rosuvastatin [Crestor] 20 mg PO HS 11/18/21 06/29/23 History Furosemide [Lasix] 80 mg PO DAILY 03/09/22 06/29/23 History Pantoprazole [Protonix] 40 mg PO DAILY 03/09/22 06/29/23 History Tamsulosin [Flomax] 0.4 mg PO BID 03/09/22 06/29/23 History Albuterol Inhaler [Ventolin Hfa 2 puff INHALATION RT-Q6H PRN 08/10/22 06/29/23 History Inhaler] Losartan Potassium 50 mg PO HS 08/10/22 06/29/23 History Metoprolol Tartrate [Lopressor] 50 mg PO TID 08/10/22 06/29/23 History Clopidogrel [Plavix] 75 mg PO HS 06/29/23 06/29/23 History Doxycycline Hyclate 100 mg PO BID 06/29/23 06/29/23 History Furosemide [Lasix] 40 mg PO DAILY@1200 06/29/23 06/29/23 History SILVER sulfADIAZINE Cream 1 applic TOPICAL BID 06/29/23 06/29/23 History [Silvadene 1% Cream] Spironolactone [Aldactone] 25 mg PO HS 06/29/23 06/29/23 History Allergies Allergy/AdvReac Type Severity Reaction Status Date / Time No Known Allergies Allergy Verified 06/29/23 17:41 Physical Exam Vitals: Vital Signs Temp Pulse Pulse Resp BP BP Pulse Ox 06/30/23 07:30 98.5 F 71 20 129/69 97 06/30/23 02:00 98.0 F 62 20 103/50 94 L 06/29/23 22:09 98.3 F 83 20 107/82 97 06/29/23 21:03 80 18 105/69 99 06/29/23 19:33 78 18 122/73 98 06/29/23 17:00 79 18 110/78 98 06/29/23 16:00 81 18 95/64 98 06/29/23 15:49 98.7 F 75 16 139/63 96 Intake and Output 06/29/23 06/30/23 06/30/23 22:59 06:59 14:59 Intake Total 240 480 Output Total 300 Balance 240 180 Intake: Oral 240 480 Output: Urine 300 Other: Voiding Method Urinal Urinal Incontinent Incontinent Weight 120 kg 134 kg Results CBC & Chem 7: 06/30/23 05:34 06/30/23 05:34 Labs: Abnormal Lab Results - Last 24 Hours (Table) 06/29/23 06/29/23 06/29/23 Range/Units 16:27 16:27 16:27 RBC 3.70 L (4.30-5.90) m/uL Hgb 9.5 L (13.0-17.5) gm/dL Hct 30.5 L (39.0-53.0) % MCH (27.0-32.0) pg MCHC (32.0-37.0) g/dL RDW 16.5 H (11.5-15.5) % Lymphocytes # 0.3 L (1.0-4.8) k/uL Eosinophils # (0.04-0.35) X 10*3/uL BUN 32 H (9-20) mg/dL Creatinine 1.43 H (0.66-1.25) mg/dL Est GFR (CKD-EPI) (>=60) BUN/Creatinine Ratio (12.00-20.00) Ratio Glucose 144 H (74-99) mg/dL Ur Leukocyte Esterase Trace H (Negative) Urine Bacteria Rare H (None) /hpf Hyaline Casts 7 H (0-2) /lpf Urine Mucus Rare H (None) /hpf 06/30/23 06/30/23 Range/Units 05:34 05:34 RBC 3.63 L (4.30-5.90) m/uL Hgb 9.2 L (13.0-17.5) gm/dL Hct 30.4 L (39.0-53.0) % MCH 25.3 L (27.0-32.0) pg MCHC 30.3 L (32.0-37.0) g/dL RDW 17.1 H (11.5-15.5) % Lymphocytes # 0.53 L (1.0-4.8) k/uL Eosinophils # 0.59 H (0.04-0.35) X 10*3/uL BUN 31.2 H (9-20) mg/dL Creatinine (0.66-1.25) mg/dL Est GFR (CKD-EPI) 52 L (>=60) BUN/Creatinine Ratio 22.29 H (12.00-20.00) Ratio Glucose (74-99) mg/dL Ur Leukocyte Esterase (Negative) Urine Bacteria (None) /hpf Hyaline Casts (0-2) /lpf Urine Mucus (None) /hpf Assessment and Plan Plan: 1patient present to hospital with increasing swelling to bilateral lower extremity in this patient who did have evidence of lower lobe with diffuse swelling redness and a component of cellulitis likely streptococcal disease 2patient with renal insufficiency and high risk of nephrotoxicity from vancomycin 3discontinue vancomycin 4increase the dose of cefazolin 2 g every 8 hours 5local care with Aquacel silver dressing followed by Jaya wrap from just above the toe to below the knee We will follow on clinical condition and cultures to further adjust medication if needed Thank you for this consultation we will follow the patient along with you Dictation was produced using [employer] dictation software. please excuse any grammatical, word or spelling errors. Time with Patient: Greater than 30
--- NOTE | 2023-07-01 06:52 | CA ---
Transthoracic Echo Report Name: Bridger Carter Age: 77 Gender: M : 1945 Exam Date: 06/30/2023 14:49 Exam Location: [facility] Ht (in): 68 Wt (lb): 295 Ordering Physician: Caitlin De La Vega Attending/Referring Phys: [id number], Yolette Early Morning Rozina Mandujano RDCS Procedure CPT: Indications: LVF Cardiac Hx: Technical Quality: Fair, Technically difficult study Contrast 1: Definity Total Dose (mL): 2 Contrast 2: Total Dose (mL): MEASUREMENTS (Male / Female) Normal Values 2D ECHO LV Diastolic Diameter PLAX 4.6 cm 4.2 - 5.9 / 3.9 - 5.3 cm LV Systolic Diameter PLAX 2.7 cm IVS Diastolic Thickness 1.5 cm 0.6 - 1.0 / 0.6 - 0.9 cm LVPW Diastolic Thickness 1.6 cm 0.6 - 1.0 / 0.6 - 0.9 cm LV Relative Wall Thickness 0.7 RV Internal Dim ED PLAX 3.8 cm M-MODE Aortic Root Diameter MM 4.1 cm LA Systolic Diameter MM 3.9 cm LA Ao Ratio MM 1.0 AV Cusp Separation MM 2.3 cm DOPPLER AV Peak Velocity 185.4 cm/s AV Peak Gradient 13.7 mmHg AV Mean Velocity 98.7 cm/s AV Mean Gradient 5.0 mmHg AV Velocity Time Integral 28.2 cm LVOT Peak Velocity 108.4 cm/s LVOT Peak Gradient 4.7 mmHg LVOT Velocity Time Integral 18.7 cm MV Area PHT 4.1 cm??? Mitral E Point Velocity 63.3 cm/s Mitral A Point Velocity 51.6 cm/s Mitral E to A Ratio 1.2 MV Deceleration Time 184.7 ms MV E' Velocity 7.0 cm/s Mitral E to MV E' Ratio 9.0 TR Peak Velocity 184.3 cm/s TR Peak Gradient 13.6 mmHg Right Ventricular Systolic Press 18.6 mmHg FINDINGS Left Ventricle Moderately increased left ventricular wall thickness. Left ventricular cavity size normal. Mildly reduced global left ventricular systolic function. Left ventricular ejection fraction is estimated at 45-50 %. Right Ventricle Right ventricular systolic pressure within normal limits.right ventricle not well visualized. Right Atrium Right atrium not well visualized. Left Atrium Moderately increased left atrial area. Mitral Valve Mitral valve not well visualized. No mitral stenosis. Aortic Valve No aortic valve stenosis or regurgitation. Aortic valve sclerosis. Tricuspid Valve Mild tricuspid regurgitation.tricuspid valve not well visualized. Pulmonic Valve Pulmonic valve not well visualized. Pericardium No pericardial effusion. Aorta Normal size aortic root and proximal ascending aorta. CONCLUSIONS Technically difficult study. Definity ECHO contrast used for improved visualization of the endocardial borders (inadequate visualization of two or more contiguous segments). Mild impairment of the left ventricular systolic function Very limited Doppler study Previewed by: Dr. Len Yang MD (Electronically Signed) Final Date: 01 July 2023 06:51
[2023-07-01 07:08] LABS: Glucose,Whole Blood 159 mg/dL (70-110)
[2023-07-01] MEDS: diphenhydrAMINE 25 MG CAP PO PRN (08:29)
[2023-07-01] MEDS: THIAMINE 100 MG TAB PO SCH (08:29)
[2023-07-01 08:36] LABS: Basophils # (A) 0.04 X 10*3/uL (0.00-0.10); Basophils % (A) 0.5 %; Eosinophils # (A) 0 X 10*3/uL (0.04-0.35); Eosinophils % (A) 0 %; HCT 28.4 % (39.6-50.0); HGB 8.6 g/dL (13.0-17.0); Lymphocytes # (A) 0.33 X 10*3/uL (0.90-5.00); MCH 24.6 pg (27.0-32.0); MCHC 30.3 g/dL (32.0-37.0); MCV 81.4 FL (80.0-97.0); Monocytes # (A) 0.17 X 10*3/uL (0.20-1.00); NRBC Per 100 WBC 0 X 10*3/uL (0.00-0.01); Neutrophils # (A) 7.71 X 10*3/uL (1.80-7.70); Neutrophils % (A) 92.8 %; Platelet Count 231 X 10*3/uL (140-440); RBC 3.49 X 10*6/uL (4.40-5.60); RDW 16.8 % (11.5-14.5); WBC 8.31 X 10*3/uL (4.50-10.00)
[2023-07-01 08:56] LABS: BUN/Creat Ratio 25.85 Ratio (12.00-20.00); Blood Urea Nitrogen 33.6 mg/dL (9.0-27.0); Calcium 9.2 mg/dL (8.7-10.3); Carbon Dioxide 22.6 mmol/L (21.6-31.8); Chloride 101 mmol/L (96-109); Glucose 157 mg/dL (70-110); Potassium 4.6 mmol/L (3.5-5.5); Sodium 136 mmol/L (135-145)
--- NOTE | 2023-07-01 11:26 | P.PN ---
Subjective Progress Note Date: 07/01/23 This is a pleasant 77-year-old patient who follows with Dr. Figueroa in the office. Has a history of ischemic and nonischemic cardiomyopathy, CAD status post PCI of the RCA, dual-chamber ICD, hypertension, hyperlipidemia, former nicotine dependence, COPD, obesity and history of alcohol intake and poor functional capacity. We are following the patient for evaluation and treatment of chronic heart failure. He came into the hospital due to leg swelling and redness which has been going on for a year according to the patient. Lower leg findings consistent with cellulitis. He is currently on Solu-Medrol, IV Lasix 40 mg every 8 hours. NT proBNP was not elevated at 689. Labs today show stable renal function with a creatinine of 1.3, previously 1.4. Edema is a bit better. He continues to be significantly short of breath with any activity. Legs are bandaged and wrapped. Echocardiogram with Doppler study showed an ejection fraction of 45 to 50%. Objective - Vital Signs Vital signs: Vital Signs Temp 97.6 F 07/01/23 07:10 Pulse 73 07/01/23 07:10 Resp 16 07/01/23 07:10 BP 124/73 07/01/23 07:10 Pulse Ox 97 07/01/23 07:50 FiO2 Intake & Output 06/30/23 07/01/23 07/01/23 18:59 06:59 18:59 Intake Total 590 Output Total 900 950 Balance -310 -950 Weight 138.5 kg Intake: Oral 590 Output: Urine 900 950 Other: Voiding Method Urinal Urinal Urinal Incontinent Incontinent Incontinent # Voids 2 1 # Bowel Movements 1 - Exam Gen: This is a 77-year-old male in no acute distress VS: reviewed HEENT: Head is atraumatic, normocephalic. Pupils equal, round. Sclerae is anicteric. NECK: Supple. No JVD. LUNGS: Diminished to auscultation bilaterally. No wheezes or rhonchi. HEART: Regular rate and rhythm. Systolic ejection murmur. ABDOMEN: Soft No tenderness. EXTREMITIES: 2-3+ bilateral lower extremity edema with dressings and Jaya wrap's bilaterally. NEUROLOGICAL: Patient is awake, alert and oriented x3. - Labs CBC & Chem 7: 07/01/23 06:29 07/01/23 06:29 Labs: Abnormal Lab Results - Last 24 Hours (Table) 06/30/23 06/30/23 07/01/23 Range/Units 17:37 20:20 06:29 RBC 3.49 L (4.40-5.60) X 10*6/uL Hgb 8.6 L (13.0-17.0) g/dL Hct 28.4 L (39.6-50.0) % MCH 24.6 L (27.0-32.0) pg MCHC 30.3 L (32.0-37.0) g/dL RDW 16.8 H (11.5-14.5) % Immature Gran # 0.06 H (0.00-0.04) X 10*3/uL Neutrophils # 7.71 H (1.80-7.70) X 10*3/uL Lymphocytes # 0.33 L (0.90-5.00) X 10*3/uL Monocytes # 0.17 L (0.20-1.00) X 10*3/uL Eosinophils # 0 L (0.04-0.35) X 10*3/uL Anion Gap (4.00-12.00) mmol/L BUN (9.0-27.0) mg/dL Est GFR (CKD-EPI) (>=60) BUN/Creatinine Ratio (12.00-20.00) Ratio Glucose (70-110) mg/dL POC Glucose (mg/dL) 207 H 220 H (70-110) mg/dL 07/01/23 07/01/23 Range/Units 06:29 07:07 RBC (4.40-5.60) X 10*6/uL Hgb (13.0-17.0) g/dL Hct (39.6-50.0) % MCH (27.0-32.0) pg MCHC (32.0-37.0) g/dL RDW (11.5-14.5) % Immature Gran # (0.00-0.04) X 10*3/uL Neutrophils # (1.80-7.70) X 10*3/uL Lymphocytes # (0.90-5.00) X 10*3/uL Monocytes # (0.20-1.00) X 10*3/uL Eosinophils # (0.04-0.35) X 10*3/uL Anion Gap 12.40 H (4.00-12.00) mmol/L BUN 33.6 H (9.0-27.0) mg/dL Est GFR (CKD-EPI) 57 L (>=60) BUN/Creatinine Ratio 25.85 H (12.00-20.00) Ratio Glucose 157 H (70-110) mg/dL POC Glucose (mg/dL) 159 H (70-110) mg/dL Microbiology - Last 24 Hours (Table) 06/29/23 16:30 Blood Culture - Preliminary Blood 06/29/23 16:15 Blood Culture - Preliminary Blood 06/29/23 16:27 Gram Stain - Preliminary Leg - Left Assessment and Plan Assessment: Bilat LE cellulitis No acute heart failure at this time Ischemic and nonischemic cardiomyopathy Coronary artery disease status post PCI of the RCA History of dual-chamber ICD Hypertension Hyperlipidemia COPD Morbid obesity with BMI 44 History of tobacco use and dependence Plan: From cardiology's perspective medications were reviewed we will decrease Lasix to twice daily. Likely transition to oral Lasix in the morning. Continue to monitor I&O, daily weights, renal function and electrolytes. Will continue to follow the patient and provide further recommendations accordingly. SCRUB WHEEL OPERATOR note has been reviewed, I agree with a documented findings and plan of care. Patient was seen and examined.
[2023-07-01 12:07] LABS: Glucose,Whole Blood 174 mg/dL (70-110)
--- NOTE | 2023-07-01 13:21 | P.PN ---
Subjective Progress Note Date: 07/01/23 Principal diagnosis: Reason for follow-up is lower extremity cellulitis Patient is a 77-year-old male with a past medical history of GERD for hypertension CVA TIA [place] osteoarthritis coronary artery disease presenting to the hospital for evaluation of increasing shortness of breath and also has been complaining of increasing swelling to bilateral lower extremity especially the left leg, patient did have evidence of fluid overload and concern for left lower extremity cellulitis. On today's evaluation that is 07/01/2023, the patient is afebrile, patient is on room air, the patient denies chest pain shortness of breath or cough, patient denies nausea no vomiting no abdominal pain and no diarrhea mention her lower extremity swelling has decreased in intensity and denies pain to the lower extremity. Patient white count is 8.31, creatinine is 1.3 cultures are currently pending Objective - Vital Signs Vital signs: Vital Signs Temp 97.6 F 07/01/23 07:10 Pulse 73 07/01/23 07:10 Resp 16 07/01/23 07:10 BP 124/73 07/01/23 07:10 Pulse Ox 97 07/01/23 07:50 FiO2 Intake & Output 06/30/23 07/01/23 07/01/23 18:59 06:59 18:59 Intake Total 590 Output Total 900 950 Balance -310 -950 Weight 138.5 kg Intake: Oral 590 Output: Urine 900 950 Other: Voiding Method Urinal Urinal Urinal Incontinent Incontinent Incontinent # Voids 2 1 # Bowel Movements 1 - Exam GENERAL DESCRIPTION: An elderly male lying in bed in no distress RESPIRATORY SYSTEM: Unlabored breathing , decreased breath sounds at bases HEART: S1 S2 regular rate and rhythm , ABDOMEN: Soft , no tenderness EXTREMITIES: Bilateral extremity currently wrapped in Jaya wrap's - Labs CBC & Chem 7: 07/01/23 06:29 07/01/23 06:29 Labs: Abnormal Lab Results - Last 24 Hours (Table) 06/30/23 06/30/23 07/01/23 Range/Units 17:37 20:20 06:29 RBC 3.49 L (4.40-5.60) X 10*6/uL Hgb 8.6 L (13.0-17.0) g/dL Hct 28.4 L (39.6-50.0) % MCH 24.6 L (27.0-32.0) pg MCHC 30.3 L (32.0-37.0) g/dL RDW 16.8 H (11.5-14.5) % Immature Gran # 0.06 H (0.00-0.04) X 10*3/uL Neutrophils # 7.71 H (1.80-7.70) X 10*3/uL Lymphocytes # 0.33 L (0.90-5.00) X 10*3/uL Monocytes # 0.17 L (0.20-1.00) X 10*3/uL Eosinophils # 0 L (0.04-0.35) X 10*3/uL Anion Gap (4.00-12.00) mmol/L BUN (9.0-27.0) mg/dL Est GFR (CKD-EPI) (>=60) BUN/Creatinine Ratio (12.00-20.00) Ratio Glucose (70-110) mg/dL POC Glucose (mg/dL) 207 H 220 H (70-110) mg/dL 07/01/23 07/01/23 07/01/23 Range/Units 06:29 07:07 12:06 RBC (4.40-5.60) X 10*6/uL Hgb (13.0-17.0) g/dL Hct (39.6-50.0) % MCH (27.0-32.0) pg MCHC (32.0-37.0) g/dL RDW (11.5-14.5) % Immature Gran # (0.00-0.04) X 10*3/uL Neutrophils # (1.80-7.70) X 10*3/uL Lymphocytes # (0.90-5.00) X 10*3/uL Monocytes # (0.20-1.00) X 10*3/uL Eosinophils # (0.04-0.35) X 10*3/uL Anion Gap 12.40 H (4.00-12.00) mmol/L BUN 33.6 H (9.0-27.0) mg/dL Est GFR (CKD-EPI) 57 L (>=60) BUN/Creatinine Ratio 25.85 H (12.00-20.00) Ratio Glucose 157 H (70-110) mg/dL POC Glucose (mg/dL) 159 H 174 H (70-110) mg/dL Microbiology - Last 24 Hours (Table) 06/29/23 16:30 Blood Culture - Preliminary Blood 06/29/23 16:15 Blood Culture - Preliminary Blood 06/29/23 16:27 Gram Stain - Preliminary Leg - Left Assessment and Plan (1) Bilateral lower leg cellulitis Current Visit: Yes Status: Acute Code(s): L03.116 - CELLULITIS OF LEFT LOWER LIMB; L03.115 - CELLULITIS OF RIGHT LOWER LIMB SNOMED Code(s): 394677955 Plan: 1patient present to hospital with increasing swelling to bilateral lower extremity in this patient who did have evidence of lower lobe with diffuse swelling redness and a component of cellulitis likely streptococcal disease 2patient with renal insufficiency and high risk of nephrotoxicity from vancomycin 3patient to continue with cefazolin 2 g every 8 hours and local care with Aquacel silver dressing followed by Jaya wrap from just above the toe to below the knee Dictation was produced using [employer] dictation software. please excuse any grammatical, word or spelling errors. Time with Patient: Less than 30
--- NOTE | 2023-07-01 14:59 | P.PN ---
Subjective Progress Note Date: 07/01/23 I was asked to evaluate this patient in consultation because of his history of COPD. The patient is a 77-year-old male patient was admitted to the hospital on 06/29/2023 complaining of some shortness of breath, a chronic problem. At the same time, the patient had lower extremity edema which was progressively getting worse and the patient also had extensive edema and weeping of the fluid from the skin surface worse in the posterior left calf. There was concern of superimposed cellulitis in the area and for that reason the patient was referred to the hospital. Noted the patient also is known to have coronary artery disease and history of ischemic cardiomyopathy and the patient has an AICD in place. The patient has been compliant to his medication including the diuretics and the patient has been taking Lasix on outpatient basis. His other comorbidities include hypertension. At the time of his admission, the patient had a white cell count of 6.5 with a hemoglobin 9.5, sodium is at 140 with a BMI of 32 and a creatinine of 1.43. The patient has had chronic elevation of the creatinine and he may have an underlying chronic kidney disease, stage III. His hemoglobin is at 9.5 at the time of admission with an MCV of 82 and the patient has had history of anemia of chronic disease. His chest x-ray was also reviewed and the patient was found to have cardiomegaly without any acute cardiopulmonary abnormalities. The patient has pacer/AICD over the left anterior chest area. The EKG was consistent with a sinus rhythm with left axis deviation and right ventricular conduction delay and the patient also has frequent PVCs. Based on all this, the patient was started on IV cefazolin 2 g every 8 hours. The patient is also on IV Lasix 40 mg every 8 hours. 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 The patient is currently on room air oxygen with a pulse ox of 97%. Other comorbid conditions include hypertension, hyperlipidemia, previous history of TIA along with history of coronary artery disease CHF and COPD. Patient also suffers from chronic back pain and spinal stenosis. Based on our records, his last available echocardiogram is from 11/18/2021 and the patient was found to have moderate to severe LV dysfunction/systolic heart failure with an ejection fraction of 30 to 35%. Mild aortic stenosis with a peak gradient of 13 and a mean gradient of 7. X-ray of the tibia/fibula that was done in the emergency showed bilateral lower extremity soft tissue edema. Bilateral knee osteoarthritis without any evidence of fracture. On 07/01/2023, I am seeing the patient for a follow-up. The patient is feeling better compared to yesterday. The patient is diuresing adequately and there is improvement in the volume status. The lower extremities are currently wrapped and the patient is receiving appropriate antibiotics with IV cefazolin. The patient remains on IV Lasix and the patient is currently on 40 mg every 12 hours. The fluid balance is negative at least 1 L over the past 24 hours. Meanwhile, the patient's blood work shows a BUN of 33 with a creatinine of 1.3. Sodium level is 136. WBC count is at 8.3 with a hemoglobin 8.6. On today's examination, no significant bronchospasm and wheezing. Based on that, the IV Solu-Medrol be discontinued. The patient denies having any recent history of smoking. No chest pain. No cough or sputum production. Continues to have significant amount of edema lower extremities bilaterally. Objective - Vital Signs Vital signs: Vital Signs Temp 97.6 F 07/01/23 07:10 Pulse 73 07/01/23 07:10 Resp 16 07/01/23 07:10 BP 124/73 07/01/23 07:10 Pulse Ox 97 07/01/23 07:50 FiO2 Intake & Output 06/30/23 07/01/23 07/01/23 18:59 06:59 18:59 Intake Total 590 Output Total 900 300 Balance -310 -300 Weight 138.5 kg Intake: Oral 590 Output: Urine 900 300 Other: Voiding Method Urinal Urinal Urinal Incontinent Incontinent Incontinent # Voids 2 1 - Exam Gen: This is morbidly obese sitting in bed in mild respiratory distress. The patient is currently on room air oxygen Head exam was generally normal. There was no scleral icterus or corneal arcus. Mucous membranes were moist. HEENT: Head is atraumatic, normocephalic. Pupils equal, round. Sclerae is anicteric. NECK: Supple. No JVD. No lymphadenopathy. No thyromegaly. LUNGS: decreased breath some relative fine rhonchi, positive mild crackles in the bases positive mild Expiratory wheezes HEART: Regular rate and rhythm, S1, S2 positive history. positive systolic murmur. ABDOMEN: Soft. Bowel sounds are present. No masses. No tenderness. EXTREMITIES: 3+ bilateral lower extremity edema with significant erythema and weeping. NEUROLOGICAL: Patient is awake, alert and oriented x3. Cranial nerves 2 through 12 are grossly intact. - Labs CBC & Chem 7: 07/01/23 06:29 07/01/23 06:29 Labs: Abnormal Lab Results - Last 24 Hours (Table) 06/30/23 06/30/23 07/01/23 Range/Units 17:37 20:20 06:29 RBC 3.49 L (4.40-5.60) X 10*6/uL Hgb 8.6 L (13.0-17.0) g/dL Hct 28.4 L (39.6-50.0) % MCH 24.6 L (27.0-32.0) pg MCHC 30.3 L (32.0-37.0) g/dL RDW 16.8 H (11.5-14.5) % Immature Gran # 0.06 H (0.00-0.04) X 10*3/uL Neutrophils # 7.71 H (1.80-7.70) X 10*3/uL Lymphocytes # 0.33 L (0.90-5.00) X 10*3/uL Monocytes # 0.17 L (0.20-1.00) X 10*3/uL Eosinophils # 0 L (0.04-0.35) X 10*3/uL Anion Gap (4.00-12.00) mmol/L BUN (9.0-27.0) mg/dL Est GFR (CKD-EPI) (>=60) BUN/Creatinine Ratio (12.00-20.00) Ratio Glucose (70-110) mg/dL POC Glucose (mg/dL) 207 H 220 H (70-110) mg/dL 07/01/23 07/01/23 Range/Units 06:29 07:07 RBC (4.40-5.60) X 10*6/uL Hgb (13.0-17.0) g/dL Hct (39.6-50.0) % MCH (27.0-32.0) pg MCHC (32.0-37.0) g/dL RDW (11.5-14.5) % Immature Gran # (0.00-0.04) X 10*3/uL Neutrophils # (1.80-7.70) X 10*3/uL Lymphocytes # (0.90-5.00) X 10*3/uL Monocytes # (0.20-1.00) X 10*3/uL Eosinophils # (0.04-0.35) X 10*3/uL Anion Gap 12.40 H (4.00-12.00) mmol/L BUN 33.6 H (9.0-27.0) mg/dL Est GFR (CKD-EPI) 57 L (>=60) BUN/Creatinine Ratio 25.85 H (12.00-20.00) Ratio Glucose 157 H (70-110) mg/dL POC Glucose (mg/dL) 159 H (70-110) mg/dL Microbiology - Last 24 Hours (Table) 06/29/23 16:30 Blood Culture - Preliminary Blood 06/29/23 16:15 Blood Culture - Preliminary Blood 06/29/23 16:27 Gram Stain - Preliminary Leg - Left Assessment and Plan Plan: Chronic dyspnea secondary to COPD and CHF. No significant hypoxemia the patient is currently on room air oxygen. Nevertheless, the patient has underlying COPD and a component of CHF with obvious signs of fluid overload and increased lower extremity edema and a chest x-ray showing cardiomegaly and mild pulm vessel congestion. No evidence of any pneumonia. Worsening shortness of breath desaturated to CHF and COPD. Predominant presentation is more consistent with CHF. CHF with systolic heart failure and an EF around 30 to 35%, status post AICD placement Coronary artery disease, previous history of non-ST segment elevation myocardial infarction and the patient has undergone previous coronary intervention and stenting of the RCA back in 2019 Increased lower extremity edema and cellulitis, currently on antibiotics Previous history of TIA Chronic kidney disease, stage III Hypertension Hyperlipidemia Anemia of chronic disease, BPH Plan Monitor oxygenation supplemental O2 if needed, current pulse ox is above 90% and the patient is currently on room air oxygen Continue bronchodilators with DuoNeb updrafts Continue Perforomist and Pulmicort updrafts Discontinue IV Solu-Medrol Continue diuretics with Lasix 40 mg every 8 hours and the patient is negative fluid balance Volume status improving him with some continue continue IV cefazolin Continue Aldactone Silvadene cream to the lower extremities and apply mild to moderate pressure dressing and wrapping with Jaya wrap's Cardiology consultation Resume home medications Monitor renal function Will continue to follow
[2023-07-01 17:19] LABS: Glucose,Whole Blood 282 mg/dL (70-110)
[2023-07-01 20:09] LABS: Glucose,Whole Blood 193 mg/dL (70-110)
[2023-07-01] MEDS: FUROSEMIDE 10 MG/ML 4 ML VIAL IV SCH (21:39)
--- NOTE | 2023-07-01 21:52 | PN ---
PROGRESS NOTE DATE OF SERVICE: 07/01/2023 SUBJECTIVE: This is a 77-year-old gentleman admitted with shortness of breath with COPD and CHF acute exacerbation, also had bilateral leg cellulitis also, swelling also possible. The patient also had possible cough. Multiple consultants are following the patient closely. The cultures are negative. The patient is being closely monitored. PAST MEDICAL HISTORY: Reviewed. REVIEW OF SYSTEMS: Fourteen-point review is negative except as mentioned earlier. CURRENT MEDICATIONS: Reviewed include Pulmicort. Dose and rest of medications noted. PHYSICAL EXAMINATION: VITAL SIGNS: Pulse is 74, blood pressure 111/64, respirations 16. CHEST: A few scattered rhonchi and crackles. Expiratory wheezing. ABDOMEN: Soft, obese. LEGS: Bilateral leg swelling and edema. NERVOUS SYSTEM: Diffusely weak. LABORATORY DATA: Hemoglobin 8.6, rest of the labs are noted. ASSESSMENT: 1. Shortness of breath, multifactorial, chronic obstructive pulmonary disease acute exacerbation as well as congestive heart failure acute exacerbation, history of bilateral leg cellulitis and failure of outpatient treatment. 2. Possible cor pulmonale. 3. Congestive heart failure acute exacerbation with acute on chronic systolic dysfunction, ejection fraction 45%. 4. History of coronary artery disease. 5. Hypertension. 6. History of degenerative joint disease. 7. History of automatic implantable cardioverter-defibrillator. 8. History of EtOH. 9. Multiple complex medical issues. RECOMMENDATIONS AND DISCUSSION: Recommend to continue current management and continue symptomatic treatment. Continue with bronchodilators. Continue with empiric antibiotics. Continue with diuretics. Monitor fluid electrolyte balance closely. Fluid restriction 1200 mL per 24 hours. DVT prophylaxis. Guarded prognosis. Further recommendations to follow. MMODL / IJN: [id number] /
[2023-07-02 07:16] LABS: Glucose,Whole Blood 116 mg/dL (70-110)
--- NOTE | 2023-07-02 12:10 | P.PN ---
Subjective Progress Note Date: 07/02/23 I was asked to evaluate this patient in consultation because of his history of COPD. The patient is a 77-year-old male patient was admitted to the hospital on 06/29/2023 complaining of some shortness of breath, a chronic problem. At the same time, the patient had lower extremity edema which was progressively getting worse and the patient also had extensive edema and weeping of the fluid from the skin surface worse in the posterior left calf. There was concern of superimposed cellulitis in the area and for that reason the patient was referred to the hospital. Noted the patient also is known to have coronary artery disease and history of ischemic cardiomyopathy and the patient has an AICD in place. The patient has been compliant to his medication including the diuretics and the patient has been taking Lasix on outpatient basis. His other comorbidities include hypertension. At the time of his admission, the patient had a white cell count of 6.5 with a hemoglobin 9.5, sodium is at 140 with a BMI of 32 and a creatinine of 1.43. The patient has had chronic elevation of the creatinine and he may have an underlying chronic kidney disease, stage III. His hemoglobin is at 9.5 at the time of admission with an MCV of 82 and the patient has had history of anemia of chronic disease. His chest x-ray was also reviewed and the patient was found to have cardiomegaly without any acute cardiopulmonary abnormalities. The patient has pacer/AICD over the left anterior chest area. The EKG was consistent with a sinus rhythm with left axis deviation and right ventricular conduction delay and the patient also has frequent PVCs. Based on all this, the patient was started on IV cefazolin 2 g every 8 hours. The patient is also on IV Lasix 40 mg every 8 hours. 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 The patient is currently on room air oxygen with a pulse ox of 97%. Other comorbid conditions include hypertension, hyperlipidemia, previous history of TIA along with history of coronary artery disease CHF and COPD. Patient also suffers from chronic back pain and spinal stenosis. Based on our records, his last available echocardiogram is from 11/18/2021 and the patient was found to have moderate to severe LV dysfunction/systolic heart failure with an ejection fraction of 30 to 35%. Mild aortic stenosis with a peak gradient of 13 and a mean gradient of 7. X-ray of the tibia/fibula that was done in the emergency showed bilateral lower extremity soft tissue edema. Bilateral knee osteoarthritis without any evidence of fracture. On 07/01/2023, I am seeing the patient for a follow-up. The patient is feeling better compared to yesterday. The patient is diuresing adequately and there is improvement in the volume status. The lower extremities are currently wrapped and the patient is receiving appropriate antibiotics with IV cefazolin. The patient remains on IV Lasix and the patient is currently on 40 mg every 12 hours. The fluid balance is negative at least 1 L over the past 24 hours. Meanwhile, the patient's blood work shows a BUN of 33 with a creatinine of 1.3. Sodium level is 136. WBC count is at 8.3 with a hemoglobin 8.6. On today's examination, no significant bronchospasm and wheezing. Based on that, the IV Solu-Medrol be discontinued. The patient denies having any recent history of smoking. No chest pain. No cough or sputum production. Continues to have significant amount of edema lower extremities bilaterally. On 07/02/2023, the patient is doing well. He continues to have improvement in lower extremity edema and the patient is also being treated with cellulitis with IV Zosyn. The patient remains on Lasix 40 mg IV every 12 hours. Producing adequate amount of urine output. No significant shortness of breath.I think the patient REMAINS on yesterday and I am also going to take him off the Perforomist and Pulmicort updrafts. His creatinine yesterday was at 1.3. Awaiting repeat electrolytes from today. No new labs are available from today. The patient remains on room air oxygen at this point in time. No cough or sputum production or chest tightness or wheezing. Hemodynamically stable. Objective - Vital Signs Vital signs: Vital Signs Temp 97.9 F 07/02/23 07:17 Pulse 88 07/02/23 08:53 Resp 18 07/02/23 07:17 BP 112/66 07/02/23 07:17 Pulse Ox 97 07/02/23 08:44 FiO2 21 07/02/23 08:44 Intake & Output 07/01/23 07/02/23 07/02/23 18:59 06:59 18:59 Output Total 1250 1300 300 Balance -1250 -1300 -300 Weight 134.7 kg Output: Urine 1250 1300 300 Other: Voiding Method Urinal Urinal Urinal Incontinent Incontinent Incontinent # Voids 1 1 # Bowel Movements 1 - Exam Gen: This is morbidly obese sitting in bed in mild respiratory distress. The patient is currently on room air oxygen Head exam was generally normal. There was no scleral icterus or corneal arcus. Mucous membranes were moist. HEENT: Head is atraumatic, normocephalic. Pupils equal, round. Sclerae is anicteric. NECK: Supple. No JVD. No lymphadenopathy. No thyromegaly. LUNGS: decreased breath some relative fine rhonchi, positive mild crackles in the bases positive mild Expiratory wheezes HEART: Regular rate and rhythm, S1, S2 positive history. positive systolic murmur. ABDOMEN: Soft. Bowel sounds are present. No masses. No tenderness. EXTREMITIES: 3+ bilateral lower extremity edema with significant erythema and weeping. NEUROLOGICAL: Patient is awake, alert and oriented x3. Cranial nerves 2 through 12 are grossly intact. - Labs CBC & Chem 7: 07/01/23 06:29 07/01/23 06:29 Labs: Abnormal Lab Results - Last 24 Hours (Table) 07/01/23 07/01/23 07/01/23 Range/Units 06:29 12:06 17:18 POC Glucose (mg/dL) 174 H 282 H (70-110) mg/dL Hemoglobin A1c 6.1 H (<=6.0) % 07/01/23 07/02/23 Range/Units 19:58 07:15 POC Glucose (mg/dL) 193 H 116 H (70-110) mg/dL Hemoglobin A1c (<=6.0) % Microbiology - Last 24 Hours (Table) 06/29/23 16:15 Blood Culture - Preliminary Blood 06/29/23 16:30 Blood Culture - Preliminary Blood 06/29/23 16:27 Gram Stain - Final Leg - Left Wound Culture - Final Assessment and Plan Plan: Chronic dyspnea secondary to COPD and CHF. No significant hypoxemia the patient is currently on room air oxygen. Nevertheless, the patient has underlying COPD and a component of CHF with obvious signs of fluid overload and increased lower extremity edema and a chest x-ray showing cardiomegaly and mild pulm vessel congestion. No evidence of any pneumonia. Worsening shortness of breath desaturated to CHF and COPD. Predominant presentation is more consistent with CHF. CHF with systolic heart failure and an EF around 30 to 35%, status post AICD placement Coronary artery disease, previous history of non-ST segment elevation myocardial infarction and the patient has undergone previous coronary intervention and stenting of the RCA back in 2019 Increased lower extremity edema and cellulitis, currently on antibiotics Previous history of TIA Chronic kidney disease, stage III Hypertension Hyperlipidemia Anemia of chronic disease, BPH Plan Room air oxygen Continue bronchodilators with DuoNeb updrafts Discontinue Perforomist and Pulmicort updrafts Awaiting electrolytes from today Continue diuretics with Lasix 40 mg every 8 hours and the patient is negative fluid balance Volume status improving him with some continue continue IV cefazolin Continue Aldactone Silvadene cream to the lower extremities and apply mild to moderate pressure dressing and wrapping with Jaya wrap's Cardiology consultation Resume home medications Monitor renal function Will continue to follow
[2023-07-02 12:43] LABS: Glucose,Whole Blood 173 mg/dL (70-110)
--- NOTE | 2023-07-02 13:16 | P.PN ---
Subjective Progress Note Date: 07/02/23 Principal diagnosis: Reason for follow-up is lower extremity cellulitis Patient is a 77-year-old male with a past medical history of GERD for hypertension CVA TIA [place] osteoarthritis coronary artery disease presenting to the hospital for evaluation of increasing shortness of breath and also has been complaining of increasing swelling to bilateral lower extremity especially the left leg, patient did have evidence of fluid overload and concern for left lower extremity cellulitis. On today's evaluation that is 07/02/2023, the patient denies any fever or any chills, patient is breathing comfortably on room air, the patient denies chest pain shortness of breath and no significant cough, patient denies abdominal pain, no nausea vomiting or diarrhea. Overall swelling and redness to lower extremity has decreased in intensity. No new labs has been obtained today cultures so far negative Objective - Vital Signs Vital signs: Vital Signs Temp 97.9 F 07/02/23 07:17 Pulse 88 07/02/23 08:53 Resp 18 07/02/23 07:17 BP 112/66 07/02/23 07:17 Pulse Ox 97 07/02/23 08:44 FiO2 21 07/02/23 08:44 Intake & Output 07/01/23 07/02/23 07/02/23 18:59 06:59 18:59 Output Total 1250 1300 300 Balance -1250 -1300 -300 Weight 134.7 kg Output: Urine 1250 1300 300 Other: Voiding Method Urinal Urinal Urinal Incontinent Incontinent Incontinent # Voids 1 1 # Bowel Movements 1 - Exam GENERAL DESCRIPTION: An elderly male lying in bed in no distress RESPIRATORY SYSTEM: Unlabored breathing , decreased breath sounds at bases HEART: S1 S2 regular rate and rhythm , ABDOMEN: Soft , no tenderness EXTREMITIES: Right lower extremity overall swelling redness has improved superficial wound with no slough tissue or foul-smelling drainage, left leg is covered in Jaya wrap - Labs CBC & Chem 7: 07/01/23 06:29 07/01/23 06:29 Labs: Abnormal Lab Results - Last 24 Hours (Table) 07/01/23 07/01/23 07/01/23 Range/Units 06:29 12:06 17:18 POC Glucose (mg/dL) 174 H 282 H (70-110) mg/dL Hemoglobin A1c 6.1 H (<=6.0) % 07/01/23 07/02/23 Range/Units 19:58 07:15 POC Glucose (mg/dL) 193 H 116 H (70-110) mg/dL Hemoglobin A1c (<=6.0) % Microbiology - Last 24 Hours (Table) 06/29/23 16:15 Blood Culture - Preliminary Blood 06/29/23 16:30 Blood Culture - Preliminary Blood 06/29/23 16:27 Gram Stain - Final Leg - Left Wound Culture - Final Assessment and Plan (1) Bilateral lower leg cellulitis Current Visit: Yes Status: Acute Code(s): L03.116 - CELLULITIS OF LEFT LOWER LIMB; L03.115 - CELLULITIS OF RIGHT LOWER LIMB SNOMED Code(s): 700127603 Plan: 1patient present to hospital with increasing swelling to bilateral lower extremity in this patient who did have evidence of lower lobe with diffuse swelling redness and a component of cellulitis likely streptococcal disease 2patient has shown clinical improvement and will continue with cefazolin 2 g every 8 hours and local care with Aquacel silver dressing followed by Jaya wrap from just above the toe to below the knee Dictation was produced using [employer] dictation software. please excuse any grammatical, word or spelling errors. Time with Patient: Less than 30
--- NOTE | 2023-07-02 17:32 | P.PN ---
Subjective Progress Note Date: 07/02/23 Progress note 07/02/2023 BP 104/68, heart rate 73, hemoglobin 8.6, BUN 33, creatinine 1.3 which is around baseline, A1c 6.1, Echo was a poor quality study with limited views with estimated EF at 45-50 History of Present Illness: The patient is a 78-year-old female with known history of severe nonischemic cardiomyopathy, atrial fibrillation, followed by Dr. Beckett status post upgrade of her pacemaker recently who presented with weight gain, dyspnea and peripheral edema. He has underwent cardiac catheterization in April 2023 and had no significant obstructive disease. She has noted progressive dyspnea and weight gain and was seen in the emergency room at [facility] and subsequently transferred. She denies any chest discomfort, palpitations or dizziness. She denies any clear PND or orthopnea. Her activity is limited but she has dyspnea on exertion. She has noted significant weight gain. She has a history of diabetes and hyperlipidemia, she is a non-smoker for over 20 years Medications: Lipitor 10 mg daily, Coreg 37.5 mg twice a day, Pepcid, Entresto 24-26 mg twice a day, Coumadin, Demadex 20 mg twice a day, spironolactone 25 mg daily, insulin, Synthroid Review of Systems: Symptoms Respiratory: She has dyspnea on exertion but no recent wheezing or cough GI: No nausea or vomiting . No history of peptic ulcer disease. No recent GI bleed. : No hematuria or dysuria. Nervous System: No stroke or seizure. Physical Examination: 78-year-old female, alert oriented no apparent distress,Blood pressure 120/60, Heart rate 70 Head: Normocephalic. Eyes: Sclerae nonicteric. Neck: Good carotid upstroke, no bruit, no jugular venous distention. Lungs: Clear to auscultation. Pacemaker site clean with mild swelling Heart: Regular rate and rhythm, S1-S2, no S3, no rub. Systolic ejection murmur. Abdomen: Soft nontender, positive bowel sounds no organomegaly. Obese Extremities: +1 edema, intact distal pulses. Labs: Hemoglobin 10.5, INR 3.6, BUN 71, creatinine 1.76. Chest x-ray with no acute infiltrate EKG: Atrial fibrillation with 100% biventricular pacing Impression: 1. Symptoms of progressive dyspnea in a patient with prior history of nonischemic cardiomyopathy 2. Status post recent upgrade of her pacemaker 3. Atrial fibrillation, anticoagulated 4. Renal failure 5. History of diabetes 6. History of hyperlipidemia Plan: Continue IV diuretics Continue Farxiga Continue aspirin atorvastatin Continue losartan 50 mg, continue metoprolol 50 mg twice daily. Objective - Vital Signs Vital signs: Vital Signs Temp 97.9 F 07/02/23 14:12 Pulse 73 07/02/23 14:12 Resp 20 07/02/23 14:12 BP 104/68 07/02/23 14:12 Pulse Ox 95 07/02/23 14:12 FiO2 21 07/02/23 08:44 Intake & Output 07/01/23 07/02/23 07/02/23 18:59 06:59 18:59 Output Total 1250 1300 850 Balance -1250 -1300 -850 Weight 134.7 kg Output: Urine 1250 1300 850 Other: Voiding Method Urinal Urinal Urinal Incontinent Incontinent Incontinent # Voids 1 1 # Bowel Movements 1 - Labs CBC & Chem 7: 07/01/23 06:29 07/01/23 06:29 Labs: Abnormal Lab Results - Last 24 Hours (Table) 07/01/23 07/02/23 07/02/23 Range/Units 19:58 07:15 12:39 POC Glucose (mg/dL) 193 H 116 H 173 H (70-110) mg/dL Microbiology - Last 24 Hours (Table) 06/29/23 16:15 Blood Culture - Preliminary Blood 06/29/23 16:30 Blood Culture - Preliminary Blood 06/29/23 16:27 Gram Stain - Final Leg - Left Wound Culture - Final
[2023-07-02 17:38] LABS: Glucose,Whole Blood 123 mg/dL (70-110)
[2023-07-02 20:08] LABS: Glucose,Whole Blood 134 mg/dL (70-110)
--- NOTE | 2023-07-03 01:58 | PN ---
PROGRESS NOTE DATE OF SERVICE: 07/02/2023 This 77-year-old gentleman was admitted with COPD exacerbation and CHF exacerbation, being closely monitored. No chest pain. No palpitations. No fever. PHYSICAL EXAMINATION: VITAL SIGNS: Pulse is 61, blood pressure n, respirations 18. CHEST: Few scattered rhonchi. ABDOMEN: Soft. NERVOUS SYSTEM: Nonfocal. LABORATORY DATA: Accu-Cheks 173. Rest of the labs are noted. ASSESSMENT: 1. Shortness of breath, possible multifactorial, chronic obstructive pulmonary disease exacerbation versus congestive heart failure exacerbation with acute on chronic systolic dysfunction, ejection fraction 45%. 2. Bilateral leg cellulitis with failure of outpatient treatment. 3. Possible cor pulmonale. 4. History of coronary artery disease. 5. Hypertension. 6. History of degenerative joint disease. 7. History of EtOH. 8. History of automatic implantable cardioverter-defibrillator. 9. Multiple complex medical issues. RECOMMENDATIONS: Recommend to continue current medications. Continue with diuretics. Otherwise, closely follow with Pulmonary and Cardiology. Guarded prognosis. Further recommendations to follow. MMODL / IJN: [id number] / MTDD
[2023-07-03 07:12] LABS: Glucose,Whole Blood 80 mg/dL (70-110)
[2023-07-03 09:33] LABS: Basophils # (A) 0.06 X 10*3/uL (0.00-0.10); Basophils % (A) 0.9 %; Eosinophils # (A) 0.32 X 10*3/uL (0.04-0.35); Eosinophils % (A) 4.8 %; HCT 32.2 % (39.6-50.0); HGB 9.5 g/dL (13.0-17.0); Lymphocytes # (A) 0.76 X 10*3/uL (0.90-5.00); Lymphocytes % (A) 11.5 %; MCH 24.9 pg (27.0-32.0); MCHC 29.5 g/dL (32.0-37.0); MCV 84.3 FL (80.0-97.0); Mean Platelet Volume 10.4 FL (9.5-12.2); Monocytes # (A) 0.91 X 10*3/uL (0.20-1.00); Monocytes % (A) 13.7 %; NRBC Per 100 WBC 0 X 10*3/uL (0.00-0.01); Neutrophils # (A) 4.53 X 10*3/uL (1.80-7.70); Neutrophils % (A) 68.3 %; Platelet Count 255 X 10*3/uL (140-440); RBC 3.82 X 10*6/uL (4.40-5.60); RDW 17.1 % (11.5-14.5); WBC 6.63 X 10*3/uL (4.50-10.00)
[2023-07-03 10:06] LABS: BUN/Creat Ratio 24.07 Ratio (12.00-20.00); Blood Urea Nitrogen 33.7 mg/dL (9.0-27.0); Calcium 9.1 mg/dL (8.7-10.3); Carbon Dioxide 26.9 mmol/L (21.6-31.8); Chloride 102 mmol/L (96-109); Glucose 76 mg/dL (70-110); Potassium 4.7 mmol/L (3.5-5.5); Sodium 142 mmol/L (135-145)
[2023-07-03 12:05] LABS: Glucose,Whole Blood 95 mg/dL (70-110)
--- NOTE | 2023-07-03 13:22 | P.PN ---
Subjective Progress Note Date: 07/03/23 Principal diagnosis: Reason for follow-up is lower extremity cellulitis Patient is a 77-year-old male with a past medical history of GERD for hypertension CVA TIA [place] osteoarthritis coronary artery disease presenting to the hospital for evaluation of increasing shortness of breath and also has been complaining of increasing swelling to bilateral lower extremity especially the left leg, patient did have evidence of fluid overload and concern for left lower extremity cellulitis. On today's evaluation that is 07/03/2023,the patient remains to be afebrile, patient is on room air not requiring supplemental oxygen and denies any shortness of breath no chest pain or cough.Patient denies having any nausea or vomiting, no abdominal pain and no diarrhea has been reported overall pain is well-controlled extremity has decreased in intensity. Patient white count of 6.63, creatinine is 1.4 cultures has been negative Objective - Vital Signs Vital signs: Vital Signs Temp 97.5 F L 07/03/23 12:28 Pulse 69 07/03/23 12:28 Resp 18 07/03/23 12:28 BP 108/65 07/03/23 12:28 Pulse Ox 97 07/03/23 12:28 FiO2 21 07/03/23 09:28 Intake & Output 07/02/23 07/03/23 07/03/23 18:59 06:59 18:59 Intake Total 1620 590 Output Total 850 850 Balance 770 590 -850 Weight 133.2 kg Intake: Intake, IV Titration 50 Amount ceFAZolin 2 gm In Sodium 50 Chloride 0.9% 50 ml @ 100 mls/hr IVPB Q8HR [facility] Rx# :[id number] Oral 1620 540 Output: Urine 850 850 Other: Voiding Method Urinal Urinal Urinal Incontinent Incontinent Incontinent # Voids 1 3 1 - Exam GENERAL DESCRIPTION: An elderly male lying in bed in no distress RESPIRATORY SYSTEM: Unlabored breathing , decreased breath sounds at bases HEART: S1 S2 regular rate and rhythm , ABDOMEN: Soft , no tenderness EXTREMITIES: Right lower extremity overall swelling redness has improved superficial wound with no slough tissue or foul-smelling drainage, left leg is covered in Jaya wrap - Labs CBC & Chem 7: 07/03/23 06:18 07/03/23 06:18 Labs: Abnormal Lab Results - Last 24 Hours (Table) 07/02/23 07/02/2324 Range/Units 17:36 20:03 06:18 RBC 3.82 L (4.40-5.60) X 10*6/uL Hgb 9.5 L (13.0-17.0) g/dL Hct 32.2 L (39.6-50.0) % MCH 24.9 L (27.0-32.0) pg MCHC 29.5 L (32.0-37.0) g/dL RDW 17.1 H (11.5-14.5) % Immature Gran # 0.05 H (0.00-0.04) X 10*3/uL Lymphocytes # 0.76 L (0.90-5.00) X 10*3/uL Anion Gap (4.00-12.00) mmol/L BUN (9.0-27.0) mg/dL Est GFR (CKD-EPI) (>=60) BUN/Creatinine Ratio (12.00-20.00) Ratio POC Glucose (mg/dL) 123 H 134 H (70-110) mg/dL 07/03/23 Range/Units 06:18 RBC (4.40-5.60) X 10*6/uL Hgb (13.0-17.0) g/dL Hct (39.6-50.0) % MCH (27.0-32.0) pg MCHC (32.0-37.0) g/dL RDW (11.5-14.5) % Immature Gran # (0.00-0.04) X 10*3/uL Lymphocytes # (0.90-5.00) X 10*3/uL Anion Gap 13.10 H (4.00-12.00) mmol/L BUN 33.7 H (9.0-27.0) mg/dL Est GFR (CKD-EPI) 52 L (>=60) BUN/Creatinine Ratio 24.07 H (12.00-20.00) Ratio POC Glucose (mg/dL) (70-110) mg/dL Microbiology - Last 24 Hours (Table) 06/29/23 16:30 Blood Culture - Preliminary Blood 06/29/23 16:15 Blood Culture - Preliminary Blood Assessment and Plan (1) Bilateral lower leg cellulitis Current Visit: Yes Status: Acute Code(s): L03.116 - CELLULITIS OF LEFT LOWER LIMB; L03.115 - CELLULITIS OF RIGHT LOWER LIMB SNOMED Code(s): 985052617 Plan: 1patient present to hospital with increasing swelling to bilateral lower extremity in this patient who did have evidence of lower lobe with diffuse swelling redness and a component of cellulitis likely streptococcal disease 2patient has shown clinical improvement ,local care with Aquacel silver dressing followed by Jaya wrap from just above the toe to below the knee 3to continue with cefazolin and finishing therapy short course of oral Keflex on discharge Dictation was produced using [employer] dictation software. please excuse any grammatical, word or spelling errors. Time with Patient: Less than 30
--- NOTE | 2023-07-03 13:51 | P.PN ---
Subjective Progress Note Date: 07/03/23 I was asked to evaluate this patient in consultation because of his history of COPD. The patient is a 77-year-old male patient was admitted to the hospital on 06/29/2023 complaining of some shortness of breath, a chronic problem. At the same time, the patient had lower extremity edema which was progressively getting worse and the patient also had extensive edema and weeping of the fluid from the skin surface worse in the posterior left calf. There was concern of superimposed cellulitis in the area and for that reason the patient was referred to the hospital. Noted the patient also is known to have coronary artery disease and history of ischemic cardiomyopathy and the patient has an AICD in place. The patient has been compliant to his medication including the diuretics and the patient has been taking Lasix on outpatient basis. His other comorbidities include hypertension. At the time of his admission, the patient had a white cell count of 6.5 with a hemoglobin 9.5, sodium is at 140 with a BMI of 32 and a creatinine of 1.43. The patient has had chronic elevation of the creatinine and he may have an underlying chronic kidney disease, stage III. His hemoglobin is at 9.5 at the time of admission with an MCV of 82 and the patient has had history of anemia of chronic disease. His chest x-ray was also reviewed and the patient was found to have cardiomegaly without any acute cardiopulmonary abnormalities. The patient has pacer/AICD over the left anterior chest area. The EKG was consistent with a sinus rhythm with left axis deviation and right ventricular conduction delay and the patient also has frequent PVCs. Based on all this, the patient was started on IV cefazolin 2 g every 8 hours. The patient is also on IV Lasix 40 mg every 8 hours. Patient was also suspected to be in [employer] exacerbation started with a combination of bronchodilators and the patient is currently on DuoNeb updrafts, Perforomist and Pulmicort updrafts twice a day and IV Solu-Medrol. The patient is currently on room air oxygen with a pulse ox of 97%. Other comorbid conditions include hypertension, hyperlipidemia, previous history of TIA along with history of coronary artery disease CHF and COPD. Patient also suffers from chronic back pain and spinal stenosis. Based on our records, his last available echocardiogram is from 11/18/2021 and the patient was found to have moderate to severe LV dysfunction/systolic heart failure with an ejection fraction of 30 to 35%. Mild aortic stenosis with a peak gradient of 13 and a mean gradient of 7. X-ray of the tibia/fibula that was done in the emergency showed bilateral lower extremity soft tissue edema. Bilateral knee osteoarthritis without any evidence of fracture. On 07/01/2023, I am seeing the patient for a follow-up. The patient is feeling better compared to yesterday. The patient is diuresing adequately and there is improvement in the volume status. The lower extremities are currently wrapped and the patient is receiving appropriate antibiotics with IV cefazolin. The patient remains on IV Lasix and the patient is currently on 40 mg every 12 hours. The fluid balance is negative at least 1 L over the past 24 hours. Meanwhile, the patient's blood work shows a BUN of 33 with a creatinine of 1.3. Sodium level is 136. WBC count is at 8.3 with a hemoglobin 8.6. On today's examination, no significant bronchospasm and wheezing. Based on that, the IV Solu-Medrol be discontinued. The patient denies having any recent history of smoking. No chest pain. No cough or sputum production. Continues to have significant amount of edema lower extremities bilaterally. On 07/02/2023, the patient is doing well. He continues to have improvement in lower extremity edema and the patient is also being treated with cellulitis with IV Zosyn. The patient remains on Lasix 40 mg IV every 12 hours. Producing adequate amount of urine output. No significant shortness of breath.I think the patient REMAINS on yesterday and I am also going to take him off the Perforomist and Pulmicort updrafts. His creatinine yesterday was at 1.3. Awaiting repeat electrolytes from today. No new labs are available from today. The patient remains on room air oxygen at this point in time. No cough or sputum production or chest tightness or wheezing. Hemodynamically stable. On 07/03/2023, no new complaints and the patient remains on Lasix 40 mg every 12 hours. Marked improvement in lower extremity edema. Remains on IV cefazolin regarding cellulitis of the lower extremities. Otherwise, the patient has no specific complaints. Patient is currently on room air oxygen. No significant bronchospasm or wheezing. The white cell count 6.6 with hemoglobin 9.5 and a platelet count of 255. Sodium is at 142 with a BUN of 33 and a creatinine of 1.4. Renal function remained stable. The patient has no specific complaints. The patient is afebrile. Remains on IV cefazolin. Rest of the medications remain unchanged. The patient is still being seen by cardiology and infectious disease. He is on aspirin. He is on Farxiga. He is on Lipitor. He is on Cozaar 50 mg in combination with metoprolol 50 mg p.o. Regarding his chronic atrial fibrillation. The patient is currently 100% paced. Objective - Vital Signs Vital signs: Vital Signs Temp 97.5 F L 07/03/23 12:28 Pulse 69 07/03/23 12:28 Resp 18 07/03/23 12:28 BP 108/65 07/03/23 12:28 Pulse Ox 97 07/03/23 12:28 FiO2 21 07/03/23 09:28 Intake & Output 07/02/23 07/03/23 07/03/23 18:59 06:59 18:59 Intake Total 1620 590 Output Total 850 850 Balance 770 590 -850 Weight 133.2 kg Intake: Intake, IV Titration 50 Amount ceFAZolin 2 gm In Sodium 50 Chloride 0.9% 50 ml @ 100 mls/hr IVPB Q8HR [facility] Rx# :[id number] Oral 1620 540 Output: Urine 850 850 Other: Voiding Method Urinal Urinal Urinal Incontinent Incontinent Incontinent # Voids 1 3 1 - Labs CBC & Chem 7: 07/03/23 06:18 07/03/23 06:18 Labs: Abnormal Lab Results - Last 24 Hours (Table) 07/02/23 07/02/23 07/03/23 Range/Units 17:36 20:03 06:18 RBC 3.82 L (4.40-5.60) X 10*6/uL Hgb 9.5 L (13.0-17.0) g/dL Hct 32.2 L (39.6-50.0) % MCH 24.9 L (27.0-32.0) pg MCHC 29.5 L (32.0-37.0) g/dL RDW 17.1 H (11.5-14.5) % Immature Gran # 0.05 H (0.00-0.04) X 10*3/uL Lymphocytes # 0.76 L (0.90-5.00) X 10*3/uL Anion Gap (4.00-12.00) mmol/L BUN (9.0-27.0) mg/dL Est GFR (CKD-EPI) (>=60) BUN/Creatinine Ratio (12.00-20.00) Ratio POC Glucose (mg/dL) 123 H 134 H (70-110) mg/dL 07/03/23 Range/Units 06:18 RBC (4.40-5.60) X 10*6/uL Hgb (13.0-17.0) g/dL Hct (39.6-50.0) % MCH (27.0-32.0) pg MCHC (32.0-37.0) g/dL RDW (11.5-14.5) % Immature Gran # (0.00-0.04) X 10*3/uL Lymphocytes # (0.90-5.00) X 10*3/uL Anion Gap 13.10 H (4.00-12.00) mmol/L BUN 33.7 H (9.0-27.0) mg/dL Est GFR (CKD-EPI) 52 L (>=60) BUN/Creatinine Ratio 24.07 H (12.00-20.00) Ratio POC Glucose (mg/dL) (70-110) mg/dL Microbiology - Last 24 Hours (Table) 06/29/23 16:30 Blood Culture - Preliminary Blood 06/29/23 16:15 Blood Culture - Preliminary Blood Assessment and Plan Plan: Chronic dyspnea secondary to COPD and CHF. No significant hypoxemia the patient is currently on room air oxygen. Nevertheless, the patient has underlying COPD and a component of CHF with obvious signs of fluid overload and increased lower extremity edema and a chest x-ray showing cardiomegaly and mild pulm vessel congestion. No evidence of any pneumonia. Worsening shortness of breath desaturated to CHF and COPD. Predominant presentation is more consistent with CHF. The patient is currently on room air oxygen. The patient has nicely responded to diuresis. CHF with systolic heart failure and an EF around 30 to 35%, status post AICD placement Coronary artery disease, previous history of non-ST segment elevation myocardial infarction and the patient has undergone previous coronary intervention and stenting of the RCA back in 2019 Increased lower extremity edema and cellulitis, currently on antibiotics Previous history of TIA Chronic kidney disease, stage III Hypertension Hyperlipidemia Anemia of chronic disease, BPH Plan Room air oxygen Continue bronchodilators with DuoNeb updrafts Discontinue Perforomist and Pulmicort updrafts Awaiting electrolytes from today Continue diuretics with Lasix 40 mg every 12 hours Volume status improving him with some continue continue IV cefazolin Continue Aldactone Monitor renal function with creatinine stable for now Silvadene cream to the lower extremities and apply mild to moderate pressure dressing and wrapping with Jaya wrap's Cardiology consultation is appreciated Resume home medications
--- NOTE | 2023-07-03 15:25 | P.PN ---
Subjective Progress Note Date: 07/03/23 Progress note 07/03/2023 BP 108/65, heart rate 69 bpm, hemoglobin 9.5, BUN 33, creatinine 1.4 which appears to be baseline Patient reports that his bilateral extremity swelling is better. He is able to move his ankle without any limitations. This was not possible when he was admitted. 07/02/2023 BP 104/68, heart rate 73, hemoglobin 8.6, BUN 33, creatinine 1.3 which is around baseline, A1c 6.1, Echo was a poor quality study with limited views with estimated EF at 45-50 History of Present Illness: The patient is a 78-year-old female with known history of severe nonischemic cardiomyopathy, atrial fibrillation, followed by Dr. Beckett status post upgrade of her pacemaker recently who presented with weight gain, dyspnea and peripheral edema. He has underwent cardiac catheterization in April 2023 and had no significant obstructive disease. She has noted progressive dyspnea and weight gain and was seen in the emergency room at [facility] and subsequently transferred. She denies any chest discomfort, palpitations or dizziness. She denies any clear PND or orthopnea. Her activity is limited but she has dyspnea on exertion. She has noted significant weight gain. She has a history of diabetes and hyperlipidemia, she is a non-smoker for over 20 years Medications: Lipitor 10 mg daily, Coreg 37.5 mg twice a day, Pepcid, Entresto 24-26 mg twice a day, Coumadin, Demadex 20 mg twice a day, spironolactone 25 mg daily, insulin, Synthroid Review of Systems: Symptoms Respiratory: She has dyspnea on exertion but no recent wheezing or cough GI: No nausea or vomiting . No history of peptic ulcer disease. No recent GI bleed. : No hematuria or dysuria. Nervous System: No stroke or seizure. Physical Examination: 78-year-old female, alert oriented no apparent distress,Blood pressure 120/60, Heart rate 70 Head: Normocephalic. Eyes: Sclerae nonicteric. Neck: Good carotid upstroke, no bruit, no jugular venous distention. Lungs: Clear to auscultation. Pacemaker site clean with mild swelling Heart: Regular rate and rhythm, S1-S2, no S3, no rub. Systolic ejection murmur. Abdomen: Soft nontender, positive bowel sounds no organomegaly. Obese Extremities: +1 edema, intact distal pulses. Labs: Hemoglobin 10.5, INR 3.6, BUN 71, creatinine 1.76. Chest x-ray with no acute infiltrate EKG: Atrial fibrillation with 100% biventricular pacing mpression: 1. Symptoms of progressive dyspnea in a patient with prior history of nonischemic cardiomyopathy 2. Status post recent upgrade of her pacemaker 3. Atrial fibrillation, anticoagulated 4. Renal failure 5. History of diabetes 6. History of hyperlipidemia Plan: Continue IV diuretics Continue Farxiga Continue aspirin atorvastatin Continue losartan 50 mg, continue metoprolol 50 mg twice daily. Objective - Vital Signs Vital signs: Vital Signs Temp 97.5 F L 07/03/23 12:28 Pulse 69 07/03/23 12:28 Resp 18 07/03/23 12:28 BP 108/65 07/03/23 12:28 Pulse Ox 97 07/03/23 12:28 FiO2 21 07/03/23 09:28 Intake & Output 07/02/23 07/03/23 07/03/23 18:59 06:59 18:59 Intake Total 1620 590 Output Total 850 850 Balance 770 590 -850 Weight 133.2 kg Intake: Intake, IV Titration 50 Amount ceFAZolin 2 gm In Sodium 50 Chloride 0.9% 50 ml @ 100 mls/hr IVPB Q8HR [facility] Rx# :[id number] Oral 1620 540 Output: Urine 850 850 Other: Voiding Method Urinal Urinal Urinal Incontinent Incontinent Incontinent # Voids 1 3 1 - Labs CBC & Chem 7: 07/03/23 06:18 07/03/23 06:18 Labs: Abnormal Lab Results - Last 24 Hours (Table) 07/02/23 07/02/23 07/03/23 Range/Units 17:36 20:03 06:18 RBC 3.82 L (4.40-5.60) X 10*6/uL Hgb 9.5 L (13.0-17.0) g/dL Hct 32.2 L (39.6-50.0) % MCH 24.9 L (27.0-32.0) pg MCHC 29.5 L (32.0-37.0) g/dL RDW 17.1 H (11.5-14.5) % Immature Gran # 0.05 H (0.00-0.04) X 10*3/uL Lymphocytes # 0.76 L (0.90-5.00) X 10*3/uL Anion Gap (4.00-12.00) mmol/L BUN (9.0-27.0) mg/dL Est GFR (CKD-EPI) (>=60) BUN/Creatinine Ratio (12.00-20.00) Ratio POC Glucose (mg/dL) 123 H 134 H (70-110) mg/dL 07/03/23 Range/Units 06:18 RBC (4.40-5.60) X 10*6/uL Hgb (13.0-17.0) g/dL Hct (39.6-50.0) % MCH (27.0-32.0) pg MCHC (32.0-37.0) g/dL RDW (11.5-14.5) % Immature Gran # (0.00-0.04) X 10*3/uL Lymphocytes # (0.90-5.00) X 10*3/uL Anion Gap 13.10 H (4.00-12.00) mmol/L BUN 33.7 H (9.0-27.0) mg/dL Est GFR (CKD-EPI) 52 L (>=60) BUN/Creatinine Ratio 24.07 H (12.00-20.00) Ratio POC Glucose (mg/dL) (70-110) mg/dL Microbiology - Last 24 Hours (Table) 06/29/23 16:30 Blood Culture - Preliminary Blood 06/29/23 16:15 Blood Culture - Preliminary Blood
[2023-07-03 17:50] LABS: Glucose,Whole Blood 182 mg/dL (70-110)
[2023-07-03 20:11] LABS: Glucose,Whole Blood 128 mg/dL (70-110)
--- NOTE | 2023-07-03 23:58 | PN ---
PROGRESS NOTE DATE OF SERVICE: 07/03/2023 SUBJECTIVE: This is a 77-year-old gentleman, who was admitted with COPD acute exacerbation, also had bilateral leg cellulitis. The cultures are negative so far. PHYSICAL EXAMINATION: VITAL SIGNS: Pulse is 69, blood pressure 108/62, respirations 18. CHEST: Few scattered rhonchi and crackles. ABDOMEN: Soft. NERVOUS SYSTEM: Nonfocal. LABORATORY DATA: Reviewed. ASSESSMENT: 1. Shortness of breath, possibly multifactorial, chronic obstructive pulmonary disease acute exacerbation, also congestive heart failure acute exacerbation with acute on chronic systolic dysfunction, ejection fraction 45%. 2. Bilateral leg cellulitis with failure of outpatient treatment. 3. Possible cor pulmonale. 4. Coronary artery disease. 5. Hypertension. 6. History of degenerative joint disease. 7. History of EtOH. 8. Multiple complex medical issues. RECOMMENDATIONS AND DISCUSSION: Recommend to continue current management and continue symptomatic treatment. Continue with Lasix and continue with rest of medications, antibiotics. Follow the cultures. Recommend repeating labs tomorrow, possibly discharge in the next 24 to 48 hours. MMODL / IJN: [id number] /
[2023-07-04 07:06] LABS: Glucose,Whole Blood 98 mg/dL (70-110)
[2023-07-04 08:35] LABS: Basophils # (A) 0.09 X 10*3/uL (0.00-0.10); Basophils % (A) 1.1 %; Eosinophils # (A) 0.87 X 10*3/uL (0.04-0.35); Eosinophils % (A) 10.9 %; HCT 34.4 % (39.6-50.0); HGB 10.2 g/dL (13.0-17.0); Lymphocytes # (A) 0.63 X 10*3/uL (0.90-5.00); Lymphocytes % (A) 7.9 %; MCHC 29.7 g/dL (32.0-37.0); MCV 84.3 FL (80.0-97.0); Mean Platelet Volume 10.3 FL (9.5-12.2); Monocytes # (A) 0.99 X 10*3/uL (0.20-1.00); Monocytes % (A) 12.4 %; NRBC Per 100 WBC 0 X 10*3/uL (0.00-0.01); Neutrophils # (A) 5.36 X 10*3/uL (1.80-7.70); Neutrophils % (A) 66.9 %; Platelet Count 276 X 10*3/uL (140-440); RBC 4.08 X 10*6/uL (4.40-5.60); RDW 17.2 % (11.5-14.5)
[2023-07-04 08:45] LABS: BUN/Creat Ratio 23.07 Ratio (12.00-20.00); Blood Urea Nitrogen 32.3 mg/dL (9.0-27.0); Calcium 9.6 mg/dL (8.7-10.3); Carbon Dioxide 27.6 mmol/L (21.6-31.8); Chloride 100 mmol/L (96-109); Glucose 95 mg/dL (70-110); Potassium 4.6 mmol/L (3.5-5.5); Sodium 140 mmol/L (135-145)
--- NOTE | 2023-07-04 11:57 | P.PN ---
Subjective Progress Note Date: 07/04/23 Principal diagnosis: Reason for follow-up is lower extremity cellulitis Patient is a 77-year-old male with a past medical history of GERD for hypertension CVA TIA [place] osteoarthritis coronary artery disease presenting to the hospital for evaluation of increasing shortness of breath and also has been complaining of increasing swelling to bilateral lower extremity especially the left leg, patient did have evidence of fluid overload and concern for left lower extremity cellulitis. On today's evaluation that is 07/04/2023, the patient continues to be afebrile, the patient is on room air and breathing comfortably, the Pt denies having any chest pain or cough, the patient denies having any abdominal pain no vomiting or any diarrhea has been reported by the nursing staff, the lower extremity swelling redness has improved has been complaining of some itching nursing staff mention patient scratching his legs. Patient did have a white count of 8.0, creatinine is 1.4 Objective - Vital Signs Vital signs: Vital Signs Temp 97.5 F L 07/04/23 07:08 Pulse 84 07/04/23 11:38 Resp 17 07/04/23 07:08 BP 107/62 07/04/23 07:08 Pulse Ox 98 07/04/23 07:08 FiO2 21 07/03/23 09:28 Intake & Output 07/03/23 07/04/23 07/04/23 18:59 06:59 18:59 Intake Total 2100 290 Output Total 850 1050 625 Balance 8120 760 625 Weight 132.5 kg Intake: Intake, IV Titration 50 Amount ceFAZolin 2 gm In Sodium 50 Chloride 0.9% 50 ml @ 100 mls/hr IVPB Q8HR [facility] Rx# :[id number] Oral 2100 240 Output: Urine 850 1050 625 Other: Voiding Method Urinal Urinal Urinal Incontinent Incontinent Incontinent # Voids 1 3 1 - Exam GENERAL DESCRIPTION: An elderly male lying in bed in no distress RESPIRATORY SYSTEM: Unlabored breathing , decreased breath sounds at bases HEART: S1 S2 regular rate and rhythm , ABDOMEN: Soft , no tenderness EXTREMITIES: Right lower extremity overall swelling redness has improved superficial wound with no slough tissue or foul-smelling drainage, left leg is covered in Jaya wrap - Labs CBC & Chem 7: 07/04/23 06:03 07/04/23 06:03 Labs: Abnormal Lab Results - Last 24 Hours (Table) 07/03/23 07/03/23 07/04/23 Range/Units 17:48 20:10 06:03 RBC 4.08 L (4.40-5.60) X 10*6/uL Hgb 10.2 L (13.0-17.0) g/dL Hct 34.4 L (39.6-50.0) % MCH 25.0 L (27.0-32.0) pg MCHC 29.7 L (32.0-37.0) g/dL RDW 17.2 H (11.5-14.5) % Immature Gran # 0.06 H (0.00-0.04) X 10*3/uL Lymphocytes # 0.63 L (0.90-5.00) X 10*3/uL Eosinophils # 0.87 H (0.04-0.35) X 10*3/uL Anion Gap (4.00-12.00) mmol/L BUN (9.0-27.0) mg/dL Est GFR (CKD-EPI) (>=60) BUN/Creatinine Ratio (12.00-20.00) Ratio POC Glucose (mg/dL) 182 H 128 H (70-110) mg/dL 07/04/23 Range/Units 06:03 RBC (4.40-5.60) X 10*6/uL Hgb (13.0-17.0) g/dL Hct (39.6-50.0) % MCH (27.0-32.0) pg MCHC (32.0-37.0) g/dL RDW (11.5-14.5) % Immature Gran # (0.00-0.04) X 10*3/uL Lymphocytes # (0.90-5.00) X 10*3/uL Eosinophils # (0.04-0.35) X 10*3/uL Anion Gap 12.40 H (4.00-12.00) mmol/L BUN 32.3 H (9.0-27.0) mg/dL Est GFR (CKD-EPI) 52 L (>=60) BUN/Creatinine Ratio 23.07 H (12.00-20.00) Ratio POC Glucose (mg/dL) (70-110) mg/dL Microbiology - Last 24 Hours (Table) 06/29/23 16:27 Anaerobic Culture - Final Leg - Left Anaerobic Gm Negative Bacilli Assessment and Plan (1) Bilateral lower leg cellulitis Current Visit: Yes Status: Acute Code(s): L03.116 - CELLULITIS OF LEFT LOWER LIMB; L03.115 - CELLULITIS OF RIGHT LOWER LIMB SNOMED Code(s): 681368163 Plan: 1patient present to hospital with increasing swelling to bilateral lower extremity in this patient who did have evidence of lower lobe with diffuse swelling redness and a component of cellulitis likely streptococcal disease 2patient has shown clinical improvement ,local care with Aquacel silver dressing followed by Jaya wrap from just above the toe to below the knee 3patient to continue with cefazolin however plan to finish therapy with short course of oral Keflex on discharge, nursing staff has been advised to apply some moisturizing cream to his dry scaly skin to help decrease problems with itching Dictation was produced using [employer] dictation software. please excuse any grammatical, word or spelling errors. Time with Patient: Less than 30
--- NOTE | 2023-07-04 12:01 | P.PN ---
Subjective HISTORY OF PRESENT ILLNESS: The patient is a 78-year-old female with known history of severe nonischemic cardiomyopathy, atrial fibrillation, followed by Dr. Beckett status post upgrade of her pacemaker recently who presented with weight gain, dyspnea and peripheral edema. He has underwent cardiac catheterization in April 2023 and had no si gnificant obstructive disease. She has noted progressive dyspnea and weight gain and was seen in the emergency room at [facility] and subsequently transferred. She denies any chest discomfort, palpitations or dizziness. She denies any clear PND or orthopnea. Her activity is limited but she has dyspnea on exertion. She has noted significant weight gain. She has a history of diabetes and hyperlipidemia, she is a non-smoker for over 20 years Medications: Lipitor 10 mg daily, Coreg 37.5 mg twice a day, Pepcid, Entresto 24-26 mg twice a day, Coumadin, Demadex 20 mg twice a day, spironolactone 25 mg daily, insulin, Synthroid 07/02/2023 BP 104/68, heart rate 73, hemoglobin 8.6, BUN 33, creatinine 1.3 which is around baseline, A1c 6.1, Echo was a poor quality study with limited views with estimated EF at 45-50 07/03/2023 BP 108/65, heart rate 69 bpm, hemoglobin 9.5, BUN 33, creatinine 1.4 which appears to be baseline Patient reports that his bilateral extremity swelling is better. He is able to move his ankle without any limitations. This was not possible when he was adm itted. 07/04/2023 Patient examined this morning. Patient is sitting up in the chair. Patient denies chest pain or pressure. He denies shortness of breath. He remains on IV diuretics. He reports significant improvement in his shortness of breath. He states that he is being discharged today. Kidney function remained stable with a creatinine of 1.4. PHYSICAL EXAM: VITAL SIGNS: Reviewed. GENERAL: Well-developed in no acute distress. NECK: Supple. No JVD or thyromegaly LUNGS: Respirations even and unlabored. Lungs essentially clear to auscultation bilaterally. HEART: Regular rate and rhythm. S1 and S2 heard. EXTREMITIES: Normal range of motion. No clubbing or cyanosis. Peripheral pul ses intact. No lower extremity edema ASSESSMENT: Shortness of breath Acute on chronic heart failure with mildly reduced EF, 45-50 percent History of nonischemic cardiomyopathy Status post recent upgrade of pacemaker Paroxysmal atrial fibrillation Hyperlipidemia Diabetes Chronic kidney disease PLAN: Continue current cardiac medications Patient may be discharged home today from a cardiac standpoint Patient to resume Lasix 80 mg in the morning and 40 mg in the afternoon Patient to follow-up postdischarge with Dr. Beckett Nurse practitioner note has been reviewed by physician. Signing provider agrees with the documented findings, assessment, and plan of care documented by BLOCK HAND[employer]ER as a scribe. Objective - Vital Signs Vital signs: Vital Signs Temp 97.5 F L 07/04/23 07:08 Pulse 84 07/04/23 11:38 Resp 17 07/04/23 07:08 BP 107/62 07/04/23 07:08 Pulse Ox 98 07/04/23 07:08 FiO2 21 07/03/23 09:28 Intake & Output 07/03/23 07/04/23 07/04/23 18:59 06:59 18:59 Intake Total 2100 290 Output Total 850 1050 625 Balance 1250 760 625 Weight 132.5 kg Intake: Intake, IV Titration 50 Amount ceFAZolin 2 gm In Sodium 50 Chloride 0.9% 50 ml @ 100 mls/hr IVPB Q8HR [facility] Rx# :[id number] Oral 2100 240 Output: Urine 850 1050 625 Other: Voiding Method Urinal Urinal Urinal Incontinent Incontinent Incontinent # Voids 1 3 1 - Labs CBC & Chem 7: 07/04/23 06:03 07/04/23 06:03 Labs: Abnormal Lab Results - Last 24 Hours (Table) 07/03/23 07/03/23 07/04/23 Range/Units 17:48 20:10 06:03 RBC 4.08 L (4.40-5.60) X 10*6/uL Hgb 10.2 L (13.0-17.0) g/dL Hct 34.4 L (39.6-50.0) % MCH 25.0 L (27.0-32.0) pg MCHC 29.7 L (32.0-37.0) g/dL RDW 17.2 H (11.5-14.5) % Immature Gran # 0.06 H (0.00-0.04) X 10*3/uL Lymphocytes # 0.63 L (0.90-5.00) X 10*3/uL Eosinophils # 0.87 H (0.04-0.35) X 10*3/uL Anion Gap (4.00-12.00) mmol/L BUN (9.0-27.0) mg/dL Est GFR (CKD-EPI) (>=60) BUN/Creatinine Ratio (12.00-20.00) Ratio POC Glucose (mg/dL) 182 H 128 H (70-110) mg/dL 07/04/23 Range/Units 06:03 RBC (4.40-5.60) X 10*6/uL Hgb (13.0-17.0) g/dL Hct (39.6-50.0) % MCH (27.0-32.0) pg MCHC (32.0-37.0) g/dL RDW (11.5-14.5) % Immature Gran # (0.00-0.04) X 10*3/uL Lymphocytes # (0.90-5.00) X 10*3/uL Eosinophils # (0.04-0.35) X 10*3/uL Anion Gap 12.40 H (4.00-12.00) mmol/L BUN 32.3 H (9.0-27.0) mg/dL Est GFR (CKD-EPI) 52 L (>=60) BUN/Creatinine Ratio 23.07 H (12.00-20.00) Ratio POC Glucose (mg/dL) (70-110) mg/dL Microbiology - Last 24 Hours (Table) 06/29/23 16:27 Anaerobic Culture - Final Leg - Left Anaerobic Gm Negative Bacilli
[2023-07-04 12:12] LABS: Glucose,Whole Blood 127 mg/dL (70-110)
[2023-07-04 13:05] VITALS: BP 94/60; RESP 18; TEMP 97.8
--- NOTE | 2023-07-04 14:21 | P.DS ---
Providers Date of admission: 06/29/23 17:26 Expected date of discharge: 07/04/23 Attending physician: Terry Driver MD Consults: 06/29/23 17:23 Consult Physician Routine Consulting Provider: Thony Cade Consult Reason/Comments: LE wounds, cellulitis Do you want consulting provider notified?: Yes 06/30/23 13:01 Consult Physician Urgent Consulting Provider: Abhi Hernandes Consult Reason/Comments: copd Do you want consulting provider notified?: Yes Primary care physician: Bora Madera Hospital Course: Final diagnosis Shortness of breath, multifactorial secondary to chronic obstructive pulmonary disease, acute exacerbation also congestive heart failure acute exacerbation with acute on chronic systolic dysfunction, EF is 45% Bilateral leg cellulitis with failure of outpatient treatment Possible cor pulmonale Coronary artery disease history Hypertension history History of degenerative joint disease History of EtOH Morbid obesity with a BMI of 44.4 History of CVA/TIA History of osteoarthritis Former smoker GI prophylaxis DVT prophylaxis Full code Discharge disposition Patient is being discharged in a stable condition with guarded prognosis to home with home care. Patient will follow-up with Dr. Bora Madera in the outpatient setting upon discharge. Patient is to continue with oral antibiotics in the form of Keflex and close outpatient follow-up with infectious disease as scheduled. Total time taken is greater than 35 minutes. Hospital course This is a 77-year-old male who was recently admitted with CHF exacerbation as well as COPD exacerbation being closely monitored. Patient also having some lower extremity cellulitis with failure of outpatient treatment has been started on cefazolin showing clinical improvement. Patient also with lower extremity swelling maintained on IV Lasix and diuresed well with cardiology following. Patient normally takes 80 mg of Lasix during the day and 40 mg in the evening and will continue with 40 mg twice daily and close outpatient follow-up with primary care provider as well as cardiology. Recommend repeat labs to monitor kidney functions closely. Patient will continue on oral Keflex 3 times daily for the next 10 days and close outpatient follow-up with infectious disease. Patient to continue with Jaya wraps to lower extremities and elevating while at rest and avoid itching and scratching as patient has been excessively scratching at his skin. Patient was given Benadryl as needed. Patient has been cleared by consultations for discharge and would like to go home. Please refer to c onsultation notes for further HPI. Currently no reports of chest pain, shortness of breath, or palpitations. Patient is afebrile. No reports of nausea or vomiting and patient is tolerating diet. Patient will be discharged home today. Guarded prognosis. Physical exam: Gen: This is a 77-year-old male who is awake, alert and oriented x 3, well- developed, well-nourished, morbidly obese HEENT: Head is atraumatic, normocephalic. Pupils equal, round. Sclerae is anicteric. NECK: Supple. No JVD. No lymphadenopathy. No thyromegaly. LUNGS: Diminished breath sounds bilaterally with some scattered coarse rhonchi. No intercostal retractions. HEART: S1, S2 are muffled ABDOMEN: Soft. Obese bowel sounds are present. No masses. No tenderness. EXTREMITIES: No pedal edema. No calf tenderness. Bilateral lower extremity swelling noted with some improvement, scratching corona noted NEUROLOGICAL: Patient is awake, alert and oriented x3. Cranial nerves 2 through 12 are grossly intact. Diffusely weak Please refer to medication reconciliation sheet for a list of medications. The impression and plan of care has been dictated by Nellie Workman, Nurse Practitioner as directed. Dr. Tano MD I have performed a history and examination and MDM of this patient, discussed the same with the dictator, and agree with the dictator's assessment and plan as written ,documented as a scribe. Based on total visit time, I have performed more than 50% of the visit. Patient Condition at Discharge: Fair Plan - Discharge Summary Discharge Rx Participant: No New Discharge Prescriptions: New Nystatin 100,000 Unit/gm Powd [Mycostatin Powder] 1 applic TOPICAL BID #1 each diphenhydrAMINE [Benadryl] 25 mg PO TID PRN #30 cap PRN Reason: Itching Cephalexin [Keflex] 500 mg PO Q8HR 10 Days #30 cap Budesonide-Formot 160-4.5 Mcg [Symbicort 160-4.5 Mcg Inhaler] 2 puff INHALATION BID 30 Days #10.2 gm Thiamine [Vitamin B-1] 100 mg PO DAILY #30 tab Continue PARoxetine [Paxil] 20 mg PO HS Aspirin [Adult Low Dose Aspirin EC] 81 mg PO HS Nitroglycerin Sl Tabs [Nitrostat] 0.4 mg SUBLINGUAL Q5M PRN #25 tab PRN Reason: Chest Pain Rosuvastatin [Crestor] 20 mg PO HS Tamsulosin [Flomax] 0.4 mg PO BID Pantoprazole [Protonix] 40 mg PO DAILY Metoprolol Tartrate [Lopressor] 50 mg PO TID Albuterol Inhaler [Ventolin Hfa Inhaler] 2 puff INHALATION RT-Q6H PRN PRN Reason: Shortness Of Breath Clopidogrel [Plavix] 75 mg PO HS Spironolactone [Aldactone] 25 mg PO HS SILVER sulfADIAZINE Cream [Silvadene 1% Cream] 1 applic TOPICAL BID Losartan Potassium 50 mg PO HS Changed Furosemide [Lasix] 40 mg PO BID #60 tab Discontinued Furosemide [Lasix] 80 mg PO DAILY Doxycycline Hyclate 100 mg PO BID Discharge Medication List Aspirin [Adult Low Dose Aspirin EC] 81 mg PO HS 06/16/18 [History] PARoxetine [Paxil] 20 mg PO HS 06/16/18 [History] Nitroglycerin Sl Tabs [Nitrostat] 0.4 mg SUBLINGUAL Q5M PRN #25 tab 06/20/18 [Rx] Rosuvastatin [Crestor] 20 mg PO HS 11/18/21 [History] Pantoprazole [Protonix] 40 mg PO DAILY 03/09/22 [History] Tamsulosin [Flomax] 0.4 mg PO BID 03/09/22 [History] Albuterol Inhaler [Ventolin Hfa Inhaler] 2 puff INHALATION RT-Q6H PRN 08/10/22 [History] Losartan Potassium 50 mg PO HS 08/10/22 [History] Metoprolol Tartrate [Lopressor] 50 mg PO TID 08/10/22 [History] Clopidogrel [Plavix] 75 mg PO HS 06/29/23 [History] SILVER sulfADIAZINE Cream [Silvadene 1% Cream] 1 applic TOPICAL BID 06/29/23 [History] Spironolactone [Aldactone] 25 mg PO HS 06/29/23 [History] Budesonide-Formot 160-4.5 Mcg [Symbicort 160-4.5 Mcg Inhaler] 2 puff INHALATION BID 30 Days #10.2 gm 07/04/23 [Rx] Cephalexin [Keflex] 500 mg PO Q8HR 10 Days #30 cap 07/04/23 [Rx] Furosemide [Lasix] 40 mg PO BID #60 tab 07/04/23 [Rx] Nystatin 100,000 Unit/gm Powd [Mycostatin Powder] 1 applic TOPICAL BID #1 each 07/04/23 [Rx] Thiamine [Vitamin B-1] 100 mg PO DAILY #30 tab 07/04/23 [Rx] diphenhydrAMINE [Benadryl] 25 mg PO TID PRN #30 cap 07/04/23 [Rx] Follow up Appointment(s)/Referral(s): [facility] [NON-STAFF] - 1 Week Thony Cade MD [STAFF PHYSICIAN] - 1 Week (Please call to make follow up appointment.) Bora Madera MD [Primary Care Provider] - 07/07/23 11:00 am Patient Instructions/Handouts: Cephalexin (By mouth), Furosemide (By mouth), Diphenhydramine (By mouth), Nystatin (By mouth), Thiamine (By mouth), Heart Failure (DC), Cellulitis (GEN) Activity/Diet/Wound Care/Special Instructions: Activity limited until follow-up Follow-up with primary care provider on discharge Follow-up with infectious disease outpatient Continue taking antibiotics as prescribed until finished Avoid itching or scratching any areas and use Benadryl as needed Use Jaya wrap's to bilateral lower extremities and Jaya wrapped from the toes up to the knees and elevate lower extremities while at rest Discharge Disposition: HOME WITH HOME HEALTH SERVICES
[2023-07-04 15:34] VITALS: PULSE 80
== END 2023-07-04 15:48 | disposition home health service (06) | DRG 602 ==
LOC: EC 15:43 → 6NMEDSUR 17:25 → OBSVTOIN 17:26 → 6NMEDSUR 18:19 → 5NMEDONC 18:22
PROVIDERS: ADMIT Internal Medicine; ATTEND Internal Medicine
DX: L03.115 Cellulitis of right lower limb (principal); I50.23 Acute on chronic systolic (congestive) heart failure; I13.0 Hypertensive heart and chronic kidney disease with heart failure and stage 1 through stage 4 chronic kidney disease, or unspecified chronic kidney disease; J44.1 Chronic obstructive pulmonary disease with (acute) exacerbation; Z68.41 Body mass index [BMI] 40.0-44.9, adult; I42.8 Other cardiomyopathies; J44.0 Chronic obstructive pulmonary disease with (acute) lower respiratory infection; I48.20 Chronic atrial fibrillation, unspecified; L03.116 Cellulitis of left lower limb; R06.02 Shortness of breath; I25.5 Ischemic cardiomyopathy; I25.10 Atherosclerotic heart disease of native coronary artery without angina pectoris; D63.8 Anemia in other chronic diseases classified elsewhere; E78.5 Hyperlipidemia, unspecified; E66.01 Morbid (severe) obesity due to excess calories; N18.30 Chronic kidney disease, stage 3 unspecified; I48.0 Paroxysmal atrial fibrillation; G89.29 Other chronic pain; Z79.01 Long term (current) use of anticoagulants; E11.22 Type 2 diabetes mellitus with diabetic chronic kidney disease; B95.5 Unspecified streptococcus as the cause of diseases classified elsewhere; I07.1 Rheumatic tricuspid insufficiency; I25.2 Old myocardial infarction; I45.9 Conduction disorder, unspecified; M17.0 Bilateral primary osteoarthritis of knee; Z79.82 Long term (current) use of aspirin; Z86.73 Personal history of transient ischemic attack (TIA), and cerebral infarction without residual deficits; Z95.810 Presence of automatic (implantable) cardiac defibrillator; Z95.5 Presence of coronary angioplasty implant and graft; Z79.899 Other long term (current) drug therapy
CPT/HCPCS: 36415; 71046; 80048; 80053; 81001; 83036; 83605; 83735; 83880; 85025; 85610; 85730; 87040; 87070; 87075; 87205; 93005; 93306; 94640; 94760; 96365; 96366; 96375; 99284

== ENCOUNTER 2023-10-10 10:51 | Inpatient (IN) | payer MEDICARE ==
--- NOTE | 2023-10-10 11:45 | ED ---
Recheck HPI - General Source: patient, RN notes reviewed Mode of arrival: wheelchair Limitations: no limitations <Tracie López - Last Filed: 10/10/23 11:43> - General Source: patient, RN notes reviewed, old records reviewed Mode of arrival: wheelchair Limitations: no limitations <Ramón Alvarado - Last Filed: 10/10/23 14:38> - General Chief Complaint: Recheck/Abnormal Lab/Rx Stated Complaint: Rash on both legs Time Seen by Provider: 10/10/23 11:43 - History of Present Illness Initial Comments: Quick note: 77-year-old male presented to the ER with a chief complaint of bilateral leg wounds. Patient has been dealing with bilateral leg rash and wounds for the past 2 years. He was recently on antibiotics approximately 2 weeks ago. He follows up with wound care on . He denies any fevers. (Tracie López) 77-year-old male presents emergency department complaining of bilateral leg swelling, wounds, drainage. Patient states that this been going on for years bu t states has extremely worsened over the last week. He states he was on antibiotics which seemed to help but then when he stopped symptoms significant worsen. He states he always has shortness of breath no increasing shortness of breath he states is not why he deals with his wounds. States pain is becoming severe at this point. Patient denies any reports of fever he states his legs are just wrapped in his dressings are soaking through. (Ramón Alvarado) - Related Data Home Medications Medication Instructions Recorded Confirmed Aspirin [Adult Low Dose Aspirin EC] 81 mg PO HS 06/16/18 06/29/23 PARoxetine [Paxil] 20 mg PO HS 06/16/18 06/29/23 Rosuvastatin [Crestor] 20 mg PO HS 11/18/21 06/29/23 Pantoprazole [Protonix] 40 mg PO DAILY 03/09/22 06/29/23 Tamsulosin [Flomax] 0.4 mg PO BID 03/09/22 06/29/23 Albuterol Inhaler [Ventolin Hfa 2 puff INHALATION RT-Q6H PRN 08/10/22 06/29/23 Inhaler] Losartan Potassium 50 mg PO HS 08/10/22 06/29/23 Metoprolol Tartrate [Lopressor] 50 mg PO TID 08/10/22 06/29/23 Clopidogrel [Plavix] 75 mg PO HS 06/29/23 06/29/23 SILVER sulfADIAZINE Cream 1 applic TOPICAL BID 06/29/23 06/29/23 [Silvadene 1% Cream] Spironolactone [Aldactone] 25 mg PO HS 06/29/23 06/29/23 Previous Rx's Medication Instructions Recorded Nitroglycerin Sl Tabs [Nitrostat] 0.4 mg SUBLINGUAL Q5M PRN #25 tab 06/20/18 Budesonide-Formot 160-4.5 Mcg 2 puff INHALATION BID 30 Days 07/04/23 [Symbicort 160-4.5 Mcg Inhaler] #10.2 gm Cephalexin [Keflex] 500 mg PO Q8HR 10 Days #30 cap 07/04/23 Furosemide [Lasix] 40 mg PO BID #60 tab 07/04/23 Nystatin 100,000 Unit/gm Powd 1 applic TOPICAL BID #1 each 07/04/23 [Mycostatin Powder] Thiamine [Vitamin B-1] 100 mg PO DAILY #30 tab 07/04/23 diphenhydrAMINE [Benadryl] 25 mg PO TID PRN #30 cap 07/04/23 Allergies Allergy/AdvReac Type Severity Reaction Status Date / Time No Known Allergies Allergy Verified 10/10/23 11:28 Review of Systems ROS Other: All systems not noted in ROS Statement are negative. <Tracie López - Last Filed: 10/10/23 11:43> ROS Other: All systems not noted in ROS Statement are negative. <Ramón Alvarado - Last Filed: 10/10/23 14:38> ROS Statement: Those systems with pertinent positive or pertinent negative responses have been documented in the HPI. Past Medical History Past Medical History: Coronary Artery Disease (CAD), Heart Failure, CVA/TIA, Hypertension, Myocardial Infarction (MS), Osteoarthritis (OA) Additional Past Medical History / Comment(s): TIA - no residual effects, c/o fatigue,see dr [facility] Last Myocardial Infarction Date:: unknown History of Any Multi-Drug Resistant Organisms: None Reported Past Surgical History: AICD, Heart Catheterization With Stent Additional Past Surgical History / Comment(s): spinal steroid injections, aicd placed Past Anesthesia/Blood Transfusion Reactions: No Reported Reaction Date of Last Stent Placement:: unknown Type of Cardiac Device: AICD Device Placement Date:: feb 2022 Past Psychological History: No Psychological Hx Reported Smoking Status: Former smoker Past Alcohol Use History: Daily Past Drug Use History: None Reported - Past Family History Sister(s) Family Medical History: Cancer <Tracie López - Last Filed: 10/10/23 11:43> General Exam Limitations: no limitations <Tracie López - Last Filed: 10/10/23 11:43> General appearance: alert, in no apparent distress Head exam: Present: atraumatic, normocephalic, normal inspection Eye exam: Present: normal appearance, PERRL, EOMI. Absent: scleral icterus, conjunctival injection, periorbital swelling Respiratory exam: Present: normal lung sounds bilaterally. Absent: respiratory distress, wheezes, rales, rhonchi, stridor Cardiovascular Exam: Present: regular rate, normal rhythm, normal heart sounds. Absent: systolic murmur, diastolic murmur, rubs, gallop, clicks Extremities exam: Present: other (Bilateral leg wounds, drainage, erythema and s ores noted) Skin exam: Present: warm, dry, intact, normal color. Absent: rash <Ramón Alvarado - Last Filed: 10/10/23 14:38> - General Exam Comments Initial Comments: Visual Physical Exam Vital signs reviewed General: Well-appearing, nontoxic, no acute distress. Head: Normocephalic, atraumatic Eyes: PERRLA, EOMI ENT: Airway patent Chest: Nonlabored breathing Skin: Bilateral lower extremities erythematous, edematous and with drainage Neuro: Alert and oriented 3 Musculoskeletal: No gross abnormalities (Tracie López) Course Vital Signs 10/10/23 11:23 Temperature 97.6 F Pulse Rate 68 Respiratory 22 Rate Blood Pressure 95/61 O2 Sat by Pulse 98 Oximetry Medical Decision Making <Tracie López - Last Filed: 10/10/23 11:43> - Lab Data Result diagrams: 10/10/23 13:30 10/10/23 13:30 <Ramón Alvarado - Last Filed: 10/10/23 14:38> - Medical Decision Making I performed the quick note portion of this chart. Electronically signed by Tracie López PA-C (Tracie López) Was pt. sent in by a medical professional or institution (GUSTAVO Leblanc, [employer]OR, urgent care, hospital, or custodial...) When possible be specific @ -Home health care nurse Did you speak to anyone other than the patient for history (EMS, parent, family, police, friend...)? What history was obtained from this source @ -No Did you review nursing and triage notes (agree or disagree)? Why? @ -I reviewed and agree with nursing and triage notes Were old charts reviewed (outside hosp., previous admission, EMS record, old EKG, old radiological studies, urgent care reports/EKG's, custodial records)? Report findings @ -No old charts were reviewed Differential Diagnosis (chest pain, altered mental status, abdominal pain women, abdominal pain men, vaginal bleeding, weakness, fever, dyspnea, syncope, headache, dizziness, GI bleed, back pain, seizure, CVA, palpatations, mental health, musculoskeletal)? @ -Cellulitis, venous insufficiency, leg ulceration EKG interpreted by me (3pts min.). @ -As above X-rays interpreted by me (1pt min.). @ -None done CT interpreted by me (1pt min.). @ -None done U/S interpreted by me (1pt. min.). @ -None done What testing was considered but not performed or refused? (CT, X-rays, U/S, labs)? Why? @ -None What meds were considered but not given or refused? Why? @ -None Did you discuss the management of the patient with other professionals (ant hook i.e. GUSTAVO Leblanc, [employer] SUPERVISOR, lab, RT, psych nurse, social professionals, director agricultural services, teacher, health officer, director of casework department)? Give summary @ -No Was smoking cessation discussed for >3mins.? @ -No Was critical care preformed (if so, how long)? @ -No Were there social determinants of health that impacted care today? How? (Homelessness, low income, unemployed, alcoholism, drug addiction, transportation, low edu. Level, literacy, decrease access to med. care, fdc, rehab)? @ -No Was there de-escalation of care discussed even if they declined (Discuss DNR or withdrawal of care, Hospice)? DNR status @ -No What co-morbidities impacted this encounter? (DM, HTN, Smoking, COPD, CAD, Cancer, CVA, ARF, Chemo, Hep., AIDS, mental health diagnosis, sleep apnea, morbid obesity)? @ -CAD, CHF Was patient admitted / discharged? Hospital course, mention meds given and route, prescriptions, significant lab abnormalities, going to OR and other pertinent info. @ -Admitted patient has extensive cellulitis, leg edema, with cellulitic changes. Patient has failed outpatient treatment. Patient will be admitted for IV antibiotics, wound care, possible diuresis. Undiagnosed new problem with uncertain prognosis? @ -No Drug Therapy requiring intensive monitoring for toxicity (Heparin, Nitro, Insulin, Cardizem)? @ -No Were any procedures done? @ -No Diagnosis/symptom? @ -Bilateral leg cellulitis, edema, ulcerations Acute, or Chronic, or Acute on Chronic? @ -Acute Uncomplicated (without systemic symptoms) or Complicated (systemic symptoms)? @ -Complicated Side effects of treatment? @ -No Exacerbation, Progression, or Severe Exacerbation? @ -No Poses a threat to life or bodily function? How? (Chest pain, USA, MS, pneumonia, PE, COPD, DKA, ARF, appy, cholecystitis, CVA, Diverticulitis, Homicidal, Suicidal, threat to staff... and all critical care pts) @ -Yes possible sepsis from cellulitis (Ramón Alvarado) - Lab Data Lab Results 10/10/23 10/10/23 Range/Units 13:30 13:30 WBC 8.4 (3.8-10.6) k/uL RBC 3.87 L (4.30-5.90) m/uL Hgb 9.6 L (13.0-17.5) gm/dL Hct 31.2 L (39.0-53.0) % MCV 80.7 (80.0-100.0) fL MCH 24.7 L (25.0-35.0) pg MCHC 30.6 L (31.0-37.0) g/dL RDW 17.6 H (11.5-15.5) % Plt Count 282 (150-450) k/uL MPV 7.6 Neutrophils % 76 % Lymphocytes % 6 % Monocytes % 8 % Eosinophils % 6 % Basophils % 1 % Neutrophils # 6.4 (1.3-7.7) k/uL Lymphocytes # 0.5 L (1.0-4.8) k/uL Monocytes # 0.7 (0-1.0) k/uL Eosinophils # 0.5 (0-0.7) k/uL Basophils # 0.1 (0-0.2) k/uL Hypochromasia Moderate Anisocytosis Slight Microcytosis Slight Sodium 138 (137-145) mmol/L Potassium 4.8 (3.5-5.1) mmol/L Chloride 107 (98-107) mmol/L Carbon Dioxide 20 L (22-30) mmol/L Anion Gap 11 mmol/L BUN 44 H (9-20) mg/dL Creatinine 1.99 H (0.66-1.25) mg/dL Est GFR (CKD-EPI)AfAm 36 (>60 ml/min/1.73 sqM) Est GFR (CKD-EPI)NonAf 31 (>60 ml/min/1.73 sqM) Glucose 107 H (74-99) mg/dL Calcium 9.0 (8.4-10.2) mg/dL Magnesium 2.4 H (1.6-2.3) mg/dL Total Bilirubin 0.5 (0.2-1.3) mg/dL AST 29 (17-59) U/L ALT 22 (4-49) U/L Alkaline Phosphatase 69 (38-126) U/L Total Protein 6.9 (6.3-8.2) g/dL Albumin 3.7 (3.5-5.0) g/dL Disposition <Tracie López - Last Filed: 10/10/23 11:43> Time of Disposition: 14:37 <Ramón Alvarado - Last Filed: 10/10/23 14:38> Clinical Impression: Bilateral lower leg cellulitis, Bilateral leg ulcer Disposition: ADMITTED IP TO THIS HOSP Referrals: Bora Madera MD [Primary Care Provider] - 1-2 days
[2023-10-10] MEDS: HYDROmorphone 0.5 MG/0.5 ML SYRINGE IVP STA (13:52)
[2023-10-10] MEDS: ONDANSETRON 4 MG/2 ML VIAL IVP STA (13:53)
[2023-10-10 14:13] LABS: Anisocytosis Slight; Basophils # (A) 0.1 k/uL (0-0.2); Basophils % (A) 1 %; Eosinophils # (A) 0.5 k/uL (0-0.7); Eosinophils % (A) 6 %; HCT 31.2 % (39.0-53.0); HGB 9.6 gm/dL (13.0-17.5); Hypochromasia Moderate; Lymphocytes # (A) 0.5 k/uL (1.0-4.8); Lymphocytes % (A) 6 %; MCH 24.7 pg (25.0-35.0); MCHC 30.6 g/dL (31.0-37.0); MCV 80.7 fL (80.0-100.0); Mean Platelet Volume 7.6; Microcytosis Slight; Monocytes # (A) 0.7 k/uL (0-1.0); Monocytes % (A) 8 %; Neutrophils # (A) 6.4 k/uL (1.3-7.7); Neutrophils % (A) 76 %; Platelet Count 282 k/uL (150-450); RBC 3.87 m/uL (4.30-5.90); RDW 17.6 % (11.5-15.5); WBC 8.4 k/uL (3.8-10.6)
[2023-10-10 14:15] LABS: ALT 22 U/L (4-49); AST 29 U/L (17-59); African American GFR (CKD) 36 (>60 ml/min/1.73 sqM); Albumin 3.7 g/dL (3.5-5.0); Alkaline Phosphatase 69 U/L (38-126); Anion Gap 11 mmol/L; Blood Urea Nitrogen 44 mg/dL (9-20); Carbon Dioxide 20 mmol/L (22-30); Chloride 107 mmol/L (98-107); Glucose 107 mg/dL (74-99); Magnesium 2.4 mg/dL (1.6-2.3); Non-African American GFR(CKD) 31 (>60 ml/min/1.73 sqM); Potassium 4.8 mmol/L (3.5-5.1); Sodium 138 mmol/L (137-145); Total Bilirubin 0.5 mg/dL (0.2-1.3); Total Protein 6.9 g/dL (6.3-8.2)
[2023-10-10] MEDS ORDERED: VANCOMYCIN IV PER PHARMACY 1 EACH MISC MISCELLANE PRN (14:33)
[2023-10-10] MEDS ORDERED: NALOXONE 0.4 MG/ML 1 ML VIAL IV PRN (14:55)
[2023-10-10] MEDS ORDERED: ONDANSETRON 4 MG/2 ML VIAL IVP PRN (14:55)
[2023-10-10] MEDS: VANCOMYCIN 2,250 MG in SODIUM CHLORIDE 0.9% 500 ML 500 ML IVPB ONE (15:21)
[2023-10-10] MEDS: TAMSULOSIN 0.4 MG CAP.ER.24H PO SCH (21:35)
[2023-10-10] MEDS: CLOPIDOGREL 75 MG TAB PO SCH (21:35)
[2023-10-10] MEDS: prednisoLONE ACETATE 1% OPHTH DROPS 5 ML BTL LEFT EYE SCH (21:36)
[2023-10-10] MEDS: BRIMONIDINE TARTRATE 0.2% DROPS 5 ML BTL LEFT EYE SCH (21:36)
[2023-10-10] MEDS: HYDROmorphone 0.5 MG/0.5 ML SYRINGE IVP PRN (21:46)
--- NOTE | 2023-10-10 22:06 | P.CONS ---
History of Present Illness - Reason for Consult Consult date: 10/10/23 - History of Present Illness Patient is a 77-year-old male with a past medical history significant for coronary disease hypertension CVA TIA ND osteoarthritis patient was brought into the hospital concerning for worsening bilateral lower extremity rash and wound that the patient has for almost 2 years noticed to have a recent worsening over the last few days patient complaining of itching with associated scratching and did have multiple superficial ulceration to both lower extremity he is describing the pain in the next to be sharp almost 10 out of 10 severity by the time he presented to hospital with associated swelling redness and some drainage patient denies high-grade fever and no fever was recorded on presentation to the hospital patient was not tachycardic mildly hypertensive but not hypoxic did have white count of 8.4 BUN and creatinine has been mildly elevated liver enzymes are normal patient has been started on vancomycin from the ER infectious was consulted for leg cellulitis event of antibiotic therapy Past Medical History Past Medical History: Coronary Artery Disease (CAD), Heart Failure, CVA/TIA, Hypertension, Myocardial Infarction (ND), Osteoarthritis (OA) Additional Past Medical History / Comment(s): TIA - no residual effects, c/o fatigue,see dr [facility] Last Myocardial Infarction Date:: unknown History of Any Multi-Drug Resistant Organisms: None Reported Past Surgical History: AICD, Heart Catheterization With Stent Additional Past Surgical History / Comment(s): spinal steroid injections, aicd placed Past Anesthesia/Blood Transfusion Reactions: No Reported Reaction Date of Last Stent Placement:: unknown Type of Cardiac Device: AICD Device Placement Date:: feb 2022 Past Psychological History: No Psychological Hx Reported Smoking Status: Former smoker Past Alcohol Use History: Daily Past Drug Use History: None Reported - Past Family History Sister(s) Family Medical History: Cancer Medications and Allergies Home Medications Medication Instructions Recorded Confirmed Type Aspirin [Adult Low Dose Aspirin EC] 81 mg PO DAILY 06/16/18 10/10/23 History PARoxetine [Paxil] 20 mg PO DAILY 06/16/18 10/10/23 History Nitroglycerin Sl Tabs [Nitrostat] 0.4 mg SUBLINGUAL Q5M PRN #25 tab 06/20/18 10/10/23 Rx Rosuvastatin [Crestor] 20 mg PO DAILY 11/18/21 10/10/23 History Pantoprazole [Protonix] 40 mg PO DAILY 03/09/22 10/10/23 History Tamsulosin [Flomax] 0.4 mg PO BID 03/09/22 10/10/23 History Albuterol Inhaler [Ventolin Hfa 2 puff INHALATION RT-Q6H PRN 08/10/22 10/10/23 History Inhaler] Losartan Potassium 50 mg PO DAILY 08/10/22 10/10/23 History Metoprolol Tartrate [Lopressor] 50 mg PO TID 08/10/22 10/10/23 History Clopidogrel [Plavix] 75 mg PO HS 06/29/23 10/10/23 History SILVER sulfADIAZINE Cream 1 applic TOPICAL BID 06/29/23 10/10/23 History [Silvadene 1% Cream] Spironolactone [Aldactone] 25 mg PO DAILY 06/29/23 10/10/23 History Brimonidine Tartrate [Alphagan P 1 drops LEFT EYE QID 10/10/23 10/10/23 History 0.1% Ophth Soln] Furosemide [Lasix] 40 mg PO DAILY@1500 10/10/23 10/10/23 History Furosemide [Lasix] 80 mg PO DAILY 10/10/23 10/10/23 History Pyridoxine HCl (Vitamin B6) 100 mg PO DAILY 10/10/23 10/10/23 History [Vitamin B-6] Sodium Chloride 5% Ophth Soln 1 drops LEFT EYE QID 10/10/23 10/10/23 History [Karly 128] Allergies Allergy/AdvReac Type Severity Reaction Status Date / Time No Known Allergies Allergy Verified 10/10/23 14:59 Physical Exam Vitals: Vital Signs Temp Pulse Resp BP Pulse Ox 10/10/23 16:23 65 18 97/83 100 10/10/23 11:23 97.6 F 68 22 95/61 98 Intake and Output 10/10/23 10/10/23 10/10/23 06:59 14:59 22:59 Other: Weight 129.274 kg Results CBC & Chem 7: 10/11/23 09:01 10/11/23 09:01 Labs: Abnormal Lab Results - Last 24 Hours (Table) 10/10/23 10/10/23 Range/Units 13:30 13:30 RBC 3.87 L (4.30-5.90) m/uL Hgb 9.6 L (13.0-17.5) gm/dL Hct 31.2 L (39.0-53.0) % MCH 24.7 L (25.0-35.0) pg MCHC 30.6 L (31.0-37.0) g/dL RDW 17.6 H (11.5-15.5) % Lymphocytes # 0.5 L (1.0-4.8) k/uL Carbon Dioxide 20 L (22-30) mmol/L BUN 44 H (9-20) mg/dL Creatinine 1.99 H (0.66-1.25) mg/dL Glucose 107 H (74-99) mg/dL Magnesium 2.4 H (1.6-2.3) mg/dL Assessment and Plan Plan: 1patient presented hospital with bilateral recently mild swelling and redness of superficial ulceration from scratching with concern for cellulitis likely from gram-positive skin eboni, patient has not been antibiotic in the recent past clinical low suspicious for MRSA infection 2-patient did have renal insufficiency and high risk of nephrotoxicity from vancomycin 3-we will discontinue vancomycin 4-start the patient cefazolin 2 g every 8 hours We will follow on clinical condition and cultures to further adjust medication if needed Thank you for this consultation we will follow the patient along with you Dictation was produced using [employer] dictation software. please excuse any grammatical, word or spelling errors. Time with Patient: Greater than 30
[2023-10-10] MEDS: ALBUTEROL NEBULIZED 2.5 MG/3 ML INHALATION PRN (22:49)
--- NOTE | 2023-10-11 00:46 | P.HPIM ---
History of Present Illness H&P Date: 10/10/23 Chief Complaint: Bilateral leg swelling Patient is a 77-year-old male with a past medical history of coronary artery disease status post stent placement, AICD placement, peripheral vascular disease with prior vascular procedure, hypertension, CVA/TIA, prior history of smoking and daily alcohol use presents to ER with complaints of bilateral leg wounds. Patient states that he has been having bilateral leg rash and wounds which is worsening for the past 2 weeks. He was on antibiotics 2 weeks ago. He does follow with the wound care clinic. Otherwise denies any fever or chills. No chest pain or shortness of breath. Denies any worsening shortness of breath. Patient was having cramping and pain. BUN 44 and creatinine 1.99 and blood sugar 107 and magnesium 2. Laboratory showed WBC 8.4 hemoglobin 9.6 and platelets 282 Review of Systems Constitutional: Patient denies any fever or chills . No generalized weakness or weight loss. Abdomen: Patient denied nausea vomiting and diarrhea and abdominal pain. Cardiovascular: Patient denies any chest pain or short of breath no palpitations. Respiratory: patient denied any cough is from production. No shortness of breath Neurologic: Patient denied any numbness or tingling headache. Musculoskeletal: Patient denies any complaints of joint swelling or deformity. Skin: Negative Psychiatric: Negative Endocrine: No heat or cold intolerance. No recent weight gain. Genitourinary: No dysuria or hematuria. All other 14 point ROS negative except the above Past Medical History Past Medical History: Coronary Artery Disease (CAD), Heart Failure, CVA/TIA, Hypertension, Myocardial Infarction (RI), Osteoarthritis (OA) Additional Past Medical History / Comment(s): TIA - no residual effects, c/o fatigue,see dr [facility] Last Myocardial Infarction Date:: unknown History of Any Multi-Drug Resistant Organisms: None Reported Past Surgical History: AICD, Heart Catheterization With Stent Additional Past Surgical History / Comment(s): spinal steroid injections, aicd placed Past Anesthesia/Blood Transfusion Reactions: No Reported Reaction Date of Last Stent Placement:: unknown Type of Cardiac Device: AICD Device Placement Date:: feb 2022 Past Psychological History: No Psychological Hx Reported Smoking Status: Former smoker Past Alcohol Use History: Daily Past Drug Use History: None Reported - Past Family History Sister(s) Family Medical History: Cancer Medications and Allergies Home Medications Medication Instructions Recorded Confirmed Type Aspirin [Adult Low Dose Aspirin EC] 81 mg PO DAILY 06/16/18 10/10/23 History PARoxetine [Paxil] 20 mg PO DAILY 06/16/18 10/10/23 History Nitroglycerin Sl Tabs [Nitrostat] 0.4 mg SUBLINGUAL Q5M PRN #25 tab 06/20/18 10/10/23 Rx Rosuvastatin [Crestor] 20 mg PO DAILY 11/18/21 10/10/23 History Pantoprazole [Protonix] 40 mg PO DAILY 03/09/22 10/10/23 History Tamsulosin [Flomax] 0.4 mg PO BID 03/09/22 10/10/23 History Albuterol Inhaler [Ventolin Hfa 2 puff INHALATION RT-Q6H PRN 08/10/22 10/10/23 History Inhaler] Losartan Potassium 50 mg PO DAILY 08/10/22 10/10/23 History Metoprolol Tartrate [Lopressor] 50 mg PO TID 08/10/22 10/10/23 History Clopidogrel [Plavix] 75 mg PO HS 06/29/23 10/10/23 History SILVER sulfADIAZINE Cream 1 applic TOPICAL BID 06/29/23 10/10/23 History [Silvadene 1% Cream] Spironolactone [Aldactone] 25 mg PO DAILY 06/29/23 10/10/23 History Brimonidine Tartrate [Alphagan P 1 drops LEFT EYE QID 10/10/23 10/10/23 History 0.1% Ophth Soln] Furosemide [Lasix] 40 mg PO DAILY@1500 10/10/23 10/10/23 History Furosemide [Lasix] 80 mg PO DAILY 10/10/23 10/10/23 History Pyridoxine HCl (Vitamin B6) 100 mg PO DAILY 10/10/23 10/10/23 History [Vitamin B-6] Sodium Chloride 5% Ophth Soln 1 drops LEFT EYE QID 10/10/23 10/10/23 History [Karly 128] Allergies Allergy/AdvReac Type Severity Reaction Status Date / Time No Known Allergies Allergy Verified 10/10/23 14:59 Physical Exam Vitals: Vital Signs Temp Pulse Resp BP Pulse Ox 10/10/23 16:23 65 18 97/83 100 10/10/23 11:23 97.6 F 68 22 95/61 98 Intake and Output 10/10/23 10/10/23 10/10/23 06:59 14:59 22:59 Other: Weight 129.274 kg PHYSICAL EXAMINATION: Patient is lying in the bed comfortably, no acute distress, awake alert and oriented.. HEENT: Normocephalic. Neck is supple. Pupils reactive. Nostrils clear. Oral cavity is moist. Neck reveals no JVD, carotid bruits, or thyromegaly. CHEST EXAMINATION: Trachea is central. Symmetrical expansion. Lung thompson clear to auscultation and percussion. CARDIAC: Normal S1, S2 with no gallops. No murmurs ABDOMEN: Soft. Bowel sounds normal. No organomegaly. No abdominal bruits. Extremities: Bilateral feet swelling and redness with superficial ulcerations.. No clubbing or cyanosis Neurologically awake, alert, oriented x3 with well-coordinated movements. No focal deficits noted Skin: No rash or skin lesions. Psychiatric: Coperative. Nonsuicidal Musculoskeletal: No joint swelling or deformity. Normal range of motion. Results CBC & Chem 7: 10/10/23 13:30 10/10/23 13:30 Labs: Abnormal Lab Results - Last 24 Hours (Table) 10/10/23 10/10/23 Range/Units 13:30 13:30 RBC 3.87 L (4.30-5.90) m/uL Hgb 9.6 L (13.0-17.5) gm/dL Hct 31.2 L (39.0-53.0) % MCH 24.7 L (25.0-35.0) pg MCHC 30.6 L (31.0-37.0) g/dL RDW 17.6 H (11.5-15.5) % Lymphocytes # 0.5 L (1.0-4.8) k/uL Carbon Dioxide 20 L (22-30) mmol/L BUN 44 H (9-20) mg/dL Creatinine 1.99 H (0.66-1.25) mg/dL Glucose 107 H (74-99) mg/dL Magnesium 2.4 H (1.6-2.3) mg/dL Thrombosis Risk Factor Assmnt - DVT/VTE Prophylaxis DVT/VTE Prophylaxis: Pharmacologic Prophylaxis ordered Assessment and Plan Assessment: Bilateral leg swelling and cellulitis with superficial ulceration. Peripheral vascular disease Coronary arteries history of stent placement History of [place] History of CVA/TIA with no residual defects. Osteoarthritis History of AICD placement Prior history of smoking and daily alcohol use DVT prophylaxis heparin subcu Plan: Patient will be continued on IV antibiotics with cefazolin. Was given IV vancomycin in the ER. Continue with wound care and follow-up closely. ID and vascular surgery was consulted. Follow-up closely. Follow culture reports. Continue the home medications. Time with Patient: Greater than 30
[2023-10-11] MEDS: PARoxetine 20 MG TAB PO SCH (08:57)
[2023-10-11] MEDS: PANTOPRAZOLE 40 MG TABLET PO SCH (08:57)
[2023-10-11] MEDS: ASPIRIN 81 MG PO SCH (08:57)
[2023-10-11] MEDS: ATORVASTATIN 40 MG TAB PO SCH (08:57)
[2023-10-11 10:32] LABS: Anisocytosis Slight; Basophils # (A) 0.1 k/uL (0-0.2); Basophils % (A) 1 %; Eosinophils # (A) 0.3 k/uL (0-0.7); Eosinophils % (A) 4 %; HCT 28.3 % (39.0-53.0); HGB 9.1 gm/dL (13.0-17.5); Hypochromasia Moderate; Lymphocytes # (A) 0.4 k/uL (1.0-4.8); Lymphocytes % (A) 4 %; MCH 25.5 pg (25.0-35.0); MCHC 32.2 g/dL (31.0-37.0); MCV 79.3 fL (80.0-100.0); Mean Platelet Volume 8.4; Microcytosis Slight; Monocytes # (A) 0.7 k/uL (0-1.0); Monocytes % (A) 8 %; Neutrophils # (A) 7.7 k/uL (1.3-7.7); Neutrophils % (A) 82 %; Platelet Count 237 k/uL (150-450); RBC 3.57 m/uL (4.30-5.90); RDW 17.3 % (11.5-15.5); WBC 9.4 k/uL (3.8-10.6)
[2023-10-11] MEDS ORDERED: CALAMINE/ZINC OXIDE LOTION 177 ML BTL TOPICAL PRN (12:00)
[2023-10-11] MEDS ORDERED: VANCOMYCIN 2,250 MG in SODIUM CHLORIDE 0.9% 500 ML 500 ML IVPB SCH (12:00)
--- NOTE | 2023-10-11 12:09 | P.CONS ---
History of Present Illness - Reason for Consult Consult date: 10/11/23 wound care - History of Present Illness This is a 77-year-old gentleman being seen by the wound care center on 1 S. for leg wounds to bilateral lower extremities. Patient does not have any open ulcerations at this time. Patient does have excoriation, Redness, dryness and drainage noted to bilateral lower extremities and excoriation to bilateral groins. Patient states that his legs have been like this for the last few we eks. Patient states that his legs are edematous and itching. Patient's past medical history significant for coronary artery disease, AICD, peripheral vascular disease, CVA, CVA, every day smoker. Patient was scheduled to be seen in the wound care center for his first appointment on the . He is not currently a patient in the wound care center at this time. Review Of Systems: Constitutional: No fever, no chills, no night sweats. No weight change. No weakness, fatigue or lethargy. No daytime sleepiness. Integumentary:reports wounds, no lesions. No rash or pruritus. No unusual bruising. No change in hair or nails. Physical exam: General Appearance: Alert, cooperative, no distress, appears stated age. Skin: See HPI all other Skin color, texture, tugor normal, no rashes or lesions. Neurologic: Alert oriented x3 Assessment: 1. Chronic venous hypertension with inflammation bilateral lower extremities 2. Excoriation to bilateral groins 3. Nicotine dependence. Plan: 1.Bilateral lower extremities apply calmoseptine and bag balm wrap with Kerlix and Jaya wrap for compression. Change daily. Bilateral groins apply Triad daily. If patient does not tolerate the calmoseptine may apply Triad instead to bilateral lower extremities. Patient's wound care appointment will be rescheduled. Thank you for the consultation any questions please contact the wound care [facility] DNP note has been reviewed and discussed with Dr. Ramírez and the impression and plan of care has been directed as dictated. Past Medical History Past Medical History: Coronary Artery Disease (CAD), Heart Failure, CVA/TIA, Hypertension, Myocardial Infarction (ME), Osteoarthritis (OA) Additional Past Medical History / Comment(s): TIA - no residual effects, c/o fatigue,see dr [facility] Last Myocardial Infarction Date:: unknown History of Any Multi-Drug Resistant Organisms: None Reported Past Surgical History: AICD, Heart Catheterization With Stent Additional Past Surgical History / Comment(s): spinal steroid injections, aicd placed Past Anesthesia/Blood Transfusion Reactions: No Reported Reaction Date of Last Stent Placement:: unknown Type of Cardiac Device: AICD Device Placement Date:: feb 2022 Past Psychological History: No Psychological Hx Reported Smoking Status: Former smoker Past Alcohol Use History: Daily Past Drug Use History: None Reported - Past Family History Sister(s) Family Medical History: Cancer Medications and Allergies Home Medications Medication Instructions Recorded Confirmed Type Aspirin [Adult Low Dose Aspirin EC] 81 mg PO DAILY 06/16/18 10/10/23 History PARoxetine [Paxil] 20 mg PO DAILY 06/16/18 10/10/23 History Nitroglycerin Sl Tabs [Nitrostat] 0.4 mg SUBLINGUAL Q5M PRN #25 tab 06/20/18 10/10/23 Rx Rosuvastatin [Crestor] 20 mg PO DAILY 11/18/21 10/10/23 History Pantoprazole [Protonix] 40 mg PO DAILY 03/09/22 10/10/23 History Tamsulosin [Flomax] 0.4 mg PO BID 03/09/22 10/10/23 History Albuterol Inhaler [Ventolin Hfa 2 puff INHALATION RT-Q6H PRN 08/10/22 10/10/23 History Inhaler] Losartan Potassium 50 mg PO DAILY 08/10/22 10/10/23 History Metoprolol Tartrate [Lopressor] 50 mg PO TID 08/10/22 10/10/23 History Clopidogrel [Plavix] 75 mg PO HS 06/29/23 10/10/23 History SILVER sulfADIAZINE Cream 1 applic TOPICAL BID 06/29/23 10/10/23 History [Silvadene 1% Cream] Spironolactone [Aldactone] 25 mg PO DAILY 06/29/23 10/10/23 History Brimonidine Tartrate [Alphagan P 1 drops LEFT EYE QID 10/10/23 10/10/23 History 0.1% Ophth Soln] Furosemide [Lasix] 40 mg PO DAILY@1500 10/10/23 10/10/23 History Furosemide [Lasix] 80 mg PO DAILY 10/10/23 10/10/23 History Pyridoxine HCl (Vitamin B6) 100 mg PO DAILY 10/10/23 10/10/23 History [Vitamin B-6] Sodium Chloride 5% Ophth Soln 1 drops LEFT EYE QID 10/10/23 10/10/23 History [Karly 128] Allergies Allergy/AdvReac Type Severity Reaction Status Date / Time No Known Allergies Allergy Verified 10/10/23 14:59 Physical Exam Vitals: Vital Signs Temp Pulse Pulse Resp BP BP Pulse Ox 10/11/23 08:00 91 22 10/11/23 07:00 91 109/56 10/11/23 02:00 97.3 F L 94 22 96/58 95 10/10/23 23:09 72 10/10/23 23:01 20 10/10/23 22:51 70 10/10/23 22:11 98.3 F 75 18 110/48 94 L 10/10/23 21:55 20 10/10/23 21:29 70 20 95/62 97 10/10/23 19:57 63 20 111/72 10/10/23 16:23 65 18 97/83 100 Intake and Output 10/10/23 10/11/23 10/11/23 22:59 06:59 14:59 Intake Total 200 250 118 Output Total 200 Balance 200 50 118 Intake: Intake, IV Titration 50 Amount ceFAZolin 2 gm In Sodium 50 Chloride 0.9% 50 ml @ 100 mls/hr IVPB Q8HR [facility] Rx# :[id number] Oral 200 200 118 Output: Urine 200 Other: Voiding Method Urinal Urinal Weight 129.274 kg Results CBC & Chem 7: 10/11/23 09:01 10/10/23 13:30 Labs: Abnormal Lab Results - Last 24 Hours (Table) 10/10/23 10/10/23 10/11/23 Range/Units 13:30 13:30 09:01 RBC 3.87 L 3.57 L (4.30-5.90) m/uL Hgb 9.6 L 9.1 L (13.0-17.5) gm/dL Hct 31.2 L 28.3 L (39.0-53.0) % MCV 79.3 L (80.0-100.0) fL MCH 24.7 L (25.0-35.0) pg MCHC 30.6 L (31.0-37.0) g/dL RDW 17.6 H 17.3 H (11.5-15.5) % Lymphocytes # 0.5 L 0.4 L (1.0-4.8) k/uL Carbon Dioxide 20 L (22-30) mmol/L BUN 44 H (9-20) mg/dL Creatinine 1.99 H (0.66-1.25) mg/dL Glucose 107 H (74-99) mg/dL Magnesium 2.4 H (1.6-2.3) mg/dL Assessment and Plan (1) Chronic venous hypertension (idiopathic) with inflammation of bilateral lower extremity Current Visit: Yes Status: Acute Code(s): I87.323 - CHRONIC VENOUS HTN W IN FLAMMATION OF BILATERAL LOW EXTRM SNOMED Code(s): 688237915 (2) Excoriation of groin Current Visit: Yes Status: Acute Code(s): S30.811A - ABRASION OF ABDOMINAL WALL, INITIAL ENCOUNTER SNOMED Code(s): 764098412 (3) Nicotine dependence with current use Current Visit: Yes Status: Acute Code(s): F17.200 - NICOTINE DEPENDENCE, UNSPECIFIED, UNCOMPLICATED SNOMED Code(s): 18277435
[2023-10-11 12:37] LABS: African American GFR (CKD) 30 (>60 ml/min/1.73 sqM); Anion Gap 11 mmol/L; Blood Urea Nitrogen 49 mg/dL (9-20); C Reactive Protein 8.7 mg/dL (<1.0); Calcium 8.6 mg/dL (8.4-10.2); Carbon Dioxide 21 mmol/L (22-30); Chloride 106 mmol/L (98-107); Glucose 131 mg/dL (74-99); Non-African American GFR(CKD) 26 (>60 ml/min/1.73 sqM); Sodium 138 mmol/L (137-145)
[2023-10-11] MEDS: HYDROPHILIC CREAM 180 GM TUBE TOPICAL SCH (14:15)
[2023-10-11] MEDS: PETROLAT,WHITE/LAN/8-HYDROXYQU 227 GM OINT TOPICAL SCH (14:15)
[2023-10-11] MEDS: NYSTATIN 100,000UNIT/GM CREAM 30 GM TUBE TOPICAL SCH (14:16)
--- NOTE | 2023-10-11 16:03 | P.PN ---
Subjective Progress Note Date: 10/11/23 Principal diagnosis: Reason for follow-up is bilateral lower extremity cellulitis Patient is a 77-year-old male with a past medical history significant for coronary disease hypertension CVA TIA LA osteoarthritis patient was brought into the hospital concerning for worsening bilateral lower extremity rash and wound, patient diagnosed with bilateral extremity cellulitis prompting this consultation. On today's evaluation that is 10/11/2023, the patient continues to be afebrile, the patient is on room air and breathing comfortably, the Pt denies having any chest pain or cough, the patient denies having any abdominal pain no vomiting or any diarrhea, still complaining of discomfort to bilateral lower extremity however slightly decreased in intensity. Patient white count is 9.4, creatinine is 2.35 CRP is 8.7 Objective - Vital Signs Vital signs: Vital Signs Temp 97.8 F 10/11/23 12:27 Pulse 83 10/11/23 12:27 Resp 20 10/11/23 12:27 BP 119/73 10/11/23 12:27 Pulse Ox 92 L 10/11/23 12:27 FiO2 Intake & Output 10/10/23 10/11/23 10/11/23 18:59 06:59 18:59 Intake Total 450 118 Output Total 200 Balance 250 118 Weight 129.274 kg 129.274 kg Intake: Intake, IV Titration 50 Amount ceFAZolin 2 gm In Sodium 50 Chloride 0.9% 50 ml @ 100 mls/hr IVPB Q8HR [facility] Rx# :[id number] Oral 400 118 Output: Urine 200 Other: Voiding Method Urinal Urinal - Exam GENERAL DESCRIPTION: An elderly male lying in bed in no distress RESPIRATORY SYSTEM: Unlabored breathing , decreased breath sounds at bases HEART: S1 S2 regular rate and rhythm , ABDOMEN: Soft , no tenderness EXTREMITIES: Bilateral extremity currently dressed did have significant excoriation to bilateral groin - Labs CBC & Chem 7: 10/11/23 09:01 10/11/23 09:01 Labs: Abnormal Lab Results - Last 24 Hours (Table) 10/10/23 10/10/23 10/11/23 Range/Units 13:30 13:30 09:01 RBC 3.87 L (4.30-5.90) m/uL Hgb 9.6 L (13.0-17.5) gm/dL Hct 31.2 L (39.0-53.0) % MCV (80.0-100.0) fL MCH 24.7 L (25.0-35.0) pg MCHC 30.6 L (31.0-37.0) g/dL RDW 17.6 H (11.5-15.5) % Lymphocytes # 0.5 L (1.0-4.8) k/uL Carbon Dioxide 20 L 21 L (22-30) mmol/L BUN 44 H 49 H (9-20) mg/dL Creatinine 1.99 H 2.35 H (0.66-1.25) mg/dL Glucose 107 H 131 H (74-99) mg/dL Magnesium 2.4 H (1.6-2.3) mg/dL C-Reactive Protein 8.7 H (<1.0) mg/dL 10/11/23 Range/Units 09:01 RBC 3.57 L (4.30-5.90) m/uL Hgb 9.1 L (13.0-17.5) gm/dL Hct 28.3 L (39.0-53.0) % MCV 79.3 L (80.0-100.0) fL MCH (25.0-35.0) pg MCHC (31.0-37.0) g/dL RDW 17.3 H (11.5-15.5) % Lymphocytes # 0.4 L (1.0-4.8) k/uL Carbon Dioxide (22-30) mmol/L BUN (9-20) mg/dL Creatinine (0.66-1.25) mg/dL Glucose (74-99) mg/dL Magnesium (1.6-2.3) mg/dL C-Reactive Protein (<1.0) mg/dL Assessment and Plan (1) Bilateral leg ulcer Current Visit: Yes Status: Acute Code(s): L97.919 - NON-PRS CHRONIC ULC UNSP PRT OF R LOW LEG W UNSP SEVERITY; L97.929 - NON-PRS CHRONIC ULC UNSP PRT OF L LOW LEG W UNSP SEVERITY SNOMED Code(s): 38613210 (2) Bilateral lower leg cellulitis Current Visit: Yes Status: Acute Code(s): L03.116 - CELLULITIS OF LEFT LOWER LIMB; L03.115 - CELLULITIS OF RIGHT LOWER LIMB SNOMED Code(s): 743428306 Plan: 1patient presented hospital with bilateral recently mild swelling and redness of superficial ulceration from scratching with concern for cellulitis likely from gram-positive skin eboni, patient has not been antibiotic in the recent past clinical low suspicious for MRSA infection 2-patient did have renal insufficiency and high risk of nephrotoxicity from vancomycin 3-patient to continue with cefazolin 2 g every 8 hours, will apply nystatin cream to bilateral groin area Dictation was produced using [employer] dictation software. please excuse any grammatical, word or spelling errors.
[2023-10-11] MEDS: HEPARIN SODIUM,PORCINE 5,000 UNIT/ML 1 ML VIAL SQ SCH (17:15)
--- NOTE | 2023-10-11 21:26 | P.PN ---
Subjective Progress Note Date: 10/11/23 Patient is a 77-year-old male with a past medical history of coronary artery disease status post stent placement, AICD placement, peripheral vascular disease with prior vascular procedure, hypertension, CVA/TIA, prior history of smoking and daily alcohol use presents to ER with complaints of bilateral leg wounds. Patient states that he has been having bilateral leg rash and wounds which is worsening for the past 2 weeks. He was on antibiotics 2 weeks ago. He does follow with the wound care clinic. Otherwise denies any fever or chills. No chest pain or shortness of breath. Denies any worsening shortness of breath. Patient was having cramping and pain. BUN 44 and creatinine 1.99 and blood sugar 107 and magnesium 2. Laboratory showed WBC 8.4 hemoglobin 9.6 and platelets 282 10/11/2023 Patient is sitting in the chair. Awake alert. Still complains of bilateral lower extremity lateral lower extremity pain and swelling and redness. Patient has been afebrile. On room air.. Denies any cough or sputum production. Otherwise patient is being continued on antibiotics involved cefazolin for bilateral lower extremity cellulitis and superficial wounds. ID and wound care is on board. Laboratory data showed WBC 9.4 hemoglobin 9.1 and platelets 237 Sodium 138 potassium 5.0 chloride 106 bicarb is 21 BUN 49 and creatinine 2.25 and blood sugar 131. Calcium 8.6 and CRP 8.7. Current medications reviewed. Objective - Vital Signs Vital signs: Vital Signs Temp 98 F 10/11/23 20:00 Pulse 124 H 10/11/23 20:00 Resp 16 10/11/23 20:00 BP 97/58 10/11/23 20:00 Pulse Ox 91 L 10/11/23 20:00 FiO2 Intake & Output 10/11/23 10/11/23 10/12/23 06:59 18:59 06:59 Intake Total 450 386 Output Total 200 Balance 250 386 Weight 129.274 kg Intake: Intake, IV Titration 50 Amount ceFAZolin 2 gm In Sodium 50 Chloride 0.9% 50 ml @ 100 mls/hr IVPB Q8HR COUNTS INCLUDE 234 BEDS AT THE [facility] Rx# :[id number] Oral 400 386 Output: Urine 200 Other: Voiding Method Urinal Urinal # Voids 1 - Exam PHYSICAL EXAMINATION: Patient is lying in the bed comfortably, no acute distress, awake alert and oriented.. HEENT: Normocephalic. Neck is supple. Pupils reactive. Nostrils clear. Oral cavity is moist. Neck reveals no JVD, carotid bruits, or thyromegaly. CHEST EXAMINATION: Trachea is central. Symmetrical expansion. Lung thompson clear to auscultation and percussion. CARDIAC: Normal S1, S2 with no gallops. No murmurs ABDOMEN: Soft. Bowel sounds normal. No organomegaly. No abdominal bruits. Extremities: Bilateral feet swelling and redness with superficial ulcerations.. No clubbing or cyanosis Neurologically awake, alert, oriented x3 with well-coordinated movements. No focal deficits noted Skin: No rash or skin lesions. Psychiatric: Coperative. Nonsuicidal Musculoskeletal: No joint swelling or deformity. Normal range of motion. - Labs CBC & Chem 7: 10/11/23 09:01 10/11/23 09:01 Labs: Abnormal Lab Results - Last 24 Hours (Table) 10/11/23 10/11/23 Range/Units 09:01 09:01 RBC 3.57 L (4.30-5.90) m/uL Hgb 9.1 L (13.0-17.5) gm/dL Hct 28.3 L (39.0-53.0) % MCV 79.3 L (80.0-100.0) fL RDW 17.3 H (11.5-15.5) % Lymphocytes # 0.4 L (1.0-4.8) k/uL Carbon Dioxide 21 L (22-30) mmol/L BUN 49 H (9-20) mg/dL Creatinine 2.35 H (0.66-1.25) mg/dL Glucose 131 H (74-99) mg/dL C-Reactive Protein 8.7 H (<1.0) mg/dL Microbiology - Last 24 Hours (Table) 10/10/23 13:30 Blood Culture - Preliminary Blood 10/10/23 13:15 Blood Culture - Preliminary Blood Assessment and Plan Assessment: Bilateral leg swelling and cellulitis with superficial ulceration. Acute kidney injury likely vasomotor nephropathy. Peripheral vascular disease. Baseline creatinine 1.4 Coronary artery disease with history of stent placement History of [place] Chronic CHF with systolic dysfunction 6 fraction 40% as per echocardiogram in February 2022. 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 Osteoarthritis History of AICD placement Prior history of smoking and daily alcohol use DVT prophylaxis heparin subcu Plan: Patient will be continued on IV antibiotics with cefazolin. Was given IV vancomycin in the ER. Patient will be started on IV hydration and monitor respiratory status closely. Chest x-ray was ordered. Continue with wound care and follow-up closely. ID and wound care on board. Follow-up closely. Follow culture reports. Continue the home medications. Time with Patient: Greater than 30
--- NOTE | 2023-10-11 22:00 | XR ---
EXAMINATION TYPE: XR chest 1V DATE OF EXAM: 10/11/2023 9:40 PM CLINICAL INDICATION:Male, 77 years old with history of tachycardia; [facility] COMPARISON: Chest radiographs from 06/29/2023 TECHNIQUE: XR chest 1V Frontal view of the chest. FINDINGS: Lungs/Pleura: There is no evidence of pleural effusion, focal consolidation, or pneumothorax. Pulmonary vascularity: Unremarkable. Heart/mediastinum: Cardiomediastinal silhouette is unremarkable. Two lead cardiac conduction device o verlying the left hemithorax with lead tips projecting over the right ventricle and right atrium. Musculoskeletal: No acute osseous pathology. IMPRESSION: No acute cardiopulmonary disease/process.
[2023-10-11] MEDS: SODIUM CHLORIDE 0.9% 1,000 ML IV SCH (22:58)
[2023-10-11] MEDS: METOPROLOL TARTRATE 25 MG TAB PO SCH (23:02)
[2023-10-12 10:34] LABS: Anisocytosis Slight; Basophils # (A) 0.1 k/uL (0-0.2); Basophils % (A) 1 %; Eosinophils # (A) 0.5 k/uL (0-0.7); Eosinophils % (A) 9 %; HCT 28.9 % (39.0-53.0); HGB 8.7 gm/dL (13.0-17.5); Hypochromasia Marked; Lymphocytes # (A) 0.3 k/uL (1.0-4.8); Lymphocytes % (A) 6 %; MCH 24.6 pg (25.0-35.0); MCHC 30.2 g/dL (31.0-37.0); MCV 81.6 fL (80.0-100.0); Mean Platelet Volume 7.7; Microcytosis Slight; Monocytes # (A) 0.3 k/uL (0-1.0); Monocytes % (A) 6 %; Neutrophils % (A) 77 %; Platelet Count 255 k/uL (150-450); RBC 3.55 m/uL (4.30-5.90); RDW 17.8 % (11.5-15.5); WBC 5.2 k/uL (3.8-10.6)
[2023-10-12 10:47] LABS: African American GFR (CKD) 55 (>60 ml/min/1.73 sqM); Anion Gap 7 mmol/L; Blood Urea Nitrogen 38 mg/dL (9-20); Calcium 8.8 mg/dL (8.4-10.2); Carbon Dioxide 24 mmol/L (22-30); Chloride 107 mmol/L (98-107); Glucose 163 mg/dL (74-99); Non-African American GFR(CKD) 48 (>60 ml/min/1.73 sqM); Potassium 4.8 mmol/L (3.5-5.1); Sodium 138 mmol/L (137-145)
--- NOTE | 2023-10-12 11:16 | CDI ---
Documentation Clarification Form Date: 10/12/2023 From: Merced Leslie Phone: [phone] Admit Date: 10/10/2023 02:37:00 PM Patient Name: Bridger Carter Visit Number: [id number] Discharge Date: ATTENTION: The Clinical Documentation Specialists (CDI) and [facility] Coding Staff appreciate your assistance in clarifying documentation. Please respond to the clarification below the line at the bottom and electronically sign. The CDI & [facility] Coding staff will review the response and follow-up if needed. Please note: Queries are made part of the Legal Health Record. If you have any questions, please contact the author of this message via ITS. Dr. Ingrid Long: Patient has a documented BMI of 43.3 on 10/09. Additional clarification is requested. History/Risk Factors: 77-year-old male with a history of CAD sp stent, AICD, PVD, HTN, CVA/TIA who presents with bilateral leg rash and wounds for past 2 weeks Clinical Indicators: 10/09 Patients weight is 129.274kg Patients height is 5ft 8in Calculated BMI is 43.3 Treatments: Healthy Heart Diet Please clarify if patients BMI indicates an additional diagnosis: [ ] Morbid (Extreme) (severe) obesity [ ] No additional diagnosis/not clinically significant [ ] Other, please specify ____ [ ] Unable to determine Reference: NIH Classification for BMI Overweight BMI 2529.9 Obesity (Class 1) BMI 3034.9 Obesity (Class 2) BMI 3539.9 Morbid obesity (Class 3/Extreme/severe) BMI =40 Answered in discharge summary 10/13 JAMISON
[2023-10-12] MEDS ORDERED: ACETAMINOPHEN TAB 325 MG TAB PO PRN (18:51)
[2023-10-13] MEDS: HYDROcodone/APAP 5-325MG 1 EACH TAB PO PRN (01:08)
--- NOTE | 2023-10-13 06:28 | P.PN ---
Subjective Progress Note Date: 10/12/23 Patient is a 77-year-old male with a past medical history of coronary artery disease status post stent placement, AICD placement, peripheral vascular disease with prior vascular procedure, hypertension, CVA/TIA, prior history of smoking and daily alcohol use presents to ER with complaints of bilateral leg wounds. Patient states that he has been having bilateral leg rash and wounds which is worsening for the past 2 weeks. He was on antibiotics 2 weeks ago. He does follow with the wound care clinic. Otherwise denies any fever or chills. No chest pain or shortness of breath. Denies any worsening shortness of breath. Patient was having cramping and pain. BUN 44 and creatinine 1.99 and blood sugar 107 and magnesium 2. Laboratory showed WBC 8.4 hemoglobin 9.6 and platelets 282 10/11/2023 Patient is sitting in the chair. Awake alert. Still complains of bilateral lower extremity lateral lower extremity pain and swelling and redness. Patient has been afebrile. On room air.. Denies any cough or sputum production. Otherwise patient is being continued on antibiotics involved cefazolin for bilateral lower extremity cellulitis and superficial wounds. ID and wound care is on board. Laboratory data showed WBC 9.4 hemoglobin 9.1 and platelets 237 Sodium 138 potassium 5.0 chloride 106 bicarb is 21 BUN 49 and creatinine 2.25 and blood sugar 131. Calcium 8.6 and CRP 8.7. 10/12/2023 Patient is seen in follow-up today maintained on antibiotics with infectious disease following. Awaiting wound care evaluation and patient continues with bilateral lower extremities Jaya wrapping showing some improvements in swelling although continues to be itching and scratching during entire exam. Will add Benadryl continue with calamine lotion as needed. Continue with wound care and antibiotics in the form of cefazolin. Will continue gentle IV hydration and follow-up with repeat labs as kidney functions were mildly elevated on admission. Encouraged to increase activity as tolerated and also elevating lower extremities while at rest. Medications reviewed and resumed as appropriate. Blood cultures remain negative. Review of systems: Constitutional: No reports of fatigue, fever, or chills Cardiovascular: No reports of chest pain or palpitations Respiratory: No reports of shortness of breath or cough GI: No reports of nausea, vomiting, or diarrhea : No reports of dysuria or retention Neurovascular: No reports of weakness or numbness, reports continued lower extremity itching especially on the right lower extremity All medications have been reviewed Physical exam: Patient is sitting up in the chair, itching and scratching right lower extremity, awake alert and oriented x 3, well-developed, elderly appearing, morbidly obese.. HEENT: Normocephalic. Neck is supple. Pupils reactive. Nostrils clear. Oral cavity is moist. Neck reveals no JVD, carotid bruits, or thyromegaly. CHEST EXAMINATION: Trachea is central. Symmetrical expansion. Lung thompson diminished bilaterally otherwise clear to auscultation and percussion. CARDIAC: Normal S1, S2 with no gallops. No murmurs ABDOMEN: Soft. Obese. Bowel sounds normal. No organomegaly. No abdominal bruits. Extremities: Bilateral feet swelling and redness with superficial ulcerations.. No clubbing or cyanosis Neurologically awake, alert, oriented x3 with well-coordinated movements. No focal deficits noted Skin: No rash or skin lesions. Multiple scabs and scratching noted on exam Psychiatric: Cooperative. Non-suicidal Musculoskeletal: No joint swelling or deformity. Normal range of motion. Assessment: Bilateral leg swelling and cellulitis with superficial ulceration, present on admission. Acute kidney injury likely vasomotor nephropathy, improving. Baseline creatinine 1.4 Peripheral vascular disease Coronary artery disease with history of stent placement History of [place] Chronic CHF with systolic dysfunction EF 40% as per echocardiogram in February 2022. 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 Osteoarthritis History of AICD placement Prior history of smoking and daily alcohol use Morbid obesity with a BMI of 43.3 GI prophylaxis DVT prophylaxis heparin subcu Full code Plan: Patient will be continued on IV antibiotics with cefazolin. Was given IV vancomycin in the ER. Infectious disease following and will continue with local wound care. Benadryl added as well as calamine lotion and patient has been instructed multiple times to avoid itching and scratching the lower extremities Continue IV hydration, kidney functions are improving and will follow-up with repeat labs. Hold diuretic therapy for now. Home medications reviewed and resumed as appropriate Continue with wound care. Blood cultures remain negative. Will discuss further with infectious disease regarding discharge planning. Patient will need outpatient follow-up and monitoring Possible discharge planning in the next 24 to 48 hours The impression and plan of care has been dictated by Nellie Workman, Nurse Practitioner as directed. Dr. Ethan MD I have performed a history and examination and MDM of this patient, discussed the same with the dictator, and agree with the dictator's assessment and plan as written ,documented as a scribe. Based on total visit time, I have performed more than 50% of the visit. Objective - Vital Signs Vital signs: Vital Signs Temp 97.8 F 10/12/23 07:04 Pulse 86 10/12/23 08:00 Resp 19 10/12/23 08:00 BP 111/69 10/12/23 07:04 Pulse Ox 95 10/12/23 07:04 FiO2 Intake & Output 10/11/23 10/12/23 10/12/23 18:59 06:59 18:59 Intake Total 386 1010 Output Total 300 Balance 386 710 Intake: Intake, IV Titration 50 Amount ceFAZolin 2 gm In Sodium 50 Chloride 0.9% 50 ml @ 100 mls/hr IVPB Q12HR [facility] Rx #:[id number] Oral 386 960 Output: Urine 300 Other: Voiding Method Urinal Urinal Urinal # Voids 1 3 - Labs CBC & Chem 7: 10/12/23 09:27 10/12/23 09:27 Labs: Abnormal Lab Results - Last 24 Hours (Table) 10/11/23 10/11/23 Range/Units 09:01 09:01 RBC 3.57 L (4.30-5.90) m/uL Hgb 9.1 L (13.0-17.5) gm/dL Hct 28.3 L (39.0-53.0) % MCV 79.3 L (80.0-100.0) fL RDW 17.3 H (11.5-15.5) % Lymphocytes # 0.4 L (1.0-4.8) k/uL Carbon Dioxide 21 L (22-30) mmol/L BUN 49 H (9-20) mg/dL Creatinine 2.35 H (0.66-1.25) mg/dL Glucose 131 H (74-99) mg/dL C-Reactive Protein 8.7 H (<1.0) mg/dL Microbiology - Last 24 Hours (Table) 10/10/23 13:30 Blood Culture - Preliminary Blood 10/10/23 13:15 Blood Culture - Preliminary Blood
[2023-10-13 13:39] LABS: Anisocytosis Slight; Basophils # (A) 0.1 k/uL (0-0.2); Basophils % (A) 1 %; Eosinophils # (A) 0.5 k/uL (0-0.7); Eosinophils % (A) 12 %; HCT 28.7 % (39.0-53.0); HGB 8.6 gm/dL (13.0-17.5); Hypochromasia Marked; Lymphocytes # (A) 0.4 k/uL (1.0-4.8); Lymphocytes % (A) 8 %; MCH 24.7 pg (25.0-35.0); MCV 82.2 fL (80.0-100.0); Mean Platelet Volume 7.7; Microcytosis Slight; Monocytes # (A) 0.4 k/uL (0-1.0); Monocytes % (A) 8 %; Neutrophils # (A) 3.1 k/uL (1.3-7.7); Neutrophils % (A) 68 %; Platelet Count 257 k/uL (150-450); RBC 3.49 m/uL (4.30-5.90); RDW 17.7 % (11.5-15.5); WBC 4.5 k/uL (3.8-10.6)
[2023-10-13 13:55] LABS: African American GFR (CKD) 83 (>60 ml/min/1.73 sqM); Anion Gap 5 mmol/L; Blood Urea Nitrogen 28 mg/dL (9-20); Calcium 8.8 mg/dL (8.4-10.2); Carbon Dioxide 24 mmol/L (22-30); Chloride 109 mmol/L (98-107); Glucose 139 mg/dL (74-99); Magnesium 2.2 mg/dL (1.6-2.3); Non-African American GFR(CKD) 72 (>60 ml/min/1.73 sqM); Potassium 4.9 mmol/L (3.5-5.1); Sodium 138 mmol/L (137-145)
[2023-10-13] MEDS: TRIAMCINOLONE 0.1% CREAM 80 GM TUBE TOPICAL SCH (15:48)
[2023-10-13] MEDS: NYSTATIN 100,000UNIT/GM CREAM 30 GM TUBE TOPICAL SCH (15:48)
--- NOTE | 2023-10-13 16:05 | P.PN ---
Subjective Progress Note Date: 10/12/23 Principal diagnosis: Reason for follow-up is bilateral lower extremity cellulitis Patient is a 77-year-old male with a past medical history significant for coronary disease hypertension CVA TIA [place] osteoarthritis patient was brought into the hospital concerning for worsening bilateral lower extremity rash and wound, patient diagnosed with bilateral extremity cellulitis prompting this consultation. On today's evaluation that is 10/12/2023, Patient is afebrile patient is currently on room air and denies having any shortness of breath, the patient denies any chest pain or cough, the patient denies any nausea vomiting did not have any abdominal pain and no diarrhea, still complaining of itching and pain to bilateral upper extremity but no worsening. Patient white count is 5.2, creatinine is 1.42 Objective - Vital Signs Vital signs: Vital Signs Temp 97.6 F 10/12/23 13:49 Pulse 86 10/12/23 13:58 Resp 19 10/12/23 13:58 BP 118/75 10/12/23 13:49 Pulse Ox 98 10/12/23 13:49 FiO2 Intake & Output 10/11/23 10/12/23 10/12/23 18:59 06:59 18:59 Intake Total 386 1010 Output Total 300 Balance 386 710 Intake: Intake, IV Titration 50 Amount ceFAZolin 2 gm In Sodium 50 Chloride 0.9% 50 ml @ 100 mls/hr IVPB Q12HR [facility] Rx #:[id number] Oral 386 960 Output: Urine 300 Other: Voiding Method Urinal Urinal Urinal # Voids 1 3 - Exam GENERAL DESCRIPTION: An elderly male lying in bed in no distress RESPIRATORY SYSTEM: Unlabored breathing , decreased breath sounds at bases HEART: S1 S2 regular rate and rhythm , ABDOMEN: Soft , no tenderness EXTREMITIES: Left lower extremity dressing was removed overall some maceration and redness has decreased - Labs CBC & Chem 7: 10/13/23 12:41 10/13/23 12:41 Labs: Abnormal Lab Results - Last 24 Hours (Table) 10/12/23 10/12/23 Range/Units 09:27 09:27 RBC 3.55 L (4.30-5.90) m/uL Hgb 8.7 L (13.0-17.5) gm/dL Hct 28.9 L (39.0-53.0) % MCH 24.6 L (25.0-35.0) pg MCHC 30.2 L (31.0-37.0) g/dL RDW 17.8 H (11.5-15.5) % Lymphocytes # 0.3 L (1.0-4.8) k/uL BUN 38 H (9-20) mg/dL Creatinine 1.42 H (0.66-1.25) mg/dL Glucose 163 H (74-99) mg/dL Microbiology - Last 24 Hours (Table) 10/10/23 13:30 Blood Culture - Preliminary Blood 10/10/23 13:15 Blood Culture - Preliminary Blood Assessment and Plan (1) Bilateral leg ulcer Current Visit: Yes Status: Acute Code(s): L97.919 - NON-PRS CHRONIC ULC UNSP PRT OF R LOW LEG W UNSP SEVERITY; L97.929 - NON-PRS CHRONIC ULC UNSP PRT OF L LOW LEG W UNSP SEVERITY SNOMED Code(s): 66354603 (2) Bilateral lower leg cellulitis Current Visit: Yes Status: Acute Code(s): L03.116 - CELLULITIS OF LEFT LOWER LIMB; L03.115 - CELLULITIS OF RIGHT LOWER LIMB SNOMED Code(s): 842864020 Plan: 1patient presented hospital with bilateral recently mild swelling and redness of superficial ulceration from scratching with concern for cellulitis likely from gram-positive skin eboni, patient has not been antibiotic in the recent past clinical low suspicious for MRSA infection 2-patient did have renal insufficiency and high risk of nephrotoxicity from vancomycin, patient has shown improvement to the kidney function 3-patient to continue with cefazolin 2 g every 8 hours while inpatient and monitor clinical course closely Dictation was produced using [employer] dictation software. please excuse any grammatical, word or spelling errors. Time with Patient: Less than 30
--- NOTE | 2023-10-13 16:06 | P.PN ---
Subjective Progress Note Date: 10/13/23 Principal diagnosis: Reason for follow-up is bilateral lower extremity cellulitis Patient is a 77-year-old male with a past medical history significant for coronary disease hypertension CVA TIA [place] osteoarthritis patient was brought into the hospital concerning for worsening bilateral lower extremity rash and wound, patient diagnosed with bilateral extremity cellulitis prompting this consultation. On today's evaluation that is 10/13/2023, patient has been afebrile, patient is breathing comfortably and is currently on room air, patient denies having any significant cough no chest pain shortness of breath, patient denies nausea vomiting or diarrhea and no abdominal pain, patient still complaining of pain initiated by the lower extremity however has decreased in intensity. Patient white count is 4.5 creatinine is normalized to 1.01 Objective - Vital Signs Vital signs: Vital Signs Temp 97.7 F 10/13/23 07:00 Pulse 72 10/13/23 08:40 Resp 16 10/13/23 08:40 BP 97/60 10/13/23 07:00 Pulse Ox 96 10/13/23 07:00 FiO2 Intake & Output 10/12/23 10/13/23 10/13/23 18:59 06:59 18:59 Intake Total 120 Output Total 700 650 Balance -700 -530 Intake: Oral 120 Output: Urine 700 650 Other: Voiding Method Urinal Urinal Urinal # Voids 2 - Exam GENERAL DESCRIPTION: An elderly male lying in bed in no distress RESPIRATORY SYSTEM: Unlabored breathing , decreased breath sounds at bases HEART: S1 S2 regular rate and rhythm , ABDOMEN: Soft , no tenderness EXTREMITIES: Bilateral legs are currently wrapped no drainage on the dressing - Labs CBC & Chem 7: 10/13/23 12:41 10/13/23 12:41 Labs: Microbiology - Last 24 Hours (Table) 10/10/23 13:30 Blood Culture - Preliminary Blood 10/10/23 13:15 Blood Culture - Preliminary Blood Assessment and Plan (1) Bilateral leg ulcer Current Visit: Yes Status: Acute Code(s): L97.919 - NON-PRS CHRONIC ULC UNSP PRT OF R LOW LEG W UNSP SEVERITY; L97.929 - NON-PRS CHRONIC ULC UNSP PRT OF L LOW LEG W UNSP SEVERITY SNOMED Code(s): 88008605 (2) Bilateral lower leg cellulitis Current Visit: Yes Status: Acute Code(s): L03.116 - CELLULITIS OF LEFT LOWER LIMB; L03.115 - CELLULITIS OF RIGHT LOWER LIMB SNOMED Code(s): 881826727 Plan: 1patient presented hospital with bilateral recently mild swelling and redness of superficial ulceration from scratching with concern for cellulitis likely from gram-positive skin eboni, patient has not been antibiotic in the recent past clinical low suspicious for MRSA infection 2-patient to continue with cefazolin 2 g every 8 hours I will switch treatment to the lower extremity to Mycolog cream followed by Jaya wrap for compression and will reevaluate the leg tomorrow Dictation was produced using [employer] dictation software. please excuse any g rammatical, word or spelling errors. Time with Patient: Less than 30
[2023-10-13] MEDS: NYSTAT-TRIAMCIN 100,000-0.1 UNIT/GM-% CREAM 30 GM TUBE TOPICAL SCH (16:38)
[2023-10-13] MEDS: HYDROmorphone 0.5 MG/0.5 ML SYRINGE IVP STA (17:45)
[2023-10-13] MEDS: diphenhydrAMINE 25 MG CAP PO PRN (20:57)
--- NOTE | 2023-10-14 03:50 | P.PN ---
Subjective Progress Note Date: 10/13/23 Patient is a 77-year-old male with a past medical history of coronary artery disease status post stent placement, AICD placement, peripheral vascular disease with prior vascular procedure, hypertension, CVA/TIA, prior history of smoking and daily alcohol use presents to ER with complaints of bilateral leg wounds. Patient states that he has been having bilateral leg rash and wounds which is worsening for the past 2 weeks. He was on antibiotics 2 weeks ago. He does follow with the wound care clinic. Otherwise denies any fever or chills. No chest pain or shortness of breath. Denies any worsening shortness of breath. Patient was having cramping and pain. BUN 44 and creatinine 1.99 and blood sugar 107 and magnesium 2. Laboratory showed WBC 8.4 hemoglobin 9.6 and platelets 282 10/11/2023 Patient is sitting in the chair. Awake alert. Still complains of bilateral lower extremity lateral lower extremity pain and swelling and redness. Patient has been afebrile. On room air.. Denies any cough or sputum production. Otherwise patient is being continued on antibiotics involved cefazolin for bilateral lower extremity cellulitis and superficial wounds. ID and wound care is on board. Laboratory data showed WBC 9.4 hemoglobin 9.1 and platelets 237 Sodium 138 potassium 5.0 chloride 106 bicarb is 21 BUN 49 and creatinine 2.25 and blood sugar 131. Calcium 8.6 and CRP 8.7. 10/12/2023 Patient is seen in follow-up today maintained on antibiotics with infectious disease following. Awaiting wound care evaluation and patient continues with bilateral lower extremities Jaya wrapping showing some improvements in swelling although continues to be itching and scratching during entire exam. Will add Benadryl continue with calamine lotion as needed. Continue with wound care and antibiotics in the form of cefazolin. Will continue gentle IV hydration and follow-up with repeat labs as kidney functions were mildly elevated on admission. Encouraged to increase activity as tolerated and also elevating lower extremities while at rest. Medications reviewed and resumed as appropriate. Blood cultures remain negative. 10/13/2023 Patient is seen in follow-up this morning currently sitting up in the chair. Patient continued on gentle IV hydration awaiting repeat labs to monitor kidney functions. Patient came in with [facility] and diuretics have been on hold. Patient is continued on cefazolin and continues with itching with some overall redness and swelling. Local care being transition to Mycolog cream and will reevaluate in the a.m. Encouraged Benadryl use and avoiding itching and scratching. Will transition off IV hydration and monitor with follow-up labs in AM. Encouraged to increase activity as tolerated and again elevating lower extremities while at rest. Review of systems: Constitutional: No reports of fatigue, fever, or chills Cardiovascular: No reports of chest pain or palpitations Respiratory: No reports of shortness of breath or cough GI: No reports of nausea, vomiting, or diarrhea : No reports of dysuria or retention Neurovascular: No reports of weakness or numbness, reports continued lower extremity itching especially on the right lower extremity All medications have been reviewed Physical exam: Patient is sitting up in the chair, itching and scratching right lower extremity, awake alert and oriented x 3, well-developed, elderly appearing, morbidly obese.. HEENT: Normocephalic. Neck is supple. Pupils reactive. Nostrils clear. Oral cavity is moist. Neck reveals no JVD, carotid bruits, or thyromegaly. CHEST EXAMINATION: Trachea is central. Symmetrical expansion. Lung thompson diminished bilaterally otherwise clear to auscultation and percussion. CARDIAC: Normal S1, S2 with no gallops. No murmurs ABDOMEN: Soft. Obese. Bowel sounds normal. No organomegaly. No abdominal bruits. Extremities: Bilateral feet swelling and redness with superficial ulcerations.. No clubbing or cyanosis Neurologically awake, alert, oriented x3 with well-coordinated movements. No focal deficits noted Skin: No rash or skin lesions. Multiple scabs and scratching noted on exam Psychiatric: Cooperative. Non-suicidal Musculoskeletal: No joint swelling or deformity. Normal range of motion. Assessment: Bilateral leg swelling and cellulitis with superficial ulceration, present on admission. Acute kidney injury likely vasomotor nephropathy, improving. Baseline creatinine 1.4 Peripheral vascular disease Coronary artery disease with history of stent placement History of [place] Chronic CHF with systolic dysfunction EF 40% as per echocardiogram in March 11. 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 Osteoarthritis History of AICD placement Prior history of smoking and daily alcohol use Morbid obesity with a BMI of 43.3 GI prophylaxis DVT prophylaxis heparin subcu Full code Plan: Patient will be continued on IV antibiotics with cefazolin. Infectious disease following and will continue with local wound care. Mycolog being added. Benadryl added as well as calamine lotion and patient has been instructed multiple times to avoid itching and scratching the lower extremities kidney functions are improving and will awaiting repeat labs. Hold diuretic therapy for now. Continue with Jaya wraps and elevating lower extremities Home medications reviewed and resumed as appropriate Continue with wound care. Blood cultures remain negative. Will discuss further with infectious disease regarding discharge planning. Patient will need outpatient follow-up and monitoring Possible discharge planning in the next 24 hours The impression and plan of care has been dictated by Nellie Workman, Nurse Practitioner as directed. Dr. Ethan MD I have performed a history and examination and MDM of this patient, discussed the same with the dictator, and agree with the dictator's assessment and plan as written ,documented as a scribe. Based on total visit time, I have performed more than 50% of the visit. Objective - Vital Signs Vital signs: Vital Signs Temp 97.7 F 10/13/23 07:00 Pulse 72 10/13/23 07:00 Resp 12 10/13/23 07:00 BP 97/60 10/13/23 07:00 Pulse Ox 96 10/13/23 07:00 FiO2 Intake & Output 10/12/23 10/13/23 10/13/23 18:59 06:59 18:59 Intake Total 120 Output Total 700 325 Balance -700 -205 Intake: Oral 120 Output: Urine 700 325 Other: Voiding Method Urinal Urinal # Voids 2 - Labs CBC & Chem 7: 10/13/23 12:41 10/13/23 12:41 Labs: Abnormal Lab Results - Last 24 Hours (Table) 10/12/23 10/12/23 Range/Units 09:27 09:27 RBC 3.55 L (4.30-5.90) m/uL Hgb 8.7 L (13.0-17.5) gm/dL Hct 28.9 L (39.0-53.0) % MCH 24.6 L (25.0-35.0) pg MCHC 30.2 L (31.0-37.0) g/dL RDW 17.8 H (11.5-15.5) % Lymphocytes # 0.3 L (1.0-4.8) k/uL BUN 38 H (9-20) mg/dL Creatinine 1.42 H (0.66-1.25) mg/dL Glucose 163 H (74-99) mg/dL Microbiology - Last 24 Hours (Table) 10/10/23 13:30 Blood Culture - Preliminary Blood 10/10/23 13:15 Blood Culture - Preliminary Blood
[2023-10-14 15:54] VITALS: BP 92/52; PULSE 79; RESP 19; TEMP 98
--- NOTE | 2023-10-14 16:02 | P.PN ---
Subjective Progress Note Date: 10/14/23 Principal diagnosis: Reason for follow-up is bilateral lower extremity cellulitis Patient is a 77-year-old male with a past medical history significant for coronary disease hypertension CVA TIA [place] osteoarthritis patient was brought into the hospital concerning for worsening bilateral lower extremity rash and wound, patient diagnosed with bilateral extremity cellulitis prompting this consultation. On today's evaluation that is 10/14/2023,the patient denies any fever or any chills, patient is breathing comfortably on room air, the patient denies chest pain shortness of breath and no significant cough, patient denies abdominal pain, no nausea vomiting or diarrhea. Patient itching and pain to bilateral lower extremity has decreased in intensity. No new labs has been obtained today blood culture has been negative Objective - Vital Signs Vital signs: Vital Signs Temp 97.5 F L 10/14/23 07:37 Pulse 76 10/14/23 09:35 Resp 18 10/14/23 09:27 BP 123/58 10/14/23 07:37 Pulse Ox 98 10/14/23 07:37 FiO2 Intake & Output 10/13/23 10/14/23 10/14/23 18:59 06:59 18:59 Intake Total 600 550 Output Total 650 650 Balance -50 -650 550 Intake: Oral 600 550 Output: Gastric Drainage 0 Urine 650 650 Stool 0 Urine/Stool Mix 0 Emesis 0 Oral Regurgitation 0 Other: Voiding Method Urinal Urinal Urinal # Voids 0 2 # Bowel Movements 0 - Exam GENERAL DESCRIPTION: An elderly male lying in bed in no distress RESPIRATORY SYSTEM: Unlabored breathing , decreased breath sounds at bases HEART: S1 S2 regular rate and rhythm , ABDOMEN: Soft , no tenderness EXTREMITIES: Bilateral legs are currently wrapped no drainage on the dressing - Labs CBC & Chem 7: 10/13/23 12:41 10/13/23 12:41 Labs: Abnormal Lab Results - Last 24 Hours (Table) 10/13/23 10/13/23 Range/Units 12:41 12:41 RBC 3.49 L (4.30-5.90) m/uL Hgb 8.6 L (13.0-17.5) gm/dL Hct 28.7 L (39.0-53.0) % MCH 24.7 L (25.0-35.0) pg MCHC 30.0 L (31.0-37.0) g/dL RDW 17.7 H (11.5-15.5) % Lymphocytes # 0.4 L (1.0-4.8) k/uL Chloride 109 H (98-107) mmol/L BUN 28 H (9-20) mg/dL Glucose 139 H (74-99) mg/dL Microbiology - Last 24 Hours (Table) 10/10/23 13:30 Blood Culture - Preliminary Blood 10/10/23 13:15 Blood Culture - Preliminary Blood Assessment and Plan (1) Bilateral leg ulcer Current Visit: Yes Status: Acute Code(s): L97.919 - NON-PRS CHRONIC ULC UNSP PRT OF R LOW LEG W UNSP SEVERITY; L97.929 - NON-PRS CHRONIC ULC UNSP PRT OF L LOW LEG W UNSP SEVERITY SNOMED Code(s): 15922862 (2) Bilateral lower leg cellulitis Current Visit: Yes Status: Acute Code(s): L03.116 - CELLULITIS OF LEFT LOWER LIMB; L03.115 - CELLULITIS OF RIGHT LOWER LIMB SNOMED Code(s): 224449455 Plan: 1patient presented hospital with bilateral recently mild swelling and redness of superficial ulceration from scratching with concern for cellulitis likely from gram-positive skin eboni, patient has not been antibiotic in the recent past clinical low suspicious for MRSA infection 2-patient to continue with cefazolin 2 g every 8 hours along with Mycolog cream followed by Jaya wrap for compression and plan to finish therapy with oral Keflex discussed with the LAW REPORTER for admitting team and the nursing staff Dictation was produced using [employer] dictation software. please excuse any grammatical, word or spelling errors. Time with Patient: Less than 30
--- NOTE | 2023-10-17 09:41 | P.DS ---
Providers Date of admission: 10/10/23 14:37 Expected date of discharge: 10/14/23 Attending physician: Ingrid Long Consults: 10/10/23 14:55 Consult Physician Urgent Consulting Provider: Thony Cade Consult Reason/Comments: leg cellulitis Do you want consulting provider notified?: Yes Primary care physician: Bora Madera Hospital Course: Final diagnosis Bilateral leg swelling and cellulitis with superficial ulceration, present on admission. Acute kidney injury likely vasomotor nephropathy, improving. Baseline creatinine 1.4 Peripheral vascular disease Coronary artery disease with history of stent placement History of OH Chronic CHF with systolic dysfunction EF 40% as per echocardiogram in February 2022. 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 Osteoarthritis History of AICD placement Prior history of smoking and daily alcohol use Morbid obesity with a BMI of 43.3 GI prophylaxis DVT prophylaxis heparin subcu Full code Discharge disposition Patient is being discharged in a stable condition with guarded prognosis to home. Patient will follow-up with Dr. Bora Madera in the outpatient setting upon discharge. Patient is to continue with oral Keflex as well as Mycolog and Kenalog cream and outpatient follow-up with wound care center . Total time taken is greater than 35 minutes. Hospital course This is a 77year-old male who was recently admitted with increased bilateral lower extremity swelling with concerns of cellulitis and superficial ulcerations being closely monitored. Patient also noted to have acute kidney injury likely secondary to diuretic use. Patient evaluated by infectious disease along with wound care nurse started on cream as well as cefazolin showing improvements. Patient's diuretics were held and continued on gentle IV hydration showing improvements and will be able to resume in the next 1 to 2 days. Recommend follow-up labs to monitor kidney functions and electrolytes. Patient also encouraged to follow-up with primary care provider as well as the wound care center outpatient. Continue with Benadryl as needed and oral Keflex 3 times daily for the next 1 week. Patient also to continue with Mycolog cream and outpatient follow-up at the wound center. Encouraged the patient to elevate lower extremities and use Jaya wrap's and avoid itching and scratching if possible. Patient has been cleared by consultations. Please refer to consultation notes for further HPI. Currently no reports of chest pain, shortness of breath, or palpitations. Patient is afebrile. No reports of nausea or vomiting and patient is tolerating diet. Patient will be discharged home today. Guarded prognosis and high risk for readmissions given patient's noncompliance. Physical exam: Gen: This is a 77-year-old male who is awake, alert and oriented x 3, well- developed, elderly appearing, morbidly obese HEENT: Head is atraumatic, normocephalic. Pupils equal, round. Sclerae is anicteric. NECK: Supple. No JVD. No lymphadenopathy. No thyromegaly. LUNGS: Diminished breath sounds bilaterally with some scattered rhonchi. No intercostal retractions. HEART: S1, S2 are muffled ABDOMEN: Soft. Obese bowel sounds are present. No masses. No tenderness. EXTREMITIES: No pedal edema. No calf tenderness. Bilateral lower extremity edema, nonpitting, appears chronic, multiple wounds from scratching with scabbing noted, no significant redness and swelling has improved NEUROLOGICAL: Patient is awake, alert and oriented x3. Cranial nerves 2 through 12 are grossly intact. Please refer to medication reconciliation sheet for a list of medications. The impression and plan of care has been dictated by Nellie Workman, Nurse Practitioner as directed. Dr. Tano MD I have performed a history and examination and MDM of this patient, discussed the same with the dictator, and agree with the dictator's assessment and plan as written ,documented as a scribe. Based on total visit time, I have performed more than 50% of the visit. Patient Condition at Discharge: Stable Plan - Discharge Summary Discharge Rx Participant: Yes New Discharge Prescriptions: New Petrolat,White/Maurice/8-Hydroxyqu [Bag Grants] 1 gm TOPICAL DAILY #0 gm Triamcinolone 0.1% Cream [Kenalog 0.1% Cream] 1 applic TOPICAL DAILY #30 gm Nystatin 100,000Unit/gm Cream [Mycostatin Cream] 1 applic TOPICAL DAILY #30 gm Acetaminophen Tab [Tylenol] 650 mg PO Q6HR PRN tab PRN Reason: Fever And/ Or Pain diphenhydrAMINE [Benadryl] 25 mg PO TID PRN #15 capsule PRN Reason: Itching Cephalexin [Keflex] 500 mg PO Q8HR 7 Days #21 cap Continue PARoxetine [Paxil] 20 mg PO DAILY Aspirin [Adult Low Dose Aspirin EC] 81 mg PO DAILY Nitroglycerin Sl Tabs [Nitrostat] 0.4 mg SUBLINGUAL Q5M PRN #25 tab PRN Reason: Chest Pain Rosuvastatin [Crestor] 20 mg PO DAILY Tamsulosin [Flomax] 0.4 mg PO BID Pantoprazole [Protonix] 40 mg PO DAILY Metoprolol Tartrate [Lopressor] 50 mg PO TID Albuterol Inhaler [Ventolin Hfa Inhaler] 2 puff INHALATION RT-Q6H PRN PRN Reason: Shortness Of Breath Clopidogrel [Plavix] 75 mg PO HS Spironolactone [Aldactone] 25 mg PO DAILY Sodium Chloride 5% Ophth Soln [Karly 128] 1 drops LEFT EYE QID Losartan Potassium 50 mg PO DAILY Brimonidine Tartrate [Alphagan P 0.1% Ophth Soln] 1 drops LEFT EYE QID Pyridoxine HCl (Vitamin B6) [Vitamin B-6] 100 mg PO DAILY Changed Furosemide [Lasix] 40 mg PO BID #0 Discontinued SILVER sulfADIAZINE Cream [Silvadene 1% Cream] 1 applic TOPICAL BID Furosemide [Lasix] 80 mg PO DAILY Discharge Medication List Aspirin [Adult Low Dose Aspirin EC] 81 mg PO DAILY 06/16/18 [History] PARoxetine [Paxil] 20 mg PO DAILY 06/16/18 [History] Nitroglycerin Sl Tabs [Nitrostat] 0.4 mg SUBLINGUAL Q5M PRN #25 tab 06/20/18 [Rx] Rosuvastatin [Crestor] 20 mg PO DAILY 11/18/21 [History] Pantoprazole [Protonix] 40 mg PO DAILY 03/09/22 [History] Tamsulosin [Flomax] 0.4 mg PO BID 03/09/22 [History] Albuterol Inhaler [Ventolin Hfa Inhaler] 2 puff INHALATION RT-Q6H PRN 08/10/22 [History] Losartan Potassium 50 mg PO DAILY 08/10/22 [History] Metoprolol Tartrate [Lopressor] 50 mg PO TID 08/10/22 [History] Clopidogrel [Plavix] 75 mg PO HS 06/29/23 [History] Spironolactone [Aldactone] 25 mg PO DAILY 06/29/23 [History] Brimonidine Tartrate [Alphagan P 0.1% Ophth Soln] 1 drops LEFT EYE QID 10/10/23 [History] Pyridoxine HCl (Vitamin B6) [Vitamin B-6] 100 mg PO DAILY 10/10/23 [History] Sodium Chloride 5% Ophth Soln [Karly 128] 1 drops LEFT EYE QID 10/10/23 [History] Acetaminophen Tab [Tylenol] 650 mg PO Q6HR PRN tab 10/14/23 [Rx] Cephalexin [Keflex] 500 mg PO Q8HR 7 Days #21 cap 10/14/23 [Rx] Furosemide [Lasix] 40 mg PO BID #0 10/14/23 [Rx] Nystatin 100,000Unit/gm Cream [Mycostatin Cream] 1 applic TOPICAL DAILY #30 gm 10/14/23 [Rx] Petrolat,White/Maurice/8-Hydroxyqu [Bag Grants] 1 gm TOPICAL DAILY #0 gm 10/14/23 [Rx] Triamcinolone 0.1% Cream [Kenalog 0.1% Cream] 1 applic TOPICAL DAILY #30 gm 10/14/23 [Rx] diphenhydrAMINE [Benadryl] 25 mg PO TID PRN #15 capsule 10/14/23 [Rx] Follow up Appointment(s)/Referral(s): [facility] [NON-STAFF] - As Needed Thony Cade MD [STAFF PHYSICIAN] - 1 Week (Office closed. Please call office Tuesday for appt. Thank you.) Bora Madera MD [Primary Care Provider] - 1-2 days Ambulatory/Diagnostic Orders: Complete Blood Count w/diff [LAB.AMB] Time Frame: 3 Days, Location: None Selected Patient Instructions/Handouts: Cellulitis (GEN) Activity/Diet/Wound Care/Special Instructions: Activity limited until follow-up Follow-up with primary care provider on discharge Follow-up with infectious disease outpatient Continue with home care Continue local wound care Continue with Jaya wraps to bilateral lower extremities after applying the creams as directed and elevate lower extremities while at rest Okay to resume diuretics starting tomorrow Follow-up with your primary care provider this week and get follow-up labs on repeat CBC, CMP, magnesium Discharge Disposition: HOME WITH HOME HEALTH SERVICES
== END 2023-10-14 18:19 | disposition home health service (06) | DRG 602 ==
LOC: EC 10:51 → 4SSUR 14:37 → 1SOBS 19:59 → 4SSUR 10-13 17:15
PROVIDERS: ADMIT Internal Medicine; ATTEND Internal Medicine
DX: L03.116 Cellulitis of left lower limb (principal); N17.0 Acute kidney failure with tubular necrosis; L97.929 Non-pressure chronic ulcer of unspecified part of left lower leg with unspecified severity; L97.919 Non-pressure chronic ulcer of unspecified part of right lower leg with unspecified severity; I50.22 Chronic systolic (congestive) heart failure; Z68.41 Body mass index [BMI] 40.0-44.9, adult; L03.115 Cellulitis of right lower limb; E66.01 Morbid (severe) obesity due to excess calories; I73.9 Peripheral vascular disease, unspecified; I11.0 Hypertensive heart disease with heart failure; I25.10 Atherosclerotic heart disease of native coronary artery without angina pectoris; I25.2 Old myocardial infarction; I87.323 Chronic venous hypertension (idiopathic) with inflammation of bilateral lower extremity; F17.200 Nicotine dependence, unspecified, uncomplicated; M19.90 Unspecified osteoarthritis, unspecified site; S30.811A Abrasion of abdominal wall, initial encounter; T50.2X5A Adverse effect of carbonic-anhydrase inhibitors, benzothiadiazides and other diuretics, initial encounter; Z79.51 Long term (current) use of inhaled steroids; Z79.82 Long term (current) use of aspirin; Z79.899 Other long term (current) drug therapy; Z86.73 Personal history of transient ischemic attack (TIA), and cerebral infarction without residual deficits; Z91.199 Patient's noncompliance with other medical treatment and regimen due to unspecified reason; Z95.5 Presence of coronary angioplasty implant and graft; Z95.810 Presence of automatic (implantable) cardiac defibrillator
CPT/HCPCS: 36415; 71045; 80048; 80053; 83605; 83735; 85025; 86140; 87040; 94640; 94664; 96365; 96366; 96375; 99285

== ENCOUNTER 2023-10-28 11:06 | Inpatient (IN) | payer MEDICARE ==
--- NOTE | 2023-10-28 11:31 | ED ---
General Adult HPI - General Chief complaint: Recheck/Abnormal Lab/Rx Stated complaint: [place] leg wound issue Time Seen by Provider: 10/28/23 11:29 Source: patient, family, RN notes reviewed, old records reviewed Mode of arrival: ambulatory Limitations: no limitations - History of Present Illness Initial comments: 77-year-old male presented to the ER with a chief complaint of bilateral leg pain and swelling. Patient recently discharged on 10-14-2023 for similar complaint. Patient discharged with Keflex and antifungal/steroid creams. Patient reports that he finished up his last dose of Keflex approximately 1 week ago. He was scheduled to follow-up with wound care yesterday but was unable to attend appointment as his was unable to transport him. Patient unwrapped his legs to take a shower and noticed they were extremely red and oozing blood. He reports his home visiting nurse sent him to the ER as she was concerned of infection. Patient denies smoking or being diabetic. He denies any fevers, chills, nausea, vomiting, chest pain, shortness of breath, abdominal pain. - Related Data Home Medications Medication Instructions Recorded Confirmed Aspirin [Adult Low Dose Aspirin EC] 81 mg PO DAILY 06/16/18 10/28/23 PARoxetine [Paxil] 20 mg PO DAILY 06/16/18 10/28/23 Rosuvastatin [Crestor] 20 mg PO DAILY 11/18/21 10/28/23 Pantoprazole [Protonix] 40 mg PO DAILY 03/09/22 10/28/23 Tamsulosin [Flomax] 0.4 mg PO BID 03/09/22 10/28/23 Albuterol Inhaler [Ventolin Hfa 2 puff INHALATION RT-Q6H PRN 08/10/22 10/28/23 Inhaler] Losartan Potassium 50 mg PO DAILY 08/10/22 10/28/23 Metoprolol Tartrate [Lopressor] 50 mg PO TID 08/10/22 10/28/23 Clopidogrel [Plavix] 75 mg PO DAILY 06/29/23 10/28/23 Spironolactone [Aldactone] 25 mg PO HS 06/29/23 10/28/23 Pyridoxine HCl (Vitamin B6) 100 mg PO DAILY 10/10/23 10/28/23 [Vitamin B-6] Unknown Eye Drops 1 drop LEFT EYE DIRECTED 10/28/23 10/28/23 Previous Rx's Medication Instructions Recorded Nitroglycerin Sl Tabs [Nitrostat] 0.4 mg SUBLINGUAL Q5M PRN #25 tab 06/20/18 Acetaminophen Tab [Tylenol] 650 mg PO Q6HR PRN tab 10/14/23 Furosemide [Lasix] 40 mg PO BID #0 10/14/23 Nystatin 100,000Unit/gm Cream 1 applic TOPICAL DAILY #30 gm 10/14/23 [Mycostatin Cream] diphenhydrAMINE [Benadryl] 25 mg PO TID PRN #15 capsule 10/14/23 Allergies Allergy/AdvReac Type Severity Reaction Status Date / Time No Known Allergies Allergy Verified 10/28/23 11:53 Review of Systems ROS Statement: Those systems with pertinent positive or pertinent negative responses have been documented in the HPI. ROS Other: All systems not noted in ROS Statement are negative. Past Medical History Past Medical History: Coronary Artery Disease (CAD), Heart Failure, CVA/TIA, Hypertension, Myocardial Infarction (NV), Osteoarthritis (OA) Additional Past Medical History / Comment(s): TIA - no residual effects, c/o fatigue,see dr [facility] Last Myocardial Infarction Date:: unknown History of Any Multi-Drug Resistant Organisms: None Reported Past Surgical History: AICD, Heart Catheterization With Stent Additional Past Surgical History / Comment(s): spinal steroid injections, aicd placed Past Anesthesia/Blood Transfusion Reactions: No Reported Reaction Date of Last Stent Placement:: unknown Type of Cardiac Device: AICD Device Placement Date:: feb 2022 Past Psychological History: No Psychological Hx Reported Smoking Status: Former smoker Past Alcohol Use History: Daily Past Drug Use History: None Reported - Past Family History Sister(s) Family Medical History: Cancer General Exam Limitations: no limitations General appearance: alert, in no apparent distress Respiratory exam: Present: normal lung sounds bilaterally. Absent: respiratory distress, wheezes, rales, rhonchi, stridor Cardiovascular Exam: Present: regular rate, normal rhythm, normal heart sounds. Absent: systolic murmur, diastolic murmur, rubs, gallop, clicks Extremities exam: Present: normal inspection, full ROM, normal capillary refill. Absent: tenderness, pedal edema, joint swelling, calf tenderness Neurological exam: Present: alert, oriented X3, CN II-XII intact Skin exam: Present: other (Left lower extremity erythematous with superficial wounds oozing blood. Bilateral dorsalis pedis pulse heard with Doppler. Sensation intact. Right calf erythematous with superficial wounds and scaling.) Course Vital Signs 10/28/23 10/28/23 11:08 13:14 Temperature 99 F 98 F Pulse Rate 70 67 Respiratory 20 18 Rate Blood Pressure 97/54 100/61 O2 Sat by Pulse 96 98 Oximetry - Reevaluation(s) Reevaluation #1: 10/28/23 12:[address] Myers, [facility], who accepts medical admission. Medical Decision Making - Medical Decision Making Was pt. sent in by a medical professional or institution (, PA, PUNCH MACHINE OPERATOR, urgent care, hospital, or [facility]...) When possible be specific @ -Patient sent by home visiting nurse for evaluation of bilateral leg c ellulitis. Did you speak to anyone other than the patient for history (EMS, parent, family, police, friend...)? What history was obtained from this source @ - aiding in HPI and past medical history. Did you review nursing and triage notes (agree or disagree)? Why? @ -I reviewed and agree with nursing and triage notes Were old charts reviewed (outside hosp., previous admission, EMS record, old EKG, old radiological studies, urgent care reports/EKG's, [facility] records)? Report findings @ -Yes, I reviewed his hospital admission discharge summary from 10-14-2023. Patient admitted for 6 bilateral leg cellulitis and received IV antibiotics. Patient discharged with Keflex, nystatin and mycolog cream. Patient instructed to follow-up with wound care. Differential Diagnosis (chest pain, altered mental status, abdominal pain women, abdominal pain men, vaginal bleeding, weakness, fever, dyspnea, syncope, headache, dizziness, GI bleed, back pain, seizure, CVA, palpatations, mental health, musculoskeletal)? @ -Cellulitis, lymphedema, wound this list is not meant to be all-inclusive EKG interpreted by me (3pts min.). @ -None X-rays interpreted by me (1pt min.). @ -None done CT interpreted by me (1pt min.). @ -None done U/S interpreted by me (1pt. min.). @ -None done What testing was considered but not performed or refused? (CT, X-rays, U/S, labs)? Why? @ -None What meds were considered but not given or refused? Why? @ -None Did you discuss the management of the patient with other professionals (professionals i.e. , PA, PUNCH MACHINE OPERATOR, lab, RT, psych nurse, social work associate, tobacco wetter, teacher, liaison officer, spring encaser)? Give summary @ -Yes, case discussed with Dr. Myers [facility], who accepts medical admission. Was smoking cessation discussed for >3mins.? @ -No Was critical care preformed (if so, how long)? @ -No Were there social determinants of health that impacted care today? How? (Homelessness, low income, unemployed, alcoholism, drug addiction, transportation, low edu. Level, literacy, decrease access to med. care, intermediate, rehab)? @ -No Was there de-escalation of care discussed even if they declined (Discuss DNR or withdrawal of care, Hospice)? DNR status @ -No What co-morbidities impacted this encounter? (DM, HTN, Smoking, COPD, CAD, Cancer, CVA, ARF, Chemo, Hep., AIDS, mental health diagnosis, sleep apnea, morbid obesity)? @ -Obese Was patient admitted / discharged? Hospital course, mention meds given and route, prescriptions, significant lab abnormalities, going to OR and other pertinent info. @ -Admitted. 77 year old male presenting to the ER with a chief compliant of bilateral leg swelling and redness. Patient recently discharged from this [facility] treated for similar complaint. Patient discharged on Keflex, nystatin and mycolog cream with instructions to follow-up with wound care. Vitals upon arrival stable. Exam significant for significant erythema to left martinez and calf. With excoriations and mild active bleeding from wounds. Tenderness to palpation. Bilateral dorsalis pedis pulse heard with doppler. Sensation intact. There is mild erythema to right calf with healing wounds and excoriations. Laboratory studies obtained significant for white blood cell count 8.5, normocytic hypochromic anemia hemoglobin of 10 which appears to be patient's baseline. Prerenal azotemia BUN 28, creatinine 1.15. Lactic 1.6. Admission considered due to failed outpatient management and noncompliance with wound care for cellulitis. Case discussed with Dr. Myers [facility], who accepts medical admission. ID on consult. Blood cultures obtained and patient started on IV Unasyn. Patient agreeable for admission. Patient admitted in stable condition. Case discussed with ED attending, Dr. Rausch. Undiagnosed new problem with uncertain prognosis? @ -No Drug Therapy requiring intensive monitoring for toxicity (Heparin, Nitro, Insulin, Cardizem)? @ -No Were any procedures done? @ -No Diagnosis/symptom? @ -Cellulitis Acute, or Chronic, or Acute on Chronic? @ -Acute Uncomplicated (without systemic symptoms) or Complicated (systemic symptoms)? @ -Complicated Side effects of treatment? @ -No Exacerbation, Progression, or Severe Exacerbation? @ -No Poses a threat to life or bodily function? How? (Chest pain, USA, NV, pneumonia, PE, COPD, DKA, ARF, appy, cholecystitis, CVA, Diverticulitis, Homicidal, Suicidal, threat to staff... and all critical care pts) @ -Low likelihood - Lab Data Result diagrams: 10/28/23 11:32 10/28/23 11:32 Lab Results 10/28/23 10/28/23 10/28/23 Range/Units 11:32 11:32 11:32 WBC 8.5 (3.8-10.6) k/uL RBC 4.07 L (4.30-5.90) m/uL Hgb 10.0 L (13.0-17.5) gm/dL Hct 33.9 L (39.0-53.0) % MCV 83.3 (80.0-100.0) fL MCH 24.6 L (25.0-35.0) pg MCHC 29.6 L (31.0-37.0) g/dL RDW 18.0 H (11.5-15.5) % Plt Count 234 (150-450) k/uL MPV 8.2 Neutrophils % 78 % Lymphocytes % 5 % Monocytes % 7 % Eosinophils % 6 % Basophils % 1 % Neutrophils # 6.6 (1.3-7.7) k/uL Lymphocytes # 0.5 L (1.0-4.8) k/uL Monocytes # 0.6 (0-1.0) k/uL Eosinophils # 0.5 (0-0.7) k/uL Basophils # 0.1 (0-0.2) k/uL Hypochromasia Marked Anisocytosis Slight Sodium 140 (137-145) mmol/L Potassium 3.9 (3.5-5.1) mmol/L Chloride 105 (98-107) mmol/L Carbon Dioxide 26 (22-30) mmol/L Anion Gap 9 mmol/L BUN 28 H (9-20) mg/dL Creatinine 1.15 (0.66-1.25) mg/dL Est GFR (CKD-EPI)AfAm 71 (>60 ml/min/1.73 sqM) Est GFR (CKD-EPI)NonAf 61 (>60 ml/min/1.73 sqM) Glucose 142 H (74-99) mg/dL Plasma Lactic Acid Casa 1.6 (0.7-2.0) mmol/L Calcium 8.9 (8.4-10.2) mg/dL Total Bilirubin 0.7 (0.2-1.3) mg/dL AST 34 (17-59) U/L ALT 24 (4-49) U/L Alkaline Phosphatase 69 (38-126) U/L Total Protein 7.2 (6.3-8.2) g/dL Albumin 4.1 (3.5-5.0) g/dL Disposition Clinical Impression: Cellulitis Disposition: ADMITTED IP TO THIS HOSP Condition: Good Referrals: Bora Madera MD [Primary Care Provider] - 1-2 days Time of Disposition: 12:50
[2023-10-28 12:14] LABS: Anisocytosis Slight; Basophils # (A) 0.1 k/uL (0-0.2); Basophils % (A) 1 %; Eosinophils # (A) 0.5 k/uL (0-0.7); Eosinophils % (A) 6 %; HCT 33.9 % (39.0-53.0); Hypochromasia Marked; Lymphocytes # (A) 0.5 k/uL (1.0-4.8); Lymphocytes % (A) 5 %; MCH 24.6 pg (25.0-35.0); MCHC 29.6 g/dL (31.0-37.0); MCV 83.3 fL (80.0-100.0); Mean Platelet Volume 8.2; Monocytes # (A) 0.6 k/uL (0-1.0); Monocytes % (A) 7 %; Neutrophils # (A) 6.6 k/uL (1.3-7.7); Neutrophils % (A) 78 %; Platelet Count 234 k/uL (150-450); RBC 4.07 m/uL (4.30-5.90); WBC 8.5 k/uL (3.8-10.6)
[2023-10-28 12:16] LABS: ALT 24 U/L (4-49); AST 34 U/L (17-59); African American GFR (CKD) 71 (>60 ml/min/1.73 sqM); Albumin 4.1 g/dL (3.5-5.0); Alkaline Phosphatase 69 U/L (38-126); Anion Gap 9 mmol/L; Blood Urea Nitrogen 28 mg/dL (9-20); Calcium 8.9 mg/dL (8.4-10.2); Carbon Dioxide 26 mmol/L (22-30); Chloride 105 mmol/L (98-107); Glucose 142 mg/dL (74-99); Non-African American GFR(CKD) 61 (>60 ml/min/1.73 sqM); Potassium 3.9 mmol/L (3.5-5.1); Sodium 140 mmol/L (137-145); Total Bilirubin 0.7 mg/dL (0.2-1.3); Total Protein 7.2 g/dL (6.3-8.2)
[2023-10-28] MEDS ORDERED: NALOXONE 0.4 MG/ML 1 ML VIAL IV PRN (12:43)
[2023-10-28] MEDS ORDERED: IBUPROFEN 400 MG TAB PO PRN (12:43)
[2023-10-28] MEDS: AMPICILLIN-SULBACTAM 3 GM in SODIUM CHLORIDE 0.9% 100 ML IVPB STA (13:10)
[2023-10-28] MEDS: SODIUM CHLORIDE 0.9% 1,000 ML IV SCH (13:12)
[2023-10-28] MEDS: NYSTATIN 100,000UNIT/GM CREAM 30 GM TUBE TOPICAL SCH (14:38)
[2023-10-28] MEDS: TRIAMCINOLONE 0.1% CREAM 80 GM TUBE TOPICAL SCH (14:45)
[2023-10-28] MEDS ORDERED: NITROGLYCERIN SL TABS 0.4 MG TAB SUBLINGUAL PRN (14:52)
[2023-10-28] MEDS: ALBUTEROL NEBULIZED 2.5 MG/3 ML INHALATION PRN (15:30)
[2023-10-28] MEDS: ACETAMINOPHEN TAB 325 MG TAB PO PRN (16:40)
[2023-10-28] MEDS: METOPROLOL TARTRATE 50 MG TAB PO SCH (16:40)
--- NOTE | 2023-10-28 19:31 | P.CONS ---
History of Present Illness - Reason for Consult Consult date: 10/28/23 Cellulitis Requesting physician: Tracie López - Chief Complaint Increasing swelling and redness to bilateral leg x days - History of Present Illness Patient is a 77-year-old male past medical history significant for coronary disease heart failure hypertension ND osteoarthritis, recent admission to hospital bilateral lower extremity cellulitis patient did have improvement with IV and by therapy subsequent discharge home patient supposed to follow-up with the wound care apparently did not have have a ride to go to the wound care patient now presenting to the hospital complaining of increasing swelling redness to bilateral lower extremity patient with a complaining of burning pain to bilateral lower extremity moderate intense without radiation with associated swelling and redness and some clear drainage with the symptoms the patient present to the hospital on arrival to the ER patient was running a low-grade fever of 99 F patient was not tachycardic hypotensive or hypoxic patient did have what on 8.5 creatinine is 1.15 patient received a dose of Unasyn and admitted to the hospital infectious he was consulted for further management of antibiotic therapy Review of Systems Positive point and negatives has been mentioned in the HPI, complete review of systems was performed and all other systems are negative Past Medical History Past Medical History: Coronary Artery Disease (CAD), Heart Failure, CVA/TIA, Hypertension, Myocardial Infarction (ND), Osteoarthritis (OA) Additional Past Medical History / Comment(s): TIA - no residual effects, c/o fatigue,see dr [facility] Last Myocardial Infarction Date:: unknown History of Any Multi-Drug Resistant Organisms: None Reported Past Surgical History: AICD, Heart Catheterization With Stent Additional Past Surgical History / Comment(s): spinal steroid injections, aicd placed Past Anesthesia/Blood Transfusion Reactions: No Reported Reaction Date of Last Stent Placement:: unknown Type of Cardiac Device: AICD Device Placement Date:: feb 2022 Past Psychological History: No Psychological Hx Reported Smoking Status: Former smoker Past Alcohol Use History: Daily Past Drug Use History: None Reported - Past Family History Sister(s) Family Medical History: Cancer Medications and Allergies Home Medications Medication Instructions Recorded Confirmed Type Aspirin [Adult Low Dose Aspirin EC] 81 mg PO DAILY 06/16/18 10/28/23 History PARoxetine [Paxil] 20 mg PO DAILY 06/16/18 10/28/23 History Nitroglycerin Sl Tabs [Nitrostat] 0.4 mg SUBLINGUAL Q5M PRN #25 tab 06/20/18 10/28/23 Rx Rosuvastatin [Crestor] 20 mg PO DAILY 11/18/21 10/28/23 History Pantoprazole [Protonix] 40 mg PO DAILY 03/09/22 10/28/23 History Tamsulosin [Flomax] 0.4 mg PO BID 03/09/22 10/28/23 History Albuterol Inhaler [Ventolin Hfa 2 puff INHALATION RT-Q6H PRN 08/10/22 10/28/23 History Inhaler] Losartan Potassium 50 mg PO DAILY 08/10/22 10/28/23 History Metoprolol Tartrate [Lopressor] 50 mg PO TID 08/10/22 10/28/23 History Clopidogrel [Plavix] 75 mg PO DAILY 06/29/23 10/28/23 History Spironolactone [Aldactone] 25 mg PO HS 06/29/23 10/28/23 History Pyridoxine HCl (Vitamin B6) 100 mg PO DAILY 10/10/23 10/28/23 History [Vitamin B-6] Acetaminophen Tab [Tylenol] 650 mg PO Q6HR PRN tab 10/14/23 10/28/23 Rx Furosemide [Lasix] 40 mg PO BID #0 10/14/23 10/28/23 Rx Nystatin 100,000Unit/gm Cream 1 applic TOPICAL DAILY #30 gm 10/14/23 10/28/23 Rx [Mycostatin Cream] diphenhydrAMINE [Benadryl] 25 mg PO TID PRN #15 capsule 10/14/23 10/28/23 Rx Brimonidine Tartrate [Alphagan P 1 drop LEFT EYE DAILY 10/29/23 10/29/23 History 0.2% Ophth Soln] prednisoLONE ACETATE 1% OPHTH 1 drop LEFT EYE DAILY 10/29/23 10/29/23 History [Pred Forte 1%] Cephalexin [Keflex] 500 mg PO Q8HR 10 Days #30 cap 10/31/23 Rx Ibuprofen [Motrin] 400 mg PO Q6HR PRN #30 tab 10/31/23 Rx Triamcinolone 0.1% Cream [Kenalog 1 applic TOPICAL BID 10 Days #1 10/31/23 Rx 0.1% Cream] each Allergies Allergy/AdvReac Type Severity Reaction Status Date / Time No Known Allergies Allergy Verified 10/28/23 11:53 Physical Exam Vitals: Vital Signs Temp Pulse Resp BP Pulse Ox 10/28/23 11:08 99 F 70 20 97/54 96 Intake and Output 10/27/23 10/28/23 10/28/23 22:59 06:59 14:59 Other: Weight 129.274 kg GENERAL DESCRIPTION: Middle-aged male lying in bed, no distress. No tachypnea or accessory muscle of respiration use. HEENT: Shows Pallor , no scleral icterus. Oral mucous membrane is dry. No pharyngeal erythema or thrush NECK: Trachea central, no thyromegaly. LUNGS: Unlabored breathing. Clear to auscultation anteriorly. No wheeze or crackle. HEART: S1, S2, regular rate and rhythm. No loud murmur ABDOMEN: Soft, no tenderness , guarding or rigidity, no organomegaly EXTREMITIES: Diffuse swelling redness to bilateral extremity SKIN: No rash, no masses palpable. NEUROLOGICAL: The patient is awake, alert, oriented x3, mood and affect normal. Results CBC & Chem 7: 10/31/23 05:25 10/31/23 05:25 Labs: Abnormal Lab Results - Last 24 Hours (Table) 10/28/23 10/28/23 Range/Units 11:32 11:32 RBC 4.07 L (4.30-5.90) m/uL Hgb 10.0 L (13.0-17.5) gm/dL Hct 33.9 L (39.0-53.0) % MCH 24.6 L (25.0-35.0) pg MCHC 29.6 L (31.0-37.0) g/dL RDW 18.0 H (11.5-15.5) % Lymphocytes # 0.5 L (1.0-4.8) k/uL BUN 28 H (9-20) mg/dL Glucose 142 H (74-99) mg/dL Assessment and Plan (1) Bilateral leg ulcer Status: Acute Code(s): L97.919 - NON-PRS CHRONIC ULC UNSP PRT OF R LOW LEG W UNSP SEVERITY; L97.929 - NON-PRS CHRONIC ULC UNSP PRT OF L LOW LEG W UNSP OJSE A RITY SNOMED Code(s): 17579827 (2) Bilateral lower leg cellulitis Status: Acute Code(s): L03.116 - CELLULITIS OF LEFT LOWER LIMB; L03.115 - CELLULITIS OF RIGHT LOWER LIMB SNOMED Code(s): 558174851 Plan: 1patient presented to hospital with bilateral lower extremity swelling or redness and some clear drainage at this patient noted to have a feature of venous stasis dermatitis with concern for possible secondary cellulitis likely from gram-positive skin eboni 2-we will apply Mycolog cream to bilateral lower extremity followed by Jaya wrap for compression patient 3- cefazolin 2 g every 8 hours We will follow on clinical condition and cultures to further adjust medication if needed Thank you for this consultation we will follow the patient along with you Dictation was produced using [employer] dictation software. please excuse any grammatical, word or spelling errors. Time with Patient: Greater than 30
[2023-10-28] MEDS: FUROSEMIDE 40 MG TAB PO SCH (20:29)
[2023-10-28] MEDS: SPIRONOLACTONE 25 MG TAB PO SCH (20:31)
[2023-10-28] MEDS: TAMSULOSIN 0.4 MG CAP.ER.24H PO SCH (20:31)
[2023-10-29] MEDS: HYDROcodone/APAP 10-325MG 1 EACH TAB PO PRN (00:18)
[2023-10-29] MEDS: ATORVASTATIN 40 MG TAB PO SCH (09:43)
[2023-10-29] MEDS: CLOPIDOGREL 75 MG TAB PO SCH (09:43)
[2023-10-29] MEDS: ASPIRIN 81 MG PO SCH (09:43)
[2023-10-29] MEDS: PYRIDOXINE 50 MG TAB PO SCH (09:43)
[2023-10-29] MEDS: PANTOPRAZOLE 40 MG TABLET PO SCH (09:43)
[2023-10-29] MEDS: LOSARTAN 50 MG TAB PO SCH (09:43)
--- NOTE | 2023-10-29 09:57 | P.HPIM ---
History of Present Illness H&P Date: 10/28/23 Chief Complaint: Bilateral leg wounds 77, male, history of hypertension, CAD/CHF, osteoarthritis, hyperlipidemia, BPH presented to the ER with a chief complaint of bilateral leg pain and swelling. Patient recently discharged on 10-14-2023 for similar complaint. Patient disc harged with Keflex and antifungal/steroid creams. Patient reports that he finished up his last dose of Keflex approximately 1 week ago. He was scheduled to follow-up with wound care yesterday but was unable to attend appointment as his was unable to transport him. Patient unwrapped his legs to take a shower and noticed they were extremely red and oozing blood. He reports his home visiting nurse sent him to the ER as she was concerned of infection. Patient denies smoking or being diabetic. He denies any fevers, chills, nausea, vomiting, chest pain, shortness of breath. Laboratory studies obtained significant for white blood cell count 8.5, normocytic hypochromic anemia hemoglobin of 10 which appears to be patient's baseline. Prerenal azotemia BUN 28, creatinine 1.15. Lactic 1.6. Admission considered due to failed outpatient management and noncompliance with wound care for cellulitis. Review of Systems REVIEW OF SYSTEMS: CONSTITUTIONAL: No fever, no malaise, no fatigue. HEENT: No recent visual problems or hearing problems. Denied any sore throat. CARDIOVASCULAR: No chest pain, orthopnea, PND, no palpitations, no syncope. PULMONARY: No shortness of breath, no cough, no hemoptysis. GASTROINTESTINAL: No diarrhea, no nausea, no vomiting, no abdominal pain. NEUROLOGICAL: No headaches, no weakness, no numbness. HEMATOLOGICAL: Denies any bleeding or petechiae. GENITOURINARY: Denies any burning micturition, frequency, or urgency. MUSCULOSKELETAL/RHEUMATOLOGICAL: Denies any joint pain, swelling, or any muscle pain. ENDOCRINE: Denies any polyuria or polydipsia. The rest of the 14-point review of systems is negative. Past Medical History Past Medical History: Coronary Artery Disease (CAD), Heart Failure, CVA/TIA, Hypertension, Myocardial Infarction (NM), Osteoarthritis (OA) Additional Past Medical History / Comment(s): TIA - no residual effects, c/o fatigue,see dr [facility] H & P Last Myocardial Infarction Date:: unknown History of Any Multi-Drug Resistant Organisms: None Reported Past Surgical History: AICD, Heart Catheterization With Stent Additional Past Surgical History / Comment(s): spinal steroid injections, aicd placed Past Anesthesia/Blood Transfusion Reactions: No Reported Reaction Date of Last Stent Placement:: unknown Type of Cardiac Device: AICD Device Placement Date:: feb 2022 Past Psychological History: No Psychological Hx Reported Smoking Status: Former smoker Past Alcohol Use History: Daily Past Drug Use History: None Reported - Past Family History Sister(s) Family Medical History: Cancer Medications and Allergies Home Medications Medication Instructions Recorded Confirmed Type Aspirin [Adult Low Dose Aspirin EC] 81 mg PO DAILY 06/16/18 10/28/23 History PARoxetine [Paxil] 20 mg PO DAILY 06/16/18 10/28/23 History Nitroglycerin Sl Tabs [Nitrostat] 0.4 mg SUBLINGUAL Q5M PRN #25 tab 06/20/18 10/28/23 Rx Rosuvastatin [Crestor] 20 mg PO DAILY 11/18/21 10/28/23 History Pantoprazole [Protonix] 40 mg PO DAILY 03/09/22 10/28/23 History Tamsulosin [Flomax] 0.4 mg PO BID 03/09/22 10/28/23 History Albuterol Inhaler [Ventolin Hfa 2 puff INHALATION RT-Q6H PRN 08/10/22 10/28/23 History Inhaler] Losartan Potassium 50 mg PO DAILY 08/10/22 10/28/23 History Metoprolol Tartrate [Lopressor] 50 mg PO TID 08/10/22 10/28/23 History Clopidogrel [Plavix] 75 mg PO DAILY 06/29/23 10/28/23 History Spironolactone [Aldactone] 25 mg PO HS 06/29/23 10/28/23 History Pyridoxine HCl (Vitamin B6) 100 mg PO DAILY 10/10/23 10/28/23 History [Vitamin B-6] Acetaminophen Tab [Tylenol] 650 mg PO Q6HR PRN tab 10/14/23 10/28/23 Rx Furosemide [Lasix] 40 mg PO BID #0 10/14/23 10/28/23 Rx Nystatin 100,000Unit/gm Cream 1 applic TOPICAL DAILY #30 gm 10/14/23 10/28/23 Rx [Mycostatin Cream] diphenhydrAMINE [Benadryl] 25 mg PO TID PRN #15 capsule 10/14/23 10/28/23 Rx Unknown Eye Drops 1 drop LEFT EYE DIRECTED 10/28/23 10/28/23 History Allergies Allergy/AdvReac Type Severity Reaction Status Date / Time No Known Allergies Allergy Verified 10/28/23 11:53 Physical Exam Vitals: Vital Signs Temp Pulse Resp BP Pulse Ox 10/28/23 13:14 98 F 67 18 100/61 98 10/28/23 11:08 99 F 70 20 97/54 96 Intake and Output 10/27/23 10/28/23 10/28/23 22:59 06:59 14:59 Other: Weight 129.274 kg General appearance: alert, in no apparent distress Respiratory exam: Present: normal lung sounds bilaterally. Absent: respiratory distress, wheezes, rales, rhonchi, stridor Cardiovascular Exam: Present: regular rate, normal rhythm, normal heart sounds. Absent: systolic murmur, diastolic murmur, rubs, gallop, clicks Extremities exam: Present: normal inspection, full ROM, normal capillary refill. Absent: tenderness, pedal edema, joint swelling, calf tenderness Neurological exam: Present: alert, oriented X3, CN II-XII intact Skin exam: Present: other (Left lower extremity erythematous with superficial wounds oozing blood. Bilateral dorsalis pedis pulse heard with Doppler. Sensation intact. Right calf erythematous with superficial wounds and scaling.) Results CBC & Chem 7: 10/28/23 11:32 10/28/23 11:32 Labs: Abnormal Lab Results - Last 24 Hours (Table) 10/28/23 10/28/23 Range/Units 11:32 11:32 RBC 4.07 L (4.30-5.90) m/uL Hgb 10.0 L (13.0-17.5) gm/dL Hct 33.9 L (39.0-53.0) % MCH 24.6 L (25.0-35.0) pg MCHC 29.6 L (31.0-37.0) g/dL RDW 18.0 H (11.5-15.5) % Lymphocytes # 0.5 L (1.0-4.8) k/uL BUN 28 H (9-20) mg/dL Glucose 142 H (74-99) mg/dL Assessment and Plan Assessment: 1. Cellulitis bilateral lower extremities; failed outpatient treatment; patient received IV Unasyn 3 g x 1 in ED --Patient has been placed on IV cefazolin 2 g every 8 hours by ID; Mycolog cream to both lower extremity with Jaya wrap for compression as recommended -Patient is placed on [place] 10 mg every 6 hours as needed for pain control -- Blood cultures and wound culture obtained and pending 2. Mild renal injury; BUN is elevated at 28 with creatinine at upper normal limit of 1.15 -Patient placed on slow IV fluid hydration with normal saline at a rate of 75 cc an hour; avoid nephrotoxins and hypotension 3. Hypertension; Cozaar; 50 mg daily, metoprolol 50 mg 3 times daily and Lasix 40 mg twice daily; we will plan to hold Cozaar and Lasix if renal function deteriorates 4. Hyperlipidemia; Lipitor 40 mg p.o. daily 5. CAD/CHF; stable on aspirin, Plavix, statins and beta-blockers; patient is on Lasix 40 mg twice daily and Aldactone 25 mg p.o. nightly 6. BPH; Flomax 0.4 mg twice daily DVT prophylaxis; SCDs/subcu heparin CODE STATUS; full code
[2023-10-29 10:00] LABS: Basophils # (A) 0.08 X 10*3/uL (0.00-0.10); Basophils % (A) 1.5 %; Eosinophils # (A) 0.46 X 10*3/uL (0.04-0.35); Eosinophils % (A) 8.7 %; HCT 29.5 % (39.6-50.0); HGB 8.9 g/dL (13.0-17.0); Lymphocytes # (A) 0.52 X 10*3/uL (0.90-5.00); Lymphocytes % (A) 9.8 %; MCH 25.2 pg (27.0-32.0); MCHC 30.2 g/dL (32.0-37.0); MCV 83.6 FL (80.0-97.0); Mean Platelet Volume 10.1 FL (9.5-12.2); Monocytes # (A) 0.72 X 10*3/uL (0.20-1.00); Monocytes % (A) 13.6 %; NRBC Per 100 WBC 0 X 10*3/uL (0.00-0.01); Neutrophils # (A) 3.47 X 10*3/uL (1.80-7.70); Neutrophils % (A) 65.8 %; Platelet Count 222 X 10*3/uL (140-440); RBC 3.53 X 10*6/uL (4.40-5.60); RDW 19.2 % (11.5-14.5); WBC 5.28 X 10*3/uL (4.50-10.00)
[2023-10-29 10:21] LABS: Blood Urea Nitrogen 25.8 mg/dL (9.0-27.0); Calcium 8.7 mg/dL (8.7-10.3); Chloride 103 mmol/L (96-109); Glucose 99 mg/dL (70-110); Potassium 4.1 mmol/L (3.5-5.5); Sodium 139 mmol/L (135-145)
[2023-10-29] MEDS: PARoxetine 20 MG TAB PO SCH (11:58)
[2023-10-29] MEDS: HEPARIN SODIUM,PORCINE 5,000 UNIT/ML 1 ML VIAL SQ SCH (21:16)
[2023-10-30 09:38] LABS: Basophils # (A) 0.07 X 10*3/uL (0.00-0.10); Basophils % (A) 1.5 %; Eosinophils # (A) 0.47 X 10*3/uL (0.04-0.35); Eosinophils % (A) 10.1 %; HCT 30.1 % (39.6-50.0); HGB 8.6 g/dL (13.0-17.0); Lymphocytes # (A) 0.53 X 10*3/uL (0.90-5.00); Lymphocytes % (A) 11.4 %; MCH 24.6 pg (27.0-32.0); MCHC 28.6 g/dL (32.0-37.0); Mean Platelet Volume 10.4 FL (9.5-12.2); Monocytes % (A) 12.9 %; NRBC Per 100 WBC 0 X 10*3/uL (0.00-0.01); Neutrophils # (A) 2.95 X 10*3/uL (1.80-7.70); Neutrophils % (A) 63.7 %; Platelet Count 192 X 10*3/uL (140-440); WBC 4.64 X 10*3/uL (4.50-10.00)
[2023-10-30 09:59] LABS: BUN/Creat Ratio 19.55 Ratio (12.00-20.00); Calcium 8.8 mg/dL (8.7-10.3); Potassium 4.3 mmol/L (3.5-5.5)
--- NOTE | 2023-10-30 14:47 | P.PN ---
Subjective Progress Note Date: 10/29/23 77, male, history of hypertension, CAD/CHF, osteoarthritis, hyperlipidemia, BPH presented to the ER with a chief complaint of bilateral leg pain and swelling. Patient recently discharged on 10-14-2023 for similar complaint. Patient discharged with Keflex and antifungal/steroid creams. Patient reports that he finished up his last dose of Keflex approximately 1 week ago. He was scheduled to follow-up with wound care yesterday but was unable to attend appointment as his was unable to transport him. Patient unwrapped his legs to take a shower and noticed they were extremely red and oozing blood. He reports his home visiting nurse sent him to the ER as she was concerned of infection. Patient denies smoking or being diabetic. He denies any fevers, chills, nausea, vomiting, chest pain, shortness of breath. Laboratory studies obtained significant for white blood cell count 8.5, normocytic hypochromic anemia hemoglobin of 10 which appears to be patient's baseline. Prerenal azotemia BUN 28, creatinine 1.15. Lactic 1.6. Admission considered due to failed outpatient management and noncompliance with wound care for cellulitis. Objective - Vital Signs Vital signs: Vital Signs Temp 97.4 F L 10/29/23 07:36 Pulse 62 10/29/23 07:36 Resp 16 10/29/23 07:36 BP 116/72 10/29/23 07:36 Pulse Ox 97 10/29/23 07:36 FiO2 Intake & Output 10/28/23 10/29/23 10/29/23 18:59 06:59 18:59 Intake Total 1510 Balance 1510 Weight 129.274 kg Intake: Intake, IV Titration 1050 Amount Ampicillin-Sulbactam 3 gm 100 In Sodium Chloride 0.9% 100 ml @ 200 mls/hr IVPB ONCE STA Rx#:[id number] Sodium Chloride 0.9% 1, 900 000 ml @ 75 mls/hr IV . [id number] [facility] Rx#:[id number] ceFAZolin 2 gm In Sodium 50 Chloride 0.9% 50 ml @ 100 mls/hr IVPB Q8HR [facility] Rx# :[id number] Oral 460 Other: # Voids 1 2 - Exam General appearance: alert, in no apparent distress Respiratory exam: Present: normal lung sounds bilaterally. Absent: respiratory distress, wheezes, rales, rhonchi, stridor Cardiovascular Exam: Present: regular rate, normal rhythm, normal heart sounds. Absent: systolic murmur, diastolic murmur, rubs, gallop, clicks Extremities exam: Present: normal inspection, full ROM, normal capillary refill. Absent: tenderness, pedal edema, joint swelling, calf tenderness Neurological exam: Present: alert, oriented X3, CN II-XII intact Skin exam: Present: other (Left lower extremity erythematous with superficial wounds oozing blood. Bilateral dorsalis pedis pulse heard with Doppler. Sensation intact. Right calf erythematous with superficial wounds and scaling.) - Labs CBC & Chem 7: 10/30/23 06:21 10/29/23 05:45 Labs: Abnormal Lab Results - Last 24 Hours (Table) 10/28/23 10/28/23 Range/Units 11:32 11:32 RBC 4.07 L (4.30-5.90) m/uL Hgb 10.0 L (13.0-17.5) gm/dL Hct 33.9 L (39.0-53.0) % MCH 24.6 L (25.0-35.0) pg MCHC 29.6 L (31.0-37.0) g/dL RDW 18.0 H (11.5-15.5) % Lymphocytes # 0.5 L (1.0-4.8) k/uL BUN 28 H (9-20) mg/dL Glucose 142 H (74-99) mg/dL Assessment and Plan Assessment: 1. Cellulitis bilateral lower extremities; failed outpatient treatment; patient received IV Unasyn 3 g x 1 in ED --Patient has been placed on IV cefazolin 2 g every 8 hours by ID; Mycolog cream to both lower extremity with Jaya wrap for compression as recommended -Patient is placed on [place] 10 mg every 6 hours as needed for pain control -- Blood cultures and wound culture obtained and pending 2. Mild renal injury; BUN is elevated at 28 with creatinine at upper normal limit of 1.15 -Patient placed on slow IV fluid hydration with normal saline at a rate of 75 cc an hour; avoid nephrotoxins and hypotension 3. Hypertension; Cozaar; 50 mg daily, metoprolol 50 mg 3 times daily and Lasix 40 mg twice daily; we will plan to hold Cozaar and Lasix if renal function deteriorates 4. Hyperlipidemia; Lipitor 40 mg p.o. daily 5. CAD/CHF; stable on aspirin, Plavix, statins and beta-blockers; patient is on Lasix 40 mg twice daily and Aldactone 25 mg p.o. nightly 6. BPH; Flomax 0.4 mg twice daily DVT prophylaxis; SCDs/subcu heparin CODE STATUS; full code
--- NOTE | 2023-10-30 14:51 | P.PN ---
Subjective Progress Note Date: 10/30/23 77, male, history of hypertension, CAD/CHF, osteoarthritis, hyperlipidemia, BPH presented to the ER with a chief complaint of bilateral leg pain and swelling. Patient recently discharged on 10-14-2023 for similar complaint. Patient discharged with Keflex and antifungal/steroid creams. Patient reports that he finished up his last dose of Keflex approximately 1 week ago. He was scheduled to follow-up with wound care yesterday but was unable to attend appointment as his was unable to transport him. Patient unwrapped his legs to take a shower and noticed they were extremely red and oozing blood. He reports his home visiting nurse sent him to the ER as she was concerned of infection. Patient denies smoking or being diabetic. He denies any fevers, chills, nausea, vomiting, chest pain, shortness of breath. Laboratory studies obtained significant for white blood cell count 8.5, normocytic hypochromic anemia hemoglobin of 10 which appears to be patient's baseline. Prerenal azotemia BUN 28, creatinine 1.15. Lactic 1.6. Admission considered due to failed outpatient management and noncompliance with wound care for cellulitis. 10/30/2023 Patient is seen and evaluated sitting up in bedside chair; reports uncontrolled pain lower extremities Vital signs reviewed and stable with temperature of 97.8, pulse 61, respiration 18 and blood pressure 112/71 Lab review shows WBCs 4.64, hemoglobin of 8.6 and platelet count of 192 patient presented to hospital with bilateral lower extremity swelling or redness and some clear drainage at this patient noted to have a feature of venous stasis dermatitis with concern for possible secondary cellulitis likely from gram-positive skin eboni -Patient has been evaluated by ID and has been recommended Mycolog cream to bila teral lower extremity followed by Jaya wrap for compression patient -Patient remains on cefazolin 2 g every 8 hours for MSSA bacteremia and lower extremity cellulitis Objective - Vital Signs Vital signs: Vital Signs Temp 97.5 F L 10/30/23 07:29 Pulse 62 10/30/23 09:30 Resp 18 10/30/23 07:29 BP 103/40 10/30/23 09:30 Pulse Ox 98 10/30/23 07:29 FiO2 Intake & Output 10/29/23 10/30/23 10/30/23 18:59 06:59 18:59 Intake Total 360 590 Balance 360 590 Intake: Oral 360 590 Other: # Voids 3 2 - Exam General appearance: alert, in no apparent distress Respiratory exam: Present: normal lung sounds bilaterally. Absent: respiratory distress, wheezes, rales, rhonchi, stridor Cardiovascular Exam: Present: regular rate, normal rhythm, normal heart sounds. Absent: systolic murmur, diastolic murmur, rubs, gallop, clicks Extremities exam: Present: normal inspection, full ROM, normal capillary refill. Absent: tenderness, pedal edema, joint swelling, calf tenderness Neurological exam: Present: alert, oriented X3, CN II-XII intact Skin exam: Present: other (Left lower extremity erythematous with superficial wounds oozing blood. Bilateral dorsalis pedis pulse heard with Doppler. Sensation intact. Right calf erythematous with superficial wounds and scaling.) - Labs CBC & Chem 7: 10/30/23 06:21 10/29/23 05:45 Labs: Abnormal Lab Results - Last 24 Hours (Table) 10/30/23 10/30/23 Range/Units 06:21 06:21 RBC 3.50 L (4.40-5.60) X 10*6/uL Hgb 8.6 L (13.0-17.0) g/dL Hct 30.1 L (39.6-50.0) % MCH 24.6 L (27.0-32.0) pg MCHC 28.6 L (32.0-37.0) g/dL RDW 19.0 H (11.5-14.5) % Lymphocytes # 0.53 L (0.90-5.00) X 10*3/uL Eosinophils # 0.47 H (0.04-0.35) X 10*3/uL Anion Gap 13 H (4.00-12.00) mmol/L Microbiology - Last 24 Hours (Table) 10/28/23 11:52 Blood Culture - Preliminary Blood 10/28/23 12:35 Blood Culture - Preliminary Blood Assessment and Plan Assessment: 1. Cellulitis bilateral lower extremities; failed outpatient treatment; patient received IV Unasyn 3 g x 1 in ED --Patient has been placed on IV cefazolin 2 g every 8 hours by ID; Mycolog cream to both lower extremity with Jaya wrap for compression as recommended -Patient is placed on [place] 10 mg every 6 hours as needed for pain control -- Blood cultures and wound culture obtained and pending 2. Mild renal injury; BUN is elevated at 28 with creatinine at upper normal limit of 1.15 -Patient placed on slow IV fluid hydration with normal saline at a rate of 75 cc an hour; avoid nephrotoxins and hypotension 3. Hypertension; Cozaar; 50 mg daily, metoprolol 50 mg 3 times daily and Lasix 40 mg twice daily; we will plan to hold Cozaar and Lasix if renal function deteriorates 4. Hyperlipidemia; Lipitor 40 mg p.o. daily 5. CAD/CHF; stable on aspirin, Plavix, statins and beta-blockers; patient is on Lasix 40 mg twice daily and Aldactone 25 mg p.o. nightly 6. BPH; Flomax 0.4 mg twice daily DVT prophylaxis; SCDs/subcu heparin CODE STATUS; full code
[2023-10-30 22:38] VITALS: RESP 16
--- NOTE | 2023-10-31 | P.PN ---
Subjective Progress Note Date: 10/29/23 Principal diagnosis: Reason for follow-up is bilateral lower extremity cellulitis Patient is a 77-year-old male past medical history significant for coronary disease heart failure hypertension [place] osteoarthritis and lower extremity cellulitis presented to hospital with worsening swelling redness to bilateral lower extremity. On today's evaluation that is 10/29/2023, Patient is afebrile this morning he denies any chills, patient mention breathing comfortably and is currently on room air, patient denies any chest pain occasional cough patient denies any abdominal pain no diarrhea no nausea no vomiting swelling redness to bilateral lower extremity has decreased in intensity. Patient white count is 5.28 creatinine is 1.2 Objective - Vital Signs Vital signs: Vital Signs Temp 97.4 F L 10/29/23 07:36 Pulse 62 10/29/23 07:36 Resp 16 10/29/23 07:36 BP 116/72 10/29/23 07:36 Pulse Ox 97 10/29/23 07:36 FiO2 Intake & Output 10/28/23 10/29/23 10/29/23 18:59 06:59 18:59 Intake Total 1510 Balance 1510 Weight 129.274 kg Intake: Intake, IV Titration 1050 Amount Ampicillin-Sulbactam 3 gm 100 In Sodium Chloride 0.9% 100 ml @ 200 mls/hr IVPB ONCE STA Rx#:[id number] Sodium Chloride 0.9% 1, 900 000 ml @ 75 mls/hr IV . [id number] [facility] Rx#:[id number] ceFAZolin 2 gm In Sodium 50 Chloride 0.9% 50 ml @ 100 mls/hr IVPB Q8HR [facility] Rx# :[id number] Oral 460 Other: # Voids 1 2 - Exam Elderly male lying in bed in no distress Unlabored breathing Bilateral extremity swelling redness has decreased - Labs CBC & Chem 7: 10/30/23 06:21 10/29/23 05:45 Labs: Abnormal Lab Results - Last 24 Hours (Table) 10/28/23 10/28/23 10/29/23 Range/Units 11:32 11:32 05:45 RBC 4.07 L 3.53 L (4.30-5.90) m/uL Hgb 10.0 L 8.9 L (13.0-17.5) gm/dL Hct 33.9 L 29.5 L (39.0-53.0) % MCH 24.6 L 25.2 L (25.0-35.0) pg MCHC 29.6 L 30.2 L (31.0-37.0) g/dL RDW 18.0 H 19.2 H (11.5-15.5) % Lymphocytes # 0.5 L 0.52 L (1.0-4.8) k/uL Eosinophils # 0.46 H (0.04-0.35) X 10*3/uL BUN 28 H (9-20) mg/dL BUN/Creatinine Ratio (12.00-20.00) Ratio Glucose 142 H (74-99) mg/dL 10/29/23 Range/Units 05:45 RBC (4.30-5.90) m/uL Hgb (13.0-17.5) gm/dL Hct (39.0-53.0) % MCH (25.0-35.0) pg MCHC (31.0-37.0) g/dL RDW (11.5-15.5) % Lymphocytes # (1.0-4.8) k/uL Eosinophils # (0.04-0.35) X 10*3/uL BUN (9-20) mg/dL BUN/Creatinine Ratio 21.50 H (12.00-20.00) Ratio Glucose (74-99) mg/dL Assessment and Plan (1) Bilateral leg ulcer Current Visit: No Status: Acute Code(s): L97.919 - NON-PRS CHRONIC ULC UNSP PRT OF R LOW LEG W UNSP SEVERITY; L97.929 - NON-PRS CHRONIC ULC UNSP PRT OF L LOW LEG W UNSP SEVERITY SNOMED Code(s): 94049411 (2) Bilateral lower leg cellulitis Current Visit: No Status: Acute Code(s): L03.116 - CELLULITIS OF LEFT LOWER LIMB; L03.115 - CELLULITIS OF RIGHT LOWER LIMB SNOMED Code(s): 409354542 Plan: This is a telehealth visit 1patient presented to hospital with bilateral lower extremity swelling or redness and some clear drainage at this patient noted to have a feature of venous stasis dermatitis with concern for possible secondary cellulitis likely from gram-positive skin eboni 2-patient to continue with Mycolog cream to bilateral lower extremity followed by Jaya wrap for compression patient 3-patient did have some clinical improvement and will continue cefazolin 2 g every 8 hours Dictation was produced using [employer] dictation software. please excuse any grammatical, word or spelling errors. Time with Patient: Less than 30
--- NOTE | 2023-10-31 00:01 | P.PN ---
Subjective Progress Note Date: 10/30/23 Patient is a 77-year-old male past medical history significant for coronary disease heart failure hypertension [place] osteoarthritis and lower extremity cellulitis presented to hospital with worsening swelling redness to bilateral lower extremity. On today's evaluation that is 10/30/2023,the patient denies any fever or any chills, patient is breathing comfortably on room air, the patient denies chest pain shortness of breath and no significant cough, patient denies abdominal pain, no nausea vomiting or diarrhea. Patient bilateral lower extremity swelling redness has improved but no drainage. Patient white count is 4.64 creatinine is pending blood culture negative Objective - Vital Signs Vital signs: Vital Signs Temp 97.5 F L 10/30/23 07:29 Pulse 62 10/30/23 09:30 Resp 18 10/30/23 07:29 BP 103/40 10/30/23 09:30 Pulse Ox 98 10/30/23 07:29 FiO2 Intake & Output 10/29/23 10/30/23 10/30/23 18:59 06:59 18:59 Intake Total 360 590 Balance 360 590 Intake: Oral 360 590 Other: # Voids 3 2 - Exam Elderly male lying in bed in no distress Unlabored breathing Bilateral extremity swelling redness has decreased - Labs CBC & Chem 7: 10/30/23 06:21 10/29/23 05:45 Labs: Abnormal Lab Results - Last 24 Hours (Table) 10/30/23 10/30/23 Range/Units 06:21 06:21 RBC 3.50 L (4.40-5.60) X 10*6/uL Hgb 8.6 L (13.0-17.0) g/dL Hct 30.1 L (39.6-50.0) % MCH 24.6 L (27.0-32.0) pg MCHC 28.6 L (32.0-37.0) g/dL RDW 19.0 H (11.5-14.5) % Lymphocytes # 0.53 L (0.90-5.00) X 10*3/uL Eosinophils # 0.47 H (0.04-0.35) X 10*3/uL Anion Gap 13 H (4.00-12.00) mmol/L Microbiology - Last 24 Hours (Table) 10/28/23 11:52 Blood Culture - Preliminary Blood 10/28/23 12:35 Blood Culture - Preliminary Blood Assessment and Plan (1) Bilateral lower leg cellulitis Current Visit: No Status: Acute Code(s): L03.116 - CELLULITIS OF LEFT LOWER LIMB; L03.115 - CELLULITIS OF RIGHT LOWER LIMB SNOMED Code(s): 113411386 Plan: This is a telehealth visit 1patient presented to hospital with bilateral lower extremity swelling or red ness and some clear drainage at this patient noted to have a feature of venous stasis dermatitis with concern for possible secondary cellulitis likely from gram-positive skin eboni 2-patient to continue with Mycolog cream to bilateral lower extremity followed by Jaya wrap for compression patient 3-patient did haveclinical improvement and will continue cefazolin 2 g every 8 hours and plan to finish therapy with oral Keflex Dictation was produced using [employer] dictation software. please excuse any grammatical, word or spelling errors. Time with Patient: Less than 30
[2023-10-31 09:16] LABS: BUN/Creat Ratio 17.27 Ratio (12.00-20.00); Calcium 8.4 mg/dL (8.7-10.3); Carbon Dioxide 25.2 mmol/L (21.6-31.8); Chloride 105 mmol/L (96-109); Glucose 93 mg/dL (70-110); Potassium 4.4 mmol/L (3.5-5.5); Sodium 140 mmol/L (135-145)
[2023-10-31 09:43] LABS: Basophils # (A) 0.06 X 10*3/uL (0.00-0.10); Basophils % (A) 1.3 %; Eosinophils # (A) 0.49 X 10*3/uL (0.04-0.35); Eosinophils % (A) 10.3 %; HCT 27.9 % (39.6-50.0); HGB 8.2 g/dL (13.0-17.0); Lymphocytes % (A) 10.5 %; MCH 25.4 pg (27.0-32.0); MCHC 29.4 g/dL (32.0-37.0); MCV 86.4 FL (80.0-97.0); Mean Platelet Volume 10.9 FL (9.5-12.2); Monocytes % (A) 14.7 %; NRBC Per 100 WBC 0 X 10*3/uL (0.00-0.01); Platelet Count 199 X 10*3/uL (140-440); RBC 3.23 X 10*6/uL (4.40-5.60); RDW 18.7 % (11.5-14.5); WBC 4.76 X 10*3/uL (4.50-10.00)
[2023-10-31 15:20] VITALS: BP 117/68; PULSE 65; TEMP 98.1
--- NOTE | 2023-11-06 20:02 | P.DS ---
Providers Date of admission: 10/28/23 14:37 Expected date of discharge: 10/31/23 Attending physician: Romana Freedman Consults: 10/28/23 12:43 Consult Physician Urgent Consulting Provider: Thony Cade Consult Reason/Comments: cellulitis Do you want consulting provider notified?: Yes Primary care physician: Bora Madera [facility] Course: Final diagnosis -Cellulitis bilateral lower extremities; failed outpatient treatment -Mild renal injury -Hypertension -Hyperlipidemia -CAD/CHF -BPH GI prophylaxis DVT prophylaxis; SCDs/subcu heparin full code Discharge disposition Patient is being discharged in a stable condition with guarded prognosis to home. Patient will follow-up with Dr. Bora Madera in the outpatient setting upon discharge. Patient is to continue with oral Keflex and cream with close outpatient follow-up with infectious disease as scheduled. Total time taken is greater than 35 minutes. Hospital course This is a 77-year-old male who was recently admitted with concerns of bilateral lower extremity cellulitis with failure of outpatient treatment. Patient was recently hospitalized and discharged showing some improvement although patient reports the swelling and the redness became worse and the creams were not helping and came back for further evaluation. Patient was maintained on IV cefazolin and cultures were negative with infectious disease following. Patient is on clinical improvement and will increase as well as oral Keflex with close outpatient follow-up with infectious disease. Patient has been cleared by consultations for discharge. Please refer to consultation note for further HPI. Instructed to follow-up with repeat labs in the next few days to monitor kidney functions. Patient does take Lasix chronically with history of renal disease. Patient also instructed to continue with nonadherent dressings and Jaya wrapping of lower extremities and elevating while at rest. Patient is noncompliant with skin care treatment as well as supportive care. Patient is high risk for readmission. Currently no reports of chest pain, shortness of breath, or palpitations. Patient is afebrile. No reports of nausea or vomiting and patient is tolerating diet. Patient will be discharged home today. Guarded prognosis and again high risk for readmissions given patient's noncompliance. Physical exam: Gen: This is a 77-year-old male who is awake, alert and oriented x 3, well- developed, elderly appearing, morbidly obese HEENT: Head is atraumatic, normocephalic. Pupils equal, round. Sclerae is anicteric. NECK: Supple. No JVD. No lymphadenopathy. No thyromegaly. LUNGS: Diminished breath sounds bilaterally otherwise clear to auscultation. No wheezes or rhonchi. No intercostal retractions. HEART: S1, S2 are muffled ABDOMEN: Soft. Obese bowel sounds are present. No masses. No tenderness. EXTREMITIES: No pedal edema. No calf tenderness. Bilateral lower extremity edema, although improved from admission with slight redness and sloughing of some skin areas NEUROLOGICAL: Patient is awake, alert and oriented x3. Cranial nerves 2 through 12 are grossly intact. Please refer to medication reconciliation sheet for a list of medications. The impression and plan of care has been dictated by Nellie Workman, Nurse Practitioner as directed. Dr. Ethan MD I have performed a history and examination and MDM of this patient, discussed the same with the dictator, and agree with the dictator's assessment and plan as written ,documented as a scribe. Based on total visit time, I have performed more than 50% of the visit. Patient Condition at Discharge: Good Plan - Discharge Summary Discharge Rx Participant: Yes New Discharge Prescriptions: New Ibuprofen [Motrin] 400 mg PO Q6HR PRN #30 tab PRN Reason: Mild Pain Or Fever > 100.5 Cephalexin [Keflex] 500 mg PO Q8HR 10 Days #30 cap Triamcinolone 0.1% Cream [Kenalog 0.1% Cream] 1 applic TOPICAL BID 10 Days #1 each Continue PARoxetine [Paxil] 20 mg PO DAILY Aspirin [Adult Low Dose Aspirin EC] 81 mg PO DAILY Nitroglycerin Sl Tabs [Nitrostat] 0.4 mg SUBLINGUAL Q5M PRN #25 tab PRN Reason: Chest Pain Rosuvastatin [Crestor] 20 mg PO DAILY Tamsulosin [Flomax] 0.4 mg PO BID Pantoprazole [Protonix] 40 mg PO DAILY Metoprolol Tartrate [Lopressor] 50 mg PO TID Albuterol Inhaler [Ventolin Hfa Inhaler] 2 puff INHALATION RT-Q6H PRN PRN Reason: Shortness Of Breath Clopidogrel [Plavix] 75 mg PO DAILY Spironolactone [Aldactone] 25 mg PO HS Furosemide [Lasix] 40 mg PO BID #0 Nystatin 100,000Unit/gm Cream [Mycostatin Cream] 1 applic TOPICAL DAILY #30 gm Losartan Potassium 50 mg PO DAILY Pyridoxine HCl (Vitamin B6) [Vitamin B-6] 100 mg PO DAILY Acetaminophen Tab [Tylenol] 650 mg PO Q6HR PRN tab PRN Reason: Fever And/ Or Pain diphenhydrAMINE [Benadryl] 25 mg PO TID PRN #15 capsule PRN Reason: Itching prednisoLONE ACETATE 1% OPHTH [Pred Forte 1%] 1 drop LEFT EYE DAILY Brimonidine Tartrate [Alphagan P 0.2% Ophth Soln] 1 drop LEFT EYE DAILY Discharge Medication List Aspirin [Adult Low Dose Aspirin EC] 81 mg PO DAILY 06/16/18 [History] PARoxetine [Paxil] 20 mg PO DAILY 06/16/18 [History] Nitroglycerin Sl Tabs [Nitrostat] 0.4 mg SUBLINGUAL Q5M PRN #25 tab 06/20/18 [Rx] Rosuvastatin [Crestor] 20 mg PO DAILY 11/18/21 [History] Pantoprazole [Protonix] 40 mg PO DAILY 03/09/22 [History] Tamsulosin [Flomax] 0.4 mg PO BID 03/09/22 [History] Albuterol Inhaler [Ventolin Hfa Inhaler] 2 puff INHALATION RT-Q6H PRN 08/10/22 [History] Losartan Potassium 50 mg PO DAILY 08/10/22 [History] Metoprolol Tartrate [Lopressor] 50 mg PO TID 08/10/22 [History] Clopidogrel [Plavix] 75 mg PO DAILY 06/29/23 [History] Spironolactone [Aldactone] 25 mg PO HS 06/29/23 [History] Pyridoxine HCl (Vitamin B6) [Vitamin B-6] 100 mg PO DAILY 10/10/23 [History] Acetaminophen Tab [Tylenol] 650 mg PO Q6HR PRN tab 10/14/23 [Rx] Furosemide [Lasix] 40 mg PO BID #0 10/14/23 [Rx] Nystatin 100,000Unit/gm Cream [Mycostatin Cream] 1 applic TOPICAL DAILY #30 gm 10/14/23 [Rx] diphenhydrAMINE [Benadryl] 25 mg PO TID PRN #15 capsule 10/14/23 [Rx] Brimonidine Tartrate [Alphagan P 0.2% Ophth Soln] 1 drop LEFT EYE DAILY 10/29/23 [History] prednisoLONE ACETATE 1% OPHTH [Pred Forte 1%] 1 drop LEFT EYE DAILY 10/29/23 [History] Cephalexin [Keflex] 500 mg PO Q8HR 10 Days #30 cap 10/31/23 [Rx] Ibuprofen [Motrin] 400 mg PO Q6HR PRN #30 tab 10/31/23 [Rx] Triamcinolone 0.1% Cream [Kenalog 0.1% Cream] 1 applic TOPICAL BID 10 Days #1 each 10/31/23 [Rx] Follow up Appointment(s)/Referral(s): [facility] [NON-STAFF] - As Needed Thony Cade MD [STAFF PHYSICIAN] - 11/14/23 3:15 pm Bora Madera MD [Primary Care Provider] - 11/03/23 2:15 pm Activity/Diet/Wound Care/Special Instructions: Activity limited until follow-up Follow-up with primary care provider on discharge Continue with Kenalog cream twice daily to lower extremities Continue with Jaya wraps and nonadherent gauze to any open areas prior to Jaya wrap from the toes up to the knees Elevate lower extremities while at rest Follow-up with infectious disease in 1 to 2 weeks Continue taking medications as prescribed Discharge Disposition: HOME WITH HOME HEALTH SERVICES
--- NOTE | 2023-11-07 08:59 | P.PN ---
Subjective Progress Note Date: 10/31/23 Principal diagnosis: Reason for follow-up is bilateral lower extremity cellulitis Patient is a 77-year-old male past medical history significant for coronary disease heart failure hypertension [place] osteoarthritis and lower extremity cellulitis presented to hospital with worsening swelling redness to bilateral lower extremity. On today's evaluation that is 10/31/2023,the patient remains to be afebrile, patient is breathing comfortably on room air, the patient denies chest pain shortness of breath and no significant cough, patient denies abdominal pain, no nausea vomiting or diarrhea. Patient bilateral lower extremity swelling redness has decreased in intensity pain has decreased and no drainage feeling better wants to go home. Patient did have white count of 4.76, creatinine 1.1 blood culture has been negative Objective - Vital Signs Vital signs: Vital Signs Temp 98.4 F 10/31/23 07:28 Pulse 62 10/31/23 07:28 Resp 16 10/31/23 07:28 BP 106/68 10/31/23 07:28 Pulse Ox 98 10/31/23 07:28 FiO2 Intake & Output 10/30/23 10/31/23 10/31/23 18:59 06:59 18:59 Other: # Voids 2 3 # Bowel Movements 1 - Exam Elderly male lying in bed in no distress Unlabored breathing clear to auscultation Abdominal soft no tenderness Bilateral extremity swelling redness has decreased Exam completed with the help of [employer] - Labs CBC & Chem 7: 10/31/23 05:25 10/31/23 05:25 Labs: Abnormal Lab Results - Last 24 Hours (Table) 10/30/23 10/30/23 Range/Units 06:21 06:21 RBC 3.50 L (4.40-5.60) X 10*6/uL Hgb 8.6 L (13.0-17.0) g/dL Hct 30.1 L (39.6-50.0) % MCH 24.6 L (27.0-32.0) pg MCHC 28.6 L (32.0-37.0) g/dL RDW 19.0 H (11.5-14.5) % Lymphocytes # 0.53 L (0.90-5.00) X 10*3/uL Eosinophils # 0.47 H (0.04-0.35) X 10*3/uL Anion Gap 13 H (4.00-12.00) mmol/L Microbiology - Last 24 Hours (Table) 10/28/23 11:52 Blood Culture - Preliminary Blood 10/28/23 12:35 Blood Culture - Preliminary Blood Assessment and Plan (1) Bilateral lower leg cellulitis Status: Acute Code(s): L03.116 - CELLULITIS OF LEFT LOWER LIMB; L03.115 - CELLULITIS OF RIGHT LOWER LIMB SNOMED Code(s): 824880936 Plan: This is a telehealth visit 1patient presented to hospital with bilateral lower extremity swelling or redness and some clear drainage at this patient noted to have a feature of venous stasis dermatitis with concern for possible secondary cellulitis likely from gram-positive skin eboni 2-patient to continue with Mycolog cream to bilateral lower extremity followed by Jaya wrap for compression patient 3-patient has shown clinical improvement as well as lower extremity cellulitis plan is to finish therapy with oral Keflex x 7 days on discharge discussed with the [employer]CH[employer] for admitting team Dictation was produced using [employer] dictation software. please excuse any grammatical, word or spelling errors. Time with Patient: Less than 30
== END 2023-10-31 17:27 | disposition home health service (06) | DRG 603 ==
LOC: EC 11:06 → 5NMEDONC 14:37
PROVIDERS: ADMIT Hospitalist; ATTEND Hospitalist
DX: L03.116 Cellulitis of left lower limb (principal); R78.81 Bacteremia; L97.919 Non-pressure chronic ulcer of unspecified part of right lower leg with unspecified severity; L97.929 Non-pressure chronic ulcer of unspecified part of left lower leg with unspecified severity; L03.115 Cellulitis of right lower limb; I50.9 Heart failure, unspecified; I11.0 Hypertensive heart disease with heart failure; Z79.899 Other long term (current) drug therapy; N40.0 Benign prostatic hyperplasia without lower urinary tract symptoms; I87.2 Venous insufficiency (chronic) (peripheral); E78.5 Hyperlipidemia, unspecified; D50.9 Iron deficiency anemia, unspecified; B95.61 Methicillin susceptible Staphylococcus aureus infection as the cause of diseases classified elsewhere; E66.9 Obesity, unspecified; I25.2 Old myocardial infarction; I25.10 Atherosclerotic heart disease of native coronary artery without angina pectoris; Z79.82 Long term (current) use of aspirin; Z66 Do not resuscitate; Z79.02 Long term (current) use of antithrombotics/antiplatelets; Z86.73 Personal history of transient ischemic attack (TIA), and cerebral infarction without residual deficits; M19.90 Unspecified osteoarthritis, unspecified site; Z87.891 Personal history of nicotine dependence
CPT/HCPCS: 36415; 80048; 80053; 83605; 85025; 87040; 94640; 96361; 96365; 99285

== ENCOUNTER 2024-09-28 11:31 | Emergency (ER) | payer MEDICARE ==
[2024-09-28 11:56] VITALS: RESP 18; TEMP 97.7
[2024-09-28 13:18] LABS: Basophils # (A) 0.04 10*3/uL (0.00-0.10); Basophils % (A) 0.5 %; Eosinophils # (A) 0.29 10*3/uL (0.04-0.35); Eosinophils % (A) 3.3 %; HCT 27.7 % (39.6-50.0); HGB 8.5 g/dL (13.0-17.0); Lymphocytes # (A) 0.51 10*3/uL (0.90-5.00); Lymphocytes % (A) 5.8 %; MCH 24.4 pg (27.0-32.0); MCHC 30.7 g/dL (32.0-37.0); MCV 79.6 fL (80.0-97.0); Mean Platelet Volume 9.6 fL (9.5-12.2); Monocytes # (A) 1.04 10*3/uL (0.20-1.00); Monocytes % (A) 11.8 %; Neutrophils # (A) 6.95 10*3/uL (1.80-7.70); Neutrophils % (A) 78.4 %; Platelet Count 238 10*3/uL (140-440); RBC 3.48 10*6/uL (4.40-5.60); RDW 17.6 % (11.5-14.5); WBC 8.85 10*3/uL (4.50-10.00)
[2024-09-28] MEDS: KETOROLAC 15 MG/ML 1 ML VIAL IVP STA (13:24)
[2024-09-28] MEDS: PANTOPRAZOLE 40 MG/10 ML VIAL IVP STA (13:26)
[2024-09-28] MEDS: SODIUM CHLORIDE 0.9% 1,000 ML IV STA (13:27)
[2024-09-28 13:30] LABS: ALT 16 U/L (4-49); AST 26 U/L (17-59); African American GFR (CKD) 39 (>60 ml/min/1.73 sqM); Albumin 4.1 g/dL (3.5-5.0); Alkaline Phosphatase 67 U/L (38-126); Amylase 52 U/L (30-110); Anion Gap 11 mmol/L; Blood Urea Nitrogen 45 mg/dL (9-20); Calcium 9.2 mg/dL (8.4-10.2); Carbon Dioxide 24 mmol/L (22-30); Chloride 97 mmol/L (98-107); Glucose 107 mg/dL (74-99); Lipase 163 U/L (23-300); Non-African American GFR(CKD) 34 (>60 ml/min/1.73 sqM); Potassium 4.4 mmol/L (3.5-5.1); Sodium 132 mmol/L (137-145); Total Bilirubin 0.6 mg/dL (0.2-1.3); Total Protein 7.8 g/dL (6.3-8.2)
[2024-09-28] MEDS: SODIUM CHLORIDE 0.9% 1,000 ML IV ONE (13:31)
[2024-09-28 13:34] LABS: RBC,Urine >182 /hpf (0-5); Squamous Epithelial Cell,Urine 24 /hpf (0-4); WBC,Urine >182 /hpf (0-5)
[2024-09-28 13:37] LABS: Appearance,Urine Bloody (Clear); Color,Urine Dark Red
[2024-09-28 13:39] LABS: Partial Thromboplastin Time 22.8 sec (22.0-30.0); Prothrombin Time 10.7 sec (10.0-12.5)
--- NOTE | 2024-09-28 14:20 | CT ---
EXAMINATION TYPE: CT abdomen pelvis wo con DATE OF EXAM: 09/28/2024 2:09 PM COMPARISON: None. CLINICAL INDICATION: Male, 78 years old with history of right flank pain, urinary retention, Right fl ank pain with hematuria, urinary retention TECHNIQUE: Axial images were obtained from above the diaphragm to the pubic rami in the axial plane a t 5 mm thick sections. Reconstructed images are reviewed on the computer in the coronal plane. CONTRAST: mL of . Study performed without Oral Contrast DLP: 1863 mGycm, Automated exposure control for dose reduction was used. FINDINGS: Limited CT sections are obtained the lung bases. The lung bases are clear. CT ABDOMEN: Liver: Normal Spleen: Normal Pancreas: Normal Adrenal glands: The adrenal glands are normal. Gallbladder: Normal Kidneys: No masses are evident. No hydronephrosis is present. Complex cysts measuring 4.4 x 3.6 cm with wall calcification are present in the superior pole posterior lateral right kidney . No renal s tones are identified Aorta: Vascular calcification is within the aorta. Inferior vena cava: Normal. CT PELVIS: Loops of bowel within the abdomen and pelvis are normal. There are loops of bowel which are incom pletely distended or lack oral contrast limiting their evaluation. Appendix: Normal as visualized. Urinary bladder: Decompressed with a German catheter. Some wall thickening is not excluded. Genitourinary structures: Prostate contains calcification. Osseous structures: No suspicious lytic or sclerotic lesions. IMPRESSION: 1. Urinary bladder decompressed. Wall thickening cannot be excluded. 2. Complex right renal cyst with wall calcification [facility], , 09/28/2024 2:17 PM
--- NOTE | 2024-09-28 15:18 | ED ---
General Adult HPI - General Chief complaint: Dizziness Stated complaint: Urogenital issues Time Seen by Provider: 09/28/24 12:25 Source: patient, RN notes reviewed, old records reviewed Mode of arrival: ambulatory Limitations: no limitations - History of Present Illness Initial comments: Patient is a 78-year-old male presents emergency department lightheadedness and urinary retention. Has hematuria as well. Denies any nausea, vomiting, héctor rrhea, abdominal pain, chest pain, shortness of breath. Has a history of heart failure. Presents for further evaluation at this time. He has not required a German catheter placed in the past. States he has not been able to be since last night.Endorses lightheadedness with standing. No dizziness. No vertigo symptoms. - Related Data Home Medications Medication Instructions Recorded Confirmed Aspirin [Adult Low Dose Aspirin EC] 81 mg PO DAILY 06/16/18 10/28/23 PARoxetine [Paxil] 20 mg PO DAILY 06/16/18 10/28/23 Rosuvastatin [Crestor] 20 mg PO DAILY 11/18/21 10/28/23 Pantoprazole [Protonix] 40 mg PO DAILY 03/09/22 10/28/23 Tamsulosin [Flomax] 0.4 mg PO BID 03/09/22 10/28/23 Albuterol Inhaler [Ventolin Hfa 2 puff INHALATION RT-Q6H PRN 08/10/22 10/28/23 Inhaler] Losartan Potassium 50 mg PO DAILY 08/10/22 10/28/23 Metoprolol Tartrate [Lopressor] 50 mg PO TID 08/10/22 10/28/23 Clopidogrel [Plavix] 75 mg PO DAILY 06/29/23 10/28/23 Spironolactone [Aldactone] 25 mg PO HS 06/29/23 10/28/23 Pyridoxine HCl (Vitamin B6) 100 mg PO DAILY 10/10/23 10/28/23 [Vitamin B-6] Brimonidine Tartrate [Alphagan P 1 drop LEFT EYE DAILY 10/29/23 10/29/23 0.2% Ophth Soln] prednisoLONE ACETATE 1% OPHTH 1 drop LEFT EYE DAILY 10/29/23 10/29/23 [Pred Forte 1%] Previous Rx's Medication Instructions Recorded Nitroglycerin Sl Tabs [Nitrostat] 0.4 mg SUBLINGUAL Q5M PRN #25 tab 06/20/18 Acetaminophen Tab [Tylenol] 650 mg PO Q6HR PRN tab 10/14/23 Furosemide [Lasix] 40 mg PO BID #0 10/14/23 Nystatin 100,000Unit/gm Cream 1 applic TOPICAL DAILY #30 gm 10/14/23 [Mycostatin Cream] diphenhydrAMINE [Benadryl] 25 mg PO TID PRN #15 capsule 10/14/23 Cephalexin [Keflex] 500 mg PO Q8HR 10 Days #30 cap 10/31/23 Ibuprofen [Motrin] 400 mg PO Q6HR PRN #30 tab 10/31/23 Triamcinolone 0.1% Cream [Kenalog 1 applic TOPICAL BID 10 Days #1 10/31/23 0.1% Cream] each Ciprofloxacin HCl [Cipro] 500 mg PO Q12HR 10 Days #20 tab 09/28/24 Allergies Allergy/AdvReac Type Severity Reaction Status Date / Time No Known Allergies Allergy Verified 09/28/24 11:56 Review of Systems ROS Statement: Those systems with pertinent positive or pertinent negative responses have been documented in the HPI. Review of Systems: CONST: Denies fever EYES: Denies blurry vision ENT: Denies nasal congestion C/V: Denies Chest pain RESP: Denies shortness of breath GI: Denies abdominal pain : Endorses urinary retention SKIN: Denies rash. MSK: Denies joint pain. NEURO: Denies headache ROS Other: All systems not noted in ROS Statement are negative. Past Medical History Past Medical History: Coronary Artery Disease (CAD), Heart Failure, CVA/TIA, Hypertension, Myocardial Infarction ([place]), Osteoarthritis ([place]) Additional Past Medical History / Comment(s): TIA - no residual effects, c/o fatigue,see dr Beckett's H & P Last Myocardial Infarction Date:: unknown History of Any Multi-Drug Resistant Organisms: None Reported Past Surgical History: AICD, Heart Catheterization With Stent Additional Past Surgical History / Comment(s): spinal steroid injections, aicd placed Past Anesthesia/Blood Transfusion Reactions: No Reported Reaction Date of Last Stent Placement:: unknown Type of Cardiac Device: AICD Device Placement Date:: feb 2022 Past Psychological History: No Psychological Hx Reported Smoking Status: Former smoker Past Alcohol Use History: Daily Past Drug Use History: None Reported - Past Family History Sister(s) Family Medical History: Cancer General Exam - General Exam Comments Initial Comments: General: Appears in no acute distress. HEAD: Normal with no signs of head trauma. EYES: PERRLA, EOMI, conjunctiva normal, no discharge. ENT: Hearing grossly intact, normal oropharynx. RESPIRATORY: Clear breath sounds bilaterally. No wheezes, rales, or rhonchi. C/V: Regular rate and rhythm. S1 and S2 auscultated, no edema, peripheral pulses 2+ and intact throughout ABD: Abd is soft, nontender,. Suprapubic abdominal distention. EXT: Normal range of motion, no obvious deformity SKIN: No rashes or lesions observed on exposed skin. NEURO: Alert and oriented x 4. No focal deficits. Limitations: no limitations Course Vital Signs 09/28/24 09/28/24 09/28/24 11:51 13:30 14:53 Temperature 97.7 F Pulse Rate 70 77 Respiratory 18 18 Rate Blood Pressure 96/49 98/54 Blood Pressure 115/70 [Sitting] Blood Pressure 108/76 [Standing] Blood Pressure 109/57 [Supine] O2 Sat by Pulse 94 L 96 Oximetry Medical Decision Making - Medical Decision Making Was pt. sent in by a medical professional or institution (, PA, LIQUEFACTION PLANT OPERATOR, urgent care, hospital, or alf...) When possible be specific @ -No Did you speak to anyone other than the patient for history (EMS, parent, family, police, friend...)? What history was obtained from this source @ -No Did you review nursing and triage notes (agree or disagree)? Why? @ -I reviewed and agree with nursing and triage notes Were old charts reviewed (outside hosp., previous admission, EMS record, old EKG, old radiological studies, urgent care reports/EKG's, alf records)? Report findings @ -No old charts were reviewed Differential Diagnosis (chest pain, altered mental status, abdominal pain women, abdominal pain men, vaginal bleeding, weakness, fever, dyspnea, syncope, headache, dizziness, GI bleed, back pain, seizure, CVA, palpatations, mental health, musculoskeletal)? @ -Urinary retention, kidney stone, UTI. This list is not all inclusive. EKG interpreted by me (3pts min.). @ -As above X-rays interpreted by me (1pt min.). @ -None done CT interpreted by me (1pt min.). @ -CT abdomen pelvis reveals no obvious acute intra-abdominal process. Right renal cyst is present. U/S interpreted by me (1pt. min.). @ -None done What testing was considered but not performed or refused? (CT, X-rays, U/S, labs)? Why? @ -None What meds were considered but not given or refused? Why? @ -None Did you discuss the management of the patient with other professionals (professionals i.e. , PA, LIQUEFACTION PLANT OPERATOR, lab, RT, psych nurse, nursing home social worker, lapping machine tender, teacher, deputy probation officer, pillowcase sewer)? Give summary @ -No Was smoking cessation discussed for >3mins.? @ -No Was critical care preformed (if so, how long)? @ -No Were there social determinants of health that impacted care today? How? (Homelessness, low income, unemployed, alcoholism, drug addiction, transportation, low edu. Level, literacy, decrease access to med. care, group home, rehab)? @ -No Was there de-escalation of care discussed even if they declined (Discuss DNR or withdrawal of care, Hospice)? DNR status @ -No What co-morbidities impacted this encounter? (DM, HTN, Smoking, COPD, CAD, Cancer, CVA, ARF, Chemo, Hep., AIDS, mental health diagnosis, sleep apnea, morbid obesity)? @ -None Was patient admitted / discharged? Hospital course, mention meds given and route, prescriptions, significant lab abnormalities, going to OR and other pe rtinent info. @ -Patient presents with urinary retention. Was retaining 500 cc of urine. German catheter was placed. Clot was discharge and some mild hematuria was present. Feels improved after this. Lightheadedness resolved. Orthostatics showed no evidence of orthostatic hypotension. Will obtain basic labs as well as CT abdomen pelvis. Patient was in agreement this plan. Vital signs within acceptable limits. EKG unremarkable. Imaging unremarkable. Labs remarkable for chronic anemia which is stable, as well as a slightly elevated BUN and creatinine likely secondary to obstructive uropathy. Patient was given some IV fluids here in the department however closely monitored as he does have a history of CHF. Urinalysis shows a lot of blood and white cells. I discussed results with patient. He is feeling improved. We will discharge him home with a leg bag and German catheter in place instructions follow-up with urology. He was placed on ciprofloxacin. Patient was in agreement this plan. I will provide the patient with a prescription for ciprofloxacin. I instructed the patient to follow up with their PCP in the next 1-3 days. I provided contact information for follow up with urology. I explained that the patient should return to the emergency department if they experience any worsening symptoms. Strict return precautions were discussed with the patient. The patient expressed understanding of these instructions. I answered all questions that the patient had. The patient was discharged home in good condition with their prescriptions and follow up information. Undiagnosed new problem with uncertain prognosis? @ -No Drug Therapy requiring intensive monitoring for toxicity (Heparin, Nitro, Insulin, Cardizem)? @ -No Were any procedures done? @ -No Diagnosis/symptom? @ -Urinary retention requiring German catheter placement Acute, or Chronic, or Acute on Chronic? @ -Acute Uncomplicated (without systemic symptoms) or Complicated (systemic symptoms)? @ -Uncomplicated Side effects of treatment? @ -No Exacerbation, Progression, or Severe Exacerbation? @ -No Poses a threat to life or bodily function? How? (Chest pain, [place], [place], pneumonia, PE, COPD, DKA, ARF, appy, cholecystitis, CVA, Diverticulitis, Homicidal, Suicidal, threat to staff... and all critical care pts) @ -Unlikely at this time - Lab Data Result diagrams: 09/28/24 13:13 09/28/24 13:13 Lab Results 09/28/24 09/28/24 09/28/24 Range/Units 13:02 13:13 13:13 WBC 8.85 (4.50-10.00) 10*3/uL RBC 3.48 L (4.40-5.60) 10*6/uL Hgb 8.5 L (13.0-17.0) g/dL Hct 27.7 L (39.6-50.0) % MCV 79.6 L (80.0-97.0) fL MCH 24.4 L (27.0-32.0) pg MCHC 30.7 L (32.0-37.0) g/dL Plt Count 238 (140-440) 10*3/uL MPV 9.6 (9.5-12.2) fL Immature Gran % (Auto) 0.2 % Neutrophils % 78.4 % Lymphocytes % 5.8 % Monocytes % 11.8 % Eosinophils % 3.3 % Basophils % 0.5 % Immature Gran # 0.02 (0.00-0.04) 10*3/uL Neutrophils # 6.95 (1.80-7.70) 10*3/uL Lymphocytes # 0.51 L (0.90-5.00) 10*3/uL Monocytes # 1.04 H (0.20-1.00) 10*3/uL Eosinophils # 0.29 (0.04-0.35) 10*3/uL Basophils # 0.04 (0.00-0.10) 10*3/uL PT 10.7 (10.0-12.5) sec INR 1.0 (<1.2) APTT 22.8 (22.0-30.0) sec Sodium (137-145) mmol/L Potassium (3.5-5.1) mmol/L Chloride (98-107) mmol/L Carbon Dioxide (22-30) mmol/L Anion Gap mmol/L BUN (9-20) mg/dL Creatinine (0.66-1.25) mg/dL Est GFR (CKD-EPI)AfAm (>60 ml/min/1.73 sqM) Est GFR (CKD-EPI)NonAf (>60 ml/min/1.73 sqM) Glucose (74-99) mg/dL Plasma Lactic Acid Casa (0.7-2.0) mmol/L Calcium (8.4-10.2) mg/dL Total Bilirubin (0.2-1.3) mg/dL AST (17-59) U/L ALT (4-49) U/L Alkaline Phosphatase (38-126) U/L Total Protein (6.3-8.2) g/dL Albumin (3.5-5.0) g/dL Amylase (30-110) U/L Lipase (23-300) U/L Urine Color Dark Red Urine Appearance Bloody (Clear) Urine RBC >182 H (0-5) /hpf Urine WBC >182 H (0-5) /hpf Urine WBC Clumps Many H (None) /hpf Ur Squamous Epith Cells 24 H (0-4) /hpf 09/28/24 09/28/24 Range/Units 13:13 13:13 WBC (4.50-10.00) 10*3/uL RBC (4.40-5.60) 10*6/uL Hgb (13.0-17.0) g/dL Hct (39.6-50.0) % MCV (80.0-97.0) fL MCH (27.0-32.0) pg MCHC (32.0-37.0) g/dL Plt Count (140-440) 10*3/uL MPV (9.5-12.2) fL Immature Gran % (Auto) % Neutrophils % % Lymphocytes % % Monocytes % % Eosinophils % % Basophils % % Immature Gran # (0.00-0.04) 10*3/uL Neutrophils # (1.80-7.70) 10*3/uL Lymphocytes # (0.90-5.00) 10*3/uL Monocytes # (0.20-1.00) 10*3/uL Eosinophils # (0.04-0.35) 10*3/uL Basophils # (0.00-0.10) 10*3/uL PT (10.0-12.5) sec INR (<1.2) APTT (22.0-30.0) sec Sodium 132 L (137-145) mmol/L Potassium 4.4 (3.5-5.1) mmol/L Chloride 97 L (98-107) mmol/L Carbon Dioxide 24 (22-30) mmol/L Anion Gap 11 mmol/L BUN 45 H (9-20) mg/dL Creatinine 1.87 H (0.66-1.25) mg/dL Est GFR (CKD-EPI)AfAm 39 (>60 ml/min/1.73 sqM) Est GFR (CKD-EPI)NonAf 34 (>60 ml/min/1.73 sqM) Glucose 107 H (74-99) mg/dL Plasma Lactic Acid Casa 1.4 (0.7-2.0) mmol/L Calcium 9.2 (8.4-10.2) mg/dL Total Bilirubin 0.6 (0.2-1.3) mg/dL AST 26 (17-59) U/L ALT 16 (4-49) U/L Alkaline Phosphatase 67 (38-126) U/L Total Protein 7.8 (6.3-8.2) g/dL Albumin 4.1 (3.5-5.0) g/dL Amylase 52 (30-110) U/L Lipase 163 (23-300) U/L Urine Color Urine Appearance (Clear) Urine RBC (0-5) /hpf Urine WBC (0-5) /hpf Urine WBC Clumps (None) /hpf Ur Squamous Epith Cells (0-4) /hpf - EKG Data -: EKG Interpreted by Me EKG Comments: 12-lead Electrocardiogram Interpretation Note EKG was reviewed and interpreted by myself. 12-lead ECG performed at 1339 is interpreted by me as revealing normal sinus rhythm at a rate of 78 beats per minute. [place] is normal. [place] interval is 197 ms, QRS duration is 160 ms, QTc is 439 ms.. There were no ST or T wave abnormalities to suggest myocardial ischemia or injury. R wave progression across the precordium was satisfactory. By my interpretation this EKG is non-diagnostic for acute ischemia. Disposition Clinical Impression: Urinary retention, German catheter in place Disposition: HOME SELF-CARE Condition: Good Instructions (If sedation given, give patient instructions): German Catheter Placement and Care (ED), Urinary Retention in Men (ED) Prescriptions: Ciprofloxacin HCl [Cipro] 500 mg PO Q12HR 10 Days #20 tab Is patient prescribed a controlled substance at d/c from ED?: No Referrals: Bora Madera MD [Primary Care Provider] - 1-2 days Gary Mcmahon MD [STAFF PHYSICIAN] - 1-2 days Time of Disposition: 15:15
[2024-09-28] MEDS: CIPROFLOXACIN HCL 500 MG TAB PO STA (15:40)
[2024-09-28 16:20] VITALS: BP 112/54; PULSE 70
== END 2024-09-28 16:19 | disposition home or self-care (01) ==
LOC: EC 11:31
DX: R33.9 Retention of urine, unspecified (principal); T83.098A Other mechanical complication of other urinary catheter, initial encounter; Z87.891 Personal history of nicotine dependence
CPT/HCPCS: 36415; 93005; 80053; 82150; 83605; 83690; 85025; 85610; 85730; 81001; 87086; 74176; 99284; 96374; 96375; 51702; 51798; J1885; J2470

== ENCOUNTER 2024-10-06 13:23 | Emergency (ER) | payer MEDICARE ==
[2024-10-06 13:31] VITALS: PULSE 68
--- NOTE | 2024-10-06 13:47 | ED ---
Male Urogenital HPI - General Chief complaint: Urogenital Stated complaint: cath issues Time Seen by Provider: 10/06/24 13:33 Source: patient, RN notes reviewed Mode of arrival: wheelchair Limitations: no limitations - History of Present Illness Initial comments: 78-year-old male presenting to the emergency department for complaints of German catheter malfunction. Patient states that a German catheter placed a week ago for urinary retention and hematuria and has not followed up yet with urologist. He states that yesterday morning he realized that the catheter has not been draining as well. He denies suprapubic or abdominal pain, nausea, vomiting. Patient is currently on antibiotic for UTI however is unaware what this medication is. - Related Data Home Medications Medication Instructions Recorded Confirmed Aspirin [Adult Low Dose Aspirin EC] 81 mg PO DAILY 06/16/18 10/28/23 PARoxetine [Paxil] 20 mg PO DAILY 06/16/18 10/28/23 Rosuvastatin [Crestor] 20 mg PO DAILY 11/18/21 10/28/23 Pantoprazole [Protonix] 40 mg PO DAILY 03/09/22 10/28/23 Tamsulosin [Flomax] 0.4 mg PO BID 03/09/22 10/28/23 Albuterol Inhaler [Ventolin Hfa 2 puff INHALATION RT-Q6H PRN 08/10/22 10/28/23 Inhaler] Losartan Potassium 50 mg PO DAILY 08/10/22 10/28/23 Metoprolol Tartrate [Lopressor] 50 mg PO TID 08/10/22 10/28/23 Clopidogrel [Plavix] 75 mg PO DAILY 06/29/23 10/28/23 Spironolactone [Aldactone] 25 mg PO HS 06/29/23 10/28/23 Pyridoxine HCl (Vitamin B6) 100 mg PO DAILY 10/10/23 10/28/23 [Vitamin B-6] Brimonidine Tartrate [Alphagan P 1 drop LEFT EYE DAILY 10/29/23 10/29/23 0.2% Ophth Soln] prednisoLONE ACETATE 1% OPHTH 1 drop LEFT EYE DAILY 10/29/23 10/29/23 [Pred Forte 1%] Previous Rx's Medication Instructions Recorded Nitroglycerin Sl Tabs [Nitrostat] 0.4 mg SUBLINGUAL Q5M PRN #25 tab 06/20/18 Acetaminophen Tab [Tylenol] 650 mg PO Q6HR PRN tab 10/14/23 Furosemide [Lasix] 40 mg PO BID #0 10/14/23 Nystatin 100,000Unit/gm Cream 1 applic TOPICAL DAILY #30 gm 10/14/23 [Mycostatin Cream] diphenhydrAMINE [Benadryl] 25 mg PO TID PRN #15 capsule 10/14/23 Cephalexin [Keflex] 500 mg PO Q8HR 10 Days #30 cap 10/31/23 Ibuprofen [Motrin] 400 mg PO Q6HR PRN #30 tab 10/31/23 Triamcinolone 0.1% Cream [Kenalog 1 applic TOPICAL BID 10 Days #1 10/31/23 0.1% Cream] each Ciprofloxacin HCl [Cipro] 500 mg PO Q12HR 10 Days #20 tab 09/28/24 Allergies Allergy/AdvReac Type Severity Reaction Status Date / Time No Known Allergies Allergy Verified 09/28/24 11:56 Review of Systems ROS Statement: Those systems with pertinent positive or pertinent negative responses have been documented in the HPI. ROS Other: All systems not noted in ROS Statement are negative. Past Medical History Past Medical History: Coronary Artery Disease (CAD), Heart Failure, CVA/TIA, Hypertension, Myocardial Infarction ([place]), Osteoarthritis ([place]) Additional Past Medical History / Comment(s): TIA - no residual effects, c/o fatigue,see dr Beckett's H & P Last Myocardial Infarction Date:: unknown History of Any Multi-Drug Resistant Organisms: None Reported Past Surgical History: AICD, Heart Catheterization With Stent Additional Past Surgical History / Comment(s): spinal steroid injections, aicd placed Past Anesthesia/Blood Transfusion Reactions: No Reported Reaction Date of Last Stent Placement:: unknown Type of Cardiac Device: AICD Device Placement Date:: feb 2022 Past Psychological History: No Psychological Hx Reported Smoking Status: Former smoker Past Alcohol Use History: Daily Past Drug Use History: None Reported - Past Family History Sister(s) Family Medical History: Cancer General Exam Limitations: no limitations General appearance: alert, in no apparent distress Neck exam: Present: normal inspection. Absent: tenderness, meningismus, lymphadenopathy Respiratory exam: Present: normal lung sounds bilaterally. Absent: respiratory distress, wheezes, rales, rhonchi, stridor Cardiovascular Exam: Present: regular rate, normal rhythm, normal heart sounds. Absent: systolic murmur, diastolic murmur, rubs, gallop, clicks GI/Abdominal exam: Present: soft, normal bowel sounds. Absent: distended, tenderness, guarding, rebound, rigid Extremities exam: Present: normal inspection, full ROM, normal capillary refill. Absent: tenderness, pedal edema, joint swelling, calf tenderness Back exam: Present: normal inspection. Absent: CVA tenderness (R), CVA tenderness (L) Course Vital Signs 10/06/24 10/06/24 13:27 14:23 Temperature 98.3 F 98.1 F Pulse Rate 68 68 Respiratory 16 18 Rate Blood Pressure 93/56 100/62 O2 Sat by Pulse 96 97 Oximetry Medical Decision Making - Medical Decision Making Was pt. sent in by a medical professional or institution (, PA, DITCH CLEANER, urgent care, hospital, or [facility]...) When possible be specific @ -No Did you speak to anyone other than the patient for history (EMS, parent, family, police, friend...)? What history was obtained from this source @ -No Did you review nursing and triage notes (agree or disagree)? Why? @ -I reviewed and agree with nursing and triage notes Were old charts reviewed (outside hosp., previous admission, EMS record, old EKG, old radiological studies, urgent care reports/EKG's, [facility] records)? Report findings @ -I reviewed patient's ER visit note from 09/28/2024 where he presented with complaints of lightheadedness and urinary retention. CT imaging reveals no acute intra-abdominal process with a incidental right renal cyst. Patient was discharged with leg bag and German catheter in place and started on Cipro. Differential Diagnosis (chest pain, altered mental status, abdominal pain women, abdominal pain men, vaginal bleeding, weakness, fever, dyspnea, syncope, headache, dizziness, GI bleed, back pain, seizure, CVA, palpatations, mental health, musculoskeletal)? @ -Urinary catheter obstruction, German catheter blockage, urinary tract infection, thus this is not all-inclusive EKG interpreted by me (3pts min.). @ -none X-rays interpreted by me (1pt min.). @ -None done CT interpreted by me (1pt min.). @ -None done U/S interpreted by me (1pt. min.). @ -None done What testing was considered but not performed or refused? (CT, X-rays, U/S, labs)? Why? @ -None What meds were considered but not given or refused? Why? @ -None Did you discuss the management of the patient with other professionals (professionals i.e. , PA, DITCH CLEANER, lab, RT, psych nurse, social science professor, tripe scraper, teacher, dispatch officer, ed case manager)? Give summary @ -No Was smoking cessation discussed for >3mins.? @ -No Was critical care preformed (if so, how long)? @ -No Were there social determinants of health that impacted care today? How? (Homelessness, low income, unemployed, alcoholism, drug addiction, transportation, low edu. Level, literacy, decrease access to med. care, [facility], rehab)? @ -No Was there de-escalation of care discussed even if they declined (Discuss DNR or withdrawal of care, Hospice)? DNR status @ -No What co-morbidities impacted this encounter? (DM, HTN, Smoking, COPD, CAD, Canc er, CVA, ARF, Chemo, Hep., AIDS, mental health diagnosis, sleep apnea, morbid obesity)? @ -None Was patient admitted / discharged? Hospital course, mention meds given and route, prescriptions, significant lab abnormalities, going to OR and other pertinent info. @ -Discharged. 78-year-old male presents emergency department with complaints of incomplete emptying of urinary German catheter. Overall patient is well- appearing. There is dark-colored urine with multiple clots within the German catheter bag. Nursing staff has successfully flushed catheter with appropriate drainage. Recommend that patient complete antibiotics as prescribed and is provided with additional follow-up with urology. Case discussed with Dr. Rausch Undiagnosed new problem with uncertain prognosis? @ -No Drug Therapy requiring intensive monitoring for toxicity (Heparin, Nitro, Insulin, Cardizem)? @ -No Were any procedures done? @ -No Diagnosis/symptom? @ -Encounter for malfunction of German catheter Acute, or Chronic, or Acute on Chronic? @ -Acute Uncomplicated (without systemic symptoms) or Complicated (systemic symptoms)? @ -Uncomplicated Side effects of treatment? @ -No Exacerbation, Progression, or Severe Exacerbation? @ -No Poses a threat to life or bodily function? How? (Chest pain, [place], [place], pneumonia, PE, COPD, DKA, ARF, appy, cholecystitis, CVA, Diverticulitis, Homicidal, Suicidal, threat to staff... and all critical care pts) @ -No Disposition Clinical Impression: German catheter problem Disposition: HOME SELF-CARE Condition: Stable Instructions (If sedation given, give patient instructions): German Catheter Placement and Care (ED) Additional Instructions: Please return to the Emergency Department if symptoms worsen or any other concerns. Please schedule follow-up appointment with urology in the next 1 to 3 days for Is patient prescribed a controlled substance at d/c from ED?: No Referrals: Bora Madera MD [Primary Care Provider] - 1-2 days Jude Garrison MD [STAFF PHYSICIAN] - 1-2 days Time of Disposition: 13:59
[2024-10-06 14:24] VITALS: BP 100/62; RESP 18; TEMP 98.1
== END 2024-10-06 14:38 | disposition home or self-care (01) ==
LOC: EC 13:23
DX: T83.091A Other mechanical complication of indwelling urethral catheter, initial encounter (principal); Z87.891 Personal history of nicotine dependence; X58.XXXA Exposure to other specified factors, initial encounter
CPT/HCPCS: 51702; 99283